=== PATIENT | male | born 1960 | race Caucasian/White ===

== ENCOUNTER 2021-03-01 07:42 | Outpatient (REF) | payer BC, SELFPAY ==
[2021-03-01 11:16] LABS: MANUAL DIFF FLAG NO
[2021-03-01 11:33] LABS: Basophils Percent Auto 0.6 % (0-2); Eosinophils Absolute Auto 0.2 X10*3/uL (0.0-0.4); Eosinophils Percent Auto 3.5 % (0-4); Hematocrit 49.3 % (42-52); Hemoglobin 16.4 g/dl (14.0-18.0); Lymphocytes Absolute Auto 2.2 X10*3/uL (1.2-4.9); Lymphocytes Percent Auto 41.7 % (20-40); Mean Corpuscular HGB Conc 33.3 g/dl (31.0-36.0); Mean Corpuscular Hemoglobin 31.8 pg (27.0-33.0); Mean Corpuscular Volume 95.7 fL (80-98); Mean Platelet Volume 10.9 fL (9.4-12.4); Monocytes Absolute Auto 0.5 X10*3/uL (0.1-1.2); Monocytes Percent Auto 9.8 % (2-11); Neutrophils Absolute Auto 2.3 X10*3/uL (2.0-8.3); Neutrophils Percent Auto 44.4 % (45-73); Platelet Count 180 X10*3/uL (160-400); Red Blood Count 5.15 X10*6/uL (4.60-5.80); Red Cell Distribution Width 12.5 % (11.0-16.0); White Blood Count 5.2 X10*3/uL (4.8-10.8)
[2021-03-01 12:04] LABS: Anion Gap 12 (12-20); Blood Urea Nitrogen 12 mg/dL (9-16); Calcium 9.5 mg/dL (8.4-10.2); Carbon Dioxide 29 mmol/L (22-29); Chloride 102 mmol/L (96-108); Cholesterol 156 mg/dL; Estimated Glomerular Filt Rate > 60; Glucose Fasting 98 mg/dL (60-99); HDL Cholesterol 50 mg/dL; LDL Cholesterol Calculated 85 mg/dl; Potassium 4.3 mmol/L (3.3-5.1); Sodium 139 mmol/L (135-145); Triglycerides 107 mg/dL
== END 2021-03-01 07:43 | disposition home or self-care (01) ==
LOC: HO.HMGCLDS 07:42
PROVIDERS: PCP Internal Medicine; Visit Provider Internal Medicine
DX: E78.9 Disorder of lipoprotein metabolism, unspecified (principal); F41.1 Generalized anxiety disorder; G47.9 Sleep disorder, unspecified; M62.830 Muscle spasm of back
CPT/HCPCS: 36415; 80048; 80061; 85025

== ENCOUNTER → 2021-05-14 14:52 | Outpatient (BNVA) | payer BC, SELFPAY | PROVIDERS: PCP Internal Medicine; Visit Provider Urology ==

== ENCOUNTER 2021-07-03 10:41 | Outpatient (REF) | payer BC, SELFPAY ==
[2021-07-03 15:37] LABS: Prostate Specific Antigen 1.45 ng/mL (<0.05-4.0)
== END 2021-07-03 10:42 | disposition home or self-care (01) ==
LOC: HO.HMGCLDS 10:41
PROVIDERS: PCP Internal Medicine; Visit Provider Urology
DX: N40.1 Benign prostatic hyperplasia with lower urinary tract symptoms (principal); N13.8 Other obstructive and reflux uropathy
CPT/HCPCS: 36415; 84153

== ENCOUNTER 2021-07-09 11:47 | Outpatient (REF) | payer BC, SELFPAY ==
[2021-07-09 13:58] LABS: MANUAL DIFF FLAG NO
[2021-07-09 14:02] LABS: Basophils Percent Auto 0.4 % (0-2); Eosinophils Absolute Auto 0.1 X10*3/uL (0.0-0.4); Hemoglobin 16.8 g/dl (14.0-18.0); Imm Gran Abs Auto 0.01 X10*3/uL (0.00-0.03); Imm Gran Pct Auto 0.2 % (0.0-0.4); Lymphocytes Absolute Auto 2.1 X10*3/uL (1.2-4.9); Lymphocytes Percent Auto 40.5 % (20-40); Mean Corpuscular HGB Conc 33.6 g/dl (31.0-36.0); Mean Corpuscular Hemoglobin 31.7 pg (27.0-33.0); Mean Corpuscular Volume 94.3 fL (80-98); Mean Platelet Volume 11.9 fL (9.4-12.4); Monocytes Absolute Auto 0.4 X10*3/uL (0.1-1.2); Monocytes Percent Auto 8.4 % (2-11); Neutrophils Absolute Auto 2.5 X10*3/uL (2.0-8.3); Neutrophils Percent Auto 48.5 % (45-73); Platelet Count 153 X10*3/uL (160-400); Red Cell Distribution Width 12.3 % (11.0-16.0); White Blood Count 5.1 X10*3/uL (4.8-10.8)
[2021-07-09 14:34] LABS: Alanine Aminotransferase 22 U/L (0-40); Albumin Level 4.6 g/dL (3.5-5.0); Alkaline Phosphatase 85 U/L (39-117); Anion Gap 12 (12-20); Aspartate Amino Transferase 23 U/L (5-37); Bilirubin Total 0.7 mg/dL (0.0-1.0); Blood Urea Nitrogen 11 mg/dL (9-16); Calcium 9.8 mg/dL (8.4-10.2); Carbon Dioxide 29 mmol/L (22-29); Chloride 104 mmol/L (96-108); Estimated Glomerular Filt Rate > 60; Glucose Random 84 mg/dL (60-115); Potassium 5.2 mmol/L (3.3-5.1); Sodium 140 mmol/L (135-145); Total Protein 7.4 g/dL (6.5-8.0)
[2021-07-10 11:42] LABS: LDL Cholesterol Direct 101 mg/dL (<100)
== END 2021-07-09 11:48 | disposition home or self-care (01) ==
LOC: HO.HMGCLDS 11:47
PROVIDERS: PCP Internal Medicine; Visit Provider Internal Medicine
DX: Z00.01 Encounter for general adult medical examination with abnormal findings (principal); E78.9 Disorder of lipoprotein metabolism, unspecified; F41.1 Generalized anxiety disorder; G47.9 Sleep disorder, unspecified; N40.0 Benign prostatic hyperplasia without lower urinary tract symptoms
CPT/HCPCS: 36415; 80053; 83721; 85025

== ENCOUNTER → 2021-07-12 13:07 | Outpatient (BNVA) | payer BC, SELFPAY | PROVIDERS: PCP Internal Medicine; Visit Provider Urology ==

== ENCOUNTER 2021-08-06 10:32 | Outpatient (REF) | payer BC, SELFPAY ==
[2021-08-06 13:20] LABS: Erythrocyte Sedimentation Rate 1 MM/HR (0-15)
[2021-08-06 13:52] LABS: Folate 5.2 ng/mL (> or = 4.0); Vitamin B12 227 pg/mL (200-900)
[2021-08-07 08:05] LABS: Syphilis Screen Nonreactive (Nonreactive)
[2021-08-07 08:31] LABS: Lyme Abs Screen <0.90 index
[2021-08-07 16:42] LABS: Homocysteine 24.9 umol/L (<11.4)
== END 2021-08-06 10:33 | disposition home or self-care (01) ==
LOC: HO.HMGCLDS 10:32
PROVIDERS: PCP Internal Medicine; Visit Provider Psychiatry & Neurology Neurology
DX: F03.90 Unspecified dementia, unspecified severity, without behavioral disturbance, psychotic disturbance, mood disturbance, and anxiety (principal)
CPT/HCPCS: 36415; 82607; 82746; 83090; 85652; 86617; 86618; 86780

== ENCOUNTER 2021-08-16 17:54 | Outpatient (REF) | payer OTHER, SELFPAY ==
--- NOTE | ~2021-08-16 | MR_ITS ---
MRI OF THE BRAIN WITHOUT IV CONTRAST INDICATION: Dementia. Parkinson's. COMPARISON: None available. TECHNIQUE: Multiplanar multisequence MR imaging of the brain was obtained without IV contrast. FINDINGS: There is no hydrocephalus, extra-axial surface collection, or herniation. Mild chronic microangiopathy. The major flow voids at the skull base are preserved. There is no acute infarct on diffusion-weighted imaging. There is no intracranial hemorrhage on the gradient recalled echo acquisition. The midline structures are normal. The cerebellar tonsils are normally positioned. The cerebellum and brainstem are normal. The craniocervical junction is normal. Osseous marrow signal intensity is homogenous. The visualized soft tissues are unremarkable. MR/MR head/brain wo con IMPRESSION: - No acute intracranial findings. - Mild chronic microangiopathy.
== END 2021-08-16 17:55 | disposition home or self-care (01) ==
LOC: HO.MRI 17:54
PROVIDERS: Visit Provider Psychiatry & Neurology Neurology
DX: F03.90 Unspecified dementia, unspecified severity, without behavioral disturbance, psychotic disturbance, mood disturbance, and anxiety (principal); G20 Parkinson's disease
CPT/HCPCS: 70551

== ENCOUNTER → 2021-08-22 14:19 | Outpatient (BNVA) | payer OTHER, SELFPAY | PROVIDERS: PCP Internal Medicine; Visit Provider Nurse Practitioner ==

== ENCOUNTER 2021-11-20 14:42 | Outpatient (REF) | payer OTHER, SELFPAY ==
[2021-11-20 16:38] LABS: Alanine Aminotransferase 7 U/L (0-40); Albumin Level 4.1 g/dL (3.5-5.0); Alkaline Phosphatase 83 U/L (39-117); Anion Gap 8 (12-20); Aspartate Amino Transferase 21 U/L (5-37); Bilirubin Total 0.9 mg/dL (0.0-1.0); Blood Urea Nitrogen 12 mg/dL (9-16); Calcium 9.8 mg/dL (8.4-10.2); Carbon Dioxide 31 mmol/L (22-29); Chloride 103 mmol/L (96-108); Estimated Glomerular Filt Rate > 60; Glucose Random 112 mg/dL (60-115); Potassium 4.2 mmol/L (3.3-5.1); Sodium 138 mmol/L (135-145); Total Protein 6.9 g/dL (6.5-8.0)
== END 2021-11-20 14:43 | disposition home or self-care (01) ==
LOC: HO.HMGCLDS 14:42
PROVIDERS: PCP Internal Medicine; Visit Provider Internal Medicine
DX: E78.9 Disorder of lipoprotein metabolism, unspecified (principal); G47.9 Sleep disorder, unspecified; F41.1 Generalized anxiety disorder; E78.5 Hyperlipidemia, unspecified
CPT/HCPCS: 36415; 80053

== ENCOUNTER → 2021-12-26 13:51 | Outpatient (BNVA) | payer OTHER, SELFPAY | PROVIDERS: PCP Internal Medicine; Visit Provider Psychiatry & Neurology Neurology ==

== ENCOUNTER 2022-03-03 08:27 | Outpatient (REF) | payer OTHER, SELFPAY ==
[2022-03-03 11:38] LABS: MANUAL DIFF FLAG NO
[2022-03-03 12:13] LABS: Basophils Percent Auto 0.7 % (0-2); Eosinophils Absolute Auto 0.1 X10*3/uL (0.0-0.4); Eosinophils Percent Auto 2.8 % (0-4); Hematocrit 49.3 % (42.0-52.0); Hemoglobin 16.4 g/dl (14.0-18.0); Lymphocytes Absolute Auto 1.7 X10*3/uL (1.2-4.9); Lymphocytes Percent Auto 40.6 % (20-40); Mean Corpuscular HGB Conc 33.3 g/dl (31.0-36.0); Mean Corpuscular Hemoglobin 31.8 pg (27.0-33.0); Mean Corpuscular Volume 95.7 fL (80.0-98.0); Monocytes Absolute Auto 0.3 X10*3/uL (0.1-1.2); Monocytes Percent Auto 7.5 % (2-11); Neutrophils Absolute Auto 2.1 x10*3/uL (2.0-8.3); Neutrophils Percent Auto 48.4 % (45-73); Platelet Count 146 X10*3/uL (160-400); Red Blood Count 5.15 X10*6/uL (4.60-5.80); Red Cell Distribution Width 12.2 % (11.0-16.0); White Blood Count 4.2 X10*3/uL (4.8-10.8)
[2022-03-03 12:15] LABS: Alanine Aminotransferase 7 U/L (0-40); Albumin Level 4.1 g/dL (3.5-5.0); Alkaline Phosphatase 86 U/L (39-117); Anion Gap 9 (12-20); Aspartate Amino Transferase 19 U/L (5-37); Bilirubin Total 0.8 mg/dL (0.0-1.0); Blood Urea Nitrogen 10 mg/dL (9-16); Calcium 10.1 mg/dL (8.4-10.2); Carbon Dioxide 33 mmol/L (22-29); Chloride 102 mmol/L (96-108); Estimated Glomerular Filt Rate > 60; Glucose Random 110 mg/dL (60-115); Potassium 4.7 mmol/L (3.3-5.1); Sodium 139 mmol/L (135-145); Total Protein 6.9 g/dL (6.5-8.0)
[2022-03-03 12:22] LABS: TSH reflex Free T4 1.83 uIU/mL (0.32-4.0)
[2022-03-03 12:46] LABS: Folate 5.8 ng/mL (> or = 4.0); Vitamin B12 436 pg/mL (200-900)
== END 2022-03-03 08:28 | disposition home or self-care (01) ==
LOC: HO.HMGCLDS 08:27
PROVIDERS: Visit Provider Psychiatry & Neurology Neurology
DX: E53.8 Deficiency of other specified B group vitamins (principal); G20 Parkinson's disease; R41.3 Other amnesia; F41.1 Generalized anxiety disorder
CPT/HCPCS: 36415; 80053; 82607; 82746; 84443; 85025; 99212

== ENCOUNTER → 2022-06-16 07:50 | Outpatient (BNVA) | payer OTHER, SELFPAY | PROVIDERS: PCP Internal Medicine; Visit Provider Psychiatry & Neurology Neurology | DX: G20 Parkinson's disease (principal); R41.3 Other amnesia; F41.1 Generalized anxiety disorder | CPT/HCPCS: 99212 ==

== ENCOUNTER 2022-08-07 09:36 | Outpatient (REF) | payer OTHER, SELFPAY ==
[2022-08-07 14:34] LABS: Alanine Aminotransferase 6 U/L (0-40); Albumin Level 4.5 g/dL (3.5-5.0); Alkaline Phosphatase 94 U/L (39-117); Anion Gap 16 (12-20); Aspartate Amino Transferase 18 U/L (5-37); Bilirubin Total 0.4 mg/dL (0.0-1.0); Blood Urea Nitrogen 10 mg/dL (9-16); C Reactive Protein 0.05 mg/dL (< or = 0.50); Calcium 9.9 mg/dL (8.4-10.2); Carbon Dioxide 29 mmol/L (22-29); Chloride 102 mmol/L (96-108); Cholesterol 181 mg/dL; Estimated Glomerular Filt Rate > 60; Glucose Fasting 92 mg/dL (60-99); HDL Cholesterol 57 mg/dL; LDL Cholesterol Calculated 107 mg/dl; Potassium 5.1 mmol/L (3.3-5.1); Sodium 142 mmol/L (135-145); Total Protein 7.2 g/dL (6.5-8.0); Triglycerides 87 mg/dL
[2022-08-14 08:33] LABS: Transglutaminase Ab IgG <1.0 U/mL; Transglutaminase IgA <1.0 U/mL
== END 2022-08-07 09:37 | disposition home or self-care (01) ==
LOC: HO.LAB 09:36
PROVIDERS: Absent Provider Nurse Practitioner; PCP Internal Medicine; Visit Provider Urology
DX: R10.13 Epigastric pain (principal); R11.2 Nausea with vomiting, unspecified; R63.4 Abnormal weight loss; R13.10 Dysphagia, unspecified; N40.1 Benign prostatic hyperplasia with lower urinary tract symptoms; N39.498 Other specified urinary incontinence; N52.01 Erectile dysfunction due to arterial insufficiency; E78.9 Disorder of lipoprotein metabolism, unspecified; F41.1 Generalized anxiety disorder; G47.9 Sleep disorder, unspecified; E53.8 Deficiency of other specified B group vitamins; R41.3 Other amnesia; G20 Parkinson's disease; F02.80 Dementia in other diseases classified elsewhere, unspecified severity, without behavioral disturbance, psychotic disturbance, mood disturbance, and anxiety; R19.7 Diarrhea, unspecified; Z01.82 Encounter for allergy testing; Z79.899 Other long term (current) drug therapy
CPT/HCPCS: 36415; 51798; 80053; 80061; 86003; 86140; 86364; 99212

== ENCOUNTER 2022-08-14 12:01 | Outpatient (REF) | payer OTHER, SELFPAY ==
[2022-08-14 14:05] LABS: Adenovirus F 40/41 Not Detected (Not Detect.); Astrovirus Not Detected (Not Detect.); Campylobacter Not Detected (Not Detect.); Cryptosporidium Not Detected (Not Detect.); Cyclospora cayetanensis Not Detected (Not Detect.); E. coli EAEC Not Detected (Not Detect.); E. coli EPEC Not Detected (Not Detect.); E. coli ETEC Not Detected (Not Detect.); E. coli STEC Not Detected (Not Detect.); Entamoeba histolytica Not Detected (Not Detect.); Giardia lamblia Not Detected (Not Detect.); Norovirus GI/GII Not Detected (Not Detect.); Plesiomonas shigelloides Not Detected (Not Detect.); Rotavirus A Not Detected (Not Detect.); Salmonella Not Detected (Not Detect.); Sapovirus Not Detected (Not Detect.); Shigella sp./EIEC Not Detected (Not Detect.); Vibrio Not Detected (Not Detect.); Vibrio Cholerae Not Detected (Not Detect.); Yersinia enterocolitica Not Detected (Not Detect.)
== END 2022-08-14 12:02 | disposition home or self-care (01) ==
LOC: HO.LNP 12:01
PROVIDERS: Visit Provider Nurse Practitioner
DX: R10.13 Epigastric pain (principal); R11.2 Nausea with vomiting, unspecified; R63.4 Abnormal weight loss
CPT/HCPCS: 87338; 87507

== ENCOUNTER → 2022-08-21 07:53 | Outpatient (BNVA) | payer OTHER, SELFPAY | PROVIDERS: PCP Internal Medicine; Visit Provider Psychiatry & Neurology Neurology | DX: G20 Parkinson's disease (principal); R41.3 Other amnesia; F41.1 Generalized anxiety disorder | CPT/HCPCS: 99212 ==

== ENCOUNTER 2022-08-28 07:57 | Day surgery (SDC) | payer OTHER, SELFPAY ==
[2022-08-22 15:12] VITALS: BMI 27.3
--- NOTE | 2022-08-27 08:22 | P.CONAN_ITS ---
Documented by User: Whitney Paige NP 08/27/22 08:23 HPI - Anesthesia Eval Consult details Narrative: 62yo M for Upper Endoscopy and Colonoscopy [facility] Active Problems Active Problems: All Active Problems (Updated 08/22/22 @ 14:54 by Fide Quintero RN) Urinary incontinence (Acute) Erectile dysfunction (Acute) Encounter for general adult medical examination with abnormal findings (Acute) Memory change (Acute) Tremor of both hands (Acute) Colon cancer screening (Acute) B12 deficiency (Acute) Parkinsons disease (Acute) Serum potassium elevated (Acute) Nausea & vomiting (Acute) Epigastric pain (Acute) Abnormal weight loss (Acute) Diarrhea (Acute) Environmental allergies (Acute) BPH (benign prostatic hyperplasia) (Acute) Back muscle spasm (Acute) Anxiety, generalized (Acute) Difficulty sleeping (Acute) Lipid disorder (Acute) Past Medical History Medical History Alcohol abuse Anxiety, generalized Back muscle spasm BPH (benign prostatic hyperplasia) Difficulty sleeping Environmental allergies Lipid disorder Parkinson disease Family History Family History Father HTN (hypertension) Stroke Diabetes mellitus Cancer Mother Diabetes mellitus Sarcoidosis Heart failure Renal failure Brother Addisons disease Sister Aneurysm Son No problems noted. Son No problems noted. Surgical History Surgical History H/O colonoscopy History of back surgery History of knee surgery History of lumbar fusion Social History Social History Housing: House Alcohol intake: former Patient Tobacco Use Status: Never used Tobacco Tobacco use type: Smokeless Tobacco e-Cigarette/Vaping Use: Never Used Substance Use Type: Marijuana Current occupational status: employed Cognitive needs: No Hearing needs: No Vision needs: Yes Meds Allergies Allergy/AdvReac Type Severity Reaction Status Date / Time No Known Allergies Allergy Unknown Verified 08/27/22 15:33 Home Medications Medication Instructions Recorded Confirmed Last Taken Type gabapentin 300 mg capsule 600 mg PO DAILY 06/16/22 08/27/22 Unknown History COVID-19 antigen test (Flowflex #1 ea 08/04/22 08/27/22 Unknown History COVID-19 Antigen Home Test kit) Exam Exam Date and Time: August 27, 2022 0822 Height,Weight and Vital Signs: Height 6 ft 2 in Weight 96.615 kg Pertinent Lab Results Pertinent Lab Results: Laboratory Tests 03/03/22 08/07/22 09:05 13:25 WBC 4.2 L Hgb 16.4 Hct 49.3 Plt Count 146 L Sodium 142 Potassium 5.1 Chloride 102 Carbon Dioxide 29 BUN 10 Creatinine 1.13 Assessment and Plan Assessment Anesthesia Assessment: Chart Reviewed Documented by User: Aayush Hdz MD 08/28/22 17:52 [facility] Past Medical History Medical History Alcohol abuse Anxiety, generalized Back muscle spasm BPH (benign prostatic hyperplasia) Difficulty sleeping Environmental allergies Lipid disorder Parkinson disease Family History Family History Father HTN (hypertension) Stroke Diabetes mellitus Cancer Mother Diabetes mellitus Sarcoidosis Heart failure Renal failure Brother Addisons disease Sister Aneurysm Son No problems noted. Son No problems noted. Family history of problems with anesthesia: No Surgical History Surgical History H/O colonoscopy History of back surgery History of knee surgery History of lumbar fusion History of Problems with Anesthesia: No Social History Social History Housing: House Alcohol intake: former Patient Tobacco Use Status: Never used Tobacco Tobacco use type: Smokeless Tobacco e-Cigarette/Vaping Use: Never Used Substance Use Type: Marijuana Current occupational status: employed Cognitive needs: No Hearing needs: No Vision needs: Yes Meds Allergies Allergy/AdvReac Type Severity Reaction Status Date / Time No Known Allergies Allergy Unknown Verified 08/27/22 15:33 Home Medications Medication Instructions Recorded Confirmed Last Taken Type gabapentin 300 mg capsule 600 mg PO DAILY 06/16/22 08/27/22 Unknown History COVID-19 antigen test (Flowflex #1 ea 08/04/22 08/27/22 Unknown History COVID-19 Antigen Home Test kit) Exam Airway Mallampati Class: III Neck ROM: Full Loose/Missing/Broken Teeth: Yes Heart: S1,S2 Lungs: b/l breath sounds Assessment and Plan Assessment Anesthesia Assessment: Anesthesia Plan Discussed Final Anesthetic Review Family History of Problems with Anesthesia: No History of Problems with Anesthesia: No NPO: Yes ASA Class: II Final Preanesthetic Review: Meds/Allgs Chart Reviewed, Consent Obtained/Reviewed and Anes Risks/Benef Reviewed Patient Risk: Intermediate Procedure Risk: Intermediate Anesthetic Plan Anesthetic Plan: GA Disposition: Standard PACU
[2022-08-28 08:07] VITALS: BP 129/61; PULSE 56; RESP 18; TEMP 36.4; O2SAT 95
[2022-08-28] MEDS: Lactated Ringers 1,000 ML 100 ML IVCONT (08:15)
--- NOTE | 2022-08-28 08:53 | MHC.SHP ---
Pre-Procedural Eval Section A Date of Service: 08/28/22 Section B Chief Complaint: nausea and weight loss Relevant Family History (Specify if Yes): No Relevant Social History: Other (specify) (THC) Present Medications: see Short Stay Collaborative assessment Medical History: Significant History (Alcohol abuse Anxiety, generalized Back muscle spasm BPH (benign prostatic hyperplasia) Difficulty sleeping Environmental allergies Lipid disorder Parkinson disease) History of Previous Operations: Relevant previous surgery/procedure and date(s) (H/O colonoscopy History of back surgery History of knee surgery History of lumbar fusion) Allergies: Allergies Allergy/AdvReac Type Severity Reaction Status Date / Time No Known Allergies Allergy Unknown Verified 08/27/22 15:33 Review of Systems Sugical H&P ROS: Negative: Constitution, Cardiovascular, Respiratory, Neurological, Psychiatric, Hem-Onc, Allergic/Immunologic, Gastrointestinal, Genitourinary, Musculoskeletal, Integumentary, Endocrine and Eyes/Ears/Nose/Throat Exam Surgical H&P Exam: Normal: HEENT, Normal: Heart, Normal: Lungs, Normal: Extremities, Normal: Abdomen, Normal: Skin and Normal: Neurological Plan Diagnosis/Plan: Unchanged I have reviewed the history and physical and performed a pertinent physical examination on my patient. No changes have occurred unless specified.
--- NOTE | 2022-08-28 08:55 | P.OP_ITS ---
Operative Note Operative Note Date of Service: 08/28/22 Narrative: Operative Information Procedure Description: EGD, Colonoscopy Indication: nausea, weight loss Anesthesia: MAC FLEXIBLE TRANSORAL UPPER GASTROINTESTINAL ENDOSCOPY AND COLONOSCOPY PROCEDURE NOTE UPPER ENDOSCOPY Consent: Indications for the procedure and potential complications of bleeding, perforation, reaction to medications and missed diagnosis were discussed with the patient and informed consent was obtained. Instrument: Olympus GIF H 190 J mid size upper endoscope Monitoring: Vital signs and clinical assessment, continuous EKG monitoring, Pulse oximetry, Carbon Dioxide monitoring and blood pressure monitoring were done throughout the procedure. Procedure: The patient was placed in the left lateral decubitis position and pre-procedure medications were administered and a bite block was placed. The endoscope was inserted into the mouth and advanced under direct vision to the third part of duodenum. A careful inspection was made as the upper endoscope was withdrawn including a retroflexed examination of the proximal stomach; Findings and interventions are described below. Findings: Larynx:normal Esophagus: GE junction at 42 cm, diaphragm hiatus at 44 cm, consistent with 2 cm sliding hiatal hernia, LA grade A esophagitis noted Stomach: Normal mucosa. Biopsies were obtained. Grade 2 flap valve on retroflexed examination of the cardia. Duodenum: Normal bulb and descending duodenum, bx taken Intervention: Biopsies as noted above COLONOSCOPY Instrument: Olympus variable stiffness pediatric scope 190L Colonoscopy Monitoring: Vital signs and clinical assessment, continuous EKG monitoring, Pulse oximetry, Carbon Dioxide monitoring and blood pressure monitoring were done throughout the procedure. Colon withdrawal time was 8 minutes. Procedure: The patient was placed in the left lateral decubitis position and pre-procedure medications were administered. After a digital rectal examination of the ano-rectum, the video colonoscope was inserted into the rectum and advanced through the colon to the cecum/TI. The colonoscope was slowly withdrawn in a retrograde panoramic fashion and the colon mucosa was carefully examined including a retroflexed view of the rectum. Findings and interventions are described below. Procedure Difficulty: Findings: Terminal Ileum-normal Cecum:normal Ascending Colon: normal Transverse Colon -normal Descending Colon:normal Sigmoid Colon: mild diverticulosis Rectum: Retroflexion with small internal hemorrhoids, grade I with skin tag Anorectum - normal Colon preparation: [place] Bowel Preparation Scale Right colon; 1 Transverse colon: 2 Left colon; 1-2 (0 = Unprepared colon segment with mucosa not seen due to solid stool that kimberly ot be cleared. 1 = Portion of mucosa of the colon segment seen, but other areas of the colon segment not well seen due to staining, residual stool and/or opaque liquid. 2 = Minor amount of residual staining, small fragments of stool and/or opaque liquid, but mucosa of colon segment seen well. 3 = Entire mucosa of colon segment seen well with no residual staining, small fragments of stool or opaque liquid) Impression and Post Procedure Diagnosis: Endoscopy Findings: erosive esophagitis hiatal hernia Colonoscopy Findings: internal hemorrhoids diverticular disease Plan: Await Pathology results Repeat Colonoscopy in 8-12 months or earlier if clinically indicated (patient ate nuts yesterday-should avoid next time) High fiber diet leaflet avoid straining at stool, epsom salts and sitz bath, anusol supps or cream ensure compliance with PPI, and taking correctly, if not working then can change Above findings were reviewed with the patient and relevant handouts were provided if indicated.
[2022-08-28 09:43] VITALS: BP 113/61; PULSE 50; RESP 13; TEMP 36.1; O2SAT 97
[2022-08-28 09:57] VITALS: BP 109/76; PULSE 46; RESP 16; O2SAT 96
[2022-08-28 10:12] VITALS: BP 133/76; PULSE 50; RESP 16; TEMP 36.4; O2SAT 97
== END 2022-08-28 11:15 | disposition home or self-care (01) ==
PROVIDERS: PCP Internal Medicine; Visit Provider Internal Medicine Gastroenterology
PROC: (CPT 45378; principal; 2022-08-28 09:00)
DX: Z12.11 Encounter for screening for malignant neoplasm of colon (principal); K57.30 Diverticulosis of large intestine without perforation or abscess without bleeding; K64.0 First degree hemorrhoids; K64.4 Residual hemorrhoidal skin tags; R63.4 Abnormal weight loss; R11.2 Nausea with vomiting, unspecified; K20.80 Other esophagitis without bleeding; K44.9 Diaphragmatic hernia without obstruction or gangrene; N40.0 Benign prostatic hyperplasia without lower urinary tract symptoms; G20 Parkinson's disease; R25.2 Cramp and spasm; E75.6 Lipid storage disorder, unspecified; J30.2 Other seasonal allergic rhinitis; F10.10 Alcohol abuse, uncomplicated; F41.1 Generalized anxiety disorder; Z79.899 Other long term (current) drug therapy
CPT/HCPCS: 45378; 43239; 88305; 88342

== ENCOUNTER 2022-09-04 08:22 | Outpatient (REF) | payer OTHER, SELFPAY ==
--- NOTE | ~2022-09-04 | US_ITS ---
EXAMINATION: US ABDOMEN COMPLETE CLINICAL INFORMATION: Nausea with vomiting, unspecified. COMPARISON: None TECHNIQUE: Real-time imaging of the abdominal viscera. Technically limited study secondary to body habitus. FINDINGS: PANCREAS: Not visualized due to shadowing from overlying bowel gas. ABDOMINAL AORTA: The proximal, mid, and distal segments are normal in caliber. INFERIOR VENA CAVA: Visualized portions are normal. LIVER: There is increased liver parenchymal echogenicity sparing regions adjacent to the gallbladder fossa. There are 2 homogeneously hyperechoic avascular lesions in the right hepatic lobe measuring 1 x 0.9 x 1 cm and 0.5 x 0.6 x 0.6 cm. No intrahepatic biliary ductal dilatation. GALLBLADDER: Echogenic bile versus gallbladder sludge. There is borderline thickening of the gallbladder measuring up to 0.3 cm. No evidence of shadowing stones nor vascular polyps. No pericholecystic free fluid. Negative Blevins's sign. COMMON BILE DUCT: Normal in caliber measuring 0.43 cm in diameter. RIGHT KIDNEY: There are couple of simple cysts for which no imaging follow-up is routinely recommended, largest measuring 1.8 cm in the upper pole. No hydronephrosis or renal calculi. The kidney measures 11.7 cm in maximum dimension. LEFT KIDNEY: There is a nonobstructive 0.3 cm calculus in the lower pole. No hydronephrosis or focal parenchymal lesions. The kidney measures 12.2 cm in maximum dimension. SPLEEN: Normal. The spleen measures 12.7 cm in maximum dimension. FREE FLUID: None. US/US abdomen complete IMPRESSION: 1. Increased liver parenchymal echogenicity suggesting hepatic steatosis or hepatocellular disease. 2. There are 2 homogeneously hyperechoic avascular lesions in the right hepatic lobe which could represent hemangiomas in the absence of underlying liver disease. However, given the suggestion of hepatocellular disease/hepatic steatosis, further characterization with a dynamic abdominal MRI is recommended obtained. 3. There is borderline thickening of the gallbladder wall with echogenic bile versus sludge. No pericholecystic free fluid or sonographic Blevins's sign. If clinically deemed appropriate, correlation with cross-sectional imaging or a nuclear medicine hepatobiliary study could be obtained to evaluate for the presence of acute cholecystitis. 4. Nonobstructive 0.3 cm calculus in the lower pole of the left kidney. 5. Simple cysts in the right kidney for which no imaging follow-up is routinely recommended.
== END 2022-09-04 08:23 | disposition home or self-care (01) ==
LOC: HO.HMGCX 08:22
PROVIDERS: PCP Internal Medicine; Visit Provider Nurse Practitioner
DX: R11.2 Nausea with vomiting, unspecified (principal); R10.13 Epigastric pain; R63.4 Abnormal weight loss
CPT/HCPCS: 76700

== ENCOUNTER → 2022-09-11 08:57 | Outpatient (BNVA) | payer OTHER, SELFPAY | PROVIDERS: PCP Internal Medicine; Visit Provider Nurse Practitioner | DX: R11.2 Nausea with vomiting, unspecified (principal); R19.7 Diarrhea, unspecified; R63.4 Abnormal weight loss; R93.5 Abnormal findings on diagnostic imaging of other abdominal regions, including retroperitoneum; R10.13 Epigastric pain; G20 Parkinson's disease | CPT/HCPCS: 99212 ==

== ENCOUNTER → 2022-10-01 07:46 | Outpatient (BNVA) | payer OTHER, SELFPAY | PROVIDERS: PCP Internal Medicine; Visit Provider Physician Assistant | DX: M65.332 Trigger finger, left middle finger (principal) | CPT/HCPCS: 99202 ==

== ENCOUNTER 2022-10-07 06:42 | Emergency (ER) | payer OTHER, SELFPAY ==
--- NOTE | ~2022-10-07 | CT_ITS ---
EXAMINATION: CT ABDOMEN AND PELVIS WITH CONTRAST CLINICAL INFORMATION: Left lower quadrant pain COMPARISON: Ultrasound abdomen 09/04/2022 TECHNIQUE: Multidetector volumetric images were obtained from the superior aspect of the liver through the pubic symphysis following administration 85 mL of Omnipaque 350 intravenous contrast. Sagittal and coronal reformatted images were obtained on the technologist's workstation. Oral contrast: No This CT examination was performed using dose optimization techniques as appropriate, variously including the following: *Automated exposure control *Adjustment of mA and/or kV according to patient size (this includes techniques or standardized protocols for targeted exams where dose is matched to indication/reason for exam; i.e. extremities or head) *Use of iterative reconstruction technique DLP: 797 mGy-cm FINDINGS: LUNG BASES: Minimal atelectatic changes are seen in both lung bases. The heart size is normal. LIVER, GALLBLADDER, AND BILIARY TREE: The liver is normal in size, shape, and attenuation. There are several 5 mm hypodense liver lesions seen in the right and left hepatic lobe, too small to correctly characterize. No enhancing lesion seen. There is no intrahepatic ductal dilatation. The gallbladder is unremarkable with no evidence of radiopaque gallstones, gallbladder wall thickening, or obvious pericholecystic inflammatory changes. PANCREAS: Unremarkable. SPLEEN: Unremarkable. ADRENAL GLANDS: Unremarkable. KIDNEYS AND URETERS: The kidneys are normal in size, shape, and attenuation. No hydronephrosis, hydroureter, or calculi seen. No perinephric stranding. There are bilateral renal cysts BLADDER: Unremarkable. GASTROINTESTINAL TRACT: There is scattered stool and gas seen throughout the colon without significant distention. The small bowel loops are normal caliber. Appendix is not seen. No free air or free fluid seen. ABDOMINAL WALL: No significant hernia is appreciated. LYMPH NODES: Normal. VASCULAR: Unremarkable. PELVIC VISCERA: There is scattered stool in the colon without distention no free air or free fluid seen. OSSEOUS STRUCTURES: There is bilateral L5 and L4 laminectomies with bilateral pedicular screws L4-L5 vertebra with interconnecting rods for posterior stabilization. No aggressive lytic or sclerotic process seen. CT/CT abdomen pelvis w IV con IMPRESSION: No acute intra-abdominal process seen. Especially no abnormality seen in left lower quadrant. Mild prostate enlargement. L4-L5 posterior hardware for fusion. Bilateral renal cysts. Several 5 mm hypodense liver lesions probable cyst. Fleischner guidelines were followed.
[2022-10-07 06:51] VITALS: BP 101/68; PULSE 64; RESP 16; TEMP 36.8; O2SAT 93; BMI 27.4
[2022-10-07 07:17] LABS: MANUAL DIFF FLAG NO
[2022-10-07 07:21] LABS: Basophils Percent Auto 0.5 % (0-2); Eosinophils Absolute Auto 0.1 X10*3/uL (0.0-0.4); Eosinophils Percent Auto 1.6 % (0-4); Hematocrit 48.1 % (42.0-52.0); Hemoglobin 16.8 g/dl (14.0-18.0); Imm Gran Abs Auto 0.01 X10*3/uL (0.00-0.03); Imm Gran Pct Auto 0.2 % (0.0-0.4); Lymphocytes Absolute Auto 1.1 X10*3/uL (1.2-4.9); Lymphocytes Percent Auto 18.8 % (20-40); Mean Corpuscular HGB Conc 34.9 g/dl (31.0-36.0); Mean Corpuscular Volume 91.6 fL (80.0-98.0); Mean Platelet Volume 10.5 fL (9.4-12.4); Monocytes Absolute Auto 0.6 X10*3/uL (0.1-1.2); Monocytes Percent Auto 9.9 % (2-11); Platelet Count 120 X10*3/uL (160-400); Red Blood Count 5.25 X10*6/uL (4.60-5.80); Red Cell Distribution Width 12.2 % (11.0-16.0); White Blood Count 5.7 X10*3/uL (4.8-10.8)
[2022-10-07 07:38] LABS: Alanine Aminotransferase < 6 U/L (0-40); Albumin Level 4.2 g/dL (3.5-5.0); Alkaline Phosphatase 89 U/L (39-117); Anion Gap 13 (12-20); Aspartate Amino Transferase 14 U/L (5-37); Bilirubin Total 0.7 mg/dL (0.0-1.0); Blood Urea Nitrogen 14 mg/dL (9-16); Calcium 9.4 mg/dL (8.4-10.2); Carbon Dioxide 24 mmol/L (22-29); Chloride 105 mmol/L (96-108); Creatinine Clr Calc Pharmacy 86.4; Estimated Glomerular Filt Rate > 60; Glucose Random 108 mg/dL (60-115); Lipase 45 U/L (8-78); Potassium 4.1 mmol/L (3.3-5.1); Sodium 138 mmol/L (135-145); Total Protein 6.8 g/dL (6.5-8.0)
--- NOTE | 2022-10-07 08:07 | ED_ITS ---
HPI - Abdominal Pain General Chief Complaint: Abdominal Pain Stated Complaint: stomach pain Time Seen by Provider: 10/07/22 08:02 Source: patient Mode of arrival: ambulatory Limitations: no limitations History of Present Illness HPI narrative: Margarito is a 62 years old male with history of early dementia, Parkinson disease presented to the emergency department with abdominal pain on and off for 2 month the pain is localized in the left lower quadrant the, reported decreased p.o. intake, no fever no vomiting MD elicited complaint: abdominal pain Pertinent past history: other (Parkinson) Onset (ago): month(s) (1) Pain Consistency: constant Location: LLQ Severity: mild Quality: cramping Radiation: LLQ Migration to: no migration Exacerbating factors: nothing Relieving factors: nothing Related Data Home Medications Medication Instructions Recorded Confirmed gabapentin 300 mg capsule 600 mg PO DAILY 06/16/22 10/01/22 Previous Rx's Medication Instructions Recorded cyanocobalamin (vitamin B-12) 1,000 mcg IM Q4W B12 deficiency 6 10/15/21 1,000 mcg/mL injection solution months #7 mL sildenafil 100 mg tablet 100 mg PO DAILY PRN sexual 05/27/22 activity 30 days #30 tabs carbidopa 25 mg-levodopa 100 mg 2 tab PO TID 30 days #540 tabs 07/29/22 tablet citalopram 20 mg tablet 20 mg PO DAILY #90 tabs 07/29/22 simvastatin 10 mg tablet 10 mg PO DAILY 90 days #90 tabs 07/29/22 trazodone 100 mg tablet 150 mg PO BEDTIME 30 days #45 tabs 08/01/22 tadalafil 10 mg tablet 10 mg PO DAILY PRN sexual activity 08/07/22 90 days #90 tabs tamsulosin 0.4 mg capsule 0.4 mg PO DAILY 90 days #90 caps 08/07/22 dicyclomine 20 mg tablet 20 mg PO QID PRN diarrhea 30 days 09/11/22 #120 tabs pantoprazole 40 mg tablet,delayed 40 mg PO DAILY 90 days #90 tabs 09/29/22 release prochlorperazine maleate 10 mg 10 mg PO Q8H PRN nausea and 10/07/22 tablet (Compazine) vomiting #10 tabs Allergies Allergy/AdvReac Type Severity Reaction Status Date / Time No Known Allergies Allergy Unknown Verified 10/07/22 06:54 Review of Systems Constitutional: Reports no additional constitutional complaints Reports system reviewed and no additional complaints, except as documented Cardiovascular: Reports no additional cardiovascular complaints Respiratory: Reports no additional respiratory complaints [facility] Past Medical History Medical History Alcohol abuse Anxiety, generalized Back muscle spasm BPH (benign prostatic hyperplasia) Difficulty sleeping Environmental allergies Lipid disorder Parkinson disease Surgical History H/O colonoscopy History of back surgery History of esophagogastroduodenoscopy (EGD) History of knee surgery History of lumbar fusion Family History Family History Father HTN (hypertension) Stroke Diabetes mellitus Cancer Mother Diabetes mellitus Sarcoidosis Heart failure Renal failure Brother Addisons disease Sister Aneurysm Son No problems noted. Son No problems noted. Social History Social History Housing: House Alcohol intake: former Patient Tobacco Use Status: Never used Tobacco Tobacco use type: Smokeless Tobacco e-Cigarette/Vaping Use: Never Used Substance Use Type: Marijuana Advance Directives: No Current occupational status: employed Cognitive needs: No Hearing needs: No Vision needs: Yes Physical Exam ED Vital Signs: Vital Signs - 24 hr 10/07/22 06:51 Temperature 98.2 F Pulse Rate 64 Respiratory Rate 16 Blood Pressure 101/68 Pulse Oximetry 93 Oxygen Delivery Method Room Air BMI result Body Mass Index 27.4 Const General: healthy appearing, comfortable, no acute distress and well developed Nutritional Appearance: average body habitus Orientation/consciousness: patient oriented x3 Limitations: no limitations HENMT Head: Yes normal to inspection General nose exam: Normal external nose present Face and sinus: Yes normal facial exam Mouth: Normal oral and palatal mucosa present Throat: Yes posterior oropharynx normal Neck Neck: Yes normal visual inspection and Yes full ROM Chest Chest palpation & inspection: normal inspection of the chest Resp Effort & Inspection: normal respiratory effort Auscultation: clear to auscultation bilaterally Cardio Jugular venous distension: no JVD Palpation: normal PMI Rate: regular rate GI Inspection: Yes normal to inspection Palpation (GI): Soft to palpation and Other GI palpation findings present (left lower quadrant tenderness) Skin General skin exam: no rashes or lesions noted Lesions: no lesions Rashes: no rashes Neuro General: patient oriented x3 Course Course Course Narrative: Patient has a normal white count normal LFT I perform a CT scan of the abdomen and pelvis today which was unremarkable his vital sign are stable he has no fever at this point I think he can be safely discharged home a he is followed by commercial real estate paralegal. Medications Administered Discontinued Medications Generic Name Dose Route Start Last Admin Trade Name Freq PRN Reason Stop Dose Admin Sodium Chloride 1,000 mls @ 999 mls/hr 10/07/22 08:15 10/07/22 10:46 Ns IVCONT 10/07/22 09:15 Infused .Q1H1M PROSPER Infusion Iohexol 85 ml 10/07/22 10:41 10/07/22 10:41 Iohexol 350 Mg/Ml 100 Ml Infus..Btl IV 10/07/22 10:42 85 ml ONCE ONE Administration MDM - Abdominal Pain Lab Data Result diagrams: 10/07/22 07:13 10/07/22 07:13 Labs: Lab Results 10/07/22 10/07/22 10/07/22 Range/Units 07:13 07:13 08:16 WBC 5.7 (4.8-10.8) X10*3/uL RBC 5.25 (4.60-5.80) X10*6/uL Hgb 16.8 (14.0-18.0) g/dl Hct 48.1 (42.0-52.0) % MCV 91.6 (80.0-98.0) fL MCH 32.0 (27.0-33.0) pg MCHC 34.9 (31.0-36.0) g/dl RDW 12.2 (11.0-16.0) % Plt Count 120 L (160-400) X10*3/uL MPV 10.5 (9.4-12.4) fL Immature Gran % (Auto) 0.2 (0.0-0.4) % Neut % (Auto) 69.0 (45-73) % Lymph % (Auto) 18.8 L (20-40) % Cross % (Auto) 9.9 (2-11) % Eos % (Auto) 1.6 (0-4) % Baso % (Auto) 0.5 (0-2) % Lymph # (Auto) 1.1 L (1.2-4.9) X10*3/uL Cross # (Auto) 0.6 (0.1-1.2) X10*3/uL Eos # (Auto) 0.1 (0.0-0.4) X10*3/uL Baso # (Auto) 0.0 (0.0-0.2) X10*3/uL Abs Immat Gran (auto) 0.01 (0.00-0.03) X10*3/uL Absolute Neuts (auto) 4.0 (2.0-8.3) x10*3/uL Absolute Nucleated RBC 0.000 (0.0-0.012) X10*3/uL Nucleated RBC % (auto) 0.0 (0.0-0.2) /100WBC Sodium 138 (135-145) mmol/L Potassium 4.1 (3.3-5.1) mmol/L Chloride 105 (96-108) mmol/L Carbon Dioxide 24 (22-29) mmol/L Anion Gap 13 (12-20) BUN 14 (9-16) mg/dL Creatinine 1.03 (0.5-1.4) mg/dL Estim Creat Clear Calc 86.4 Estimated GFR > 60 Random Glucose 108 (60-115) mg/dL Calcium 9.4 (8.4-10.2) mg/dL Total Bilirubin 0.7 (0.0-1.0) mg/dL AST 14 (5-37) U/L ALT < 6 (0-40) U/L Alkaline Phosphatase 89 (39-117) U/L Total Protein 6.8 (6.5-8.0) g/dL Albumin 4.2 (3.5-5.0) g/dL Lipase 45 (8-78) U/L Urine Color Yellow Urine Appearance Clear Urine pH 5.5 (5.0-9.0) Ur Specific [place] 1.025 (1.005-1.025) Urine Protein Negative (Neg-Trace) mg/dL Urine Glucose (UA) Negative (Negative) mg/dL Urine Ketones 40 (Negative) mg/dL Urine Blood Negative (Negative) Urine Nitrite Negative (Negative) Ur Leukocyte Esterase Negative (Negative) Imaging Data CT scan - abdomen: Radiologist's impression: VASCULAR: Unremarkable. PELVIC VISCERA: There is scattered stool in the colon without distention no free air or free fluid seen.? OSSEOUS STRUCTURES: There is bilateral L5 and L4 laminectomies with bilateral pedicular screws L4-L5 vertebra with interconnecting rods for posterior stabilization. No aggressive lytic or sclerotic process seen. ? CT/CT abdomen pelvis w IV con IMPRESSION: No acute intra-abdominal process seen. Especially no abnormality seen in left lower quadrant. ? Mild prostate enlargement. ? L4-L5 posterior hardware for fusion. ? Bilateral renal cysts. Several 5 mm hypodense liver lesions probable cyst.? ? Fleischner guidelines were followed. Dictated By: Fish Agarwal MD Signed By: <Electronically signed by Fish Agarwal MD in OV> 10/07/22 1130 Discharge Plan Discharge Clinical Impression: Abdominal pain Patient Disposition: Home, Self-Care Instructions: Abdominal Pain (ED) Prescriptions: New prochlorperazine maleate [Compazine] 10 mg tablet 10 mg PO Q8H PRN (Reason: nausea and vomiting) Qty: 10 0RF No Action cyanocobalamin (vitamin B-12) 1,000 mcg/mL solution 1,000 mcg IM Q4W 180 Days Qty: 7 6RF sildenafil 100 mg tablet 100 mg PO DAILY PRN (Reason: sexual activity) 30 Days Qty: 30 1RF Rx Instructions: administer 60 minutes before intended activity simvastatin 10 mg tablet 10 mg PO DAILY 90 Days Qty: 90 0RF citalopram 20 mg tablet 20 mg PO DAILY Qty: 90 1RF carbidopa-levodopa 25-100 mg tablet 2 tab PO TID 30 Days Qty: 540 1RF trazodone 100 mg tablet 150 mg PO BEDTIME 30 Days Qty: 45 1RF pantoprazole 40 mg tablet,delayed release (DR/EC) 40 mg PO DAILY 90 Days Qty: 90 0RF tadalafil 10 mg tablet 10 mg PO DAILY PRN (Reason: sexual activity) 90 Days Qty: 90 1RF tamsulosin 0.4 mg capsule 0.4 mg PO DAILY 90 Days Qty: 90 1RF gabapentin 300 mg capsule 600 mg PO DAILY dicyclomine 20 mg tablet 20 mg PO QID PRN (Reason: diarrhea) 30 Days Qty: 120 3RF Referrals: Galo Rodrigues MD [Primary Care Provider] - 2 days Interventions: ED Discharge Assessment Last Done: 10/07/22 12:22 Discharge Date/Time: 10/07/22 12:23
[2022-10-07 08:22] LABS: Appearance Urine Clear; Color Urine Yellow; Glucose Urine UA Negative (Negative); Leukocyte Esterase Urine Negative (Negative); Nitrite Urine Negative (Negative); PH 5.5 (5.0-9.0); Specific Gravity - Urine 1.025 (1.005-1.025); Urine Blood Negative (Negative); Urine Ketones 40 mg/dL (Negative); Urine Protein Negative (Neg-Trace)
[2022-10-07] MEDS: 0.9 % Sodium Chloride 1,000 ML 999 ML IVCONT (08:42)
[2022-10-07] MEDS: iohexoL 350 MG/ML 100 ML INFUS..BTL 85 ML IV (10:41)
== END 2022-10-07 12:23 | disposition home or self-care (01) ==
PROVIDERS: Emergency Provider Emergency Medicine; PCP Internal Medicine
DX: R10.32 Left lower quadrant pain (principal); Z79.899 Other long term (current) drug therapy
CPT/HCPCS: 36415; 74177; 80053; 81003; 83690; 85025; 96360; 96361; 99283; 99284; Q9967

== ENCOUNTER → 2022-10-14 15:57 | Outpatient (BNVA) | payer OTHER, SELFPAY | PROVIDERS: PCP Internal Medicine; Visit Provider Nurse Practitioner | DX: K30 Functional dyspepsia (principal); R10.13 Epigastric pain; R11.2 Nausea with vomiting, unspecified; R63.4 Abnormal weight loss; R19.7 Diarrhea, unspecified; G20 Parkinson's disease | CPT/HCPCS: 99212 ==

== ENCOUNTER → 2022-10-22 07:40 | Outpatient (REF) | payer OTHER, SELFPAY ==
--- NOTE | ~2022-10-22 | NM_ITS ---
EXAMINATION: BILIARY TRACT IMAGING STUDY WITH CCK CLINICAL INFORMATION: Abnormal gallbladder seen on recent abdominal ultrasound done on 09/04/2022. For follow-up.. COMPARISON: Abdominal ultrasound done on 09/04/[address] of the abdomen and pelvis done on 10/07/2022.. TECHNIQUE: Serial gamma scintillation camera images were obtained over the abdomen for a total observation period of 60 minutes following the intravenous administration of 5.0 mCi Tc-99m mebrofenin. FINDINGS: There is good concentration of activity in the liver by 5 minutes post injection. Biliary activity is visualized by 10 minutes. The gallbladder is well visualized by 15 minutes. Small bowel is not well visualized prior to administration of the CCK. At 60 minutes post radiopharmaceutical injection, a 30-minute infusion of 1.9 micrograms Sincalide was then begun and an additional 30 minutes of images were obtained. There is good emptying of the gallbladder. By the end of the study there is good clearance of activity from the liver and visualization of diffuse small bowel activity. The calculated gallbladder ejection fraction is 65% (normal gallbladder ejection fraction is greater than 35%). NM/NM hepatobiliary w pharm IMPRESSION: Visualization of the gallbladder is evidence of a patent cystic duct and strong evidence against the diagnosis of acute cholecystitis. The common bile duct is patent. Gallbladder emptying and ejection fraction are normal. Liver function appears normal.
== END ==
LOC: HO.NUCMED 07:40
PROVIDERS: Visit Provider Nurse Practitioner
DX: R63.4 Abnormal weight loss (principal); R93.5 Abnormal findings on diagnostic imaging of other abdominal regions, including retroperitoneum
CPT/HCPCS: 78227; A9537; J2805

== ENCOUNTER → 2022-10-28 15:05 | Outpatient (BNVA) | payer OTHER, SELFPAY | PROVIDERS: PCP Internal Medicine; Visit Provider Nurse Practitioner | DX: R11.2 Nausea with vomiting, unspecified (principal); K30 Functional dyspepsia; R10.13 Epigastric pain; R63.4 Abnormal weight loss; G20 Parkinson's disease | CPT/HCPCS: 99212 ==

== ENCOUNTER 2022-10-30 11:00 | Day surgery (SDC) | payer OTHER, SELFPAY ==
--- NOTE | 2022-10-30 10:21 | P.OP_ITS ---
Operative Note Operative Note Date of Service: 10/30/22 Narrative: Operative Note Preop diagnosis: 1. Left middle finger Trigger finger Postop diagnosis: 1. Left middle finger Trigger finger Procedure: 1. Left middle finger A1 karlie release Surgeon: Anne Montesinos MD Anesthesia: local block using 1% lidocaine with epinephrine Findings: No locking or catching after A1 karlie release EBL: Less than 5 mL Tourniquet time: None Specimens: None Complications: None Disposition: Brought to recovery room in stable condition Plan: Follow-up for 10-14 days for wound check and suture removal Indications: The patient is 62 years old, with a left middle finger trigger finger that has been unresponsive to nonoperative management. The risks and benefits of operative treatment including but not limited to risk of damage to blood vessels, nerves, tendons, infection, persistent pain, persistent symptoms, recurrence or possible need for additional surgery were discussed with the patient and the patient wishes to proceed with surgery. Procedure: Once consent was obtained a local block was performed in the preop area using a combination of 1% lidocaine with epinephrine. The patient was then brought back to the operating suite and placed on the operative table in supine position. A tourniquet was applied to the proximal aspect of the left upper extremity and the limb was prepped and draped in a standard surgical fashion. Once assured that we had a good block, a 1.5 cm oblique incision was made centered over the A1 karlie of the left middle finger . The incision was made through the skin to the subcutaneous tissues using a #15 blade. Careful dissection was made down to the level of the A1 karlie using tenotomy scissors, with care being taken to protect the nearby neurovascular structures. A longitudinal incision was made in the A1 karlie 1st using a #15 blade, then using tenotomy scissors under direct visualization. The A1 karlie was noted to be thickened. Following our A1 karlie release, we no longer saw any locking or catching of the digit with flexion and extension. Once satisfied with our A1 karlie release the wound was copiously irrigated with normal saline and hemostasis was obtained with a brief period of local pressure. The skin edges were reapproximated with some 5.0 nylon suture material and a sterile dressing was applied. The patient appears to have tolerated the procedure well and with no compli cations. All digits were well vascularized at the conclusion of the case.
[2022-10-30 11:03] VITALS: BMI 27.1
--- NOTE | 2022-10-30 13:10 | MHC.SHP ---
Pre-Procedural Eval Section A Date of Service: 10/30/22 The patient is an INPATIENT: No Changes since office visit: No Cold of Flu in the past 2 weeks, No New Medical Problems, No Changes in Medication and No Patient answered all questions The History & Physical has been completed within 30 days and I have reviewed it.: Yes Section B Chief Complaint: Trigger finger, left middle finger Allergies: Allergies Allergy/AdvReac Type Severity Reaction Status Date / Time No Known Allergies Allergy Unknown Verified 10/30/22 11:04 Plan I have reviewed the history and physical and performed a pertinent physical examination on my patient. No changes have occurred unless specified. Time Spent With Patient Time: Total time managing care of this patient today ____ minutes.
[2022-10-30 13:36] VITALS: BP 125/67; PULSE 51; RESP 18; O2SAT 97
== END 2022-10-30 13:38 | disposition home or self-care (01) ==
PROVIDERS: PCP Internal Medicine; Visit Provider Orthopaedic Surgery
PROC: (CPT 26055; principal; 2022-10-30 12:30)
DX: M65.332 Trigger finger, left middle finger (principal); R20.0 Anesthesia of skin; R20.2 Paresthesia of skin; G20 Parkinson's disease; F02.80 Dementia in other diseases classified elsewhere, unspecified severity, without behavioral disturbance, psychotic disturbance, mood disturbance, and anxiety; E75.6 Lipid storage disorder, unspecified; F41.1 Generalized anxiety disorder; Z79.899 Other long term (current) drug therapy; F12.90 Cannabis use, unspecified, uncomplicated
CPT/HCPCS: 26055; J0171

== ENCOUNTER → 2022-11-11 12:48 | Outpatient (BNVA) | payer OTHER, SELFPAY | PROVIDERS: PCP Internal Medicine; Visit Provider Orthopaedic Surgery | DX: Z13.89 Encounter for screening for other disorder (principal) ==

== ENCOUNTER → 2022-12-10 08:24 | Outpatient (BNVA) | payer OTHER, SELFPAY | PROVIDERS: PCP Internal Medicine; Visit Provider Nurse Practitioner | DX: K30 Functional dyspepsia (principal); G20 Parkinson's disease; R63.4 Abnormal weight loss | CPT/HCPCS: 99212 ==

== ENCOUNTER 2023-02-09 13:39 | Outpatient (REF) | payer OTHER, SELFPAY ==
[2023-02-09 16:48] LABS: Carbon Dioxide 31 mmol/L (22-29)
[2023-02-09 16:49] LABS: Alanine Aminotransferase < 6 U/L (0-40); Albumin Level 4.3 g/dL (3.5-5.0); Alkaline Phosphatase 84 U/L (39-117); Anion Gap 12 (12-20); Aspartate Amino Transferase 16 U/L (5-37); Bilirubin Total 0.9 mg/dL (0.0-1.0); Blood Urea Nitrogen 12 mg/dL (9-16); Calcium 9.6 mg/dL (8.4-10.2); Chloride 101 mmol/L (96-108); Cholesterol 187 mg/dL; Estimated Glomerular Filt Rate > 60; Glucose Fasting 84 mg/dL (60-99); HDL Cholesterol 53 mg/dL; LDL Cholesterol Calculated 111 mg/dl; Potassium 4.2 mmol/L (3.3-5.1); Sodium 140 mmol/L (135-145); Total Protein 6.8 g/dL (6.5-8.0); Triglycerides 119 mg/dL
[2023-02-09 16:55] LABS: Prostate Specific Antigen 2.21 ng/mL (<0.05-4.0)
== END 2023-02-09 13:40 | disposition home or self-care (01) ==
LOC: HO.HMGCLDS 13:39
PROVIDERS: PCP Internal Medicine; Visit Provider Urology
DX: N40.0 Benign prostatic hyperplasia without lower urinary tract symptoms (principal); E78.9 Disorder of lipoprotein metabolism, unspecified; F41.1 Generalized anxiety disorder; E53.8 Deficiency of other specified B group vitamins; Z12.5 Encounter for screening for malignant neoplasm of prostate
CPT/HCPCS: 36415; 80053; 80061; 84153

== ENCOUNTER → 2023-02-12 07:55 | Outpatient (BNVA) | payer OTHER, SELFPAY | PROVIDERS: PCP Internal Medicine; Visit Provider Psychiatry & Neurology Neurology | DX: G20 Parkinson's disease (principal); R41.3 Other amnesia; F41.1 Generalized anxiety disorder; N52.9 Male erectile dysfunction, unspecified | CPT/HCPCS: 51798; 99212 ==

== ENCOUNTER 2023-06-01 09:23 | Outpatient (AMB) | payer OTHER, SELFPAY ==
--- NOTE | 2023-06-01 10:36 | AM.OFFWIN_ITS ---
Intake Vital Signs 06/01/23 10:39 BP 104/64 Blood Pressure Location Lt brachial Position Sitting Pulse 56 Pulse Source Pulse Oximeter Temp 98.1 F Temp Source Oral Pulse Oximetry (%) 95 Oxygen Delivery Method Room Air Intake Visit Reasons: EP cyst under armpit [phone] Intake Note: Pt is here today c/o ? cyst Lt under armpit Patient Tobacco Use Status: Never used Tobacco Allergies No Known Allergies Allergy (Unknown, Verified 02/12/23 11:41) Do you need a note to return to daycare/school/sports/work: No HPI HPI Comments History of Present Illness Details 62-year-old male presents with a cyst to his left axilla. States that some fluid came out of it and meld). He does not report any fevers or chills, but states that this thing has been here for the past 10 years. [facility] Medical History Abnormal US (ultrasound) of abdomen Alcohol abuse Anxiety, generalized Back muscle spasm BPH (benign prostatic hyperplasia) Difficulty sleeping Environmental allergies Lipid disorder Parkinson disease Surgical History H/O colonoscopy History of back surgery History of esophagogastroduodenoscopy (EGD) History of knee surgery History of lumbar fusion Family History Father HTN (hypertension) Stroke Diabetes mellitus Cancer Mother Diabetes mellitus Sarcoidosis Heart failure Renal failure Brother Addisons disease Sister Aneurysm Son No problems noted. Son No problems noted. Social History Housing: House Alcohol intake: former Patient Tobacco Use Status: Never used Tobacco Tobacco use type: Smokeless Tobacco e-Cigarette/Vaping Use: Never Used Substance Use Type: Marijuana service: No Current occupational status: employed Cognitive needs: No Hearing needs: No Vision needs: Yes Review of Systems Const Details: Constitutional: No Fever, No Chills Cardiovascular: No Chest Pain, No SOB Respiratory: No Cough, No Dyspnea Musculoskeletal: no joint pain, No Myalgias, No Joint Swelling Skin: Cyst under left armpit, No Skin lacerations, No rash Neuro: No Weakness, No Dizziness, No Headache All systems reviewed & are unremarkable except as noted in HPI and below Physical Exam Vital Signs: Last Vital Signs Temp 98.1 F 06/01/23 10:39 Pulse 56 06/01/23 10:39 BP 104/64 06/01/23 10:39 Pulse Ox 95 06/01/23 10:39 Oxygen Delivery Method Room Air 06/01/23 10:39 Appearance: Alert. Oriented X3. No acute distress. Neck: Normal inspection. Neck supple. CVS: Normal heart rate and rhythm. Pulses normal. Respiratory: No respiratory distress. Breath sounds normal. Skin: 5 cm in diameter cyst to the left axilla, fluctuance noted, pinpoint opening to the center. No cellulitis. Extremities: No lower extremity edema. Gait well balanced well coordinated. Neuro: No motor deficit. No sensory deficit. Cranial nerves 2-12 intact. Office Procedures I&D Drain [id number]-[id number] of Skin Abscess, simple All charges added?: Procedure code (CPT) selection complete Assessment & Plan Assessment & Plan (1) Sebaceous cyst of axilla: Code(s): L72.3 - Sebaceous cyst Plan 62-year-old male presents with sebaceous cysts the left axilla. It started draining a pop 2 days ago, and patient states this order is horrendous. States that he has had this cyst for the 10 years. Does not report any pain, redness, fevers or chills. Plan of care is for I&D of the sebaceous cyst. The cyst does have a punctate opening, not large enough to express the fluid. Detailed description of the procedure, patient agrees. Prepped and draped in sterile fashion, Betadine cleanse, lidocaine 1% 1 mL utilized for anesthetic with good effect. 0.5 cm incision made with an 11 blade at the punctate sites. Approximately 100 mL of waxy malodorous substance expressed from the site by this FUR GLAZER. Patient tolerated procedure well. Dressed with a sterile dressing. Patient does understand signs symptoms indicating infection. Understands that wound culture is pending, and if positive will be treated with appropriate antibiotics per culture and sensitivity. Patient verbalized understanding of discharge instructions. Verbalized understandings of signs and symptoms indicating need for emergent intervention. Orders: Orders Routine Culture w Gram Stain Today L72.3 - Sebaceous cyst Patient Instructions: You were evaluated for sebaceous cyst to the left axilla. We incised and drained this cyst. Your cultures are pending. If your cultures are positive for bacteria we will call in an antibiotic for you. Keep the area clean and dry until healed. Thank you for choosing this urgent care for evaluation. Please follow-up with primary care physician as needed. Return to the emergency department for any new, concerning, or worsening symptoms. Coding Level of Care Code Est Pt Level 3 (73153) Diagnoses Sebaceous cyst of axilla L72.3 CPT Codes I&D Drain - Drain 1: [id number]-[id number] of Skin Abscess, simple ([id number])
[2023-06-01 10:39] VITALS: BP 104/64; PULSE 56; TEMP 36.7; O2SAT 95
== END 2023-06-01 12:04 | disposition home or self-care (01) ==
PROVIDERS: PCP Internal Medicine; Visit Provider Nurse Practitioner Family
DX: L72.3 Sebaceous cyst (principal)
CPT/HCPCS: 10060; 99213

== ENCOUNTER 2023-06-01 13:43 | Outpatient (REF) | payer OTHER, SELFPAY | END 2023-06-01 13:44 | disposition home or self-care (01) | LOC: HO.HMGCLNP 13:43 | PROVIDERS: Visit Provider Nurse Practitioner Family | DX: L72.3 Sebaceous cyst (principal) | CPT/HCPCS: 87070; 87205 ==

== ENCOUNTER 2023-06-15 14:25 | Outpatient (AMB) | payer OTHER, SELFPAY ==
--- NOTE | 2023-06-15 15:21 | AM.OFFVISNUR ---
Intake Intake Visit Reasons: b12 Allergies No Known Allergies Allergy (Unknown, Verified 02/12/23 11:41) Office Meds cyanocobalamin (vitamin B-12) Performing Provider: Galo Rodrigues MD Administered by: Carri Redd RN on 06/15/23 14:50 Dose Route Admin Location Lot Number Expiration Date NDC Rhinestone Setter 1,000 mcg IM Left deltoid [id number] 03/08/25 34550-133-50 YANETH KNOWLES Comments: Pt supplied. Last dose available in office. Pt reaching out to neurologist for refill if appropriate. Coding Diagnoses Assessment & Plan Assessment & Plan Orders: Orders AMB Vitamin B12 Injection Patient Supplied Today E53.8 - Deficiency of other specified B group vitamins, G20 - Parkinson's disease
== END 2023-06-15 14:58 | disposition home or self-care (01) ==
PROVIDERS: Visit Provider Internal Medicine
DX: E53.8 Deficiency of other specified B group vitamins (principal); G20 Parkinson's disease
CPT/HCPCS: 96372; J3420

== ENCOUNTER 2023-06-25 12:50 | Outpatient (AMB) | payer OTHER, SELFPAY ==
--- NOTE | 2023-06-25 12:56 | A.OFFVIS_ITS ---
Intake Vital Signs 06/25/23 13:00 Height 6 ft 2 in Weight 222 lb BMI 28.5 BP 118/70 Blood Pressure Location Lt brachial Position Sitting Pulse 50 Intake Visit Reasons: Mathew cyst/ Lt axilla Intake Note: Patient here to f/u walk in clinic 3wks ago. Abscess on Lt axilla drained. Patient c/o persistent yellowish discharge with bad smell. Finished cephalexin course. 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 Patient has had a cyst here for many years time. Over last few days, it became swollen red and painful. It spontaneously drained and then he was seen by his private physician is who incised and drained the wound. Patient presents here for follow-up. Chart was reviewed patient evaluated [facility] Medical History Abnormal US (ultrasound) of abdomen Alcohol abuse Anxiety, generalized Back muscle spasm BPH (benign prostatic hyperplasia) Difficulty sleeping Environmental allergies Lipid disorder Parkinson disease Surgical History H/O colonoscopy History of back surgery History of esophagogastroduodenoscopy (EGD) History of knee surgery History of lumbar fusion Family History Father HTN (hypertension) Stroke Diabetes mellitus Cancer Mother Diabetes mellitus Sarcoidosis Heart failure Renal failure Brother Addisons disease Sister Aneurysm Son No problems noted. Son No problems noted. Social History Housing: House Alcohol intake: former Patient Tobacco Use Status: Never used Tobacco Tobacco use type: Smokeless Tobacco e-Cigarette/Vaping Use: Never Used Substance Use Type: Marijuana service: No Current occupational status: employed Cognitive needs: No Hearing needs: No Vision needs: Yes Physical Exam Vital Signs: Last Vital Signs Pulse 50 06/25/23 13:00 BP 118/70 06/25/23 13:00 BMI result Body Mass Index 28.5 Chest Other: Left axilla demonstrates draining sebaceous cyst wound. Minimal erythema and purulence. Assessment & Plan Assessment & Plan (1) Sebaceous cyst of axilla: Code(s): L72.3 - Sebaceous cyst Plan The current plan is continue conservative therapy. Once tick infective process has resolved, consideration can be made for excision of this process. Patient will be given a renewal of his antibiotics. He will see me as directed the few days time or p.r.n.. All questions were answered. Coding Level of Care Code New Pt Level 4 (24287) Diagnoses Sebaceous cyst of axilla L72.3
[2023-06-25 13:00] VITALS: BP 118/70; PULSE 50; BMI 28.5
== END 2023-06-25 13:15 | disposition home or self-care (01) ==
PROVIDERS: PCP Internal Medicine; Referring Provider Internal Medicine; Visit Provider Surgery
DX: L72.3 Sebaceous cyst (principal)
CPT/HCPCS: 99204

== ENCOUNTER → 2023-06-25 12:50 | Outpatient (BNVA) | payer OTHER, SELFPAY | PROVIDERS: PCP Internal Medicine; Referring Provider Internal Medicine; Visit Provider Surgery | DX: L72.3 Sebaceous cyst (principal) | CPT/HCPCS: 99202 ==

== ENCOUNTER 2023-06-30 11:36 | Outpatient (REF) | payer OTHER, SELFPAY | END 2023-06-30 11:37 | disposition home or self-care (01) | LOC: HO.LNP 11:36 | PROVIDERS: PCP Internal Medicine; Visit Provider Surgery | DX: L72.3 Sebaceous cyst (principal) | CPT/HCPCS: 11450; 88304; 99212 ==

== ENCOUNTER 2023-06-30 11:36 | Outpatient (AMB) | payer OTHER, SELFPAY ==
[2023-06-30 11:42] VITALS: BP 120/73; PULSE 56; O2SAT 97; BMI 27.9
--- NOTE | 2023-06-30 11:42 | MHC.OFFVIS ---
Intake Vital Signs 06/30/23 11:42 Height 6 ft 2 in Weight 217 lb BMI 27.9 BP 120/73 Blood Pressure Location Rt brachial Position Standing Pulse 56 Pulse Oximetry (%) 97 Oxygen Delivery Method Room Air Intake Visit Reasons: Follow Up infection christa cyst lft axilla Intake Note: This patient presents for a follow-up assessment for infecion of sebaceous cyst of left axilla. Patient reports no changes or complaints. Manager Inside Required: No Accompanied by: Self / Same As Patient Allergies No Known Allergies Allergy (Unknown, Verified 06/25/23 12:58) Medication List - Last Reconciled 06/30/23 by Jeremy Sena MD carbidopa-levodopa 25-100 mg 2 tabs PO TID 90 days cephalexin 500 mg PO TID citalopram 40 mg PO DAILY 90 days dicyclomine 20 mg PO QID PRN gabapentin 600 mg (2 x 300 mg) PO DAILY sildenafil 100 mg PO DAILY PRN 30 days simvastatin 10 mg PO DAILY 90 days trazodone 150 mg (1.5 x 100 mg) PO BEDTIME 30 days HPI HPI Comments History of Present Illness Details Patient presents for follow-up of his left axillary sebaceous cyst. He is currently asymptomatic. On exam there is no evidence of erythema. Patient wishes to undergo excision of this. Risks, benefits, alternatives of excision of left axillary sebaceous cyst were reviewed with the patient and included but not limited to bleeding, infection, recurrence, numbness, pain, scarring, dehiscence the patient wishes to proceed. All questions were answered. [facility] Medical History Abnormal US (ultrasound) of abdomen Alcohol abuse Anxiety, generalized Back muscle spasm BPH (benign prostatic hyperplasia) Difficulty sleeping Environmental allergies Lipid disorder Parkinson disease Surgical History H/O colonoscopy History of back surgery History of esophagogastroduodenoscopy (EGD) History of knee surgery History of lumbar fusion Family History Father HTN (hypertension) Stroke Diabetes mellitus Cancer Mother Diabetes mellitus Sarcoidosis Heart failure Renal failure Brother Addisons disease Sister Aneurysm Son No problems noted. Son No problems noted. Social History Housing: House Alcohol intake: former Patient Tobacco Use Status: Never used Tobacco Tobacco use type: Smokeless Tobacco e-Cigarette/Vaping Use: Never Used Substance Use Type: Marijuana service: No Current occupational status: employed Cognitive needs: No Hearing needs: No Vision needs: Yes Physical Exam Vital Signs: Last Vital Signs Pulse 56 06/30/23 11:42 BP 120/73 06/30/23 11:42 Pulse Ox 97 06/30/23 11:42 Oxygen Delivery Method Room Air 06/30/23 11:42 BMI result Body Mass Index 27.9 Extrem Other: Approximately 4 x 3 cm left axillary sebaceous cyst. Office Procedures Excision Details: After appropriate positioning, patient underwent 1% lidocaine and Betadine prep of left axilla in the region of the sebaceous cyst. A transverse bi- elliptical incision was made around the cyst in question with dimensions as described above, and carried down through skin, subcutaneous tissue, undermined, and specimen sent to pathology. Wound was irrigated and secured hemostasis. Was closed using interrupted inverted dermal 3-0 Vicryl sutures followed by Steri-Strips and sterile dressings. Patient tolerated procedure well. [id number]-igxqm/arms/legs 3.1-4cm Procedure code (CPT) selection complete Office Meds lidocaine-epinephrine 1 %-1:100,000 Performing Provider: Jeremy Sena MD Administered by: Jeremy Sena MD on 06/30/23 13:50 Dose Route Admin Location Lot Number Expiration Date NDC Radiography Technician 10 mL Infiltration Assessment & Plan Assessment & Plan (1) Sebaceous cyst of axilla: Comment: Patient has been given local instructions, and will see me as directed or p.r.n. Code(s): L72.3 - Sebaceous cyst Orders: Orders AMB Excision Today L72.3 - Sebaceous cyst Surgical Today L72.3 - Sebaceous cyst Coding Level of Care Code Est Pt Level 4 (09632) Diagnoses Sebaceous cyst of axilla L72.3 CPT Codes Trunk/Arms/Legs - CPT: 48308-ucuzs/arms/legs 3.1-4cm ([id number])
== END 2023-06-30 12:17 | disposition home or self-care (01) ==
PROVIDERS: PCP Internal Medicine; Visit Provider Surgery
DX: L72.3 Sebaceous cyst (principal)
CPT/HCPCS: 11450; 99214

== ENCOUNTER 2023-07-01 08:55 | Outpatient (AMB) | payer OTHER, SELFPAY ==
--- NOTE | 2023-07-01 09:02 | MHC.PC.OV ---
Vital Signs 07/01/23 09:03 Height 6 ft 2 in Weight 219 lb BMI 28.1 BP 122/78 Blood Pressure Location Lt brachial Position Sitting Pulse 56 Pulse Source Pulse Oximeter Pulse Oximetry (%) 95 Oxygen Delivery Method Room Air Intake Visit Reasons: Annual PE Allergies No Known Allergies Allergy (Unknown, Verified 07/01/23 09:03) Medication List - Last Reconciled 07/01/23 by Galo Rodrigues MD carbidopa-levodopa 25-100 mg 2 tabs PO TID 90 days cephalexin 500 mg PO TID citalopram 40 mg PO DAILY 90 days dicyclomine 20 mg PO QID PRN gabapentin 600 mg (2 x 300 mg) PO DAILY sildenafil 100 mg PO DAILY PRN 30 days simvastatin 10 mg PO DAILY 90 days trazodone 150 mg (1.5 x 100 mg) PO BEDTIME 30 days Tobacco use date assessed: 12/31/22 Dental Screening Dental Screen Date: 07/01/23 Did you have a dental visit in the last 12 months?: Yes Did you have a dental problem in the last 6 months where you did not have access to dental care?: No Was dental information given to patient?: No HPI Annual PE HPI Details Patient came in for physical examination He had developed a cyst left axillary area which was drained in walk-in clinic but then got infected And patient had to see surgeon for removal he had that procedure done yesterday and currently have stitches in wound is covered by the bandage He has follow-up appointment with surgery in 1 week. Patient have a history of lumbar surgery he recently had severe back pain went back to [employer] [facility] and got a cortisone injection which did help him He plays a lot of golf. Patient also have Parkinson's disease which is being managed by a neurology Dr. Mcgowan. Medication list reviewed Blood pressure is stable Depression is stable Sleeping okay with help of trazodone. Follow-up 6 months physical exam 1 year Labs to be done today [facility] Medical History Abnormal US (ultrasound) of abdomen Alcohol abuse Anxiety, generalized Back muscle spasm BPH (benign prostatic hyperplasia) Difficulty sleeping Environmental allergies Lipid disorder Parkinson disease Surgical History H/O colonoscopy History of back surgery History of esophagogastroduodenoscopy (EGD) History of knee surgery History of lumbar fusion Family History Father HTN (hypertension) Stroke Diabetes mellitus Cancer Mother Diabetes mellitus Sarcoidosis Heart failure Renal failure Brother Addisons disease Sister Aneurysm Son No problems noted. Son No problems noted. Social History Housing: House Alcohol intake: former Patient Tobacco Use Status: Never used Tobacco Tobacco use type: Smokeless Tobacco e-Cigarette/Vaping Use: Never Used Substance Use Type: Marijuana service: No Current occupational status: employed Cognitive needs: No Hearing needs: No Vision needs: Yes Questionnaire Thrive Questionnaire Date Thrive assessed: 07/01/23 AUDIT C Alcohol Use Questionnaire (AUDIT-C) 1. How often do you have a drink containing alcohol?: Never 3. How often do you have six or more drinks on one occasion?: Never Total Score: 0 Score Reviewed/Action Taken: Yes KHURRAM-7 AMB Questionnaire KHURRAM-7 Date KHURRAM - 7 assessed: 12/31/22 Source: Developed by Drs. Ricardo Varghese, Kathie Phan, Chris Gordillo and colleagues, with an educational cammie from [employer]. Review of Systems Const Denies chills, Denies fever(s) and Denies headache(s) Eyes Denies blurry vision ENT Denies headache(s), Denies nasal discharge, Denies nasal obstruction, Denies odynophagia and Denies sinus pain Card Denies chest pain at rest and Denies chest pain with activity Resp Denies cough and Denies hemoptysis GI Denies diarrhea, Denies odynophagia, Denies vomiting and Denies hematemesis Reports as per HPI Musc Denies abnormal gait Skin/Breast Reports as per HPI Neuro Denies Neuro-related abnormal movements, Denies Abnormal speech present, Denies abnormal gait, Denies headache(s) and Denies Sensory deficit (Neuro) Psych Denies mood swings and Denies paranoia Endo Reports as per HPI Navneet/Lymph Reports as per HPI Aller/Immun Reports as per HPI Physical exam (Primary Care) Vital Signs: Last Vital Signs Pulse 56 07/01/23 09:03 BP 122/78 07/01/23 09:03 Pulse Ox 95 07/01/23 09:03 Oxygen Delivery Method Room Air 07/01/23 09:03 BMI result Body Mass Index 28.1 Tobacco/Smoking Status: Tobacco use Status Tobacco use date assessed 12/31/22 07/01/23 09:05 Patient Tobacco Use Status Never used Tobacco 07/01/23 09:05 Tobacco use type Smokeless Tobacco 07/01/23 09:05 e-Cigarette/Vaping Use Never Used 07/01/23 09:05 Thrive Assessment: Date of Thrive Assessment Date Thrive assessed 07/01/23 07/01/23 09:06 Const General: cooperative, comfortable and no acute distress Orientation/consciousness: patient oriented x3 HENMT Head: Yes normocephalic and Yes atraumatic Eyes General: appearance normal, both eyes and all related structures Pupils: Equal, round and reactive pupils present EOM: EOMs intact bilaterally Neck Neck: Yes supple and No lymphadenopathy Thyroid: Thyroid normal Lymphatic: no lymphadenopathy noted Resp Effort & Inspection: normal respiratory effort and able to speak in complete sentences Auscultation: clear to auscultation bilaterally Cardio Heart sounds: S1 normal heart sound present and S2 normal heart sound present GI Palpation (GI): Soft to palpation and nontender Auscultation: normal bowel sounds General: Yes no CVA tenderness Back/Spine/Pelvis Back: no CVA tenderness Skin Other: Left axilla bandages on General skin exam: elasticity normal and turgor normal Neuro General: patient oriented x3 and gait normal Cranial nerves: Yes Equal, round and reactive pupils present Speech: No Abnormal speech present Sensory Exam: No Sensory deficit (Neuro) Coordination: tandem gait normal Extrem General: Yes normal exam except as noted and No edema Assessment and Plan Assessment & Plan (1) Encounter for general adult medical examination with abnormal findings: Code(s): Z00.01 - Encounter for general adult medical examination with abnormal findings (2) Parkinson disease: Comment: new diagnosis Code(s): G20 - Parkinson's disease (3) Lipid disorder: Code(s): E78.9 - Disorder of lipoprotein metabolism, unspecified (4) Difficulty sleeping: Code(s): G47.9 - Sleep disorder, unspecified (5) Anxiety, generalized: Code(s): F41.1 - Generalized anxiety disorder (6) Back muscle spasm: Code(s): M62.830 - Muscle spasm of back (7) Environmental allergies: Code(s): Z91.09 - Other allergy status, other than to drugs and biological substances (8) BPH (benign prostatic hyperplasia): Code(s): N40.0 - Benign prostatic hyperplasia without lower urinary tract symptoms Plan Patient came in for physical examination He had developed a cyst left axillary area which was drained in walk-in clinic but then got infected And patient had to see surgeon for removal he had that procedure done yesterday and currently have stitches in wound is covered by the bandage He has follow-up appointment with surgery in 1 week. Patient have a history of lumbar surgery he recently had severe back pain went back to [employer] [facility] [employer] and got a cortisone injection which did help him He plays a lot of golf. Patient also have Parkinson's disease which is being managed by a neurology Dr. Mcgowan. Medication list reviewed Blood pressure is stable Depression is stable Sleeping okay with help of trazodone. Follow-up 6 months physical exam 1 year Labs to be done today No urinary complaints today Orders: Orders Comprehensive [place]. Panel Fast Today E78.9 - Disorder of lipoprotein metabolism, unspecified, F41.1 - Generalized anxiety disorder, G20 - Parkinson's disease, G47.9 - Sleep disorder, unspecified, M62.830 - Muscle spasm of back, N40.0 - Benign prostatic hyperplasia without lower urinary tract symptoms, Z00.01 - Encounter for general adult medical examination with abnormal findings, Z91.09 - Other allergy status, other than to drugs and biological substances Lipid Panel Today E78.9 - Disorder of lipoprotein metabolism, unspecified, F41.1 - Generalized anxiety disorder, G20 - Parkinson's disease, G47.9 - Sleep disorder, unspecified, M62.830 - Muscle spasm of back, N40.0 - Benign prostatic hyperplasia without lower urinary tract symptoms, Z00.01 - Encounter for general adult medical examination with abnormal findings, Z91.09 - Other allergy status, other than to drugs and biological substances Complete Blood Count Auto Diff Today E78.9 - Disorder of lipoprotein metabolism, unspecified, F41.1 - Generalized anxiety disorder, G20 - Parkinson's disease, G47.9 - Sleep disorder, unspecified, M62.830 - Muscle spasm of back, N40.0 - Benign prostatic hyperplasia without lower urinary tract symptoms, Z00.01 - Encounter for general adult medical examination with abnormal findings, Z91.09 - Other allergy status, other than to drugs and biological substances Coding Level of Care Code Est Pt Prev Care 40-64y(31279) Diagnoses Encounter for general adult medical examination with abnormal findings Z00.01 Parkinson disease G20 Lipid disorder E78.9 Difficulty sleeping G47.9 Anxiety, generalized F41.1 Back muscle spasm M62.830 Environmental allergies Z91.09 BPH (benign prostatic hyperplasia) N40.0
[2023-07-01 09:03] VITALS: BP 122/78; PULSE 56; O2SAT 95; BMI 28.1
== END 2023-07-01 09:39 | disposition home or self-care (01) ==
PROVIDERS: Visit Provider Internal Medicine
DX: Z00.01 Encounter for general adult medical examination with abnormal findings (principal); G20 Parkinson's disease; Z91.09 Other allergy status, other than to drugs and biological substances; E78.9 Disorder of lipoprotein metabolism, unspecified; G47.9 Sleep disorder, unspecified; F41.1 Generalized anxiety disorder; M62.830 Muscle spasm of back; N40.0 Benign prostatic hyperplasia without lower urinary tract symptoms
CPT/HCPCS: 99396

== ENCOUNTER 2023-07-01 09:30 | Outpatient (REF) | payer OTHER, SELFPAY ==
[2023-07-01 11:15] LABS: MANUAL DIFF FLAG NO
[2023-07-01 11:39] LABS: Basophils Percent Auto 0.7 % (0-2); Eosinophils Absolute Auto 0.1 X10*3/uL (0.0-0.4); Eosinophils Percent Auto 3.2 % (0-4); Hematocrit 50.5 % (42.0-52.0); Hemoglobin 17.3 g/dl (14.0-18.0); Imm Gran Abs Auto 0.01 X10*3/uL (0.00-0.03); Imm Gran Pct Auto 0.2 % (0.0-0.4); Lymphocytes Absolute Auto 1.4 X10*3/uL (1.2-4.9); Lymphocytes Percent Auto 32.8 % (20-40); Mean Corpuscular HGB Conc 34.3 g/dl (31.0-36.0); Mean Corpuscular Hemoglobin 32.7 pg (27.0-33.0); Mean Corpuscular Volume 95.5 fL (80.0-98.0); Mean Platelet Volume 11.5 fL (9.4-12.4); Monocytes Absolute Auto 0.3 X10*3/uL (0.1-1.2); Monocytes Percent Auto 6.7 % (2-11); Neutrophils Absolute Auto 2.4 x10*3/uL (2.0-8.3); Neutrophils Percent Auto 56.4 % (45-73); Platelet Count 146 X10*3/uL (160-400); Red Blood Count 5.29 X10*6/uL (4.60-5.80); Red Cell Distribution Width 12.2 % (11.0-16.0); White Blood Count 4.3 X10*3/uL (4.8-10.8)
[2023-07-01 12:19] LABS: Alanine Aminotransferase < 5 U/L (0-40); Albumin Level 4.3 g/dL (3.5-5.0); Alkaline Phosphatase 74 U/L (39-117); Anion Gap 11 (12-20); Aspartate Amino Transferase 17 U/L (5-37); Bilirubin Total 0.5 mg/dL (0.0-1.0); Blood Urea Nitrogen 9 mg/dL (9-16); Calcium 9.7 mg/dL (8.4-10.2); Carbon Dioxide 29 mmol/L (22-29); Chloride 106 mmol/L (96-108); Cholesterol 163 mg/dL (<200); Estimated Glomerular Filt Rate > 60; Glucose Fasting 107 mg/dL (60-99); HDL Cholesterol 55 mg/dL (>40); LDL Cholesterol Calculated 91 mg/dL (<100); Potassium 4.8 mmol/L (3.3-5.1); Sodium 141 mmol/L (135-145); Total Protein 7.2 g/dL (6.5-8.0); Triglycerides 88 mg/dL (<150)
== END 2023-07-01 09:31 | disposition home or self-care (01) ==
LOC: HO.HMGCLDS 09:30
PROVIDERS: PCP Internal Medicine; Visit Provider Internal Medicine
DX: Z00.01 Encounter for general adult medical examination with abnormal findings (principal); E78.9 Disorder of lipoprotein metabolism, unspecified; F41.1 Generalized anxiety disorder; G20 Parkinson's disease; G47.9 Sleep disorder, unspecified; M62.830 Muscle spasm of back; N40.0 Benign prostatic hyperplasia without lower urinary tract symptoms; Z91.09 Other allergy status, other than to drugs and biological substances
CPT/HCPCS: 36415; 80053; 80061; 85025

== ENCOUNTER 2023-07-07 11:02 | Outpatient (AMB) | payer OTHER, SELFPAY ==
--- NOTE | 2023-07-07 11:03 | A.OFFVIS_ITS ---
Intake Vital Signs 07/07/23 11:06 Height 6 ft 2 in Weight 217 lb BMI 27.9 BP 120/74 Blood Pressure Location Rt brachial Position Sitting Pulse 56 Intake Visit Reasons: s/p excision of left axillary sebaceous cyst Intake Note: Patient here s/p exc Lt axilla. Reports site healing well. Finished cephalexin course. Denies bleeding, pain or itch. [employer] Required: No Accompanied by: Self / Same As Patient Allergies No Known Allergies Allergy (Unknown, Verified 07/07/23 11:08) HPI HPI Comments History of Present Illness Details Patient's for follow-up. He has no wound issues or complaints. Otherwise doing well. Pathology was benign. [facility] Medical History Abnormal US (ultrasound) of abdomen Alcohol abuse Anxiety, generalized Back muscle spasm BPH (benign prostatic hyperplasia) Difficulty sleeping Environmental allergies Lipid disorder Parkinson disease Surgical History H/O colonoscopy History of back surgery History of esophagogastroduodenoscopy (EGD) History of knee surgery History of lumbar fusion Family History Father HTN (hypertension) Stroke Diabetes mellitus Cancer Mother Diabetes mellitus Sarcoidosis Heart failure Renal failure Brother Addisons disease Sister Aneurysm Son No problems noted. Son No problems noted. Social History Housing: House Alcohol intake: former Patient Tobacco Use Status: Never used Tobacco Tobacco use type: Smokeless Tobacco e-Cigarette/Vaping Use: Never Used Substance Use Type: Marijuana service: No Current occupational status: employed Cognitive needs: No Hearing needs: No Vision needs: Yes Physical Exam Vital Signs: Last Vital Signs Pulse 56 07/07/23 11:06 BP 120/74 07/07/23 11:06 BMI result Body Mass Index 27.9 Extrem Other: Left axillary wound is healing very well, good 1st intention healing. Assessment & Plan Assessment & Plan (1) Sebaceous cyst of axilla: Comment: Patient has been given local instructions, and will see me as directed or p.r.n. Code(s): L72.3 - Sebaceous cyst Plan Patient has been given local wound instructions, and will follow-up p.r.n. Coding Level of Care Code Global (34273) Diagnoses Sebaceous cyst of axilla L72.3
[2023-07-07 11:06] VITALS: BP 120/74; PULSE 56; BMI 27.9
== END 2023-07-07 11:09 | disposition home or self-care (01) ==
PROVIDERS: PCP Internal Medicine; Visit Provider Surgery
DX: L72.3 Sebaceous cyst (principal)
CPT/HCPCS: 99024

== ENCOUNTER → 2023-07-07 11:02 | Outpatient (BNVA) | payer OTHER, SELFPAY | PROVIDERS: PCP Internal Medicine; Visit Provider Surgery ==

== ENCOUNTER 2023-07-18 10:49 | Outpatient (AMB) | payer OTHER, SELFPAY ==
--- NOTE | 2023-07-18 11:01 | MHC.OFFWIV ---
Intake Vital Signs 07/18/23 11:05 Weight 98.43 kg BP 108/60 Blood Pressure Location Rt brachial Position Sitting Temp 97.6 F Temp Source Oral Pulse Oximetry (%) 96 Oxygen Delivery Method Room Air Intake Visit Reasons: EST/lower back pain/X1week Intake Note: Pt c/o of lower back pain that has gotten progressively worse. Could barely get out of bed. States he has hardware in his lumbar. Also states he [place] a tumble [place] the [place] 1 week ago. Patient Tobacco Use Status: Never used Tobacco Allergies No Known Allergies Allergy (Unknown, Verified 07/18/23 11:04) HPI HPI Comments History of Present Illness Details 1102 62 year old male hx of early dementia, Parkinson disease presenting to the clinic for evaluation of lower back pain, patient describes intermittent, back spasms, localized to bilateral lower back, w/ + pain in the middle. Pain is worse with movement better at rest. Patient reports pain has been present for a while however worsened over the past week, today could not get out of bed., he does report he had a fall [place] about a week ago, when he fell he is not sure if he hit his back, no head strike or loss of consciousness, not on blood thinners. Patient denies urinary/bowel incontinence/retention, weakness, saddle paresthesias, fevers, chills, chest pain, shortness of breath, nausea, vomiting, abdominal pain, headache, vision changes, dizziness and weakness. No history of IV drug abuse. Hx of back surgeries, and has hardware in back. Physical exam with bilateral lumbar paraspinous muscle spasms /tenderness on palpation and midline tenderness. Patient w/ extremely difficult time w/ ambulation No saddle paresthesias. Neuro nonocal. This is likely acute on chronic back pain ? issues w/ hardware. Unlikely epidural abscess, cauda equina, cord compression. Other differential includes herniated disc. No signs of SAH, stroke, posterior stroke Plan at this time naproxen, Lidoderm, prednisone which will be sent to patient's pharmacy however, I did advised patient to go to the hospital as I am concerned for possible issues with lumbar hardware. [facility] Medical History Abnormal US (ultrasound) of abdomen Alcohol abuse Parkinson disease Environmental allergies BPH (benign prostatic hyperplasia) Back muscle spasm Anxiety, generalized Difficulty sleeping Lipid disorder Surgical History History of esophagogastroduodenoscopy (EGD) H/O colonoscopy History of knee surgery History of lumbar fusion History of back surgery Family History Father HTN (hypertension) Stroke Diabetes mellitus Cancer Mother Diabetes mellitus Sarcoidosis Heart failure Renal failure Brother Addisons disease Sister Aneurysm Son No problems noted. Son No problems noted. Social History Housing: House Alcohol intake: former Patient Tobacco Use Status: Never used Tobacco Tobacco use type: Smokeless Tobacco e-Cigarette/Vaping Use: Never Used Substance Use Type: Marijuana service: No Current occupational status: employed Cognitive needs: No Hearing needs: No Vision needs: Yes Review of Systems Const Details: Constitutional : No Weight loss, No Fever, No Chills, ENT/Mouth : No Hearing loss, No Ear Pain, No Nasal Congestion, No Sinus Pain, No Hoarseness, No sore throat, No Rhinorrhea, No Swallowing Difficulty Cardiovascular : No Chest Pain, No SOB Respiratory : No Cough, No Dyspnea Gastrointestinal : No Nausea, No Vomiting, No Diarrhea, No abdominal Pain, No Hematochezia, No Melena Genitourinary : No Dysuria, No Urinary Frequency, No Hematuria, No Urinary Incontinence, Musculoskeletal : positive back pain Skin : No Skin Lesions, No rash Neuro : No Weakness, No Numbness, No Paresthesias, no loss of bowel or bladder incontinence, no saddle anesthesia All systems reviewed & are unremarkable except as noted in HPI and below Physical Exam Vital Signs: Last Vital Signs Temp 97.6 F 07/18/23 11:05 BP 108/60 07/18/23 11:05 Pulse Ox 96 07/18/23 11:05 Oxygen Delivery Method Room Air 07/18/23 11:05 Vital signs stable Appearance: Alert.? Oriented X3.? No acute distress.? Head: Normocephalic, atraumatic, no step-offs or deformities Eyes: Pupils equal, round and reactive to light.? ENT: Pharynx normal.? Neck: Normal inspection.? Neck supple.? CVS: Normal heart rate and rhythm.? Pulses normal.? Respiratory: No respiratory distress.? Breath sounds normal.? Abdomen: Soft and nontender.? Skin: Skin warm and dry.? Normal skin color.? Normal skin turgor.? Extremities: No lower extremity edema.? No calf ttp. 5/5 strength to bilateral upper and lower extremities Back: bilateral lumbar paraspinous muscle spasms /tenderness on palpation and midline tenderness. Patient w/ extremely difficult time w/ ambulation No saddle paresthesias. Neuro nonocal. Neuro: Oriented X 3.? No motor deficit.? No sensory deficit. CN 2-12 intact. No saddle paresthesias. No weakness. Ambulatory w/ steady gait normal coordination/ Assessment & Plan Assessment & Plan (1) Lower back pain: Code(s): M54.50 - Low back pain, unspecified Plan Take your medications as prescribed. If you were prescribed antibiotics today, it is important that you take your medication to their entirety, do not skip any doses, do not finish them early. Follow-up with your primary care provider this week. Return to the emergency department with new or worsening symptoms. Such as fevers, chills, chest pain, shortness of breath, nausea, vomiting, dizziness, headache, vision changes, lethargy In case of emergency call 911 Orders: Orders XR lumbar spine 2-3V Today M54.50 - Low back pain, unspecified Medications: New prednisone 40 mg (2 x 20 mg) PO DAILY 10 tabs 0RF 5 days naproxen 500 mg PO BID PRN 14 tabs 0RF pain lidocaine 4% (AsperFlex (lidocaine)) 1 patch topical DAILY PRN 15 ea 0RF pain Coding Level of Care Code Est Pt Level 3 (15524) Diagnoses Lower back pain M54.50
[2023-07-18 11:05] VITALS: BP 108/60; TEMP 36.4; O2SAT 96
== END 2023-07-18 11:24 | disposition home or self-care (01) ==
PROVIDERS: PCP Internal Medicine; Visit Provider Physician Assistant
DX: M54.50 Low back pain, unspecified (principal)
CPT/HCPCS: 99051; 99213

== ENCOUNTER 2023-07-18 11:47 | Emergency (ER) | payer OTHER, SELFPAY ==
--- NOTE | ~2023-07-18 | CT_ITS ---
EXAMINATION: CT LUMBAR SPINE WITHOUT CONTRAST CLINICAL INFORMATION: Low back pain after injury. COMPARISON: Lumbar spine x-ray 05/28/2019 TECHNIQUE: 2 mm thin axial and reformatted 2 mm thin sagittal and coronal images of lumbar spine were obtained. This CT examination was performed using dose optimization techniques as appropriate, variously including the following: *Automated exposure control *Adjustment of mA and/or kV according to patient size (this includes techniques or standardized protocols for targeted exams where dose is matched to indication/reason for exam; i.e. extremities or head) *Use of iterative reconstruction technique DLP; 1441. mGy-cm FINDINGS: On the sagittal reconstructed images there is maintained lumbar lordosis. There is bilateral pedicular screws at L4 and S1 vertebra with interconnecting rods for fusion. There is mild loss of L5-S1 disc height. Rest of the disc heights are normal. No lytic or sclerotic process seen. There is no visible acute fracture or dislocation. The L1-L2 disc level appears unremarkable. At L2-L3 views: There is mild disc bulge flattening the ventral thecal sac without spinal canal stenosis. The neural foramina are patent bilaterally. There is mild bilateral facet joint arthropathy. At L3-L4 disc level there is no evidence of disc bulge, herniation or spinal canal stenosis. The neural foramina and the spinal canal is not visualized due to beam hardening artifact from the pedicular screws. At L4-L5 disc level there is right laminectomy with capacious spinal canal there is mild right neural foramina from facet joint arthropathy. The left neural foramina appears patent. At L5-S1 disc level there is bilateral laminectomy is a capacious thecal sac beam hardening artifact limits evaluation of this spinal canal at this level. However grossly no spinal canal compromise seen. There is no aggressive lytic or sclerotic process seen. CT/CT lumbar spine wo IV con IMPRESSION: Right laminectomy at the L4-L5 and a total laminectomy at L5-S1 disc levels with capacious thecal sacs. These disc levels are stabilized posteriorly with bilateral pedicle screws from L4 through S1 vertebra and interconnecting rods. No hardware abnormality seen Mild disc bulge at the L2-L3 without spinal canal stenosis. No fracture or dislocation seen. No lytic or sclerotic process lumbar spine.
--- NOTE | ~2023-07-18 | CT_ITS ---
EXAMINATION: CT HEAD WITHOUT CONTRAST CLINICAL INFORMATION: Injury, fall. Evaluate for bleed or fracture. COMPARISON: Head MRI from 08/16/2021. Head CT from 11/28/2014. TECHNIQUE: Contiguous axial imaging was performed from the skull base to vertex without intravenous administration of contrast. This CT examination was performed using dose optimization techniques as appropriate, variously including the following: *Automated exposure control *Adjustment of mA and/or kV according to patient size (this includes techniques or standardized protocols for targeted exams where dose is matched to indication/reason for exam; i.e. extremities or head) *Use of iterative reconstruction technique DLP: After acquisition of the topogram, DLP for the head is 785.31 mGy-cm FINDINGS: The brain parenchyma has normal attenuation. The paul-white matter differentiation is well preserved. No evidence of an acute major vascular territory infarction. No intracranial hemorrhage, extra-axial fluid collection, focal mass effect or midline shift. The ventricles have normal size and configuration; no hydrocephalus. The brainstem and cerebellum have a normal appearance. The cerebellar tonsils are in normal position. No evidence of scalp hematoma. The calvarium is intact. Mild mucosal thickening of inferior right frontal sinus and some of the ethmoid air cells. Otherwise, the visualized paranasal sinuses, mastoid air cells and middle ear cavities are well aerated. The orbits and globes are unremarkable. Mild osteoarthrosis of the temporomandibular joints. CT/CT head/brain wo IV con IMPRESSION: No acute intracranial pathology. No evidence of calvarial fracture or intracranial hemorrhage.
[2023-07-18 12:08] VITALS: BP 127/64; PULSE 55; RESP 19; TEMP 36.6; O2SAT 98; BMI 28.0
--- NOTE | 2023-07-18 12:15 | ED_ITS ---
HPI - Back Pain/Injury General Chief Complaint: Back Pain/Injury Stated Complaint: UC/ lower back pain Time Seen by Provider: 07/18/23 13:02 Source: patient Mode of arrival: ambulatory Limitations: no limitations Related Data Previous Rx's Medication Instructions Recorded dicyclomine 20 mg tablet 20 mg PO QID PRN for diarrhea #360 12/10/22 tabs carbidopa 25 mg-levodopa 100 mg 2 tab PO TID 90 days #540 tabs 02/12/23 tablet gabapentin 300 mg capsule 600 mg (2 x 300 mg) PO DAILY #60 02/12/23 caps citalopram 40 mg tablet 40 mg PO DAILY 90 days #90 tabs 04/20/23 simvastatin 10 mg tablet 10 mg PO DAILY 90 days #90 tabs 04/20/23 sildenafil 100 mg tablet 100 mg PO DAILY PRN sexual 06/19/23 activity 30 days #30 tabs trazodone 100 mg tablet 150 mg (1.5 x 100 mg) PO BEDTIME 07/16/23 30 days #45 tabs lidocaine 4 % topical patch 1 patch topical DAILY PRN pain #15 07/18/23 (AsperFlex (lidocaine)) ea naproxen 500 mg tablet 500 mg PO BID PRN pain #14 tabs 07/18/23 prednisone 20 mg tablet 40 mg (2 x 20 mg) PO DAILY 5 days 07/18/23 #10 tabs Allergies Allergy/AdvReac Type Severity Reaction Status Date / Time No Known Allergies Allergy Unknown Verified 07/18/23 12:08 [facility] Past Medical History Medical History Abnormal US (ultrasound) of abdomen Alcohol abuse Parkinson disease Environmental allergies BPH (benign prostatic hyperplasia) Back muscle spasm Anxiety, generalized Difficulty sleeping Lipid disorder Surgical History History of esophagogastroduodenoscopy (EGD) H/O colonoscopy History of knee surgery History of lumbar fusion History of back surgery Family History Family History Father HTN (hypertension) Stroke Diabetes mellitus Cancer Mother Diabetes mellitus Sarcoidosis Heart failure Renal failure Brother Addisons disease Sister Aneurysm Son No problems noted. Son No problems noted. Social History Social History Housing: House Alcohol intake: former Patient Tobacco Use Status: Never used Tobacco Tobacco use type: Smokeless Tobacco e-Cigarette/Vaping Use: Never Used Substance Use Type: Marijuana Advance Directives: No Advance Directives Information Provided: Yes service: No Current occupational status: employed Cognitive needs: No Hearing needs: No Vision needs: Yes Physical Exam Vital Signs: Vital Signs: Last Vital Signs Temp 98 F 07/18/23 12:08 Pulse 55 07/18/23 12:08 Resp 19 07/18/23 12:08 BP 127/64 07/18/23 12:08 Pulse Ox 98 07/18/23 12:08 O2 Del Method Room Air 07/18/23 12:08 BMI result Body Mass Index 28.0 Course Course Course Narrative: Our ME in triage to be followed by full evaluation dispo and evaluation of imaging by provider er Patient complains of several days of back pain after he fell out of a golf cart hurting his back and banging his head he may have had a brief loss of consciousness and did have a headache for several days Head CT and lumbar spine is CT ordered Discharge Plan Discharge Prescriptions: No Action simvastatin 10 mg tablet 10 mg PO DAILY 90 Days Qty: 90 0RF citalopram 40 mg tablet 40 mg PO DAILY 90 Days Qty: 90 1RF sildenafil 100 mg tablet 100 mg PO DAILY PRN (Reason: sexual activity) 30 Days Qty: 30 1RF Rx Instructions: administer 60 minutes before intended activity trazodone 100 mg tablet 150 mg PO BEDTIME 30 Days Qty: 45 1RF prednisone 20 mg tablet 40 mg PO DAILY 5 Days Qty: 10 0RF naproxen 500 mg tablet 500 mg PO BID PRN (Reason: pain) Qty: 14 0RF lidocaine [AsperFlex (lidocaine)] 4 % adhesive patch,medicated 1 patch topical DAILY PRN (Reason: pain) Qty: 15 0RF carbidopa-levodopa 25-100 mg tablet 2 tab PO TID 90 Days Qty: 540 1RF gabapentin 300 mg capsule 600 mg PO DAILY Qty: 60 6RF dicyclomine 20 mg tablet 20 mg PO QID PRN (Reason: for diarrhea) Qty: 360 1RF
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
[2023-07-18] MEDS: Ketorolac Tromethamine 60 MG/2 ML VIAL IM (13:56)
== END 2023-07-18 15:07 | disposition home or self-care (01) ==
PROVIDERS: Emergency Provider Emergency Medicine; PCP Internal Medicine
DX: M54.16 Radiculopathy, lumbar region (principal); M54.50 Low back pain, unspecified; R51.9 Headache, unspecified; E78.5 Hyperlipidemia, unspecified; G20 Parkinson's disease; F12.90 Cannabis use, unspecified, uncomplicated; Z79.899 Other long term (current) drug therapy
CPT/HCPCS: 70450; 72131; 96372; 99283; 99284; J1885

== ENCOUNTER 2023-08-18 07:23 | Outpatient (AMB) | payer OTHER, SELFPAY ==
--- NOTE | 2023-08-18 07:31 | MHC.OFFVIS ---
Intake Vital Signs 08/18/23 07:36 Height 6 ft 2 in Weight 218 lb BMI 28.0 BP 114/72 Blood Pressure Location Rt brachial Position Sitting Pulse 56 Pulse Source Pulse Oximeter Pulse Oximetry (%) 93 Oxygen Delivery Method Room Air Intake Visit Reasons: 6 mnts f/u appt-confirmed Intake Note: Patient presents for 6 month follow up. Patient states My stomach has been hurting lately Allergies No Known Allergies Allergy (Unknown, Verified 08/18/23 07:34) Medication List - Last Reconciled 08/18/23 by Dina Mcgowan MD carbidopa-levodopa 25-100 mg 2 tabs PO TID 90 days citalopram 40 mg PO DAILY 90 days dicyclomine 20 mg PO QID PRN gabapentin 600 mg (2 x 300 mg) PO DAILY lidocaine 4% (AsperFlex (lidocaine)) 1 patch topical DAILY PRN naproxen 500 mg PO BID PRN prednisone 40 mg (2 x 20 mg) PO DAILY 5 days sildenafil 100 mg PO DAILY PRN 30 days simvastatin 10 mg PO DAILY 90 days trazodone 150 mg (1.5 x 100 mg) PO BEDTIME 30 days HPI HPI Comments History of Present Illness Details 63y/o left handed male comes for follow up of parkinsons.. He gym workouts an [employer] are helping. He is on sinemet 25/100 5-6 tabs a day His reports compulsive behavior and more irritable, anxious. He is sleeping better with trazodone. His restless legs are better He is also on gabapentin which helps.He also has abnormal jerky movements . He quit drinking 26 years ago. 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 No vivid dreams In the evenings when he is sitting down he gets twitches in his whole body.He has depression and anxiety . His father last year and also he had 2 rough divorces. He was always a bit anxious. He was in therapy which helped. He has no motivation now. He lost 40 lbs in last 6 mths . His appetite is low. He stutters a lot and his voice is softer. No drooling . Handwriting is the same , In the morning he has trouble holding his coffee. He has no trouble with personal hygiene . His walking is good - but slower, feels dizzy sometimes. he feels unsafe on stairs. No double vision . No hallucinations he played lot of sports and had multiple closed head injuries and concussions [facility] Medical History Abnormal US (ultrasound) of abdomen Alcohol abuse Parkinson disease Environmental allergies BPH (benign prostatic hyperplasia) Back muscle spasm Anxiety, generalized Difficulty sleeping Lipid disorder Surgical History History of esophagogastroduodenoscopy (EGD) H/O colonoscopy History of knee surgery History of lumbar fusion History of back surgery Family History Father HTN (hypertension) Stroke Diabetes mellitus Cancer Mother Diabetes mellitus Sarcoidosis Heart failure Renal failure Brother Addisons disease Sister Aneurysm Son No problems noted. Son No problems noted. Social History Housing: House Alcohol intake: former Patient Tobacco Use Status: Never used Tobacco Tobacco use type: Smokeless Tobacco e-Cigarette/Vaping Use: Never Used Substance Use Type: Marijuana service: No Current occupational status: employed Cognitive needs: No Hearing needs: No Vision needs: Yes Physical Exam Vital Signs: Last Vital Signs Pulse 56 08/18/23 07:36 BP 114/72 08/18/23 07:36 Pulse Ox 93 08/18/23 07:36 Oxygen Delivery Method Room Air 08/18/23 07:36 BMI result Body Mass Index 28.0 Const General: cooperative, healthy appearing and no acute distress Nutritional Appearance: average body habitus Orientation/consciousness: patient oriented x3 HEENT Head: Yes normal to inspection Neck Other: mild antecollis and right laterocollis and restricted range of motion Neuro Other: Mild decreased blink and facial expression No lip tremors, tongue tremors , slow tongue movements Voice- normal, dysprosody Fine Finger movements - mildly decreased demarcus l>R Alternating hand movements - decreased demarcus Hand movements - decreased demarcus Foot taps- decreased demarcus No cog wheel rigidity gait - stooped, mild slowness and decreased arm swing R>L, good stride General: patient oriented x3 and no focal motor deficits Cranial nerves: Yes CN's II-XII intact bilaterally, Yes Bilaterally intact EOM present, Yes Normal facial strength present and Yes Midline tongue present Cognition (Neuro): normal cognition Motor exam (neuro): 5/5 motor strength present throughout and Normal motor muscle tone present throughout Coordination: [id number] test normal Psych Appearance: grossly normal Assessment & Plan Assessment & Plan (1) Parkinsons disease: Code(s): G20 - Parkinson's disease (2) Memory change: Code(s): R41.3 - Other amnesia (3) Anxiety, generalized: Code(s): F41.1 - Generalized anxiety disorder Plan Continue sinemet 25/100 2-3tab am 1 tabs noon and 2 tab qhs Suggetsed to take with food or snack ( low protien) YANN scan -c/w parkinsons disease Continue exercise.Info on local support groups given. Trazadone 150mg qhs Neuropsych evaluation Psychiatry evaluation Orders: Orders Vitamin B12 and Folate 2 Weeks G20 - Parkinson's disease Vitamin D 25-OH (D2 and D3) 2 Weeks G20 - Parkinson's disease Coding Level of Care Code Est Pt Level 4 (97327) Diagnoses Parkinsons disease G20 Memory change R41.3 Anxiety, generalized F41.1
[2023-08-18 07:36] VITALS: BP 114/72; PULSE 56; O2SAT 93; BMI 28.0
== END 2023-08-18 08:07 | disposition home or self-care (01) ==
PROVIDERS: Visit Provider Psychiatry & Neurology Neurology
DX: G20.A1 Parkinson's disease without dyskinesia, without mention of fluctuations (principal); R41.3 Other amnesia; F41.1 Generalized anxiety disorder
CPT/HCPCS: 99214

== ENCOUNTER → 2023-08-18 07:23 | Outpatient (BNVA) | payer OTHER, SELFPAY | PROVIDERS: Visit Provider Psychiatry & Neurology Neurology | DX: N52.9 Male erectile dysfunction, unspecified (principal); G20.A1 Parkinson's disease without dyskinesia, without mention of fluctuations; R41.3 Other amnesia; F41.1 Generalized anxiety disorder; Z79.899 Other long term (current) drug therapy | CPT/HCPCS: 99212 ==

== ENCOUNTER 2023-08-18 10:19 | Outpatient (AMB) | payer OTHER, SELFPAY ==
--- NOTE | 2023-08-18 10:23 | A.OFFVIS_ITS ---
Intake Intake Visit Reasons: 6m follow up Intake Note: Patient is present for 6MO Follow-up Results: 02/09/23- PSA: 2.21 Urology Med: Sildenafil, Tadlafil Antibiotic Allergy: None Blood Thinner: None Hip Hop Dancer Required: No Accompanied by: Self / Same As Patient Allergies No Known Allergies Allergy (Unknown, Verified 08/18/23 10:24) HPI HPI Comments History of Present Illness Details Margarito is a pleasant male. 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 - [employer] Erectile dysfunction Progressive longstanding Does take citalopram which has known inhibitory effects Failed daily 5 mg tadalafil Continue with daily 10 mg tadalafil and 100 mg sildenafil as needed PSA 06/29 1.5, 03/01 2.2 Still with occasional nocturia on tamsulosin 0.4 mg PFS Medical History Abnormal US (ultrasound) of abdomen Alcohol abuse Parkinson disease Environmental allergies BPH (benign prostatic hyperplasia) Back muscle spasm Anxiety, generalized Difficulty sleeping Lipid disorder Surgical History History of esophagogastroduodenoscopy (EGD) H/O colonoscopy History of knee surgery History of lumbar fusion History of back surgery Family History Father HTN (hypertension) Stroke Diabetes mellitus Cancer Mother Diabetes mellitus Sarcoidosis Heart failure Renal failure Brother Addisons disease Sister Aneurysm Son No problems noted. Son No problems noted. Social History Housing: House Alcohol intake: former Patient Tobacco Use Status: Never used Tobacco Tobacco use type: Smokeless Tobacco e-Cigarette/Vaping Use: Never Used Substance Use Type: Marijuana service: No Current occupational status: employed Cognitive needs: No Hearing needs: No Vision needs: Yes Review of Systems Const Denies chills and Denies fever(s) Card Reports no additional complaints and Denies syncope Resp Denies cough GI Denies abdominal pain and Denies heartburn Reports as per HPI and Denies change in libido Neuro Denies syncope Psych Denies change in libido Endo Denies change in libido Physical Exam Const General: cooperative, healthy appearing, comfortable and no acute distress Orientation/consciousness: patient oriented x3 HEENT Face and sinus: Yes normal facial exam Mouth: moist mucous membranes Neck Neck: Yes normal visual inspection, Yes full ROM and Yes trachea midline Chest Chest palpation & inspection: normal inspection of the chest Resp Effort & Inspection: normal respiratory effort, able to speak in complete sentences and no respiratory distress GI Inspection: Yes normal to inspection Back/Spine/Pelvis Cervical Spine: normal cervical lordosis Thoracic/Lumbar Spine: thoracic and lumbar spine normal to inspection Skin General skin exam: no rashes or lesions noted Neuro General: patient oriented x3, gait normal, tone normal and moves all extremities Extrem General: Yes normal to inspection and Yes capillary refill normal Assessment & Plan Assessment & Plan (1) Erectile dysfunction: Code(s): N52.9 - Male erectile dysfunction, unspecified Qualifiers: Erectile dysfunction type: vasculogenic Plan Six month follow-up Patient Instructions: Imaging studies, laboratory and physical exam results were discussed and reviewed in detail. No major barriers to patient understanding were identified. An opportunity to ask questions regarding the treatment plan was provided. All questions were answered. The patient expressed understanding and agreement with the above treatment plan. The patient is aware they should contact our office by phone for worsening of their current condition or the appearance of new urologic symptoms. Compliance is encouraged with any medications and followup testing that is ordered. It is a privilege to participate in the urologic care of your patient. If you have any questions or concerns regarding treatment for the above conditions, or other urologic issues, please do not hesitate to contact me. The office telephone contact is [phone]. This note is constructed using voice recognition software. While every effort has been made to ensure accuracy food cashier errors may have been included. Yours sincerely, Dr Drake Osullivan MD, [facility] - Urology Providers of Expert, Compassionate Care for the Genitourinary System Coding Level of Care Code Est Pt Level 3 (74719) Diagnoses Erectile dysfunction N52.9 Erectile dysfunction type: vasculogenic
== END 2023-08-18 11:27 | disposition home or self-care (01) ==
PROVIDERS: PCP Internal Medicine; Visit Provider Urology
DX: N52.9 Male erectile dysfunction, unspecified (principal)
CPT/HCPCS: 99213

== ENCOUNTER 2023-08-24 11:20 | Outpatient (REF) | payer OTHER, SELFPAY ==
[2023-08-24 14:10] LABS: Folate 5.7 ng/mL (> or = 4.0); Vitamin B12 477 pg/mL (200-900)
[2023-08-28 15:23] LABS: Vitamin D 25-OH, D2 <4 ng/mL; Vitamin D 25-OH, D3 34 ng/mL; Vitamin D 25-OH, Total 34 ng/mL (30-100)
== END 2023-08-24 11:21 | disposition home or self-care (01) ==
LOC: HO.HMGCLDS 11:20
PROVIDERS: PCP Internal Medicine; Visit Provider Psychiatry & Neurology Neurology
DX: G20.A1 Parkinson's disease without dyskinesia, without mention of fluctuations (principal)
CPT/HCPCS: 36415; 82306; 82607; 82746

== ENCOUNTER 2023-09-15 11:31 | Outpatient (AMB) | payer OTHER, SELFPAY ==
[2023-09-15 11:57] VITALS: BP 120/66; PULSE 70; O2SAT 95; BMI 28.5
--- NOTE | 2023-09-15 11:57 | AM.OFFWIN_ITS ---
Intake Vital Signs 09/15/23 11:57 Height 6 ft 2 in Weight 222 lb BMI 28.5 BP 120/66 Blood Pressure Location Rt brachial Position Sitting Pulse 70 Pulse Source Pulse Oximeter Pulse Oximetry (%) 95 Oxygen Delivery Method Room Air Intake Visit Reasons: EST/ stomach pain(lobby) Patient Tobacco Use Status: Never used Tobacco Allergies No Known Allergies Allergy (Unknown, Verified 09/15/23 11:59) Medication List - Last Reconciled 09/15/23 by Galo Rodrigues MD carbidopa-levodopa 25-100 mg 2 tabs PO TID 90 days citalopram 40 mg PO DAILY 90 days dicyclomine 20 mg PO QID PRN gabapentin 600 mg (2 x 300 mg) PO DAILY lidocaine 4% (AsperFlex (lidocaine)) 1 patch topical DAILY PRN naproxen 500 mg PO BID PRN prednisone 40 mg (2 x 20 mg) PO DAILY 5 days sildenafil 100 mg PO DAILY PRN 30 days simvastatin 10 mg PO DAILY 90 days trazodone 150 mg (1.5 x 100 mg) PO BEDTIME 30 days Do you need a note to return to daycare/school/sports/work: No HPI EST/ stomach pain(lobby) HPI Details Patient is 63-year-old gentleman came in today to be evaluated for epigastric discomfort which started on Thursday after eating out in a restaurant He had a steak with some other food, patient said that every 1 had a different order. No one else is sick at home He started having bloating sensation burping and feeling gassy with change in bowel since Epigastric discomfort as well This morning he had coffee and banana On examination he is having discomfort with pressure over epigastric area. Rest of his abdomen is benign I am prescribing pantoprazole Diet restrictions discussed with the patient and to seen again on Thursday I would recommend small bland meals. Patient continued to be depressed and have anger issues He tells me that he do not like the therapist he has seen to them he would like to have a new therapist He will be meeting with our behavior health coordinator today so we can assess the patient. Patient also suffers from Parkinson's disease and is taking medication through neurology Follow-up Thursday [facility] Medical History Abnormal US (ultrasound) of abdomen Alcohol abuse Parkinson disease Environmental allergies BPH (benign prostatic hyperplasia) Back muscle spasm Anxiety, generalized Difficulty sleeping Lipid disorder Surgical History History of esophagogastroduodenoscopy (EGD) H/O colonoscopy History of knee surgery History of lumbar fusion History of back surgery Family History Father HTN (hypertension) Stroke Diabetes mellitus Cancer Mother Diabetes mellitus Sarcoidosis Heart failure Renal failure Brother Addisons disease Sister Aneurysm Son No problems noted. Son No problems noted. Social History Housing: House Alcohol intake: former Patient Tobacco Use Status: Never used Tobacco Tobacco use type: Smokeless Tobacco e-Cigarette/Vaping Use: Never Used Substance Use Type: Marijuana service: No Current occupational status: employed Cognitive needs: No Hearing needs: No Vision needs: Yes Review of Systems Const All systems reviewed & are unremarkable except as noted in HPI and below Physical Exam Vital Signs: Last Vital Signs Pulse 70 09/15/23 11:57 BP 120/66 09/15/23 11:57 Pulse Ox 95 09/15/23 11:57 Oxygen Delivery Method Room Air 09/15/23 11:57 BMI result Body Mass Index 28.5 Const General: no acute distress Orientation/consciousness: patient oriented x3 Eyes General: appearance normal, both eyes and all related structures Resp Effort & Inspection: normal respiratory effort and able to speak in complete sentences Auscultation: clear to auscultation bilaterally Cardio Other: S1 S2 GI Other: Mild epigastric discomfort to pressure , BS + no G or R Neuro General: patient oriented x3 Psych Mental Status: mental status grossly normal Assessment & Plan Assessment & Plan (1) Epigastric pain: Code(s): R10.13 - Epigastric pain (2) Major depression, recurrent: Code(s): F33.9 - Major depressive disorder, recurrent, unspecified Qualifiers: Active/Remission status: currently active Major depression episode severity: moderate Qualified Code(s): F33.1 - Major depressive disorder, recurrent, moderate (3) Parkinson disease: Comment: new diagnosis Code(s): G20 - Parkinson's disease Qualifiers: Dyskinesia presence: with dyskinesia Fluctuating manifestations: with fluctuating manifestations Qualified Code(s): G20.B2 - Parkinson's disease with dyskinesia, with fluctuations Plan . Patient is 63-year-old gentleman came in today to be evaluated for epigastric discomfort which started on Thursday after eating out in a restaurant He had a steak with some other food, patient said that every 1 had a different order. No one else is sick at home He started having bloating sensation burping and feeling gassy with change in bowel since Epigastric discomfort as well This morning he had coffee and banana On examination he is having discomfort with pressure over epigastric area. Rest of his abdomen is benign I am prescribing pantoprazole Diet restrictions discussed with the patient and to seen again on Thursday I would recommend small bland meals. Patient continued to be depressed and have anger issues He tells me that he do not like the therapist he has seen to them he would like to have a new therapist He will be meeting with our behavior health coordinator today so we can assess the patient. Patient also suffers from Parkinson's disease and is taking medication through neurology Follow-up Thursday Medications: New pantoprazole 40 mg PO DAILY 30 tabs 0RF Discontinued prednisone Discontinued Reason: Patient Completed Course 40 mg (2 x 20 mg) PO DAILY 5 days 10 tabs 0RF naproxen Discontinued Reason: Patient Completed Course 500 mg PO BID PRN 14 tabs 0RF pain Coding Level of Care Code Est Pt Level 4 (48943) Diagnoses Epigastric pain R10.13 Moderate episode of recurrent major depressive disorder F33.1 Active/Remission status: currently active Major depression episode severity: moderate Parkinson's disease with dyskinesia and fluctuating manifestations G20.B2 Dyskinesia presence: with dyskinesia Fluctuating manifestations: with fluctuating manifestations
== END 2023-09-15 13:00 | disposition home or self-care (01) ==
PROVIDERS: PCP Internal Medicine; Visit Provider Internal Medicine
DX: R10.13 Epigastric pain (principal); F33.1 Major depressive disorder, recurrent, moderate; G20.B2 Parkinson's disease with dyskinesia, with fluctuations
CPT/HCPCS: 99214

== ENCOUNTER 2023-09-18 11:04 | Outpatient (AMB) | payer OTHER, SELFPAY ==
[2023-09-18 11:10] VITALS: BP 108/76; PULSE 53; O2SAT 97; BMI 28.1
--- NOTE | 2023-09-18 11:10 | A.OFFPC_ITS ---
Vital Signs 09/18/23 11:10 Height 6 ft 2 in Weight 219 lb 4 oz BMI 28.1 BP 108/76 Blood Pressure Location Rt brachial Position Sitting Pulse 53 Pulse Source Pulse Oximeter Pulse Oximetry (%) 97 Oxygen Delivery Method Room Air Intake Visit Reasons: Follow Up Allergies No Known Allergies Allergy (Unknown, Verified 09/18/23 11:12) Medication List - Last Reconciled 09/18/23 by Galo Rodrigues MD carbidopa-levodopa 25-100 mg 2 tabs PO TID 90 days citalopram 40 mg PO DAILY 90 days dicyclomine 20 mg PO QID PRN gabapentin 600 mg (2 x 300 mg) PO DAILY pantoprazole 40 mg PO DAILY sildenafil 100 mg PO DAILY PRN 30 days simvastatin 10 mg PO DAILY 90 days tamsulosin 0.4 mg PO DAILY 90 days trazodone 150 mg (1.5 x 100 mg) PO BEDTIME 30 days Tobacco use date assessed: 09/18/23 Dental Screening Dental Screen Date: 09/18/23 Did you have a dental visit in the last 12 months?: Yes Did you have a dental problem in the last 6 months where you did not have access to dental care?: No Was dental information given to patient?: Patient has dentist HPI Follow Up HPI Details Follow-up epigastric discomfort patient was seen few days ago and was started on pantoprazole Symptoms started after eating in restaurant. Is feeling better Now having regular bowel movement But still have some epigastric discomfort He also have Parkinson's disease and is taking carbidopa levodopa Patient says that this medication also causes epigastric discomfort. But his symptoms were different when he had the restaurant food. Instructed patient to continue to eat lightly bland meals until symptoms resolve He may continue pantoprazole until his done. [facility] Medical History Abnormal US (ultrasound) of abdomen Alcohol abuse Parkinson disease Environmental allergies BPH (benign prostatic hyperplasia) Back muscle spasm Anxiety, generalized Difficulty sleeping Lipid disorder Surgical History History of esophagogastroduodenoscopy (EGD) H/O colonoscopy History of knee surgery History of lumbar fusion History of back surgery Family History Father HTN (hypertension) Stroke Diabetes mellitus Cancer Mother Diabetes mellitus Sarcoidosis Heart failure Renal failure Brother Addisons disease Sister Aneurysm Son No problems noted. Son No problems noted. Social History Housing: House Alcohol intake: former Patient Tobacco Use Status: Never used Tobacco Tobacco use type: Smokeless Tobacco e-Cigarette/Vaping Use: Never Used Substance Use Type: Marijuana service: No Current occupational status: employed Cognitive needs: No Hearing needs: No Vision needs: Yes Questionnaire Thrive Questionnaire Date Thrive assessed: 07/01/23 KHURRAM-7 AMB Questionnaire KHURRAM-7 Date KHURRAM - 7 assessed: 12/31/22 Source: Developed by Drs. Ricardo Varghese, Kathie Phan, Chris Gordillo and colleagues, with an educational cammie from [employer]. Review of Systems Const Denies chills and Denies fever(s) ENT Denies epistaxis and Denies nasal discharge Card Denies chest pain Resp Denies chest congestion, Denies cough and Denies hemoptysis GI Denies diarrhea Skin/Breast Denies rash Neuro Reports no additional complaints Psych Reports no additional complaints Endo Reports no additional complaints Physical exam (Primary Care) Vital Signs: Last Vital Signs Pulse 53 09/18/23 11:10 BP 108/76 09/18/23 11:10 Pulse Ox 97 09/18/23 11:10 Oxygen Delivery Method Room Air 09/18/23 11:10 BMI result Body Mass Index 28.1 Tobacco/Smoking Status: Tobacco use Status Tobacco use date assessed 09/18/23 09/18/23 11:15 Patient Tobacco Use Status Never used Tobacco 09/18/23 11:15 Tobacco use type Smokeless Tobacco 09/18/23 11:15 e-Cigarette/Vaping Use Never Used 09/18/23 11:15 Thrive Assessment: Date of Thrive Assessment Date Thrive assessed 07/01/23 09/18/23 11:15 Const General: cooperative, comfortable and no acute distress Orientation/consciousness: patient oriented x3 HENMT Head: Yes normocephalic Eyes General: appearance normal, both eyes and all related structures Neck Neck: Yes supple Resp Effort & Inspection: normal respiratory effort, no cough and no stridor Cardio Rhythm: regular rhythm Heart sounds: S1 normal heart sound present and S2 normal heart sound present GI Other: Epigastric discomfort with pressure no guarding no rebound bowel sound positive Skin General skin exam: turgor normal Neuro General: patient oriented x3, tone normal and moves all extremities Extrem Right lower extremity: no edema Left lower extremity: no edema Assessment and Plan Assessment & Plan (1) Epigastric pain: Code(s): R10.13 - Epigastric pain Plan Follow-up epigastric discomfort patient was seen few days ago and was started on pantoprazole Symptoms started after eating in restaurant. Is feeling better Now having regular bowel movement But still have some epigastric discomfort He also have Parkinson's disease and is taking carbidopa levodopa Patient says that this medication also causes epigastric discomfort. But his symptoms were different when he had the restaurant food. Instructed patient to continue to eat lightly bland meals until symptoms resolve He may continue pantoprazole until his done. Coding Level of Care Code Est Pt Level 3 (79894) Diagnoses Epigastric pain R10.13
== END 2023-09-18 13:20 | disposition home or self-care (01) ==
PROVIDERS: PCP Internal Medicine; Visit Provider Internal Medicine
DX: R10.13 Epigastric pain (principal)
CPT/HCPCS: 99213

== ENCOUNTER 2023-10-19 12:12 | Outpatient (REF) | payer OTHER, SELFPAY ==
--- NOTE | ~2023-10-19 | XR_ITS ---
EXAMINATION: XR SHOULDER, RIGHT CLINICAL INFORMATION: Pain in unspecified shoulder COMPARISON: None available. TECHNIQUE: AP neutral, Grashey and axillary views of the right shoulder. FINDINGS: The bones are intact. No fracture. Glenohumeral and acromioclavicular alignment is anatomic with normal glenohumeral joint space. There is mild degenerative change of the acromioclavicular joint. No abnormal soft tissue calcifications. XR/XR shoulder RT min 2V IMPRESSION: Mild degenerative change of the acromioclavicular joint.
--- NOTE | ~2023-10-19 | XR_ITS ---
EXAMINATION: XR SHOULDER, LEFT CLINICAL INFORMATION: Pain in unspecified shoulder COMPARISON: Same-day right shoulder TECHNIQUE: AP, Grashey and axillary views of the left shoulder. FINDINGS: The bones intact. No fracture. Glenohumeral and acromioclavicular alignment is anatomic. There is moderate degenerative change of the acromioclavicular joint. There is mild narrowing of the glenohumeral joint. Small calcification adjacent to the humeral head is consistent with calcific tendinitis. XR/XR shoulder LT min 2V IMPRESSION: 1. Calcific tendinitis. 2. Degenerative change of the acromioclavicular joint and glenohumeral joint.
== END 2023-10-19 12:13 | disposition home or self-care (01) ==
LOC: HO.HOSX 12:12
PROVIDERS: Visit Provider Orthopaedic Surgery
DX: M75.51 Bursitis of right shoulder (principal); M75.52 Bursitis of left shoulder
CPT/HCPCS: 20610; 73030; J0665; J1100

== ENCOUNTER 2023-10-19 14:09 | Outpatient (AMB) | payer OTHER, SELFPAY ==
--- NOTE | 2023-10-19 14:18 | MHC.OFFVIS ---
Intake Intake Visit Reasons: New prob- B/L Shoulder pain Intake Note: Margarito is a 63 year old left hand dominant male who presents today for a new problem visit with complaints of bilateral shoulder pain. He has had ongoing pain for many years , hx of injections. The injections are helpful but it has been quite some time now. Occasional numbness and tinging of the hands. He takes gabapentin daily Allergies No Known Allergies Allergy (Unknown, Verified 09/18/23 11:12) HPI New prob- B/L Shoulder pain HPI Details Margarito is a 63 year old man who presents with complaints of bilateral shoulder pain. He has Parkinson's disease. He complains of shoulder pain with activity for several years. He has a hx of relief from steroid injections in the past, but says it has been some time since he was injection. he would like to try injections again today. He reports occasional numbness & tingling in his hands, and takes daily Gabapentin. [facility] Medical History Abnormal US (ultrasound) of abdomen Alcohol abuse Parkinson disease Environmental allergies BPH (benign prostatic hyperplasia) Back muscle spasm Anxiety, generalized Difficulty sleeping Lipid disorder Surgical History History of esophagogastroduodenoscopy (EGD) H/O colonoscopy History of knee surgery History of lumbar fusion History of back surgery Family History Father HTN (hypertension) Stroke Diabetes mellitus Cancer Mother Diabetes mellitus Sarcoidosis Heart failure Renal failure Brother Addisons disease Sister Aneurysm Son No problems noted. Son No problems noted. Social History Housing: House Alcohol intake: former Patient Tobacco Use Status: Never used Tobacco Tobacco use type: Smokeless Tobacco e-Cigarette/Vaping Use: Never Used Substance Use Type: Marijuana service: No Current occupational status: employed Cognitive needs: No Hearing needs: No Vision needs: Yes Review of Systems Const All systems reviewed & are unremarkable except as noted in HPI and below Physical Exam Const General: no acute distress, alert and awake Orientation/consciousness: patient oriented x3 HEENT Head: Yes normocephalic and Yes atraumatic Eyes EOM: EOMs intact bilaterally Resp Effort & Inspection: normal respiratory effort and able to speak in complete sentences Cardio Jugular venous distension: no JVD Skin General skin exam: turgor normal Rashes: no rashes Neuro General: patient oriented x3 Extrem Other: Full ROm +H/N bialterally 4+5 EC bilaterally 45/90/130/L5 Psych Appearance: grossly normal Affect: normal affect Attitude: cooperative Office Procedures Joint Injection/Drain Joint Injection/Drain Details: Injected 1 mL of Decadron and 3 mL 1% lidocaine and 3 mL of 0.25% Marcaine. Site was prepped using aseptic technique. Patient tolerated the procedure well. Primary Site: right shoulder Secondary Site: left shoulder Approach Used: posterolateral Coding - Large joint - Glenohumeral/Tronchanteric Bursa/Intraarticular Procedure code (CPT) selection complete Results Reviewed Results Reviewed: I personally reviewed relevant radiographs. Mild bilateral GH OA. Otherwise unremarkable Assessment & Plan Assessment & Plan (1) Bilateral shoulder bursitis: Code(s): M75.51 - Bursitis of right shoulder; M75.52 - Bursitis of left shoulder Plan: Injected bilateral shoulders Has been treating shoulder with injections off and on for years. Not interested in PT or additional treatment at this time. Plan Scribed for Dave Frias MD by Christopher Sams, medical records library professor, on 10/19/23 at 2:30 PM, EST. Orders: Orders XR shoulder RT min 2V Today M25.519 - Pain in unspecified shoulder XR shoulder LT min 2V Today M25.519 - Pain in unspecified shoulder Coding Level of Care Code Est Pt Level 3 (66840) Diagnoses Bilateral shoulder bursitis M75.51; M75.52 CPT Codes Coding - Large joint: - Large joint ([id number]) Coding - Joint 7: - Glenohumeral/Tronchanteric Bursa/Intraarticular ([id number])
== END 2023-10-19 15:13 | disposition home or self-care (01) ==
PROVIDERS: PCP Internal Medicine; Visit Provider Orthopaedic Surgery
DX: M75.51 Bursitis of right shoulder (principal); M75.52 Bursitis of left shoulder
CPT/HCPCS: 20610; 99213

== ENCOUNTER 2023-11-03 12:31 | Outpatient (AMB) | payer OTHER, SELFPAY ==
[2023-11-03 15:16] VITALS: BP 132/80; PULSE 63; TEMP 36.6; O2SAT 96
--- NOTE | 2023-11-03 15:16 | MHC.OFFWIV ---
Intake Vital Signs 11/03/23 15:16 Height 6 ft 2 in BP 132/80 Blood Pressure Location Rt brachial Position Sitting Pulse 63 Pulse Source Pulse Oximeter Temp 97.8 F Temp Source Temporal Artery Scan Pulse Oximetry (%) 96 Oxygen Delivery Method Room Air Intake Visit Reasons: EP Cough, SOB, Body cramping lost 10 lbs Intake Note: pt is here for c.o cough, shortness of breath, cramping in hands,10 lbs weight loss 1xweek Patient Tobacco Use Status: Never used Tobacco Allergies No Known Allergies Allergy (Unknown, Verified 11/15/23 08:46) Medication List - Last Reconciled 11/03/23 by Vick Gant MD carbidopa-levodopa 25-100 mg 2 tabs PO TID 90 days citalopram 40 mg PO DAILY 90 days gabapentin 600 mg (2 x 300 mg) PO DAILY pantoprazole 40 mg PO DAILY sildenafil 100 mg PO DAILY PRN 30 days simvastatin 10 mg PO DAILY 90 days tamsulosin 0.4 mg PO DAILY 90 days trazodone 150 mg (1.5 x 100 mg) PO BEDTIME 30 days Do you need a note to return to daycare/school/sports/work: No HPI EP Cough, SOB, Body cramping lost 10 lbs HPI Details 63-year-old male presents to the office for a sick visit. Patient is reporting cough and feeling weak for the past week. He claims to have lost 10 lb. Patient has history of Parkinson's which was diagnosed 2 years ago. [facility] Medical History Abnormal US (ultrasound) of abdomen Alcohol abuse Parkinson disease Environmental allergies BPH (benign prostatic hyperplasia) Back muscle spasm Anxiety, generalized Difficulty sleeping Lipid disorder Surgical History History of esophagogastroduodenoscopy (EGD) H/O colonoscopy History of knee surgery History of lumbar fusion History of back surgery Family History Father HTN (hypertension) Stroke Diabetes mellitus Cancer Mother Diabetes mellitus Sarcoidosis Heart failure Renal failure Brother Addisons disease Sister Aneurysm Son No problems noted. Son No problems noted. Social History Housing: House Alcohol intake: former Patient Tobacco Use Status: Never used Tobacco Tobacco use type: Smokeless Tobacco e-Cigarette/Vaping Use: Never Used Substance Use Type: Marijuana service: No Current occupational status: employed Cognitive needs: No Hearing needs: No Vision needs: Yes Physical Exam Vital Signs: Last Vital Signs Temp 97.8 F 11/03/23 15:16 Pulse 63 11/03/23 15:16 BP 132/80 11/03/23 15:16 Pulse Ox 96 11/03/23 15:16 Oxygen Delivery Method Room Air 11/03/23 15:16 Const General: cooperative and healthy appearing Nutritional Appearance: well nourished Orientation/consciousness: patient oriented x3 Limitations: no limitations HEENT Head: Yes normal to inspection Eyes General: appearance normal, both eyes and all related structures Neck Neck: Yes normal visual inspection Chest Other: Scattered wheeze bilaterally. Chest palpation & inspection: normal palpation of entire chest wall Resp Effort & Inspection: normal respiratory effort Neuro General: patient oriented x3 Assessment & Plan Assessment & Plan (1) Acute bronchitis: Code(s): J20.9 - Acute bronchitis, unspecified Plan: X-ray images were personally reviewed by me. Antibiotics and medications started. Patient was advised to follow-up with his primary care provider regarding the weight loss. If symptoms do not improve to follow-up here. Orders: Orders XR chest 2V 11/03/23 R05.9 - Cough, unspecified Medications: New prednisone 60 mg (3 x 20 mg) PO DAILY 9 tabs 0RF albuterol sulfate 90 mcg/actuation 1 inh inhalation QID PRN 6.7 grams 1RF shortness of breath or wheezing azithromycin take 500 mg today (day 1), then 250 mg for 4 days (days 2-5) PO 6 tabs 0RF Coding Level of Care Code Est Pt Level 4 (15987) Diagnoses Acute bronchitis J20.9
== END 2023-11-03 16:21 | disposition home or self-care (01) ==
PROVIDERS: PCP Internal Medicine; Visit Provider Internal Medicine
DX: J20.9 Acute bronchitis, unspecified (principal)
CPT/HCPCS: 99214

== ENCOUNTER 2023-11-03 15:58 | Outpatient (REF) | payer OTHER, SELFPAY ==
--- NOTE | ~2023-11-03 | XR_ITS ---
EXAMINATION: XR CHEST CLINICAL INFORMATION: Cough, unspecified COMPARISON: Chest 01/03/2020 TECHNIQUE: 2 views of the chest were obtained. FINDINGS: No significant abnormality is noted involving the heart, lungs, mediastinum, bony thorax or soft tissues. XR/XR chest 2V IMPRESSION: No acute cardiopulmonary disease.
== END 2023-11-03 15:59 | disposition home or self-care (01) ==
LOC: HO.HMGCX 15:58
PROVIDERS: Visit Provider Internal Medicine
DX: R05.9 Cough, unspecified (principal)
CPT/HCPCS: 71046

== ENCOUNTER 2023-11-18 15:05 | Outpatient (AMB) | payer OTHER, SELFPAY ==
[2023-11-18 15:07] VITALS: BP 136/82; PULSE 74; TEMP 36.5; O2SAT 98; BMI 27.5
--- NOTE | 2023-11-18 15:07 | MHC.OFFWIV ---
Intake Vital Signs 11/18/23 15:07 Height 6 ft 2 in Weight 214 lb 6 oz BMI 27.5 BP 136/82 Blood Pressure Location Lt brachial Position Sitting Pulse 74 Pulse Source Pulse Oximeter Temp 97.7 F Temp Source Oral Pulse Oximetry (%) 98 Oxygen Delivery Method Room Air Intake Visit Reasons: EST/cough(lobby) Intake Note: Pt is here today for a cough and also fainted Thursday. Pt was recently here last week for cough and congestion. Patient Tobacco Use Status: Never used Tobacco Allergies No Known Allergies Allergy (Unknown, Verified 11/15/23 08:46) HPI EST/cough(lobby) HPI Details 63-year-old male presents to the office for a sick visit. Patient was seen 2 weeks back with upper respiratory tract infection. He has completed the prednisone, antibiotic and the inhalers. Continues to have the irritating cough. No fevers or chills is also reporting dizzy symptoms and had 1 episode where he fainted at home. The dizziness symptoms are worse when he gets up from a sitting down position. [facility] Medical History Abnormal US (ultrasound) of abdomen Alcohol abuse Parkinson disease Environmental allergies BPH (benign prostatic hyperplasia) Back muscle spasm Anxiety, generalized Difficulty sleeping Lipid disorder Surgical History History of esophagogastroduodenoscopy (EGD) H/O colonoscopy History of knee surgery History of lumbar fusion History of back surgery Family History Father HTN (hypertension) Stroke Diabetes mellitus Cancer Mother Diabetes mellitus Sarcoidosis Heart failure Renal failure Brother Addisons disease Sister Aneurysm Son No problems noted. Son No problems noted. Social History Housing: House Alcohol intake: former Patient Tobacco Use Status: Never used Tobacco Tobacco use type: Smokeless Tobacco e-Cigarette/Vaping Use: Never Used Substance Use Type: Marijuana service: No Current occupational status: employed Cognitive needs: No Hearing needs: No Vision needs: Yes Physical Exam Vital Signs: Last Vital Signs Temp 97.7 F 11/18/23 15:07 Pulse 74 11/18/23 15:07 BP 136/82 11/18/23 15:07 Pulse Ox 98 11/18/23 15:07 Oxygen Delivery Method Room Air 11/18/23 15:07 BMI result Body Mass Index 27.5 Const General: cooperative and healthy appearing Nutritional Appearance: well nourished Orientation/consciousness: patient oriented x3 Limitations: no limitations HEENT Head: Yes normal to inspection Eyes General: appearance normal, both eyes and all related structures Neck Neck: Yes normal visual inspection Chest Chest palpation & inspection: normal palpation of entire chest wall Resp Effort & Inspection: normal respiratory effort Neuro General: patient oriented x3 Extrem Other: Resting tremors present. Assessment & Plan Assessment & Plan (1) Upper respiratory tract infection: Code(s): J06.9 - Acute upper respiratory infection, unspecified Plan: Amoxicillin, Robitussin with codeine and along tapering dose of prednisone to suggested. Dizziness could be the exacerbation of his Parkinson due to the current respiratory infection. Coding Level of Care Code Est Pt Level 4 (96987) Diagnoses Upper respiratory tract infection J06.9
== END 2023-11-18 16:17 | disposition home or self-care (01) ==
PROVIDERS: PCP Internal Medicine; Visit Provider Internal Medicine
DX: J06.9 Acute upper respiratory infection, unspecified (principal)
CPT/HCPCS: 99214

== ENCOUNTER 2023-12-12 09:44 | Outpatient (AMB) | payer OTHER, SELFPAY ==
[2023-12-12 10:26] VITALS: BP 132/80; PULSE 79; TEMP 36.7; O2SAT 96; BMI 27.5
--- NOTE | 2023-12-12 10:26 | AM.OFFWIN_ITS ---
Intake Vital Signs 12/12/23 10:26 Height 6 ft 2 in Weight 214 lb BMI 27.5 BP 132/80 Blood Pressure Location Rt brachial Position Sitting Pulse 79 Pulse Source Pulse Oximeter Temp 98.0 F Temp Source Oral Pulse Oximetry (%) 96 Intake Visit Reasons: EP rash on full back Intake Note: pt is here for c.o rash on full back, started on lower back and growing around abd, denies starting anything new, c/o itchiness Patient Tobacco Use Status: Never used Tobacco Allergies No Known Allergies Allergy (Unknown, Verified 12/12/23 10:26) Do you need a note to return to daycare/school/sports/work: No HPI HPI Comments History of Present Illness Details This is a 63-year-old male who presented to the walk-in clinic complaining of a diffuse rash all over his back. He states it has been going on for the past 1-2 weeks. He states the rash is extremely pruritic. States the rash started in his lower back and has spread to his upper back and abdomen. He denies any exposures to new lotions, soaps, detergents, creams, or medications. Denies any chest tightness, wheezing, shortness of breath, or throat swelling. He denies any fevers or chills. [facility] Medical History Abnormal US (ultrasound) of abdomen Alcohol abuse Parkinson disease Environmental allergies BPH (benign prostatic hyperplasia) Back muscle spasm Anxiety, generalized Difficulty sleeping Lipid disorder Surgical History History of esophagogastroduodenoscopy (EGD) H/O colonoscopy History of knee surgery History of lumbar fusion History of back surgery Family History Father HTN (hypertension) Stroke Diabetes mellitus Cancer Mother Diabetes mellitus Sarcoidosis Heart failure Renal failure Brother Addisons disease Sister Aneurysm Son No problems noted. Son No problems noted. Social History Housing: House Alcohol intake: former Patient Tobacco Use Status: Never used Tobacco Tobacco use type: Smokeless Tobacco e-Cigarette/Vaping Use: Never Used Substance Use Type: Marijuana service: No Current occupational status: employed Cognitive needs: No Hearing needs: No Vision needs: Yes Review of Systems Const All systems reviewed & are unremarkable except as noted in HPI and below Reports no additional complaints Eyes Reports no additional complaints ENT Reports no additional complaints Card Reports no additional complaints Resp Reports no additional complaints GI Reports no additional complaints Reports no additional complaints Musc Reports no additional complaints Skin/Breast Reports system reviewed and no additional complaints, except as documented Neuro Reports no additional complaints Psych Reports no additional complaints Endo Reports no additional complaints Navneet/Lymph Reports no additional complaints Aller/Immun Reports no additional complaints Physical Exam Vital Signs: Last Vital Signs Temp 98.0 F 12/12/23 10: Pulse 79 12/12/23 10: BP 132/80 12/12/23 10: Pulse Ox 96 12/12/23 10: BMI result Body Mass Index 27.5 Const Other: Vital signs reviewed. Constitutional: Non-toxic appearing. No acute distress. Well-developed and well-nourished. HEENT: Normocephalic and atraumatic. Skin: He has a diffuse maculopapular rash over his back and abdomen. There is no surrounding erythema or purulent drainage. Neck: Full and painless range of motion. No cervical lymphadenopathy. Cardio: Regular rate. No lower extremity edema. No JVD. Pulmonary: No respiratory distress. No accessory muscle usage. Clear to auscultation bilaterally without wheezing, crackles, or rhonchi. Gastrointestinal: Soft, nontender, and nondistended in all 4 quadrants. Normoactive bowel sounds in all 4 quadrants. Genitourinary: No CVA tenderness. Musculoskeletal: Normal range of motion in joints throughout the body. No deformity or other signs of injury. Neuro: Alert and oriented x4. Cranial nerves 2-12 grossly intact. No focal deficits appreciated. Psych: Normal mood and affect. Assessment & Plan Assessment & Plan (1) Contact dermatitis: Code(s): L25.9 - Unspecified contact dermatitis, unspecified cause Qualifiers: Contact dermatitis type: irritant Contact dermatitis trigger: unspecified trigger Qualified Code(s): L24.9 - Irritant contact dermatitis, unspecified cause Plan: This is a 63-year-old male who presents to the office complaining of a diffuse rash over his abdomen and back. On physical examination, there is a diffuse maculopapular rash spread throughout his back and abdomen. There is no evidence of cellulitis, impetigo, or erysipelas. History and physical most consistent with an acute irritant dermatitis due to unknown trigger. Patient was given a prednisone taper given diffuse rash as well as symptomatic management with p.o. hydroxyzine 50 mg 3 times daily as needed for itching and triamcinolone cream as needed for itching. Patient was advised to follow-up here or proceed to the emergency room if he were to develop any signs of anaphylaxis such as wheezing, difficulty breathing, or throat swelling. Patient verbalized understanding and is agreeable with the plan. Medications: New prednisone Take 4 tablets daily x3 days followed by 3 tablets daily x3 days followed by 2 tablets daily x3 days followed by 1 tablet daily x3 days followed by 1/2 tablet daily x2 days. 10 mg PO DIRECTED 31 tabs 0RF hydroxyzine HCl 50 mg PO TID PRN 14 tabs 0RF itching triamcinolone acetonide 0.1% 1 appl topical BID PRN 30 grams 0RF Itching, rash Coding Level of Care Code Est Pt Level 3 (18268) Diagnoses Irritant contact dermatitis, unspecified trigger L24.9 Contact dermatitis type: irritant Contact dermatitis trigger: unspecified trigger
== END 2023-12-12 11:10 | disposition home or self-care (01) ==
PROVIDERS: PCP Internal Medicine; Visit Provider Physician Assistant Medical
DX: L24.9 Irritant contact dermatitis, unspecified cause (principal)
CPT/HCPCS: 99051; 99213

== ENCOUNTER 2024-01-08 09:21 | Outpatient (AMB) | payer OTHER, SELFPAY ==
[2024-01-08 09:24] VITALS: BP 112/72; PULSE 56; O2SAT 98; BMI 28.9
--- NOTE | 2024-01-08 09:24 | A.OFFPC_ITS ---
Vital Signs 01/08/24 09:24 Height 6 ft 2 in Weight 225 lb BMI 28.9 BP 112/72 Blood Pressure Location Rt brachial Position Sitting Pulse 56 Pulse Source Pulse Oximeter Pulse Oximetry (%) 98 Oxygen Delivery Method Room Air Intake Visit Reasons: 6 month fu Allergies No Known Allergies Allergy (Unknown, Verified 01/08/24 09:24) Medication List - Last Reconciled 01/08/24 by Galo Rodrigues MD albuterol sulfate 90 mcg/actuation 1 inh inhalation QID PRN carbidopa-levodopa 25-100 mg 2 tabs PO TID 90 days citalopram 40 mg PO DAILY 90 days fluocinonide 0.05% appl topical BID PRN gabapentin 600 mg (2 x 300 mg) PO DAILY hydroxyzine HCl 50 mg PO TID PRN pantoprazole 40 mg PO DAILY sildenafil 100 mg PO DAILY PRN 30 days simvastatin 10 mg PO DAILY 90 days tadalafil 10 mg PO DAILY PRN 90 days tamsulosin 0.4 mg PO DAILY 90 days trazodone 150 mg (1.5 x 100 mg) PO BEDTIME 30 days Tobacco use date assessed: 01/08/24 Dental Screening Dental Screen Date: 01/08/24 Did you have a dental visit in the last 12 months?: Yes Did you have a dental problem in the last 6 months where you did not have access to dental care?: No Was dental information given to patient?: Patient has dentist HPI 6 month fu HPI Details Patient is 63-year-old gentleman came in today for his regular follow- up appointment He is in his usual state of health and offer no new complaints today He is due for labs, order placed to be done fasting Patient have a history of lumbar surgery established with [facility] for ongoing care Patient also have Parkinson's disease which is being managed by a neurology Dr. Mcgowan. Mood is stable patient is on citalopram 40 mg GERD symptoms controlled with pantoprazole Lipid disorder: Continue simvastatin 10 mg Sleeping okay with help of trazodone. Urinary care through Urology Patient will return in July for physical exam [facility] Medical History Abnormal US (ultrasound) of abdomen Alcohol abuse Parkinson disease Environmental allergies BPH (benign prostatic hyperplasia) Back muscle spasm Anxiety, generalized Difficulty sleeping Lipid disorder Surgical History History of esophagogastroduodenoscopy (EGD) H/O colonoscopy History of knee surgery History of lumbar fusion History of back surgery Family History Father HTN (hypertension) Stroke Diabetes mellitus Cancer Mother Diabetes mellitus Sarcoidosis Heart failure Renal failure Brother Addisons disease Sister Aneurysm Son No problems noted. Son No problems noted. Social History Housing: House Alcohol intake: former Patient Tobacco Use Status: Never used Tobacco Tobacco use type: Smokeless Tobacco e-Cigarette/Vaping Use: Never Used Substance Use Type: Marijuana service: No Current occupational status: employed Cognitive needs: No Hearing needs: No Vision needs: Yes Questionnaire Thrive Questionnaire Date Thrive assessed: 01/08/24 I am a: Patient What is your living situation today?: I have a steady place to live Within the past 12 months, did the food you bought not last and you didn't have the money to get more?: Never true Within the past 12 months, did you worry whether your food would run out before you got money to buy more?: Never true Do you have trouble paying for medicines?: No Do you have trouble getting transportation to medical appointments?: No Do you have trouble paying your heating and electricity bill?: No Do you have trouble taking care of your child, family member or friend?: No Do you have trouble with day-to-day activities such as bathing, preparing meals, shopping, managing finances, etc.?: No Are you currently unemployed and looking for a job?: No Are you interested in more education?: No Please select the resources that you would like help with: None Currently or been in a relationship where the following occur: no concerns reported THRIVE Score: 0 AUDIT C Alcohol Use Questionnaire (AUDIT-C) 1. How often do you have a drink containing alcohol?: Never 3. How often do you have six or more drinks on one occasion?: Never Total Score: 0 Score Reviewed/Action Taken: Yes KHURRAM-7 AMB Questionnaire KHURRAM-7 Date KHURRAM - 7 assessed: 01/08/24 Feeling nervous, anxious, or on edge: 1 = Several days Not being able to stop or control worryin = Several days Worrying too much about different things: 1 = Several days Trouble relaxin = Several days Being so restless that it is hard to sit still: 0 = Not at all Becoming easily annoyed or irritable: 1 = Several days Feeling afraid as if something awful might happen: 0 = Not at all Total KHURRAM-7 score (0-4 normal; 5-9 mild; 10-14 moderate; 15-21 severe): 5 Source: Developed by Drs. Ricardo Varghese, Kathie Phan, Chris Gordillo and colleagues, with an educational cammie from [employer]. KHURRAM-7 Assessment Billing KHURRAM-7 Assessment Tool: KHURRAM-7 Assessment 76486 Review of Systems Const Denies chills and Denies fever(s) ENT Denies epistaxis and Denies nasal discharge Card Denies chest pain Resp Denies chest congestion, Denies cough and Denies hemoptysis GI Denies diarrhea and Denies nausea Skin/Breast Denies rash Neuro Reports no additional complaints Psych Reports no additional complaints Endo Reports no additional complaints Physical exam (Primary Care) Vital Signs: Last Vital Signs Pulse 56 01/08/24 09:24 BP 112/72 01/08/24 09:24 Pulse Ox 98 01/08/24 09:24 Oxygen Delivery Method Room Air 01/08/24 09:24 BMI result Body Mass Index 28.9 Tobacco/Smoking Status: Tobacco use Status Tobacco use date assessed 01/08/24 01/08/24 09:26 Patient Tobacco Use Status Never used Tobacco 01/08/24 09:26 Tobacco use type Smokeless Tobacco 01/08/24 09:26 e-Cigarette/Vaping Use Never Used 01/08/24 09:26 Thrive Assessment: Date of Thrive Assessment Date Thrive assessed 07/01/23 01/08/24 09:26 Currently or been in a relationship where the following occur: no concerns reported Const General: cooperative, comfortable and no acute distress Orientation/consciousness: patient oriented x3 HENMT Head: Yes normocephalic Eyes General: appearance normal, both eyes and all related structures Neck Neck: Yes supple Resp Effort & Inspection: normal respiratory effort, no cough and no stridor Cardio Rhythm: regular rhythm Heart sounds: S1 normal heart sound present and S2 normal heart sound present Skin General skin exam: turgor normal Neuro General: patient oriented x3, tone normal and moves all extremities Extrem Right lower extremity: no edema Left lower extremity: no edema Assessment and Plan Assessment & Plan (1) Lipid disorder: Code(s): E78.9 - Disorder of lipoprotein metabolism, unspecified (2) Anxiety, generalized: Code(s): F41.1 - Generalized anxiety disorder (3) Environmental allergies: Code(s): Z91.09 - Other allergy status, other than to drugs and biological substances (4) Chronic GERD: Code(s): K21.9 - Gastro-esophageal reflux disease without esophagitis (5) Parkinson disease: Comment: new diagnosis Code(s): G20 - Parkinson's disease Qualifiers: Dyskinesia presence: with dyskinesia Fluctuating manifestations: with fluctuating manifestations Qualified Code(s): G20.B2 - Parkinson's disease with dyskinesia, with fluctuations (6) Difficulty sleeping: Code(s): G47.9 - Sleep disorder, unspecified (7) Back muscle spasm: Code(s): M62.830 - Muscle spasm of back (8) BPH (benign prostatic hyperplasia): Code(s): N40.0 - Benign prostatic hyperplasia without lower urinary tract symptoms Qualifiers: Lower urinary tract symptom presence: symptoms present Lower urinary tract symptom detail: urinary frequency Qualified Code(s): N40.1 - Benign prostatic hyperplasia with lower urinary tract symptoms; R35.0 - Frequency of micturition Plan Patient is 63-year-old gentleman came in today for his regular follow-up appointment He is in his usual state of health and offer no new complaints today He is due for labs, order placed to be done fasting Patient have a history of lumbar surgery established with [facility] for ongoing care Patient also have Parkinson's disease which is being managed by a neurology Dr. Mcgowan. Mood is stable patient is on citalopram 40 mg GERD symptoms controlled with pantoprazole Lipid disorder: Continue simvastatin 10 mg Sleeping okay with help of trazodone. Urinary care through Urology Patient will return in July for physical exam Orders: Orders Complete Blood Count Auto Diff Today E78.9 - Disorder of lipoprotein metabolism, unspecified, F41.1 - Generalized anxiety disorder, K21.9 - Gastro-esophageal reflux disease without esophagitis, Z91.09 - Other allergy status, other than to drugs and biological substances Lipid Panel Today E78.9 - Disorder of lipoprotein metabolism, unspecified, F41.1 - Generalized anxiety disorder, K21.9 - Gastro-esophageal reflux disease without esophagitis, Z91.09 - Other allergy status, other than to drugs and biological substances TSH reflex Free T4 Today E78.9 - Disorder of lipoprotein metabolism, unspecified, F41.1 - Generalized anxiety disorder, K21.9 - Gastro-esophageal reflux disease without esophagitis, Z91.09 - Other allergy status, other than to drugs and biological substances Comprehensive Ferguson. Panel Fast Today E78.9 - Disorder of lipoprotein metabolism, unspecified, F41.1 - Generalized anxiety disorder, K21.9 - Gastro-esophageal reflux disease without esophagitis, Z91.09 - Other allergy status, other than to drugs and biological substances Coding Level of Care Code Est Pt Level 4 (39560) Diagnoses Lipid disorder E78.9 Anxiety, generalized F41.1 Environmental allergies Z91.09 Chronic GERD K21.9 Parkinson's disease with dyskinesia and fluctuating manifestations G20.B2 Dyskinesia presence: with dyskinesia Fluctuating manifestations: with fluctuating manifestations Difficulty sleeping G47.9 Back muscle spasm M62.830 Benign prostatic hyperplasia with urinary frequency N40.1; R35.0 Lower urinary tract symptom presence: symptoms present Lower urinary tract symptom detail: urinary frequency Additional Codes KHURRAM-7 Assessment Billing - KHURRAM-7 Assessment Tool: KHURRAM-7 Assessment [id number] ([id number])
== END 2024-01-08 09:51 | disposition home or self-care (01) ==
PROVIDERS: PCP Internal Medicine; Visit Provider Internal Medicine
DX: E78.9 Disorder of lipoprotein metabolism, unspecified (principal); F41.1 Generalized anxiety disorder; Z91.09 Other allergy status, other than to drugs and biological substances; K21.9 Gastro-esophageal reflux disease without esophagitis; G20.B2 Parkinson's disease with dyskinesia, with fluctuations; G47.9 Sleep disorder, unspecified; M62.830 Muscle spasm of back; N40.1 Benign prostatic hyperplasia with lower urinary tract symptoms; R35.0 Frequency of micturition
CPT/HCPCS: 99214

== ENCOUNTER 2024-02-17 07:33 | Outpatient (AMB) | payer OTHER, SELFPAY ==
--- NOTE | 2024-02-17 07:36 | A.OFFVIS_ITS ---
Intake Vital Signs 02/17/24 07:37 Height 6 ft 2 in Weight 228 lb 2 oz BMI 29.3 BP 104/60 Blood Pressure Location Rt brachial Position Sitting Respiration 16 Pulse 61 Pulse Source Pulse Oximeter Pulse Oximetry (%) 95 Oxygen Delivery Method Room Air Intake Visit Reasons: 6 mo f/o-Rjberwunpd-AFOS Intake Note: Ppt presents for a 6 month follow up for Parkinson's. 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: No Allergies No Known Allergies Allergy (Unknown, Verified 02/17/24 07:37) Medication List - Last Reconciled 02/17/24 by Dina Mcgowan MD albuterol sulfate 90 mcg/actuation 1 inh inhalation QID PRN carbidopa-levodopa 25-100 mg 2 tabs PO TID 90 days citalopram 40 mg PO DAILY 90 days fluocinonide 0.05% appl topical BID PRN gabapentin 600 mg (2 x 300 mg) PO DAILY gabapentin 100 mg PO BID hydroxyzine HCl 50 mg PO TID PRN pantoprazole 40 mg PO DAILY sildenafil 100 mg PO DAILY PRN 30 days simvastatin 10 mg PO DAILY 90 days tadalafil 10 mg PO DAILY PRN 90 days tamsulosin 0.4 mg PO DAILY 90 days trazodone 150 mg (1.5 x 100 mg) PO BEDTIME 30 days HPI HPI Comments History of Present Illness Details 63y/o left handed male comes for follow up of parkinsons.. He is not exercising as much . He recently had skin cancer removed from his face and on his shoulder. He is on sinemet 25/100 6-7 tabs a day His reports compulsive behavior and more irritable, anxious.He sees a psychologist( [facility]) and is helping his anxiety.He had suicidal ideation when his anxiety worsens. He is waiting to see another psych provider for anxiety medication. He is sleeping better with trazodone. His restless legs are better He is also on gabapentin which helps.He also has abnormal jerky movements throughout the day and have increased.He has trouble with finishing sentences and replaces words. His recall is good . He quit drinking 26 years ago. 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 No vivid dreams In the evenings when he is sitting down he gets twitches in his whole body.He has depression and anxiety . His father last year and also he had 2 rough divorces. He was always a bit anxious. He was in therapy which helped. He has no motivation now. He lost 40 lbs in last 6 mths . His appetite is low. He stutters a lot and his voice is softer. No drooling . Handwriting is the same , In the morning he has trouble holding his coffee. He has no trouble with personal hygiene . His walking is good - but slower, feels dizzy sometimes. he feels unsafe on stairs. No double vision . No hallucinations he played lot of sports and had multiple closed head injuries and concussions [facility] Medical History (Updated 02/17/24 @ 08:00 by Dina Mcgowan MD) Speech abnormality Abnormal US (ultrasound) of abdomen Alcohol abuse Parkinson disease Environmental allergies BPH (benign prostatic hyperplasia) Back muscle spasm Anxiety, generalized Difficulty sleeping Lipid disorder Surgical History (Updated 02/17/24 @ 07:40 by Lupe Ruelas CMA) S/P Mohs surgery for basal cell carcinoma History of esophagogastroduodenoscopy (EGD) H/O colonoscopy History of knee surgery History of lumbar fusion History of back surgery Family History Father HTN (hypertension) Stroke Diabetes mellitus Cancer Mother Diabetes mellitus Sarcoidosis Heart failure Renal failure Brother Addisons disease Sister Aneurysm Son No problems noted. Son No problems noted. Social History Housing: House Alcohol intake: former Patient Tobacco Use Status: Never used Tobacco Tobacco use type: Smokeless Tobacco e-Cigarette/Vaping Use: Never Used Substance Use Type: Marijuana service: No Current occupational status: employed Cognitive needs: No Hearing needs: No Vision needs: Yes Physical Exam Vital Signs: Last Vital Signs Pulse 61 02/17/24 07:37 Resp 16 02/17/24 07:37 BP 104/60 02/17/24 07:37 Pulse Ox 95 02/17/24 07:37 Oxygen Delivery Method Room Air 02/17/24 07:37 BMI result Body Mass Index 29.3 Const General: cooperative, healthy appearing and no acute distress Nutritional Appearance: average body habitus Orientation/consciousness: patient oriented x3 HEENT Head: Yes normal to inspection Neck Other: mild antecollis and right laterocollis and restricted range of motion Neuro Other: Mild decreased blink and facial expression No lip tremors, tongue tremors , slow tongue movements Voice- normal, dysprosody Fine Finger movements - mildly decreased demarcus l>R Alternating hand movements - decreased demarcus Hand movements - decreased demarcus Foot taps- decreased demarcus No cog wheel rigidity gait - stooped, mild slowness and decreased arm swing R>L, good stride General: patient oriented x3 and no focal motor deficits Cranial nerves: Yes CN's II-XII intact bilaterally, Yes Bilaterally intact EOM present, Yes Normal facial strength present and Yes Midline tongue present Cognition (Neuro): normal cognition Motor exam (neuro): 5/5 motor strength present throughout and Normal motor muscle tone present throughout Coordination: [id number] test normal Psych Appearance: grossly normal Assessment & Plan Assessment & Plan (1) Parkinsons disease: Code(s): G20 - Parkinson's disease (2) Memory change: Code(s): R41.3 - Other amnesia (3) Anxiety, generalized: Code(s): F41.1 - Generalized anxiety disorder Plan Continue sinemet 25/100 2-3tab am 1 tabs noon and 2 tab qhs Suggested to take with food or snack ( low protien) YANN scan -c/w parkinsons disease Continue exercise.Info on local support groups given. Increase gabapentin 100mg qam qnoon and 600mg qhs Trazadone 150mg qhs Neuropsych evaluation Psychiatry evaluation Speech therapy Orders: Referrals Speech and Hearing Referral G20.B2 - Parkinson's disease with dyskinesia, with fluctuations, R47.9 - Unspecified speech disturbances Medications: New gabapentin 100 mg PO BID 60 caps 6RF Coding Level of Care Code Est Pt Level 4 (38330) Diagnoses Parkinsons disease G20 Memory change R41.3 Anxiety, generalized F41.1
[2024-02-17 07:37] VITALS: BP 104/60; PULSE 61; RESP 16; O2SAT 95; BMI 29.3
== END 2024-02-17 08:04 | disposition home or self-care (01) ==
PROVIDERS: PCP Internal Medicine; Visit Provider Psychiatry & Neurology Neurology
DX: G20.A1 Parkinson's disease without dyskinesia, without mention of fluctuations (principal); R41.3 Other amnesia; F41.1 Generalized anxiety disorder
CPT/HCPCS: 99214

== ENCOUNTER → 2024-02-17 07:33 | Outpatient (BNVA) | payer OTHER, SELFPAY | PROVIDERS: PCP Internal Medicine; Visit Provider Psychiatry & Neurology Neurology | DX: N52.9 Male erectile dysfunction, unspecified (principal); N40.1 Benign prostatic hyperplasia with lower urinary tract symptoms; R35.0 Frequency of micturition; R33.8 Other retention of urine; G20.A1 Parkinson's disease without dyskinesia, without mention of fluctuations; R41.3 Other amnesia; F41.1 Generalized anxiety disorder; Z79.899 Other long term (current) drug therapy | CPT/HCPCS: 51798 ==

== ENCOUNTER 2024-04-12 08:34 | Outpatient (REF) | payer OTHER, SELFPAY ==
[2024-04-12 10:38] LABS: MANUAL DIFF FLAG NO
[2024-04-12 10:50] LABS: Basophils Percent Auto 0.9 % (0-2); Eosinophils Absolute Auto 0.1 X10*3/uL (0.0-0.4); Eosinophils Percent Auto 2.8 % (0-4); Hematocrit 48.1 % (42.0-52.0); Hemoglobin 16.5 g/dl (14.0-18.0); Imm Gran Abs Auto 0.02 X10*3/uL (0.00-0.03); Imm Gran Pct Auto 0.4 % (0.0-0.4); Lymphocytes Absolute Auto 1.3 X10*3/uL (1.2-4.9); Lymphocytes Percent Auto 28.9 % (20-40); Mean Corpuscular HGB Conc 34.3 g/dl (31.0-36.0); Mean Corpuscular Hemoglobin 32.5 pg (27.0-33.0); Mean Corpuscular Volume 94.9 fL (80.0-98.0); Mean Platelet Volume 11.4 fL (9.4-12.4); Monocytes Absolute Auto 0.4 X10*3/uL (0.1-1.2); Monocytes Percent Auto 9.3 % (2-11); Neutrophils Absolute Auto 2.7 x10*3/uL (2.0-8.3); Neutrophils Percent Auto 57.7 % (45-73); Platelet Count 127 X10*3/uL (160-400); Red Blood Count 5.07 X10*6/uL (4.60-5.80); White Blood Count 4.6 X10*3/uL (4.8-10.8)
[2024-04-12 11:22] LABS: Alanine Aminotransferase < 5 U/L (0-40); Albumin Level 4.2 g/dL (3.5-5.0); Alkaline Phosphatase 75 U/L (39-117); Anion Gap 12 (12-20); Aspartate Amino Transferase 19 U/L (5-37); Bilirubin Total 0.6 mg/dL (0.0-1.0); Blood Urea Nitrogen 17 mg/dL (9-16); Calcium 9.5 mg/dL (8.4-10.2); Carbon Dioxide 27 mmol/L (22-29); Chloride 106 mmol/L (96-108); Cholesterol 163 mg/dL (<200); Estimated Glomerular Filt Rate 60; Glucose Fasting 103 mg/dL (60-99); HDL Cholesterol 48 mg/dL (>40); LDL Cholesterol Calculated 89 mg/dL (<100); Potassium 4.3 mmol/L (3.3-5.1); Sodium 141 mmol/L (135-145); Total Protein 6.9 g/dL (6.5-8.0); Triglycerides 134 mg/dL (<150)
[2024-04-12 11:36] LABS: TSH reflex Free T4 1.03 uIU/mL (0.32-4.0)
== END 2024-04-12 08:35 | disposition home or self-care (01) ==
LOC: HO.HMGCLDS 08:34
PROVIDERS: PCP Internal Medicine; Visit Provider Internal Medicine
DX: E78.9 Disorder of lipoprotein metabolism, unspecified (principal); F41.1 Generalized anxiety disorder; K21.9 Gastro-esophageal reflux disease without esophagitis; Z91.09 Other allergy status, other than to drugs and biological substances
CPT/HCPCS: 36415; 80053; 80061; 84443; 85025

== ENCOUNTER 2024-04-20 12:57 | Outpatient (RCR) | payer OTHER, SELFPAY ==
--- NOTE | 2024-04-30 09:46 | MHC.SP.ADU ---
Referring provider: Dina Mcgowan MD Reason for Referral: Speech Language Cognitive Assessment Type of Treatment: 22816 Standardized Cognitive Performance Testing, per hour Date of Plan of Treatment: 04/20/24 Onset of Symptoms/Illness: 04/20/20 Date Treatment Started: 04/20/24 Medical Diagnosis: Parkinson's Disease with dyskinesia, with fluctuations Unspecified speech disturbances Primary Speech Language Diagnosis: G20 Parkinson?s disease Secondary Speech Language Diagnosis: I69.911 Memory deficit History Margarito Escobedo is a 63 year old man who was referred for this evaluation by his Neurologist, Dr. Mcgowan, and it was further recommended by a recent Neuropsychological Evaluation by Benton Lao PsyD. Dr. 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 Mr. Escobedo's history and presenting condition is complex. He described a lifelong, debilitating history of dyslexia, something that was not well understood or managed well when he was a child, which led to not only struggle in school but a great deal of shaming which shaped his self concept and choices made in his educational and life career. Mr. Escobedo found in school that he was highly successful on the playing field, and played multiple sports, though primarily Football and Baseball in High School and College. 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 Mr. 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 He also suffered injuries, including a head injury, when playing football in High School. Mr. Escobedo reported that he was first diagnosed with Parkinson's Disease three or four years ago, and described symptoms of tremor, frequent involuntary movement of all extremities, memory issues, word finding difficulties and managing social conversation, sleep disturbance (in the form of insomnia, denying active dreaming) anxiety and depression. Mr. Escobedo also said he sometimes slurs his speech which he finds concerning and embarrassing. When asked, Mr. Escobedo reported that others occasionally tell him he is speaking too softly to be heard, but this is not frequent. Mr. Escobedo reports that his self consciousness about his communication skills has lead him to mostly withdraw and avoid social interaction, including activities he greatly enjoyed, i.e. playing golf with friends. Mr. Escobedo also described avoiding the gym, as he is self conscious when others recognize and want to engage conversationally with him, particularly if they notice his not the same as he used to be. It was clear in our interview that the impact of his disabilities associated his current condition has lead to a significant struggle with anxiety and depression, for which he is in a therapeutic relationship with a psychotherapist, who he expressed has been very helpful to him. He brought to this appointment the comprehensive Neuropsychological Evaluation completed by Dr. Lao, which he also felt well represented his needs. Dr. 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 However, this remains a poorly understood process...Therefore, diagnostically, Mr. Escobedo meets the criteria for a mild cognitive impairment (a.k.a., mild neurocognitive disorder), though the etiology remains unclear. Likely candidates for potentially contributing factors include Parkinson's disease, history of numerous concussions and sub-concussive impacts, though he also has rather prominent anxiety, depression and sleep disturbance all of which may be exacerbating any mild underlying cognitive difficulties. Dr. Lao in his recommendations referred him to Speech Therapy for cognitive rehabilitation targeting confrontation naming, encoding strategies for memory and communication fluency. Mr. Escobedo stated that he has reached the point in his struggle with his needs, that he is asking for help, and is highly motivated to work with an Speech and Language Pathologist on strategies to help him with functional communication and memory. 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 Current Living Situation: Mr. Escobedo is , lives independently in private home with his , Bri, in [place]. He has two adult sons from a previous marriage, and two adult step children. Assistive Devices in use: none Past Speech Language Therapy: None Swallowing History: Dysphagia Specific: Within Functional Limits Reported Speech, Language, Cognition difficulties: Memory, Speaking Comments: Mr. Escobedo presents with mild to moderate issues with short term/immediate memory, word finding in confrontation naming and at the conversational level, and mild, episodic speech dysarthria. Quality of Life: Good Patient Stated Goal of Speech-Language Therapy: Provide patient centered intervention/strategy instruction for memory and communication needs. Assessment Speech Production: Dysarthric Nonfluent Clinical Impression: Impaired Observations: Mr. Escobedo presents with mild, episodic dysarthria: Speech, episodically and in context, becomes mildly slurred in connected speech. Dysarthria is not evident at the word level nor is it sound specific. Mr. Escobedo further has mild word finding issues, making conversational speech at times halting and disfluent. Informal Voice Assessment: Voice Loudness: Normal Voice Nasal Resonance: Normal Voice Oral Resonance: Normal Voice Phonatory-based Quality: Normal Voice Pitch: Normal Clinical Impression: Intact Clinicial Observations: As observed during this evaluation, Mr. Escobedo demonstrated normal vocal quality and adequate volume for speech. He did, however, report that others may ask him to repeat himself as he was inaudible, though this was noted as occasionally. Tests of Speech & Lang Adults: [place] Naming Test (BNT) Clinical Impression: Impaired Observations: On the extended version of the [place] Naming Test, which assesses and individual's ability to confrontationally name objects, Mr. Escobedo demonstrated 44/60 accuracy, making 16 errors on this longer format of confrontation naming. Errors included misnomers (e.g. labelling asparagus broccoli ), paraphasias ( thesiscope for stethiscope), contextual description (e.g. Ice cube chiropractor sole practitioner for a pair of tongs). Tip of tongue behavior was also noted, as well as ample frustration when trying to retrieve the word. Overall difficulty increased as the test progressed, with the possibility that error increased anxiety and frustration, leading to greater difficulty with the task. Mr. Escobedo was further asked to complete the narrative task ( Cookie Theft picture) from the BDAE. In his narrative, he presented with frequent hesitations and mild disfluencies, likely related to word retrieval, and resulted in decreased cohesiveness of the narrative. Tests of Cognition: RBANS Clinical Impression: Impaired Observations: Specific Subtests of The Repeatable Battery for the Assessment of Neuropsychological Status (RBANS-Update Form A) were used to assess aspects of cognitive memory, language and attention skills. The RBANS is considered a screening battery for adult cognitive function, and is repeatable for the purpose of evaluating any changes in function. Composite domains assessed in this evaluation were: Immediate Memory; Language; and Delayed Memory. Domains of visuospatial construction and attention were not assessed for this eval, as these areas were noted to be relative strengths on Mr. Escobedo's recent, comprehensive, neuropsychological evaluation. Domain index scores and percentile ranking are the following: Subtest/Domain Immediate Memory: Index Score: 61; Percentile: .5 Language: Index Score: 96; Percentile: 38 Delayed Memory: Index Score: 87; Percentile 18 On this assessment, Mr. Escobedo demonstrated no difficulty with labelling the 10 items on the confrontation naming task, and evidenced some relative mild difficulty on the generative semantic task (naming items in a broad category with a time constraint), resulting in a score in the language domain within the average range of function for his age group. He clearly struggled on tasks requiring immediate recall of verbally presented information. Particularly hard for Mr. Escobedo was the immediate recall of a list of unrelated words, presented four times to assess both recall and strategy/learning. He was noted to attempt to subvocalize the initial items read, as a strategy to recall items, but this did not appear to aid his recall. He consistently remembered four items at each presentation, with these items mostly occcuring at the end of the list, consistent with relying on recency in recall. Mr. Escobedo did slightly better recalling verbal information in narrative format, however struggle was noted here as well. Overall his score in this domain fell in the below average range of function in this cognitive domain. Notably, however, when asked to remotely recall information from these subtests later in the evaluation, Mr. Escobedo recalled none of the items when asked to simply state what he remembered from the list, but then recalled nearly all items, including ones he never named initially, when prompted with y/n questions about what was on the list. He further recalled all details he initially learned from the narrative given after a delay. Overall with Delayed Memory, he evidenced a score in the low average range. Impressions and Recommendations Summary: Elkin Escobedo on a language and brief cognitive assessment today, presented with mild word finding and episodic mild dysarthria, which he has reported impairs and creates self-consciousness in his general conversational communication. Consistent with a recent, comprehensive Neurocognitive assessment, Mr. Escobedo presented with impairment of immediate/short term memory for verbal information, with other cognitive domains falling within the average range of function. Mr. Escobedo will have difficulty recalling new information, details, brief data presented auditorily. This may be most evident when verbal directions are given, or phone numbers are recited for recall, or specific dates or other information is briefly given and not written down. However, this level of difficulty with short term memory can additionally affect general comprehension in daily activities such as difficulty recalling details from conversations, repeating conversational information, and misplacing needed items. It is recommended that Mr. Escobedo return for a period of word finding and cognitive therapy to develop strategies for general communication and immediate recall of information. Impact on Daily Function/Activity Limitations: Daily Activities: Mild Interpersonal Interactions: Moderate Education: Moderate Employment: Mild Community: Mild Prognosis for Improvement: Good Recommendation for Speech Therapy: Inpatient Speech Therapy Frequency/Duration: One, fourty five minute therapy session weekly Date Range for Service Requested: 8-12 Weeks Time to Reassess: PRN Director Nicu Goals: Elkin will apply strategies, applications and accommodations to manage tasks that require immediate recall information and word finding in conversation in four out of five contexts. Short Term Goals: Goal # : 1.1: Don will use a rehearsal strategy to recall a detail or specific information from visual or verbal presented information with 80% accuracy 1.2: Don will use a visualization strategy to recall a detail or specific information from verbally presented information with 80% accuracy. 1.3: Don will use an association strategy to retain and retrieve specific information from visually or verbally presented information with 80% accuracy. Goal Status: Goal# : 2.1: Don will label/retrieve a specific target word when given functional, attribute or category descriptors with 80% accuracy 2.2: When given a specific category, Don will fluently generate at least 8 names of items within the category on demand with 80% accuracy. 2.3: When given a prompt (visual or verbal) Don will respond with descriptive or informative details of at least four complete and cohesive sentences. 2.4: In a structured conversational task, Don will maintain fluent and coherent communication with partner for at least four conversational turns. Goal Status: Goal # : 3. Don will electively use an adeola or tech device to record and retrieve needed information in four out of five contexts. Goal Status: Patient Education: Completed: Yes Patient/Caregiver Education: Described Results of Evaluation Patient expressed understanding of evaluation Patient agrees with goals and treatment plan Comments/Barriers to Learning: [place] Clinican/Clinical Fellow: No Supervisory Statement: N/A Speech Language Pathologist: Lian Stafford M.A., [facility]-TECHNOLOGY TEACHER
== END 2024-05-13 15:42 | disposition still patient (30) ==
LOC: HO.SH 12:57
PROVIDERS: PCP Internal Medicine; Visit Provider Psychiatry & Neurology Neurology
DX: G20.B2 Parkinson's disease with dyskinesia, with fluctuations (principal); R47.9 Unspecified speech disturbances
CPT/HCPCS: 96125

== ENCOUNTER 2024-04-20 14:51 | Outpatient (AMB) | payer OTHER, SELFPAY ==
--- NOTE | 2024-04-20 14:53 | AM.OFFWIN_ITS ---
Intake Vital Signs 04/20/24 14:54 Height 6 ft 2 in Weight 228 lb BMI 29.3 BP 128/84 Blood Pressure Location Rt brachial Position Sitting Pulse 60 Pulse Source Pulse Oximeter Temp 98.2 F Temp Source Oral Pulse Oximetry (%) 98 Oxygen Delivery Method Room Air Intake Visit Reasons: EP Wheezing Intake Note: pt here c/o coughing(w/ clear phlegm),wheezing, Sob, Chest pain. Started Wednesday 04/18. Patient Tobacco Use Status: Never used Tobacco Allergies No Known Allergies Allergy (Unknown, Verified 04/20/24 14:54) Do you need a note to return to daycare/school/sports/work: No HPI HPI Comments History of Present Illness Details Patient is a 63yo M with hx of parkinsons who presents with cough Ongoing x 3 days Associated wheeze No CP but some SOB with wheezing No use of meds for symptoms No worsening factors No fever + intermittent phlegm No sick contacts, hx of asthma or smoking hx + congestion with ST or ear pain PFSH Medical History Speech abnormality Abnormal US (ultrasound) of abdomen Alcohol abuse Parkinson disease Environmental allergies BPH (benign prostatic hyperplasia) Back muscle spasm Anxiety, generalized Difficulty sleeping Lipid disorder Surgical History S/P Mohs surgery for basal cell carcinoma History of esophagogastroduodenoscopy (EGD) H/O colonoscopy History of knee surgery History of lumbar fusion History of back surgery Family History Father HTN (hypertension) Stroke Diabetes mellitus Cancer Mother Diabetes mellitus Sarcoidosis Heart failure Renal failure Brother Addisons disease Sister Aneurysm Son No problems noted. Son No problems noted. Social History Housing: House Alcohol intake: former Patient Tobacco Use Status: Never used Tobacco Tobacco use type: Smokeless Tobacco e-Cigarette/Vaping Use: Never Used Substance Use Type: Marijuana service: No Current occupational status: employed Cognitive needs: No Hearing needs: No Vision needs: Yes Review of Systems Const Denies fever(s) ENT Denies otalgia, Reports nasal discharge and Denies sore throat Card Denies chest pain Resp Reports chest congestion, Reports cough and Reports wheezing Musc Reports other (hx parkinsons) Aller/Immun Reports wheezing Physical Exam Vital Signs: Last Vital Signs Temp 98.2 F 04/20/24 14:54 Pulse 60 04/20/24 14:54 BP 128/84 04/20/24 14:54 Pulse Ox 98 04/20/24 14:54 Oxygen Delivery Method Room Air 04/20/24 14:54 BMI result Body Mass Index 29.3 General: Non-toxic, NAD. Speaking full sentences. Skin: Warm dry throughout Eye: EOMI HENT: Airway patent. Uvula midline. No pharyngeal erythema or edema. No PAPER NOVELTY MAKER. Bilateral canals clear. TM non-erythematous, non-bulging. No TM perforation or hemotympanum noted. Respiratory: Faint upper airway wheeze without rales or crackles. No tachypnea. Cardiac: RRR. No murmur Neurology: A/O. No aphasia or facial droop. Gait without abnormality Psych: Good mood and affect Assessment & Plan Assessment & Plan (1) Upper respiratory infection: Code(s): J06.9 - Acute upper respiratory infection, unspecified Qualifiers: URI type: unspecified viral URI Qualified Code(s): J06.9 - Acute upper respiratory infection, unspecified Plan: Patient seen and evaluated No concern PNA at this time and vitals are stable. Prednisone (take with food. avoid alcohol and nsaids. he has tolerated well in past) Tessalon Patient gave verbal understanding and had no additional questions or concerns at time of discharge All questions answered Medications: New prednisone 40 mg (2 x 20 mg) PO DAILY 10 tabs 0RF 5 days benzonatate 200 mg PO BID-TID PRN 14 caps 0RF cough Coding Level of Care Code Est Pt Level 3 (36135) Diagnoses Viral upper respiratory tract infection J06.9 URI type: unspecified viral URI
[2024-04-20 14:54] VITALS: BP 128/84; PULSE 60; TEMP 36.8; O2SAT 98; BMI 29.3
== END 2024-04-20 15:23 | disposition home or self-care (01) ==
PROVIDERS: PCP Internal Medicine; Visit Provider Physician Assistant
DX: J06.9 Acute upper respiratory infection, unspecified (principal)
CPT/HCPCS: 99213

== ENCOUNTER 2024-05-16 14:50 | Outpatient (RCR) | payer OTHER, SELFPAY ==
--- NOTE | 2024-06-16 13:32 | MHC.SL.SOA ---
Referring Provider: Dina Mcgowan MD Reason for Referral: Speech Language Cognitive Assessment Date of Plan of Treatment:04/20/24 Onset of Symptoms/Illness:04/20/20 Date Treatment Started:04/20/24 Medical Diagnosis:Parkinson's Primary Speech Language Diagnosis:R41.841 Cognitive communication disorder Number of Authorized Visits Remaining: Reason for Visit:19371 Individual Treatment Subjective: Margarito was seen for 1 visit on 05/16/24, however before his next visit he called the office and left a message informing that he was self-discharging from therapy. A reason was not given. GENERAL FORECASTER called-back and left a voicemail extending the invitation to talk if he had any questions. Objective: The following goals were recommended at Evaluation: 1.1: Don will use a rehearsal strategy to recall a detail or specific information from visual or verbal presented information with 80% accuracy 1.2: Don will use a visualization strategy to recall a detail or specific information from verbally presented information with 80% accuracy. 1.3: Don will use an association strategy to retain and retrieve specific information from visually or verbally presented information with 80% accuracy. 2.1: Don will label/retrieve a specific target word when given functional, attribute or category descriptors with 80% accuracy 2.2: When given a specific category, Don will fluently generate at least 8 names of items within the category on demand with 80% accuracy. 2.3: When given a prompt (visual or verbal) Don will respond with descriptive or informative details of at least four complete and cohesive sentences. 2.4: In a structured conversational task, Don will maintain fluent and coherent communication with partner for at least four conversational turns. 3. Don will electively use an adeola or tech device to record and retrieve needed information in four out of five contexts. Assessment: This is an administrative discharge. No able to assess progress d/t limited attendance. Notes: Provide client with weekly carryover activities for home practice at each session. Plan: Goal # : 1.1: Don will use a rehearsal strategy to recall a detail or specific information from visual or verbal presented information with 80% accuracy 1.2: Don will use a visualization strategy to recall a detail or specific information from verbally presented information with 80% accuracy. 1.3: Don will use an association strategy to retain and retrieve specific information from visually or verbally presented information with 80% accuracy. Status of Goal: Discharge Goal Goal # : 2.1: Don will label/retrieve a specific target word when given functional, attribute or category descriptors with 80% accuracy 2.2: When given a specific category, Don will fluently generate at least 8 names of items within the category on demand with 80% accuracy. 2.3: When given a prompt (visual or verbal) Don will respond with descriptive or informative details of at least four complete and cohesive sentences. 2.4: In a structured conversational task, Don will maintain fluent and coherent communication with partner for at least four conversational turns. Status of Goal: Discharge Goal Goal # : 3. Don will electively use an adeola or tech device to record and retrieve needed information in four out of five contexts. Status of Goal: Discharge Goal Seen by: Graduate/Clinical Fellow: No Supervisory Statement: f_Reg Query Last Value , MHC.AU.SIGNATUR Speech Language Pathologist: Ted Pagan M.A., CCC-GENERAL FORECASTER
== END 2024-06-17 09:17 | disposition home or self-care (01) ==
LOC: HO.SH 14:50
PROVIDERS: PCP Internal Medicine; Visit Provider Psychiatry & Neurology Neurology
DX: G20.B2 Parkinson's disease with dyskinesia, with fluctuations (principal); R47.9 Unspecified speech disturbances
CPT/HCPCS: 92507

== ENCOUNTER 2024-07-12 10:25 | Outpatient (AMB) | payer OTHER, SELFPAY ==
[2024-07-12 10:28] VITALS: BP 126/80; PULSE 62; O2SAT 94; BMI 30.1
--- NOTE | 2024-07-12 10:28 | A.OFFPC_ITS ---
Vital Signs 07/12/24 10:28 Height 6 ft 2 in Weight 234 lb 6 oz BMI 30.1 BP 126/80 Blood Pressure Location Rt brachial Position Sitting Pulse 62 Pulse Source Pulse Oximeter Pulse Oximetry (%) 94 Oxygen Delivery Method Room Air Intake Visit Reasons: Annual PE Allergies No Known Allergies Allergy (Unknown, Verified 07/12/24 10:33) Medication List - Last Reconciled 07/12/24 by Galo Rodrigues MD albuterol sulfate 90 mcg/actuation 1 inh inhalation QID PRN carbidopa-levodopa 25-100 mg 2 tabs PO TID 90 days citalopram 40 mg PO DAILY 90 days fluocinonide 0.05% appl topical BID PRN gabapentin 600 mg (2 x 300 mg) PO DAILY gabapentin 100 mg PO BID hydroxyzine HCl 50 mg PO TID PRN pantoprazole 40 mg PO DAILY sildenafil 100 mg PO DAILY PRN 30 days simvastatin 10 mg PO DAILY 90 days tadalafil 10 mg PO DAILY PRN 90 days tamsulosin 0.4 mg PO DAILY 90 days trazodone 150 mg (1.5 x 100 mg) PO BEDTIME 30 days Tobacco use date assessed: 07/12/24 Dental Screening Dental Screen Date: 07/12/24 Did you have a dental visit in the last 12 months?: Yes Did you have a dental problem in the last 6 months where you did not have access to dental care?: No Was dental information given to patient?: Patient has dentist HPI Annual PE HPI Details Patient is 63-year-old gentleman came in today for his annual physical exam Patient suffers from Parkinson's disease, he is under care of Neurology He failed the balance test today and tandem walk Having stiffness office muscle but able to be mobile Patient have impaired fasting sugar, we are keeping an eye on that, he has strong family history of diabetes We are doing labs every 6 months Patient have a history of lumbar surgery established with [facility] for ongoing care Mood is stable patient is on citalopram 40 mg , also seeing a therapist every week and patient says that it is helping a lot GERD symptoms controlled with pantoprazole p.r.n. Lipid disorder: Continue simvastatin 10 mg Sleeping okay with help of trazodone. Urinary care through Urology Follow-up 6 months Due for colonoscopy [facility], [facility] Medical History Speech abnormality Abnormal US (ultrasound) of abdomen Alcohol abuse Parkinson disease Environmental allergies BPH (benign prostatic hyperplasia) Back muscle spasm Anxiety, generalized Difficulty sleeping Lipid disorder Surgical History S/P Mohs surgery for basal cell carcinoma History of esophagogastroduodenoscopy (EGD) H/O colonoscopy History of knee surgery History of lumbar fusion History of back surgery Family History Father HTN (hypertension) Stroke Diabetes mellitus Cancer Mother Diabetes mellitus Sarcoidosis Heart failure Renal failure Brother Addisons disease Sister Aneurysm Son No problems noted. Son No problems noted. Social History Housing: House Alcohol intake: former Patient Tobacco Use Status: Never used Tobacco Tobacco use type: Smokeless Tobacco e-Cigarette/Vaping Use: Never Used Substance Use Type: Marijuana service: No Current occupational status: employed Cognitive needs: No Hearing needs: No Vision needs: Yes Questionnaire Thrive Questionnaire Date Thrive assessed: 01/08/24 AUDIT C Alcohol Use Questionnaire (AUDIT-C) 1. How often do you have a drink containing alcohol?: Never 3. How often do you have six or more drinks on one occasion?: Never Total Score: 0 Score Reviewed/Action Taken: Yes KHURRAM-7 AMB Questionnaire KHURRAM-7 Date KHURRAM - 7 assessed: 01/08/24 Source: Developed by Drs. Ricardo Varghese, Kathie Phan, Chris Gordillo and colleagues, with an educational cammie from [employer]. Review of Systems Const Denies chills, Denies fever(s) and Denies headache(s) Eyes Denies blurry vision ENT Denies headache(s), Denies nasal discharge, Denies nasal obstruction, Denies odynophagia and Denies sinus pain Card Denies chest pain at rest and Denies chest pain with activity Resp Denies cough and Denies hemoptysis GI Denies diarrhea, Denies odynophagia, Denies vomiting and Denies hematemesis Reports as per HPI Musc Denies abnormal gait Skin/Breast Reports as per HPI Neuro Denies Neuro-related abnormal movements, Denies Abnormal speech present, Denies abnormal gait and Denies headache(s) Psych Denies mood swings and Denies paranoia Endo Reports as per HPI Navneet/Lymph Reports as per HPI Aller/Immun Reports as per HPI Physical exam (Primary Care) Vital Signs: Last Vital Signs Pulse 62 07/12/24 10:28 BP 126/80 07/12/24 10:28 Pulse Ox 94 07/12/24 10:28 Oxygen Delivery Method Room Air 07/12/24 10:28 BMI result Body Mass Index 30.1 Tobacco/Smoking Status: Tobacco use Status Tobacco use date assessed 07/12/24 07/12/24 10:34 Patient Tobacco Use Status Never used Tobacco 07/12/24 10:34 Tobacco use type Smokeless Tobacco 07/12/24 10:34 e-Cigarette/Vaping Use Never Used 07/12/24 10:34 Thrive Assessment: Date of Thrive Assessment Date Thrive assessed 01/08/24 07/12/24 10:34 Const General: cooperative, comfortable and no acute distress Orientation/consciousness: patient oriented x3 HENMT Head: Yes normocephalic and Yes atraumatic Eyes General: appearance normal, both eyes and all related structures Pupils: Equal, round and reactive pupils present EOM: EOMs intact bilaterally Neck Neck: Yes supple and No lymphadenopathy Thyroid: Thyroid normal Lymphatic: no lymphadenopathy noted Resp Effort & Inspection: normal respiratory effort and able to speak in complete sentences Auscultation: clear to auscultation bilaterally Cardio Heart sounds: S1 normal heart sound present and S2 normal heart sound present GI Palpation (GI): Soft to palpation and nontender Auscultation: normal bowel sounds General: Yes no CVA tenderness Back/Spine/Pelvis Back: no CVA tenderness Skin General skin exam: elasticity normal and turgor normal Neuro General: patient oriented x3 and gait normal Cranial nerves: Yes Equal, round and reactive pupils present Speech: No Abnormal speech present Extrem General: Yes normal exam except as noted and No edema Assessment and Plan Assessment & Plan (1) Encounter for general adult medical examination with abnormal findings: Code(s): Z00.01 - Encounter for general adult medical examination with abnormal findings (2) Lipid disorder: Code(s): E78.9 - Disorder of lipoprotein metabolism, unspecified (3) Anxiety, generalized: Code(s): F41.1 - Generalized anxiety disorder (4) BPH (benign prostatic hyperplasia): Code(s): N40.0 - Benign prostatic hyperplasia without lower urinary tract symptoms Qualifiers: Lower urinary tract symptom detail: urinary frequency Lower urinary tract symptom presence: symptoms present Qualified Code(s): N40.1 - Benign prostatic hyperplasia with lower urinary tract symptoms; R35.0 - Frequency of micturition (5) Environmental allergies: Code(s): Z91.09 - Other allergy status, other than to drugs and biological substances (6) Parkinson disease: Comment: new diagnosis Code(s): G20 - Parkinson's disease Qualifiers: Dyskinesia presence: with dyskinesia Fluctuating manifestations: with fluctuating manifestations Qualified Code(s): G20.B2 - Parkinson's disease with dyskinesia, with fluctuations (7) Major depression, recurrent: Code(s): F33.9 - Major depressive disorder, recurrent, unspecified Qualifiers: Active/Remission status: currently active Major depression episode severity: moderate Qualified Code(s): F33.1 - Major depressive disorder, recurrent, moderate (8) Chronic GERD: Code(s): K21.9 - Gastro-esophageal reflux disease without esophagitis (9) Difficulty sleeping: Code(s): G47.9 - Sleep disorder, unspecified (10) Back muscle spasm: Code(s): M62.830 - Muscle spasm of back Plan Patient is 63-year-old gentleman came in today for his annual physical exam Patient suffers from Parkinson's disease, he is under care of Neurology He failed the balance test today and tandem walk Having stiffness office muscle but able to be mobile Patient have impaired fasting sugar, we are keeping an eye on that, he has strong family history of diabetes We are doing labs every 6 months Patient have a history of lumbar surgery established with [facility] for ongoing care Mood is stable patient is on citalopram 40 mg , also seeing a therapist every week and patient says that it is helping a lot GERD symptoms controlled with pantoprazole p.r.n. Lipid disorder: Continue simvastatin 10 mg Sleeping okay with help of trazodone. Urinary care through Urology Follow-up 6 months Due for colonoscopy Orders: Orders Hemoglobin A1c Today E78.9 - Disorder of lipoprotein metabolism, unspecified, F33.1 - Major depressive disorder, recurrent, moderate, F41.1 - Generalized anxiety disorder, G20.B2 - Parkinson's disease with dyskinesia, with fluctuations, K21.9 - Gastro-esophageal reflux disease without esophagitis, N40.1 - Benign prostatic hyperplasia with lower urinary tract symptoms, R35.0 - Frequency of micturition, Z00.01 - Encounter for general adult medical ex amination with abnormal findings, Z91.09 - Other allergy status, other than to drugs and biological substances Complete Blood Count Auto Diff Today E78.9 - Disorder of lipoprotein metabolism, unspecified, F33.1 - Major depressive disorder, recurrent, moderate, F41.1 - Generalized anxiety disorder, G20.B2 - Parkinson's disease with dyskinesia, with fluctuations, K21.9 - Gastro-esophageal reflux disease without esophagitis, N40.1 - Benign prostatic hyperplasia with lower urinary tract symptoms, R35.0 - Frequency of micturition, Z00.01 - Encounter for general adult medical examination with abnormal findings, Z91.09 - Other allergy status, other than to drugs and biological substances Lipid Panel Today E78.9 - Disorder of lipoprotein metabolism, unspecified, F33.1 - Major depressive disorder, recurrent, moderate, F41.1 - Generalized anxiety disorder, G20.B2 - Parkinson's disease with dyskinesia, with fluctuations, K21.9 - Gastro-esophageal reflux disease without esophagitis, N40.1 - Benign prostatic hyperplasia with lower urinary tract symptoms, R35.0 - Frequency of micturition, Z00.01 - Encounter for general adult medical examinati on with abnormal findings, Z91.09 - Other allergy status, other than to drugs and biological substances TSH reflex Free T4 Today E78.9 - Disorder of lipoprotein metabolism, unspecified, F33.1 - Major depressive disorder, recurrent, moderate, F41.1 - Generalized anxiety disorder, G20.B2 - Parkinson's disease with dyskinesia, with fluctuations, K21.9 - Gastro-esophageal reflux disease without esophagitis, N40.1 - Benign prostatic hyperplasia with lower urinary tract symptoms, R35.0 - Frequency of micturition, Z00.01 - Encounter for general adult medical examination with abnormal findings, Z91.09 - Other allergy status, other than to drugs and biological substances Comprehensive [place]. Panel Fast Today E78.9 - Disorder of lipoprotein metabo lism, unspecified, F33.1 - Major depressive disorder, recurrent, moderate, F41.1 - Generalized anxiety disorder, G20.B2 - Parkinson's disease with dyskinesia, with fluctuations, K21.9 - Gastro-esophageal reflux disease without esophagitis, N40.1 - Benign prostatic hyperplasia with lower urinary tract symptoms, R35.0 - Frequency of micturition, Z00.01 - Encounter for general adult medical examinati on with abnormal findings, Z91.09 - Other allergy status, other than to drugs and biological substances Referrals Open Access Screening Colonoscopy Referral Z12.11 - Encounter for screening for malignant neoplasm of colon, Z12.12 - Encounter for screening for malignant neoplasm of rectum Coding Level of Care Code Est Pt Level 3 (73167) Est Pt Prev Care 40-64y(59234) Diagnoses Encounter for general adult medical examination with abnormal findings Z00.01 Lipid disorder E78.9 Anxiety, generalized F41.1 Benign prostatic hyperplasia with urinary frequency N40.1; R35.0 Lower urinary tract symptom detail: urinary frequency Lower urinary tract symptom presence: symptoms present Environmental allergies Z91.09 Parkinson's disease with dyskinesia and fluctuating manifestations G20.B2 Dyskinesia presence: with dyskinesia Fluctuating manifestations: with fluctuating manifestations Moderate episode of recurrent major depressive disorder F33.1 Active/Remission status: currently active Major depression episode severity: moderate Chronic GERD K21.9 Difficulty sleeping G47.9 Back muscle spasm M62.830
== END 2024-07-12 10:49 | disposition home or self-care (01) ==
PROVIDERS: PCP Internal Medicine; Visit Provider Internal Medicine
DX: Z00.00 Encounter for general adult medical examination without abnormal findings (principal); E78.9 Disorder of lipoprotein metabolism, unspecified; G20.B2 Parkinson's disease with dyskinesia, with fluctuations; F33.1 Major depressive disorder, recurrent, moderate; F41.1 Generalized anxiety disorder; N40.1 Benign prostatic hyperplasia with lower urinary tract symptoms; R35.0 Frequency of micturition; Z91.09 Other allergy status, other than to drugs and biological substances; K21.9 Gastro-esophageal reflux disease without esophagitis; G47.9 Sleep disorder, unspecified; M62.830 Muscle spasm of back
CPT/HCPCS: 99396

== ENCOUNTER 2024-08-16 13:55 | Outpatient (AMB) | payer OTHER, SELFPAY ==
--- NOTE | 2024-08-16 13:56 | AM.OFFWIN_ITS ---
Intake Vital Signs 08/16/24 13:57 Height 6 ft 2 in Weight 226 lb BMI 29.0 BP 112/80 Blood Pressure Location Rt brachial Position Sitting Pulse 59 Pulse Source Pulse Oximeter Temp 98.1 F Temp Source Oral Pulse Oximetry (%) 98 Oxygen Delivery Method Room Air Intake Visit Reasons: EP-chest congestion, coughing green discharge Intake Note: Patient here for chest congestion, cough and headache which has been about 2 weeks. Patient Tobacco Use Status: Never used Tobacco Allergies No Known Allergies Allergy (Unknown, Verified 08/16/24 13:58) Do you need a note to return to daycare/school/sports/work: No HPI HPI Comments History of Present Illness Details Patient presents to office with cough/green mucus He sstates ongoing a few weeks No relief with rest No medicine taken No fevers + congestion with sinus pressure No ear pain or ST + difficulty to breath; worked out yeste rday with some SOB at the gym + inhaler but has not used this am. [facility] Medical History Speech abnormality Abnormal US (ultrasound) of abdomen Alcohol abuse Parkinson disease Environmental allergies BPH (benign prostatic hyperplasia) Back muscle spasm Anxiety, generalized Difficulty sleeping Lipid disorder Surgical History S/P Mohs surgery for basal cell carcinoma History of esophagogastroduodenoscopy (EGD) H/O colonoscopy History of knee surgery History of lumbar fusion History of back surgery Family History Father HTN (hypertension) Stroke Diabetes mellitus Cancer Mother Diabetes mellitus Sarcoidosis Heart failure Renal failure Brother Addisons disease Sister Aneurysm Son No problems noted. Son No problems noted. Social History Housing: House Alcohol intake: former Patient Tobacco Use Status: Never used Tobacco Tobacco use type: Smokeless Tobacco e-Cigarette/Vaping Use: Never Used Substance Use Type: Marijuana service: No Current occupational status: employed Cognitive needs: No Hearing needs: No Vision needs: Yes Review of Systems Const Denies chills, Reports fatigue and Denies fever(s) Eyes Denies change in vision ENT Denies otalgia, Reports nasal congestion, Reports nasal discharge, Reports sinus pressure and Denies throat swelling Card Denies chest pain and Denies syncope Resp Reports change in phlegm color, Reports chest congestion and Reports cough GI Denies abdominal pain Musc Reports myalgias Skin/Breast Denies rash Neuro Denies syncope Endo Reports fatigue Aller/Immun Denies throat swelling Physical Exam Vital Signs: Last Vital Signs Temp 98.1 F 08/16/24 13:57 Pulse 59 08/16/24 13:57 BP 112/80 08/16/24 13:57 Pulse Ox 98 08/16/24 13:57 Oxygen Delivery Method Room Air 08/16/24 13:57 BMI result Body Mass Index 29.0 General: Non-toxic, NAD. Speaking full sentences. Skin: Warm dry throughout Eye: EOMI HENT: Airway patent. Uvula midline. No pharyngeal erythema or edema. 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 + maxillary sinus tenderness to palpation bilaterally. Bilateral canals clear. TM non-erythematous, non-bulging. No TM perforation or hemotympanum noted. Respiratory: Faint crackle R base without wheezes or rhonchi Cardiac: RRR. No murmur MSK: Full ROM extremities. Neurology: A/O. No aphasia or facial droop. Gait without abnormality Psych: Good mood and affect Assessment & Plan Assessment & Plan (1) Pneumonia: Code(s): J18.9 - Pneumonia, unspecified organism Qualifiers: Pneumonia type: due to unspecified organism Laterality: right Lung location: lower lobe of lung Qualified Code(s): J18.9 - Pneumonia, unspecified organism Plan: Patient seen and evaluated. Diagnosed CAP pff PE and hx Vital stable Doxy with food Benzonate F/U with PCP Patient gave verbal understanding and had no additional questions or concerns at time of discharge All questions answered Medications: New benzonatate 200 mg PO BID PRN 14 caps 0RF cough doxycycline hyclate 100 mg PO BID 14 caps 0RF Coding Level of Care Code Est Pt Level 3 (62951) Diagnoses Pneumonia of right lower lobe due to infectious organism J18.9 Pneumonia type: due to unspecified organism Laterality: right Lung location: lower lobe of lung
[2024-08-16 13:57] VITALS: BP 112/80; PULSE 59; TEMP 36.7; O2SAT 98; BMI 29.0
== END 2024-08-16 14:17 | disposition home or self-care (01) ==
PROVIDERS: PCP Internal Medicine; Visit Provider Physician Assistant
DX: J18.9 Pneumonia, unspecified organism (principal)

== ENCOUNTER → 2024-08-16 13:55 | Outpatient (BNVA) | payer OTHER, SELFPAY | PROVIDERS: PCP Internal Medicine; Visit Provider Physician Assistant ==

== ENCOUNTER 2024-08-17 08:00 | Outpatient (AMB) | payer OTHER, SELFPAY ==
--- NOTE | 2024-08-17 08:02 | MHC.OFFVIS ---
Vital Signs 08/17/24 08:03 Height 6 ft 2 in Weight 237 lb 2 oz BMI 30.4 BP 118/70 Blood Pressure Location Rt brachial Position Sitting Pulse 51 Pulse Source Pulse Oximeter Pulse Oximetry (%) 97 Oxygen Delivery Method Room Air Intake Visit Reasons: 6 mnts f/u appt Intake Note: Patient presents for a 6 mon follow up. 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: No Accompanied by: Self / Same As Patient Allergies No Known Allergies Allergy (Unknown, Verified 08/17/24 08:06) Medication List - Last Reconciled 08/17/24 by Dina Mcgowan MD albuterol sulfate 90 mcg/actuation 1 inh inhalation QID PRN benzonatate 200 mg PO BID PRN carbidopa-levodopa 25-100 mg 2 tabs PO QID 90 days citalopram 40 mg PO DAILY 90 days doxycycline hyclate 100 mg PO BID fluocinonide 0.05% appl topical BID PRN gabapentin 600 mg (2 x 300 mg) PO DAILY gabapentin 100 mg PO BID hydroxyzine HCl 50 mg PO TID PRN pantoprazole 40 mg PO DAILY sildenafil 100 mg PO DAILY PRN 30 days simvastatin 10 mg PO DAILY 90 days tadalafil 10 mg PO DAILY PRN 90 days tamsulosin 0.4 mg PO DAILY 90 days trazodone 150 mg (1.5 x 100 mg) PO BEDTIME 30 days HPI Comments Details: 64y/o left handed male comes for follow up of parkinsons.He is in a parkinsons study at [facility] for exercise - it is a 16 week study with strength training and weights.He feels stronger and balance is better He is on sinemet 25/100 8-9 tabs a day . H eis taking 3 tabs tid . His mood is better, he sees therapist regularly.. He is sleeping better with trazodone. His restless legs are same or worse. He is also on gabapentin which helps.200mg qam and 900mg qhs He also has abnormal jerky movements throughout the day and have increased.He has trouble with finishing sentences and replaces words. His recall is good . He quit drinking 26 years ago. 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 No vivid dreams In the evenings when he is sitting down he gets twitches in his whole body.He has depression and anxiety . His father last year and also he had 2 rough divorces. He was always a bit anxious. He was in therapy which helped. He has no motivation now. He lost 40 lbs in last 6 mths . His appetite is low. He stutters a lot and his voice is softer. No drooling . Handwriting is the same , In the morning he has trouble holding his coffee. He has no trouble with personal hygiene . His walking is good - but slower, feels dizzy sometimes. he feels unsafe on stairs. No double vision . No hallucinations he played lot of sports and had multiple closed head injuries and concussions [facility] Medical History (Updated 08/17/24 @ 08:19 by Dina Mcgowan MD) Parkinson's disease without dyskinesia Speech abnormality Abnormal US (ultrasound) of abdomen Alcohol abuse Parkinson disease Environmental allergies BPH (benign prostatic hyperplasia) Back muscle spasm Anxiety, generalized Difficulty sleeping Lipid disorder Surgical History S/P Mohs surgery for basal cell carcinoma History of esophagogastroduodenoscopy (EGD) H/O colonoscopy History of knee surgery History of lumbar fusion History of back surgery Family History Father HTN (hypertension) Stroke Diabetes mellitus Cancer Mother Diabetes mellitus Sarcoidosis Heart failure Renal failure Brother Addisons disease Sister Aneurysm Son No problems noted. Son No problems noted. Social History Housing: House Alcohol intake: former Patient Tobacco Use Status: Never used Tobacco Tobacco use type: Smokeless Tobacco e-Cigarette/Vaping Use: Never Used Substance Use Type: Marijuana service: No Current occupational status: employed Cognitive needs: No Hearing needs: No Vision needs: Yes Physical Exam Vital Signs: Last Vital Signs Pulse 51 08/17/24 08:03 BP 118/70 08/17/24 08:03 Pulse Ox 97 08/17/24 08:03 Oxygen Delivery Method Room Air 08/17/24 08:03 BMI result Body Mass Index 30.4 Const General: cooperative, healthy appearing and no acute distress Nutritional Appearance: average body habitus Orientation/consciousness: patient oriented x3 HEENT Head: Yes normal to inspection Neck Other: mild antecollis and right laterocollis and restricted range of motion Neuro Other: Mild decreased blink and facial expression No lip tremors, tongue tremors , slow tongue movements Voice- normal, dysprosody Fine Finger movements - mildly decreased demarcus l>R Alternating hand movements - decreased demarcus Hand movements - decreased demarcus Foot taps- decreased demarcus No cog wheel rigidity gait - stooped, mild slowness and decreased arm swing R>L, good stride General: patient oriented x3 and no focal motor deficits Cranial nerves: Yes CN's II-XII intact bilaterally, Yes Bilaterally intact EOM present, Yes Normal facial strength present and Yes Midline tongue present Cognition (Neuro): normal cognition Motor exam (neuro): 5/5 motor strength present throughout and Normal motor muscle tone present throughout Coordination: [id number] test normal Psych Appearance: grossly normal Assessment & Plan Assessment & Plan (1) Parkinson's disease without dyskinesia: Code(s): G20.A1 - Parkinson's disease without dyskinesia, without mention of fluctuations Category: Medical Qualifiers: Fluctuating manifestations: without fluctuating manifestations Qualified Code(s): G20.A1 - Parkinson's disease without dyskinesia, without mention of fluctuations (2) Memory change: Code(s): R41.3 - Other amnesia Category: Medical (3) Anxiety, generalized: Code(s): F41.1 - Generalized anxiety disorder Category: Medical Plan Change carbidopa/levodopa 25/100 2tabs qid Suggested to take with food or snack ( low protien) YANN scan -c/w parkinsons disease Continue exercise.Info on local support groups given. continue gabapentin 100mg qam qnoon and 900mg qhs Trazadone 150mg qhs f/u with psychology Continue exercise. Medications: Changed From carbidopa-levodopa 25-100 mg 2 tabs PO TID 90 days 540 tabs 1RF To carbidopa-levodopa 25-100 mg 2 tabs PO QID 90 days 720 tabs 1RF Coding Level of Care Code Est Pt Level 4 (99463) Complex EM visit Add On G2211 Diagnoses Parkinson's disease without dyskinesia or fluctuating manifestations G20.A1 Fluctuating manifestations: without fluctuating manifestations Memory change R41.3 Anxiety, generalized F41.1
[2024-08-17 08:03] VITALS: BP 118/70; PULSE 51; O2SAT 97; BMI 30.4
== END 2024-08-17 08:23 | disposition home or self-care (01) ==
PROVIDERS: PCP Internal Medicine; Visit Provider Psychiatry & Neurology Neurology
DX: G20.A1 Parkinson's disease without dyskinesia, without mention of fluctuations (principal); R41.3 Other amnesia; F41.1 Generalized anxiety disorder
CPT/HCPCS: 99214

== ENCOUNTER → 2024-08-17 08:00 | Outpatient (BNVA) | payer OTHER, SELFPAY | PROVIDERS: PCP Internal Medicine; Visit Provider Psychiatry & Neurology Neurology ==

== ENCOUNTER 2024-08-18 08:19 | Outpatient (AMB) | payer OTHER, SELFPAY ==
--- NOTE | 2024-08-18 08:26 | A.OFFVIS_ITS ---
Intake Visit Reasons: 6M PVR Intake Note: Patient presents today for a follow up on: BPH/PVR Meds- Sildenafil, Tadalafil, Tamsulosin Allergies to Antibiotic- No Known Allergies Blood Thinner- None Post Void Residual: 25ml's Kick Boxer Required: No Accompanied by: Self / Same As Patient Allergies No Known Allergies Allergy (Unknown, Verified 09/16/24 14:09) HPI Comments Details: Margarito is a pleasant male. 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 Erectile dysfunction Progressive longstanding Does take citalopram which has known inhibitory effects Failed daily 5 mg tadalafil Continue with daily 10 mg tadalafil and 100 mg sildenafil as needed PSA 06/29 1.5, 03/01 2.2 Still with occasional nocturia on tamsulosin 0.4 mg PFSH Medical History Parkinson's disease without dyskinesia Speech abnormality Abnormal US (ultrasound) of abdomen Alcohol abuse Parkinson disease Environmental allergies BPH (benign prostatic hyperplasia) Back muscle spasm Anxiety, generalized Difficulty sleeping Lipid disorder Surgical History S/P Mohs surgery for basal cell carcinoma History of esophagogastroduodenoscopy (EGD) H/O colonoscopy History of knee surgery History of lumbar fusion History of back surgery Family History Father HTN (hypertension) Stroke Diabetes mellitus Cancer Mother Diabetes mellitus Sarcoidosis Heart failure Renal failure Brother Addisons disease Sister Aneurysm Son No problems noted. Son No problems noted. Social History Housing: House Alcohol intake: former Patient Tobacco Use Status: Never used Tobacco Tobacco use type: Smokeless Tobacco e-Cigarette/Vaping Use: Never Used Substance Use Type: Marijuana service: No Current occupational status: employed Cognitive needs: No Hearing needs: No Vision needs: Yes Review of Systems Const Denies chills and Denies fever(s) Card Reports no additional complaints and Denies syncope Resp Denies cough GI Denies abdominal pain and Denies heartburn Reports as per HPI and Denies change in libido Neuro Denies syncope Psych Denies change in libido Endo Denies change in libido Physical Exam Const General: cooperative, healthy appearing, comfortable and no acute distress Orientation/consciousness: patient oriented x3 HEENT Face and sinus: Yes normal facial exam Mouth: moist mucous membranes Neck Neck: Yes normal visual inspection, Yes full ROM and Yes trachea midline Chest Chest palpation & inspection: normal inspection of the chest Resp Effort & Inspection: normal respiratory effort, able to speak in complete sentences and no respiratory distress GI Inspection: Yes normal to inspection Back/Spine/Pelvis Cervical Spine: normal cervical lordosis Thoracic/Lumbar Spine: thoracic and lumbar spine normal to inspection Skin General skin exam: no rashes or lesions noted Neuro General: patient oriented x3, gait normal, tone normal and moves all extremities Extrem General: Yes normal to inspection and Yes capillary refill normal Office Procedures Post Void Residual Post Residual Void Post Void Residual (PVR): 25 [id number]-[id number] Void Residual by ultrasound Results AMB Urinalysis, Automated UA Leukoctes 0 Beatrice/uL Last Edit by Lexie Frias on 08/18/24 09:11 UA Nitrite Last Edit by Lexie Frias on 08/18/24 09:11 UA Urobilinogen 0.2 mg/dL Last Edit by Lexie Frias on 08/18/24 09:11 UA Protein 15 mg/dL Last Edit by Lexie Frias on 08/18/24 09:11 UA pH 6.0 Last Edit by Lexie Frias on 08/18/24 09:11 UA Blood 0 Joe/uL Last Edit by Lexie Frias on 08/18/24 09:11 UA Specific Mandan 1.020 Last Edit by Lexie Frias on 08/18/24 09:11 UA Ketone Last Edit by Lexie Dowdjamar on 08/18/24 09:11 UA Bilirubin 0 mg/dL Last Edit by Lexie Dowdjamar on 08/18/24 09:11 UA Glucose 0 mg/dL Last Edit by Lexie Dowdjamar on 08/18/24 09:11 Results Reviewed Results Reviewed: Laboratory Last Values Urine pH (Auto) 6.0 08/18/24 09:10 Specific Mandan (Auto) 1.020 08/18/24 09:10 Urine Protein (Auto) 15 mg/dL 08/18/24 09:10 Glucose (UA)(Auto) 0 mg/dL 08/18/24 09:10 Urine Blood (Auto) 0 Joe/uL 08/18/24 09:10 Urine Bilirubin (Auto) 0 mg/dL 08/18/24 09:10 Urine Urobilinogen (Auto) 0.2 mg/dL 08/18/24 09:10 Leukocyte Esterase (Auto) 0 Beatrice/uL 08/18/24 09:10 Assessment & Plan Assessment & Plan (1) BPH (benign prostatic hyperplasia): Code(s): N40.0 - Benign prostatic hyperplasia without lower urinary tract symptoms Category: Medical Qualifiers: Lower urinary tract symptom presence: symptoms present Lower urinary tract symptom detail: urinary frequency Qualified Code(s): N40.1 - Benign prostatic hyperplasia with lower urinary tract symptoms; R35.0 - Frequency of micturition (2) Erectile dysfunction: Code(s): N52.9 - Male erectile dysfunction, unspecified Category: Medical Qualifiers: Erectile dysfunction type: vasculogenic Plan Plan office cystoscopy Orders: Orders AMB Post Void Residual by ultrasound 08/18/24 R32 - Unspecified urinary incontinence AMB Urinalysis Automated 08/18/24 Z13.9 - Encounter for screening, unspecified Patient Instructions: Imaging studies, laboratory and physical exam results were discussed and reviewed in detail. No major barriers to patient understanding were identified. An opportunity to ask questions regarding the treatment plan was provided. All questions were answered. The patient expressed understanding and agreement with the above treatment plan. The patient is aware they should contact our office by phone for worsening of their current condition or the appearance of new urologic symptoms. Compliance is encouraged with any medications and followup testing that is ordered. It is a privilege to participate in the urologic care of your patient. If you have any questions or concerns regarding treatment for the above conditions, or other urologic issues, please do not hesitate to contact me. The office telephone contact is [phone]. This note is constructed using voice recognition software. While every effort has been made to ensure accuracy cutlery grinder errors may have been included. Yours sincerely, Dr Drake Osullivan MD, [facility] - Urology Providers of Expert, Compassionate Care for the Genitourinary System Coding Level of Care Code Est Pt Level 3 (32346) Diagnoses Benign prostatic hyperplasia with urinary frequency N40.1; R35.0 Lower urinary tract symptom presence: symptoms present Lower urinary tract symptom detail: urinary frequency Erectile dysfunction N52.9 Erectile dysfunction type: vasculogenic CPT Codes Post Residual Void - PVR CPT Code: 13837-Zcek Void Residual by ultrasound ([id number])
== END 2024-08-18 09:06 | disposition home or self-care (01) ==
PROVIDERS: PCP Internal Medicine; Visit Provider Urology
DX: N40.1 Benign prostatic hyperplasia with lower urinary tract symptoms (principal); R35.0 Frequency of micturition; N52.9 Male erectile dysfunction, unspecified
CPT/HCPCS: 99213

== ENCOUNTER → 2024-08-18 08:19 | Outpatient (BNVA) | payer OTHER, SELFPAY | PROVIDERS: PCP Internal Medicine; Visit Provider Urology | DX: N40.1 Benign prostatic hyperplasia with lower urinary tract symptoms (principal); R35.0 Frequency of micturition; R35.1 Nocturia; N52.9 Male erectile dysfunction, unspecified; Z79.899 Other long term (current) drug therapy | CPT/HCPCS: 51798; 81003 ==

== ENCOUNTER 2024-08-23 11:28 | Outpatient (AMB) | payer OTHER, SELFPAY ==
--- NOTE | 2024-08-23 11:45 | MHC.OFFWIV ---
Intake Vital Signs 08/23/24 11:46 Height 6 ft 2 in Weight 234 lb BMI 30.0 BP 120/80 Blood Pressure Location Rt brachial Position Sitting Pulse 58 Pulse Source Pulse Oximeter Pulse Oximetry (%) 98 Oxygen Delivery Method Room Air Intake Visit Reasons: EP ? flu symptoms Intake Note: Patient here for headache, congestion which has been going on for about 2 weeks almost 3 weeks. Patient Tobacco Use Status: Never used Tobacco Allergies No Known Allergies Allergy (Unknown, Verified 08/23/24 11:47) Do you need a note to return to daycare/school/sports/work: No HPI HPI Comments History of Present Illness Details Patient is a 64-year-old male complaining of 2-1/2 weeks of a productive cough with green sputum. A headache, chest congestion, fatigue, body aches and some shortness of breath. He denies any fevers, asthma, COPD or being a current smoker. He states he was seen in this clinic on August 16, diagnosed with community-acquired pneumonia and given 7 days of doxycycline as well as some Tessalon Perles. He states he took all the doxycycline and he actually feels worse. Flu COVID and RSV testing was not done that day. He tells me he has tried taking up to 16 Tylenol per day for his headache and it is not helping PFSH Medical History Parkinson's disease without dyskinesia Speech abnormality Abnormal US (ultrasound) of abdomen Alcohol abuse Parkinson disease Environmental allergies BPH (benign prostatic hyperplasia) Back muscle spasm Anxiety, generalized Difficulty sleeping Lipid disorder Surgical History S/P Mohs surgery for basal cell carcinoma History of esophagogastroduodenoscopy (EGD) H/O colonoscopy History of knee surgery History of lumbar fusion History of back surgery Family History Father HTN (hypertension) Stroke Diabetes mellitus Cancer Mother Diabetes mellitus Sarcoidosis Heart failure Renal failure Brother Addisons disease Sister Aneurysm Son No problems noted. Son No problems noted. Social History Housing: House Alcohol intake: former Patient Tobacco Use Status: Never used Tobacco Tobacco use type: Smokeless Tobacco e-Cigarette/Vaping Use: Never Used Substance Use Type: Marijuana service: No Current occupational status: employed Cognitive needs: No Hearing needs: No Vision needs: Yes Review of Systems Const All systems reviewed & are unremarkable except as noted in HPI and below Physical Exam Vital Signs: Last Vital Signs Pulse 58 08/23/24 11:46 BP 120/80 08/23/24 11:46 Pulse Ox 98 08/23/24 11:46 Oxygen Delivery Method Room Air 08/23/24 11:46 BMI result Body Mass Index 30.0 Const General: cooperative, healthy appearing, comfortable and no acute distress Orientation/consciousness: patient oriented x3 Limitations: no limitations HEENT Head: Yes normal to inspection Ears: hearing grossly normal bilaterally, external ears normal, TM's normal bilaterally and Abnormal EAC present (Right side) erythema, edema and EAC tenderness General nose exam: Normal external nose present, Normal nares present and No nasal discharge present Face and sinus: Yes normal facial exam and Yes sinus tenderness Mouth: Normal oral and palatal mucosa present and moist mucous membranes Throat: Yes tonsils normal, Yes uvula midline and Yes posterior oropharynx abnormal (Erythema) Eyes General: appearance normal, both eyes and all related structures Neck Neck: Yes normal visual inspection Resp Effort & Inspection: normal respiratory effort, able to speak in complete sentences, Actively coughing, no respiratory distress, not tachypneic, no tripod positioning and no use of accessory muscles Auscultation: clear to auscultation bilaterally Cardio Rate: regular rate Rhythm: regular rhythm Heart sounds: normal S1 and S2 Skin General skin exam: no rashes or lesions noted Neuro General: patient oriented x3 Extrem General: Yes normal to inspection and Yes no clubbing, cyanosis or edema Assessment & Plan Assessment & Plan (1) Upper respiratory infection: Code(s): J06.9 - Acute upper respiratory infection, unspecified Qualifiers: URI type: unspecified viral URI Qualified Code(s): J06.9 - Acute upper respiratory infection, unspecified Plan: Vital signs are stable and patient is well-appearing, lung sounds are also clear however he was coughing a lot during the exam. I will send some codeine cough syrup to help him get some rest at night. This is likely viral, as the antibiotics were not effective and patient actually feels worse after taking them. I sent a respiratory pathogen panel and will get a CXR. (2) Otitis externa of right ear: Code(s): H60.91 - Unspecified otitis externa, right ear Qualifiers: Otitis externa type: diffuse Chronicity: acute Qualified Code(s): H60.311 - Diffuse otitis externa, right ear Plan: Sent drops to pharmacy Plan See above Orders: Orders XR chest 2V Today R05.9 - Cough, unspecified Resp Pathogen Panel - C Today J06.9 - Acute upper respiratory infection, unspecified Medications: New codeine-guaifenesin 10-100 mg/5 mL 10 mL PO Q4-6H 120 mL 0RF cough keeudtlp-vqtlykntm-EU 3.5-10,000-1 mg/mL-unit/mL-% 4 drps otic (ear) right QID 7 days 10 mL 0RF Coding Level of Care Code Est Pt Level 4 (39488) Diagnoses Viral upper respiratory tract infection J06.9 URI type: unspecified viral URI Acute diffuse otitis externa of right ear H60.311 Otitis externa type: diffuse Chronicity: acute
[2024-08-23 11:46] VITALS: BP 120/80; PULSE 58; O2SAT 98
== END 2024-08-23 12:18 | disposition home or self-care (01) ==
PROVIDERS: PCP Internal Medicine; Visit Provider Physician Assistant
DX: J06.9 Acute upper respiratory infection, unspecified (principal); H60.311 Diffuse otitis externa, right ear

== ENCOUNTER 2024-08-23 11:28 | Outpatient (REF) | payer OTHER, SELFPAY | END 2024-08-23 11:29 | disposition home or self-care (01) | LOC: HO.LAB 11:28 | PROVIDERS: PCP Internal Medicine | DX: Z13.89 Encounter for screening for other disorder (principal) ==

== ENCOUNTER 2024-08-23 12:02 | Outpatient (REF) | payer OTHER, SELFPAY ==
--- NOTE | ~2024-08-23 | XR_ITS ---
EXAMINATION: XR CHEST CLINICAL INFORMATION: Cough. COMPARISON: November 03, 2023. TECHNIQUE: 2 views of the chest were obtained. FINDINGS: No significant abnormality is noted involving the heart, lungs, mediastinum, bony thorax or soft tissues. XR/XR chest 2V IMPRESSION: Normal chest PA and lateral. Electronically signed by: Juve Davila MD 08/23/2024 04:11 PM EDT
[2024-08-23 14:42] LABS: Adenovirus PCR Not Detected (Not Detect.); Bordetella parapertussis PCR Not Detected (Not Detect.); Bordetella pertussis PCR Not Detected (Not Detect.); Chlamydia pneumoniae PCR Not Detected (Not Detect.); Coronavirus 229E PCR Not Detected (Not Detect.); Coronavirus HKU1 PCR Not Detected (Not Detect.); Coronavirus NL63 PCR Not Detected (Not Detect.); Coronavirus OC43 PCR Not Detected (Not Detect.); Human metapneumovirus PCR Not Detected (Not Detect.); Influenza A PCR Not Detected (Not Detect.); Influenza B PCR Not Detected (Not Detect.); Mycoplasma pneumoniae PCR Not Detected (Not Detect.); Parainfluenza 1 PCR Not Detected (Not Detect.); Parainfluenza 2 PCR Not Detected (Not Detect.); Parainfluenza 3 PCR Not Detected (Not Detect.); Parainfluenza 4 PCR Not Detected (Not Detect.); RSV PCR Not Detected (Not Detect.); Rhino/Enterovirus PCR Not Detected (Not Detect.)
[2024-08-23 14:43] LABS: SARS-CoV-2 PCR Not Detected (Not Detect.)
== END 2024-08-23 12:03 | disposition home or self-care (01) ==
LOC: HO.HMGCX 12:02
PROVIDERS: PCP Internal Medicine; Visit Provider Physician Assistant
DX: R05.9 Cough, unspecified (principal); J06.9 Acute upper respiratory infection, unspecified
CPT/HCPCS: 71046; 87633

== ENCOUNTER 2024-09-16 13:53 | Outpatient (AMB) | payer OTHER, SELFPAY ==
--- NOTE | 2024-09-16 14:06 | MHC.OFFVIS ---
Intake Visit Reasons: Cysto(bph) Intake Note: Patient is Present for Cystoscopy Urology Med: Sildenafil, Tadalafil, Tamsulosin Antibiotic Allergy: None Blood Thinner: None Last PVR: 25ml URO- G Disposable Cystoscope lot: [id number] exp:12/10/2026 Assistant Center Director Required: No Accompanied by: Self / Same As Patient Allergies No Known Allergies Allergy (Unknown, Verified 09/16/24 14:09) HPI Comments Details: Margarito is a pleasant male. He is a patient of Dr. Rodrigues. 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[employer] Lower urinary tract symptoms Progressive Has been on tamsulosin for a number of years Erectile dysfunction Progressive longstanding Does take citalopram which has known inhibitory effects Failed daily 5 mg tadalafil Continue with daily 10 mg tadalafil and 100 mg sildenafil as needed PSA 06/29 1.5, 03/01 2.2 PFSH Medical History Parkinson's disease without dyskinesia Speech abnormality Abnormal US (ultrasound) of abdomen Alcohol abuse Parkinson disease Environmental allergies BPH (benign prostatic hyperplasia) Back muscle spasm Anxiety, generalized Difficulty sleeping Lipid disorder Surgical History S/P Mohs surgery for basal cell carcinoma History of esophagogastroduodenoscopy (EGD) H/O colonoscopy History of knee surgery History of lumbar fusion History of back surgery Family History Father HTN (hypertension) Stroke Diabetes mellitus Cancer Mother Diabetes mellitus Sarcoidosis Heart failure Renal failure Brother Addisons disease Sister Aneurysm Son No problems noted. Son No problems noted. Social History Housing: House Alcohol intake: former Patient Tobacco Use Status: Never used Tobacco Tobacco use type: Smokeless Tobacco e-Cigarette/Vaping Use: Never Used Substance Use Type: Marijuana service: No Current occupational status: employed Cognitive needs: No Hearing needs: No Vision needs: Yes Review of Systems Const Denies chills and Denies fever(s) Card Reports no additional complaints and Denies syncope Resp Denies cough GI Denies abdominal pain and Denies heartburn Reports as per HPI and Denies change in libido Neuro Denies syncope Psych Denies change in libido Endo Denies change in libido Physical Exam Const General: cooperative, healthy appearing, comfortable and no acute distress Orientation/consciousness: patient oriented x3 HEENT Face and sinus: Yes normal facial exam Mouth: moist mucous membranes Neck Neck: Yes normal visual inspection, Yes full ROM and Yes trachea midline Chest Chest palpation & inspection: normal inspection of the chest Resp Effort & Inspection: normal respiratory effort, able to speak in complete sentences and no respiratory distress GI Inspection: Yes normal to inspection Back/Spine/Pelvis Cervical Spine: normal cervical lordosis Thoracic/Lumbar Spine: thoracic and lumbar spine normal to inspection Skin General skin exam: no rashes or lesions noted Neuro General: patient oriented x3, gait normal, tone normal and moves all extremities Extrem General: Yes normal to inspection and Yes capillary refill normal Office Procedures Cystoscopy Consent Discussed risk and benefit or proposed procedure with the patient. Information consent for procedure given to the patient. Discussed technical aspects, risks, benefits and alternatives in full. Addressed all of the patient's questions and concerns regarding the procedure. The patient demonstrated knowledge and understanding. They wish to proceed with this procedure. Preparation The patient was prepped in the usual manner. A executive coordinator was present and in the room. Genitalia was prepped with betadine solution in a sterile manner. Lidocaine Jelly 2% was placed into the urethra and 16Fr flexible Olympus cystoscope was inserted into the meatus after adequate lubrication. Procedure Cystoscopy performed using a disposable Urovue digital 16 [place] [employer] cystoscope. Meatus circumcised Urethra anterior posterior urethra normal Prostatic Urethra trilobar hypertrophy Bladder examination with retroflexion of cystoscope Bladder Orifices normal shape and position Bladder Capacity median Trabeculations - Cellule Formation - Diverticulum Formation - Mucosal Erythema - Bladder Tumor - [id number] DISPOSABLE SCOPE URO-G FLEXIBLE SCOPE Procedure code (CPT) selection complete Office Meds lidocaine HCl 2 % mucosal jelly in applicator Performing Provider: Drake Osullivan MD Performing Location: [facility] Administered by: Florin Abad LPN on 09/16/24 14:26 Dose Route Admin Location Dispensed Lot Number Expiration Date NDC [employer] 10 mL intra-urethral 10 mL nitrofurantoin monohydrate/macrocrystals 100 mg capsule Performing Provider: Drake Osullivan MD Performing Location: [facility] Administered by: Florin Abad LPN on 09/16/24 14:26 Dose Route Admin Location Dispensed Lot Number Expiration Date NDC [employer] 100 mg PO 1 cap naproxen 500 mg tablet Performing Provider: Drake Osullivan MD Performing Location: [facility] Administered by: Florin Abad LPN on 09/16/24 14:26 Dose Route Admin Location Dispensed Lot Number Expiration Date NDC [employer] 500 mg PO 1 tab Results AMB Urinalysis, Automated UA Leukoctes 0 Beatrice/uL Last Edit by Bouchra Ventura Tito on 09/16/24 14:24 UA Nitrite Negative Last Edit by Bouchra Ventura Tito on 09/16/24 14:24 UA Urobilinogen 0.2 mg/dL Last Edit by Bouchra Ventura Tito on 09/16/24 14:24 UA Protein 15 mg/dL Last Edit by Bouchra Ventura [facility] on 09/16/24 14:24 UA pH 7.0 Last Edit by Bouchra Ventura Tito on 09/16/24 14:24 UA Blood 0 Joe/uL Last Edit by Bouchra Ventura [facility] on 09/16/24 14:24 UA Specific Draper 1.015 Last Edit by YUDITH Harvey on 09/16/24 14:24 UA Ketone Negative Last Edit by Bouchra Ventura [facility] on 09/16/24 14:24 UA Bilirubin 0 mg/dL Last Edit by Bouchra Ventura Tito on 09/16/24 14:24 UA Glucose 0 mg/dL Last Edit by Bouchra Ventura [facility] on 09/16/24 14:24 Results Reviewed Results Reviewed: Laboratory Last Values Urine pH (Auto) 7.0 09/16/24 14:22 Specific Draper (Auto) 1.015 09/16/24 14:22 Urine Protein (Auto) 15 mg/dL 09/16/24 14:22 Glucose (UA)(Auto) 0 mg/dL 09/16/24 14:22 Urine Ketones (Auto) Negative 09/16/24 14:22 Urine Blood (Auto) 0 Joe/uL 09/16/24 14:22 Urine Nitrite (Auto) Negative 09/16/24 14:22 Urine Bilirubin (Auto) 0 mg/dL 09/16/24 14:22 Urine Urobilinogen (Auto) 0.2 mg/dL 09/16/24 14:22 Leukocyte Esterase (Auto) 0 Beatrice/uL 09/16/24 14:22 Assessment & Plan Assessment & Plan (1) BPH (benign prostatic hyperplasia): Code(s): N40.0 - Benign prostatic hyperplasia without lower urinary tract symptoms Category: Medical Qualifiers: Lower urinary tract symptom detail: urinary frequency Lower urinary tract symptom presence: symptoms present Qualified Code(s): N40.1 - Benign prostatic hyperplasia with lower urinary tract symptoms; R35.0 - Frequency of micturition Plan We discussed the nature of the decision and reasonable options for performing a prostate intervention. Interventions include TURP, GreenLight laser enucleation of the prostate, GreenLight laser ablation of the prostate, transurethral incision of the prostate, and I-Tend prostate procedure. Options such as medical therapy were discussed. The relative uncertainties and benefits related to each alternate procedure were adequately discussed. General surgical risks including, but not limited to, pain, bleeding, infection, myocardial infarction, pulmonary embolus, deep vein thrombosis and cerebrovascular accident which may result in further hospitalization were discussed. Full disclosure of the procedure as well as all major risks, benefits and complications were discussed including but not limited to damage to the urethra or bladder neck, recurrent BPH, retrograde ejaculation, bladder infection, urge, de joseph frequency, incomplete emptying, dysuria, remote chance of erectile dysfunction, epididymitis, and meatal stenosis. The success rate of the procedure was discussed. Success of the procedure in the short-term does not necessarily guarantee that long-term success will be maintained. Suitable follow up will need to be maintained. The patient showed understanding of discussion. An opportunity was provided for questions to be answered and wishes to proceed with the following procedure. - GreenLight laser Orders: Orders AMB Cystoscopy 09/16/24 N40.1 - Benign prostatic hyperplasia with lower urinary tract symptoms, R35.0 - Frequency of micturition AMB Urinalysis Automated 09/16/24 Z13.9 - Encounter for screening, unspecified Medications: New finasteride 5 mg PO DAILY 90 tabs 1RF 90 days N40.1 - Benign prostatic hyperplasia with lower urinary tract symptoms, R35.0 - Frequency of micturition, N13.8 - Other obstructive and reflux uropathy, R33.9 - Retention of urine, unspecified Patient Instructions: Imaging studies, laboratory and physical exam results were discussed and reviewed in detail. No major barriers to patient understanding were identified. An opportunity to ask questions regarding the treatment plan was provided. All questions were answered. The patient expressed understanding and agreement with the above treatment plan. The patient is aware they should contact our office by phone for worsening of their current condition or the appearance of new urologic symptoms. Compliance is encouraged with any medications and followup testing that is ordered. It is a privilege to participate in the urologic care of your patient. If you have any questions or concerns regarding treatment for the above conditions, or other urologic issues, please do not hesitate to contact me. The office telephone contact is [phone]. This note is constructed using voice recognition software. While every effort has been made to ensure accuracy engineering design supervisor errors may have been included. Yours sincerely, Dr Drake Osullivan MD, [facility] - Urology Providers of Expert, Compassionate Care for the Genitourinary System Coding Level of Care Code Est Pt Level 4 (03914) Diagnoses Benign prostatic hyperplasia with urinary frequency N40.1; R35.0 Lower urinary tract symptom detail: urinary frequency Lower urinary tract symptom presence: symptoms present CPT Codes Cystoscopy - CPT: 96207-[id number] ([id number])
== END 2024-09-16 14:49 | disposition home or self-care (01) ==
PROVIDERS: PCP Internal Medicine; Visit Provider Urology
DX: N40.1 Benign prostatic hyperplasia with lower urinary tract symptoms (principal); R35.0 Frequency of micturition; Z13.9 Encounter for screening, unspecified
CPT/HCPCS: 52000; 99213

== ENCOUNTER → 2024-09-16 13:53 | Outpatient (BNVA) | payer OTHER, SELFPAY | PROVIDERS: PCP Internal Medicine; Visit Provider Urology | DX: N40.1 Benign prostatic hyperplasia with lower urinary tract symptoms (principal); R35.0 Frequency of micturition; N52.9 Male erectile dysfunction, unspecified; Z79.899 Other long term (current) drug therapy | CPT/HCPCS: 52000; 81003 ==

== ENCOUNTER 2024-10-24 07:59 | Outpatient (AMB) | payer OTHER, SELFPAY ==
--- NOTE | 2024-10-24 08:02 | A.OFFVIS_ITS ---
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 Intake Note: Margarito is a 64 year old ambidextrous male who presents today as a new patient with complaints of right ring finger locking. Patient reports this has been intermittent throughout the day. Reports difficulty with gripping. Patient is interested in possible injection and also surgery. Denies pain. States some numbness and tingling in the ring finger and middle finger of right hand. Hx of left middle finger surgery trigger release w/ Dr Montesinos in 2021. 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 The patient states that this locking and catching has been going on for ?a long while?, but it has acutely worsened over the last few months. The patient states that he did have an old injury to this finger in approximately 1979, when college football he broke the finger. 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 Patient states that he is having significant pain at the level of the A1 karlie of the right ring finger. Patient also endorses intermittent but daily numbness and tingling of the right middle and ring fingers, that is worse in the morning when he 1st awakens. No other acute complaints or concerns at this time. [facility] Medical History Parkinson's disease without dyskinesia Speech abnormality Abnormal US (ultrasound) of abdomen Alcohol abuse Parkinson disease Environmental allergies BPH (benign prostatic hyperplasia) Back muscle spasm Anxiety, generalized Difficulty sleeping Lipid disorder Surgical History S/P Mohs surgery for basal cell carcinoma History of esophagogastroduodenoscopy (EGD) H/O colonoscopy History of knee surgery History of lumbar fusion History of back surgery Family History Father HTN (hypertension) Stroke Diabetes mellitus Cancer Mother Diabetes mellitus Sarcoidosis Heart failure Renal failure Brother Addisons disease Sister Aneurysm Son No problems noted. Son No problems noted. Social History Housing: House Alcohol intake: former Patient Tobacco Use Status: Never used Tobacco Tobacco use type: Smokeless Tobacco e-Cigarette/Vaping Use: Never Used Substance Use Type: Marijuana service: No Current occupational status: employed Cognitive needs: No Hearing needs: No Vision needs: Yes Physical Exam Vital Signs: BMI result Body Mass Index 29.1 Extrem Other: Patient is alert, oriented, and in no acute distress. Neuro: Normal sensation of the tips of all digits of the right hand at this time Vascular: Cap refill brisk Pain: Tenderness to palpation of the A1 karlie of right ring finger noted Pain associated with locking and catching of right ring finger ROM: Visible and palpable locking and catching noted of the right finger Patient is able to make a closed fist extend all other digits of the right hand fully and without difficulty Skin: No lacerations or abrasions. General: No ecchymosis, erythema, or evidence of infection. Psych: Appears grossly normal Affect normal Attitude cooperative Office Procedures Joint Inj/Aspir; Non-Pain Clin Trigger Finger Trigger Finger Ring Joint Injection: Right Ring Coding Procedure code (CPT) selection complete Assessment & Plan Assessment & Plan (1) Numbness and tingling of right hand: Code(s): R20.0 - Anesthesia of skin; R20.2 - Paresthesia of skin Category: Medical (2) Trigger finger, left middle finger: Code(s): M65.332 - Trigger finger, left middle finger Category: Medical (3) Trigger finger, right ring finger: Code(s): M65.341 - Trigger finger, right ring finger Category: Medical Plan 1. Trigger finger, right ring finger Patient is educated about this condition The patient is educated about the treatment options available, and the patient would like to proceed with steroid injection The risks and benefits of a steroid injection including but not limited to risk of damage to blood vessels, nerves, tendons, infection, skin bleaching, failure to improve symptoms, increased pain, and possible need for further injections or other intervention were discussed with the patient and the patient wishes to proceed with the steroid injection. Once consent was obtained, I sterilely prepped the area over the A1 karlie of the flexor tendon sheath of the right ring finger. I then injected the flexor tendon sheath with a combination of 1 mL of dexamethasone (4mg/ml), and 1% lidocaine. The patient tolerated the procedure well with no complications. If the patient continues to have locking and catching 4-6 weeks following this injection, they may call to schedule appointment to discuss alternative treatment options Follow-up prn 2. Numbness and tingling of right hand Symptoms intermittent, daily, worse at night At this time, patient was referred for EMG and nerve conduction study for assessment of the health of the nerves of the right upper extremity Patient will follow-up after this study for results review and discussion of further treatment options if indicated Patient was amenable to this plan 3. Trigger finger, left middle finger Status post trigger release DOS [address] Montesinos Patient reports no ongoing locking or catching in the right middle finger Follow-up p.r.n. Coding Level of Care Code Est Pt Level 3 (28678) Diagnoses Numbness and tingling of right hand R20.0; R20.2 Trigger finger, left middle finger M65.332 Trigger finger, right ring finger M65.341 CPT Codes Trigger Finger ([id number])
[2024-10-24 08:04] VITALS: BMI 29.1
== END 2024-10-24 08:39 | disposition home or self-care (01) ==
PROVIDERS: PCP Internal Medicine
DX: R20.0 Anesthesia of skin (principal); R20.2 Paresthesia of skin; M65.332 Trigger finger, left middle finger; M65.341 Trigger finger, right ring finger
CPT/HCPCS: 20550; 99213

== ENCOUNTER 2024-10-25 09:45 | Outpatient (REF) | payer OTHER, SELFPAY ==
[2024-10-25 13:16] LABS: MANUAL DIFF FLAG NO
[2024-10-25 13:25] LABS: Basophils Percent Auto 0.3 % (0-2); Eosinophils Absolute Auto 0.1 X10*3/uL (0.0-0.4); Eosinophils Percent Auto 1.5 % (0-4); Hematocrit 48.5 % (42.0-52.0); Hemoglobin 16.7 g/dl (14.0-18.0); Imm Gran Abs Auto 0.02 X10*3/uL (0.00-0.03); Imm Gran Pct Auto 0.3 % (0.0-0.4); Lymphocytes Absolute Auto 2.1 X10*3/uL (1.2-4.9); Lymphocytes Percent Auto 28.5 % (20-40); Mean Corpuscular HGB Conc 34.4 g/dl (31.0-36.0); Mean Corpuscular Hemoglobin 32.7 pg (27.0-33.0); Mean Corpuscular Volume 95.1 fL (80.0-98.0); Mean Platelet Volume 11.4 fL (9.4-12.4); Monocytes Absolute Auto 0.6 X10*3/uL (0.1-1.2); Monocytes Percent Auto 8.3 % (2-11); Neutrophils Absolute Auto 4.5 x10*3/uL (2.0-8.3); Neutrophils Percent Auto 61.1 % (45-73); Platelet Count 153 X10*3/uL (160-400); Red Cell Distribution Width 12.2 % (11.0-16.0); White Blood Count 7.3 X10*3/uL (4.8-10.8)
[2024-10-25 13:37] LABS: Estimated Average Glucose 105 mg/dL; Hemoglobin A1C 145.2753 umol/L; Hemoglobin A1c % 5.3 % (<6.0); Total Hemoglobin (HGBA1C) 4223.0329 umol/L
[2024-10-25 13:40] LABS: Alanine Aminotransferase 16 U/L (0-40); Albumin Level 4.3 g/dL (3.5-5.0); Alkaline Phosphatase 75 U/L (39-117); Anion Gap 11 (12-20); Aspartate Amino Transferase 24 U/L (5-37); Bilirubin Total 0.5 mg/dL (0.0-1.0); Blood Urea Nitrogen 10 mg/dL (9-16); Calcium 9.1 mg/dL (8.4-10.2); Carbon Dioxide 30 mmol/L (22-29); Chloride 104 mmol/L (96-108); Cholesterol 165 mg/dL (<200); Estimated Glomerular Filt Rate > 60; Glucose Fasting 89 mg/dL (60-99); HDL Cholesterol 54 mg/dL (>40); LDL Cholesterol Calculated 79 mg/dL (<100); Potassium 4.2 mmol/L (3.3-5.1); Sodium 141 mmol/L (135-145); Total Protein 7.3 g/dL (6.5-8.0); Triglycerides 160 mg/dL (<150)
[2024-10-25 14:01] LABS: TSH reflex Free T4 0.74 uIU/mL (0.32-4.0)
== END 2024-10-25 09:46 | disposition home or self-care (01) ==
LOC: HO.HMGCLDS 09:45
PROVIDERS: PCP Internal Medicine; Visit Provider Internal Medicine
DX: Z00.01 Encounter for general adult medical examination with abnormal findings (principal); E78.9 Disorder of lipoprotein metabolism, unspecified; F41.1 Generalized anxiety disorder; N40.1 Benign prostatic hyperplasia with lower urinary tract symptoms; R35.0 Frequency of micturition; Z91.09 Other allergy status, other than to drugs and biological substances; G20.B2 Parkinson's disease with dyskinesia, with fluctuations; F33.1 Major depressive disorder, recurrent, moderate; K21.9 Gastro-esophageal reflux disease without esophagitis; Z13.1 Encounter for screening for diabetes mellitus
CPT/HCPCS: 36415; 80053; 80061; 83036; 84443; 85025

== ENCOUNTER 2024-11-14 07:20 | Day surgery (SDC) | payer OTHER, SELFPAY ==
[2024-11-10 12:25] VITALS: BMI 29.1
--- NOTE | 2024-11-11 09:13 | HO.ANESPROP2 ---
Documented by User: Whitney Paige NP 11/11/24 09:14 HPI - Anesthesia Eval Consult details Narrative: 64yo M for Laser Ablation Prostate w/Green Light PMFSH Active Problems Active Problems: All Active Problems Trigger finger, right ring finger (Acute) Numbness and tingling of right hand (Acute) Otitis externa of right ear (Acute) Pneumonia (Acute) Upper respiratory infection (Acute) Chronic GERD (Acute) Bilateral shoulder bursitis (Acute) Major depression, recurrent (Acute) Sebaceous cyst of axilla (Acute) Personality change (Acute) Delayed gastric emptying (Acute) Skin disorder (Acute) Trigger finger, left middle finger (Acute) Diarrhea (Acute) Abnormal weight loss (Acute) Epigastric pain (Acute) Nausea & vomiting (Acute) Serum potassium elevated (Acute) Parkinsons disease (Acute) B12 deficiency (Acute) Colon cancer screening (Acute) Tremor of both hands (Acute) Memory change (Acute) Encounter for general adult medical examination with abnormal findings (Acute) Erectile dysfunction (Acute) Urinary incontinence (Acute) Parkinson's disease without dyskinesia (Acute) Speech abnormality (Acute) Parkinson disease (Acute) Environmental allergies (Acute) BPH (benign prostatic hyperplasia) (Acute) Back muscle spasm (Acute) Anxiety, generalized (Acute) Difficulty sleeping (Acute) Lipid disorder (Acute) Past Medical History Medical History Parkinson's disease without dyskinesia Speech abnormality Abnormal US (ultrasound) of abdomen Alcohol abuse Parkinson disease Environmental allergies BPH (benign prostatic hyperplasia) Back muscle spasm Anxiety, generalized Difficulty sleeping Lipid disorder Family History Family History Father HTN (hypertension) Stroke Diabetes mellitus Cancer Mother Diabetes mellitus Sarcoidosis Heart failure Renal failure Brother Addisons disease Sister Aneurysm Son No problems noted. Son No problems noted. Family history of problems with anesthesia: No Surgical History Surgical History Hx of hand surgery S/P Mohs surgery for basal cell carcinoma History of esophagogastroduodenoscopy (EGD) H/O colonoscopy History of knee surgery History of lumbar fusion History of back surgery History of Problems with Anesthesia: No Social History Social History Housing: House Are you a primary manager primary care to a significant other at home: No Do you presently have visiting nurse or other home services: No Alcohol intake: former Patient Tobacco Use Status: Never used Tobacco Tobacco use type: Smokeless Tobacco e-Cigarette/Vaping Use: Never Used Use of substances other than those prescribed or required for medical reasons: No Substance Use Type: Marijuana Have you been hit, kicked, punched, or otherwise hurt by someone within the past year? If so, by whom?: No Are you DNR?: No Advance Directives: No Advance Directives Information Provided: Yes Recently lost weight without trying: No Nutrition Risks: No Nutritional Risk Poor oral hygiene: No service: No Current occupational status: employed Cognitive needs: No Hearing needs: No Vision needs: Yes Meds Allergies Allergy/AdvReac Type Severity Reaction Status Date / Time No Known Allergies Allergy Unknown Verified 11/14/24 08:01 Home Medications ?Medication ?Instructions ?Recorded ?Confirmed ?Last Taken ?Type fluocinonide 0.05 % topical cream 1 appl topical BID PRN Itching 01/08/24 11/14/24 Unknown History gabapentin 300 mg capsule 100 mg PO TID 10/24/24 11/10/24 Unknown History Exam Height,Weight and Vital Signs: Height 6 ft 2 in Weight 102.965 kg Pertinent Lab Results Pertinent Lab Results: Laboratory Tests 10/25/24 10:32 WBC 7.3 Hgb 16.7 Hct 48.5 Plt Count 153 L Sodium 141 Potassium 4.2 Chloride 104 Carbon Dioxide 30 H BUN 10 Creatinine 1.08 Assessment and Plan Assessment Anesthesia Assessment: Chart Reviewed Final Anesthetic Review Family History of Problems with Anesthesia: No History of Problems with Anesthesia: No Documented by User: Mode Hill MD 11/14/24 09:08 [facility] Past Medical History Medical History Parkinson's disease without dyskinesia Speech abnormality Abnormal US (ultrasound) of abdomen Alcohol abuse Parkinson disease Environmental allergies BPH (benign prostatic hyperplasia) Back muscle spasm Anxiety, generalized Difficulty sleeping Lipid disorder Family History Family History Father HTN (hypertension) Stroke Diabetes mellitus Cancer Mother Diabetes mellitus Sarcoidosis Heart failure Renal failure Brother Addisons disease Sister Aneurysm Son No problems noted. Son No problems noted. Surgical History Surgical History Hx of hand surgery S/P Mohs surgery for basal cell carcinoma History of esophagogastroduodenoscopy (EGD) H/O colonoscopy History of knee surgery History of lumbar fusion History of back surgery Social History Social History Housing: House Are you a primary manager primary care to a significant other at home: No Do you presently have visiting nurse or other home services: No Alcohol intake: former Patient Tobacco Use Status: Never used Tobacco Tobacco use type: Smokeless Tobacco e-Cigarette/Vaping Use: Never Used Use of substances other than those prescribed or required for medical reasons: No Substance Use Type: Marijuana Have you been hit, kicked, punched, or otherwise hurt by someone within the past year? If so, by whom?: No Are you DNR?: No Advance Directives: No Advance Directives Information Provided: Yes Recently lost weight without trying: No Nutrition Risks: No Nutritional Risk Poor oral hygiene: No service: No Current occupational status: employed Cognitive needs: No Hearing needs: No Vision needs: Yes Meds Allergies Allergy/AdvReac Type Severity Reaction Status Date / Time No Known Allergies Allergy Unknown Verified 11/14/24 08:01 Home Medications ?Medication ?Instructions ?Recorded ?Confirmed ?Last Taken ?Type fluocinonide 0.05 % topical cream 1 appl topical BID PRN Itching 01/08/24 11/14/24 Unknown History gabapentin 300 mg capsule 100 mg PO TID 10/24/24 11/10/24 Unknown History Exam Airway Mallampati Class: II TM Dist: <=3cm Neck ROM: Full Loose/Missing/Broken Teeth: No Heart: ok Lungs: ok Assessment and Plan Assessment Anesthesia Assessment: Anesthesia Plan Discussed Final Anesthetic Review NPO: Yes ASA Class: III Final Preanesthetic Review: No Changes in Pt Med Stat, Meds/Allgs Chart Reviewed, Consent Obtained/Reviewed and Anes Risks/Benef Reviewed Patient Risk: Intermediate Procedure Risk: Low Anesthetic Plan Anesthetic Plan: GA and Agree w/ Assess. and Plan Disposition: Standard PACU
[2024-11-14] VITALS (9 sets, daily range): BP systolic 108–133; BP diastolic 51–74; PULSE 42–51; RESP 14–16; TEMP 36.3–36.4; O2SAT 94–100; BMI 29.7
[2024-11-14] MEDS: Lactated Ringers 1,000 ML 100 ML IVCONT (08:26)
--- NOTE | 2024-11-14 08:35 | MHC.SHP ---
Pre-Procedural Eval Section A - 24 Hr Update-Section A only Date of Service: 11/14/24 The patient is an INPATIENT: No Changes since office visit: No Cold of Flu in the past 2 weeks, No New Medical Problems, No Changes in Medication and No Patient answered all questions The patient has been examined within 24 hours of the surgical procedure. The History & Physical has been completed within 30 days and I have reviewed it.: No Section B - Complete if H&P > 30 days Chief Complaint: Benign prostatic hyperplasia with lower urinary Details of Present Illness: Progressive, trilobar hypertrophy Relevant Family History (Specify if Yes): No Relevant Social History: None Present Medications: see Short Stay Collaborative assessment Medical History: Significant History History of Previous Operations: No relevant previous surgery Allergies: Allergies Allergy/AdvReac Type Severity Reaction Status Date / Time No Known Allergies Allergy Unknown Verified 11/14/24 08:01 Review of Systems Sugical H&P ROS: Negative: Constitution, Cardiovascular, Respiratory, Neurological, Psychiatric, Hem-Onc, Allergic/Immunologic, Gastrointestinal, Genitourinary, Musculoskeletal, Integumentary, Endocrine and Eyes/Ears/Nose/Throat Exam Surgical H&P Exam: Normal: HEENT, Normal: Heart, Normal: Lungs, Normal: Extremities, Normal: Abdomen, Normal: Skin and Normal: Neurological Plan Diagnosis/Plan: Unchanged (GreenLight laser prostatectomy) I have reviewed the history and physical and performed a pertinent physical examination on my patient. No changes have occurred unless specified. Time Spent With Patient Time: Total time managing care of this patient today ____ minutes.
--- NOTE | 2024-11-14 09:35 | W.PM.OPN ---
Operative Note Operative Note Date of Service: 11/14/24 Narrative: PreOperative Diagnosis: Bladder outlet obstruction Post Operative Diagnosis: Bladder outlet obstruction Procedure: GreenLight Laser Enucleation of the prostate CPT 39455 Surgeon: Dr Drake Osullivan Anesthesia: General History of bladder outlet obstruction. Treated with alpha-annel and other medications. Still with symptoms. On cystoscopy in office has tight bladder neck. Recommendation for prostate procedure with laser enucleation of prostate. Risks and benefits have been discussed. Focus was placed on development of retrograde ejaculation which is a normal part of this procedure. Procedure: After informed consent was verified the patient was brought to the operating room and placed in a supine position. Anesthesia was administered per protocol. Patient was placed in modified dorsal lithotomy position and prepped and draped in a sterile fashion. Safety pause time-out was confirmed. Antibiotics have been given. A Twenty-four Nepalese laser cystoscope was inserted per urethra. No abnormalities were found of the anterior and bulbar urethra. The prostatic urethra shows tight bladder neck. The bladder was examined and both ureteric orifices were seen in their normal positions away from the area of interest. Bladder trabeculation Grade 2 with small cellules. Using a GreenLight laser with settings of 80 lockhart incisions were made at the 5 and 7 o'clock position. The incisions were taken down from the bladder neck down to the level of the veru. These were gradually deepened in order to define the lateral aspects of the median lobe area. Once clearly defined they will also extended in the lateral directions in order to create a deep groove. The median lobe was then ablated and enucleated tissue released into the bladder with the laser power increased to 120W. Once the median lobe area had been cleared attention was directed to the lateral lobes. Starting with the patient's left lateral lobe. First the 05:00 o'clock groove was further developed. This was moved in the lateral direction to undermine the tissue on the lateral side running from the bladder neck to the prostate apex. The ureteric orifice was used to guide incisions. Focus was then placed on the laser at the 1 o'clock position to developing a secondary groove down to the level of bladder fibers. The creation of a second deep groove defined a segment of intervening tissue similar to a slice of orange. At the apex of the prostate the 2 grooves were linked the us releasing the intervening tissue. This tissue was then removed with a combination of enucleation and ablation working from the apex toward the bladder neck. A similar procedure was repeated on the patient's right-hand side. The only differences being the position of the lateral groove at he 7 o'clock position and the secondary groove at the 11 o'clock position, Otherwise the procedure was developed in a mirror fashion. After the majority of tissue had been debulked remnant tissue was ablated with the side fire laser and the curve of the prostate followed up each side wall clearly defining the anterior remnant strip that remained between the 11 and 1 o'clock positions. When this was had been completed debris and pieces of prostate were removed from the bladder with irrigation. Both ureteric orifices were reviewed again in shown to be patent in away from any areas of energy damage. The apical area was reviewed in any stray ooze was controlled. A 22 Nepalese 30 cc balloon Aguilar catheter was placed over a stylet into the bladder. Clear efflux was obtained upon irrigation with a Dudley piston syringe. 30 cc was placed in the balloon and gentle traction was placed. A snap was used to hold tension on the catheter to control bleeding during patient moved and transported. A drainage bag was placed. Once transportation is complete to the PACU the snap will be removed. The patient tolerated the procedure well, he was extubated in the operating and transferred in a stable condition to the recovery area. Total Power 55 kW Lasing Time 9:10 Pathology: Prostate tissue Drains: Aguilar catheter
[2024-11-14] MEDS: oxyCODONE HCl Immed Release 5 MG TABLET PO (10:14)
[2024-11-14] MEDS: Acetaminophen 325 MG TABLET 975 MG PO (10:15)
== END 2024-11-14 11:09 | disposition home or self-care (01) ==
PROVIDERS: PCP Internal Medicine; Visit Provider Urology
PROC: (CPT 52648; principal; 2024-11-14 10:40)
DX: N40.1 Benign prostatic hyperplasia with lower urinary tract symptoms (principal); N13.8 Other obstructive and reflux uropathy; R35.0 Frequency of micturition; R33.9 Retention of urine, unspecified; N52.9 Male erectile dysfunction, unspecified; G20.A1 Parkinson's disease without dyskinesia, without mention of fluctuations; M62.830 Muscle spasm of back; R47.9 Unspecified speech disturbances; G47.9 Sleep disorder, unspecified; E75.6 Lipid storage disorder, unspecified; Z85.828 Personal history of other malignant neoplasm of skin; F41.9 Anxiety disorder, unspecified; F10.10 Alcohol abuse, uncomplicated; Z79.899 Other long term (current) drug therapy; Z98.890 Other specified postprocedural states; Z98.1 Arthrodesis status
CPT/HCPCS: 52649; 88305; J1956; J2003; J2704; J3010

== ENCOUNTER → 2024-11-14 07:20 | Outpatient (BNV) | payer OTHER, SELFPAY | PROVIDERS: PCP Internal Medicine; Visit Provider Urology | DX: N32.0 Bladder-neck obstruction (principal) | CPT/HCPCS: 52649 ==

== ENCOUNTER → 2024-11-17 09:12 | Outpatient (BNVA) | payer OTHER, SELFPAY | PROVIDERS: PCP Internal Medicine; Visit Provider Urology | DX: N40.1 Benign prostatic hyperplasia with lower urinary tract symptoms (principal); R35.0 Frequency of micturition; R32 Unspecified urinary incontinence; Z98.890 Other specified postprocedural states | CPT/HCPCS: 51700; 51798 ==

== ENCOUNTER 2024-11-22 06:55 | Day surgery (SDC) | payer OTHER, SELFPAY ==
--- NOTE | 2024-11-21 11:36 | HO.ANESPROP2 ---
HPI - Anesthesia Eval Consult details Narrative: 64yo M for Colonoscopy s/p laser prostate 11/14/24 with GA-LMA 4 PMFSH Active Problems Active Problems: All Active Problems Trigger finger, right ring finger (Acute) Numbness and tingling of right hand (Acute) Otitis externa of right ear (Acute) Pneumonia (Acute) Upper respiratory infection (Acute) Chronic GERD (Acute) Bilateral shoulder bursitis (Acute) Major depression, recurrent (Acute) Sebaceous cyst of axilla (Acute) Personality change (Acute) Delayed gastric emptying (Acute) Skin disorder (Acute) Trigger finger, left middle finger (Acute) Diarrhea (Acute) Abnormal weight loss (Acute) Epigastric pain (Acute) Nausea & vomiting (Acute) Serum potassium elevated (Acute) Parkinsons disease (Acute) B12 deficiency (Acute) Colon cancer screening (Acute) Tremor of both hands (Acute) Memory change (Acute) Encounter for general adult medical examination with abnormal findings (Acute) Erectile dysfunction (Acute) Urinary incontinence (Acute) Parkinson's disease without dyskinesia (Acute) Speech abnormality (Acute) Parkinson disease (Acute) Environmental allergies (Acute) BPH (benign prostatic hyperplasia) (Acute) Back muscle spasm (Acute) Anxiety, generalized (Acute) Difficulty sleeping (Acute) Lipid disorder (Acute) Past Medical History Medical History Parkinson's disease without dyskinesia Speech abnormality Abnormal US (ultrasound) of abdomen Alcohol abuse Parkinson disease Environmental allergies BPH (benign prostatic hyperplasia) Back muscle spasm Anxiety, generalized Difficulty sleeping Lipid disorder Family History Family History Father HTN (hypertension) Stroke Diabetes mellitus Cancer Mother Diabetes mellitus Sarcoidosis Heart failure Renal failure Brother Addisons disease Sister Aneurysm Son No problems noted. Son No problems noted. Family history of problems with anesthesia: No Surgical History Surgical History Hx of hand surgery S/P Mohs surgery for basal cell carcinoma History of esophagogastroduodenoscopy (EGD) H/O colonoscopy History of knee surgery History of lumbar fusion History of back surgery History of Problems with Anesthesia: No Social History Social History Housing: House Are you a primary nurse behavioral health care to a significant other at home: No Do you presently have visiting nurse or other home services: No Alcohol intake: former Patient Tobacco Use Status: Never used Tobacco Tobacco use type: Smokeless Tobacco e-Cigarette/Vaping Use: Never Used Substance Use Type: Marijuana service: No Current occupational status: employed Cognitive needs: No Hearing needs: No Vision needs: Yes Meds Allergies Allergy/AdvReac Type Severity Reaction Status Date / Time No Known Allergies Allergy Unknown Verified 11/14/24 08:01 Home Medications ?Medication ?Instructions ?Recorded ?Confirmed ?Last Taken ?Type fluocinonide 0.05 % topical cream 1 appl topical BID PRN Itching 01/08/24 11/14/24 Unknown History Assessment and Plan Assessment Anesthesia Assessment: Chart Reviewed Final Anesthetic Review Family History of Problems with Anesthesia: No History of Problems with Anesthesia: No
[2024-11-22] MEDS: Lactated Ringers 1,000 ML 100 ML IVCONT (08:05)
[2024-11-22 08:12] VITALS: BMI 29.1
[2024-11-22 08:13] VITALS: BP 140/76; PULSE 53; RESP 18; TEMP 36.6; O2SAT 96
--- NOTE | 2024-11-22 08:16 | P.CONAN_ITS ---
[facility] Active Problems Active Problems: All Active Problems Trigger finger, right ring finger (Acute) Numbness and tingling of right hand (Acute) Otitis externa of right ear (Acute) Pneumonia (Acute) Upper respiratory infection (Acute) Chronic GERD (Acute) Bilateral shoulder bursitis (Acute) Major depression, recurrent (Acute) Sebaceous cyst of axilla (Acute) Personality change (Acute) Delayed gastric emptying (Acute) Skin disorder (Acute) Trigger finger, left middle finger (Acute) Diarrhea (Acute) Abnormal weight loss (Acute) Epigastric pain (Acute) Nausea & vomiting (Acute) Serum potassium elevated (Acute) Parkinsons disease (Acute) B12 deficiency (Acute) Colon cancer screening (Acute) Tremor of both hands (Acute) Memory change (Acute) Encounter for general adult medical examination with abnormal findings (Acute) Erectile dysfunction (Acute) Urinary incontinence (Acute) Parkinson's disease without dyskinesia (Acute) Speech abnormality (Acute) Parkinson disease (Acute) Environmental allergies (Acute) BPH (benign prostatic hyperplasia) (Acute) Back muscle spasm (Acute) Anxiety, generalized (Acute) Difficulty sleeping (Acute) Lipid disorder (Acute) Past Medical History Medical History Parkinson's disease without dyskinesia Speech abnormality Abnormal US (ultrasound) of abdomen Alcohol abuse Parkinson disease Environmental allergies BPH (benign prostatic hyperplasia) Back muscle spasm Anxiety, generalized Difficulty sleeping Lipid disorder Functional capacity: independent ambulation Family History Family History Father HTN (hypertension) Stroke Diabetes mellitus Cancer Mother Diabetes mellitus Sarcoidosis Heart failure Renal failure Brother Addisons disease Sister Aneurysm Son No problems noted. Son No problems noted. Family history of problems with anesthesia: No Surgical History Surgical History Hx of hand surgery S/P Mohs surgery for basal cell carcinoma History of esophagogastroduodenoscopy (EGD) H/O colonoscopy History of knee surgery History of lumbar fusion History of back surgery History of Problems with Anesthesia: No Social History Social History Housing: House Are you a primary manager medicare marketing to a significant other at home: No Do you presently have visiting nurse or other home services: No Alcohol intake: former Patient Tobacco Use Status: Never used Tobacco Tobacco use type: Smokeless Tobacco e-Cigarette/Vaping Use: Never Used Substance Use Type: Marijuana Substance Use Frequency: Occasionally Have you been hit, kicked, punched, or otherwise hurt by someone within the past year? If so, by whom?: No Are you DNR?: No Advance Directives: No Advance Directives Information Provided: Yes Recently lost weight without trying: No Nutrition Risks: No Nutritional Risk service: No Current occupational status: employed Cognitive needs: No Hearing needs: No Vision needs: Yes Meds Allergies Allergy/AdvReac Type Severity Reaction Status Date / Time No Known Allergies Allergy Unknown Verified 11/22/24 07:14 Active Medications: Current Medications Lactated Ringer's (Lr) 1,000 mls @ 100 mls/hr IVCONT .Q10H PROSPER Last Admin: 11/22/24 08:05 Dose: 100 mls/hr Home Medications ?Medication ?Instructions ?Recorded ?Confirmed ?Last Taken ?Type fluocinonide 0.05 % topical cream 1 appl topical BID PRN Itching 01/08/24 11/22/24 Unknown History Exam Height,Weight and Vital Signs: Height 6 ft 2 in Weight 102.965 kg Last Vital Signs Temp 97.9 F 11/22/24 08:13 Pulse 53 11/22/24 08:13 Resp 18 11/22/24 08:13 BP 140/76 H 11/22/24 08:13 Pulse Ox 96 11/22/24 08:13 O2 Del Method Room Air 11/22/24 08:13 Airway Mallampati Class: III TM Dist: >3cm Neck ROM: Full Heart: RRR Lungs: CTA Assessment and Plan Assessment Anesthesia Assessment: Anesthesia Plan Discussed and Chart Reviewed Final Anesthetic Review Family History of Problems with Anesthesia: No History of Problems with Anesthesia: No NPO: Yes ASA Class: I and III Final Preanesthetic Review: Meds/Allgs Chart Reviewed, Consent Obtained/Reviewed and Anes Risks/Benef Reviewed Patient Risk: Intermediate Procedure Risk: Low Anesthetic Plan Anesthetic Plan: MAC: Disposition: Standard PACU
--- NOTE | 2024-11-22 08:34 | P.HPSUR_ITS ---
Pre-Procedural Eval Section A - 24 Hr Update-Section A only Date of Service: 11/22/24 Section B - Complete if H&P > 30 days Chief Complaint: Screening Details of Present Illness: Abnormal US (ultrasound) of abdomen Alcohol abuse Anxiety, generalized Back muscle spasm BPH (benign prostatic hyperplasia) Difficulty sleeping Environmental allergies Lipid disorder Parkinson disease Surgical History (Reviewed 12/10/22 @ 08:37 by Malcolm Davidson [facility] H/O colonoscopy History of back surgery History of esophagogastroduodenoscopy (EGD) History of knee surgery History of lumbar fusion Allergies: Allergies Allergy/AdvReac Type Severity Reaction Status Date / Time No Known Allergies Allergy Unknown Verified 11/22/24 07:14 Review of Systems Review of Systems Comment: Ten point ROS negative Exam Exam Comment: Gen appear: No acute distress HEENT: no icterus Chest: No overt resp distress Abd: soft, nontender, nondistended Psych: Stable affect, answering questions appropriately Neuro: A/Ox3 noted to move all extremities spontaneously Ext: no peripheral edema Plan Diagnosis/Plan: Unchanged I have reviewed the history and physical and performed a pertinent physical examination on my patient. No changes have occurred unless specified. Time Spent With Patient Time: Total time managing care of this patient today ____ minutes.
[2024-11-22 09:12] VITALS: BP 109/61; PULSE 52; RESP 16; TEMP 36.2; O2SAT 96
--- NOTE | 2024-11-22 09:13 | P.OPN-COLO_ITS ---
Colonoscopy Operative Note Operative Note Date of Service: 11/22/24 Narrative: Procedure: Colonoscopy Indication: Screening Endoscopist: Maria A Haque MD Anesthesia Provider: Elba Roberts MD Anesthesia type: MAC Instrument: Olympus [id number] Consent: Indication, risks vs benefits, and alternatives were discussed with the patient who gave written informed consent to proceed. EKG, pulse, pulse oximetry and blood pressure were monitored throughout the procedure. Please see anesthesia flowsheet. Procedure: The patient was brought to the procedure room and placed in the left lateral decubitus position. IV medications were administered by the anesthesia provider in attendance. A digital rectal exam was performed which was normal. A distal attachment cap was affixed to the tip of the colonoscope which was then inserted through the anus and advanced through the colon to the cecum at 80 c m,and terminal ileum. Appendiceal orifice and ileocecal valve were identified. Mucosa was carefully examined under high definition white light as the instrument was slowly withdrawn in a retrograde panoramic fashion. Retroflexion was performed in rectum. The procedure was not difficult. There were no immediate obvious complications. The quality of the prep was BBPS: 3+2+3 = adequate Withdrawal time 7 minutes. Limitations: No limitations. Findings: Mucosa: Normal to cecum and terminal ileum. Protruding lesions: * Medium internal hemorrhoids without stigmata of recent bleeding. Excavated lesions: * Mild diverticulosis of sigmoid colon. Impression: 1. Normal colon and terminal ileum mucosa 2. Diverticulosis 3. Internal hemorrhoids Recommendations: - Repeat colonoscopy in 10 years recommended for asymptomatic colorectal cancer screening
[2024-11-22 09:25] VITALS: BP 118/60; PULSE 54; RESP 16; TEMP 36.2; O2SAT 96
--- NOTE | 2024-11-22 09:40 | HO.POSTANES ---
Post Anesthesia Evaluation Post Anesthesia Evaluation Date of Service: 11/22/24 Vital Signs: Vital Signs Temp Pulse Resp BP Pulse Ox O2 Del Method 11/22/24 09:25 97.2 F 54 16 118/60 96 Room Air 11/22/24 09:12 97.2 F 52 16 109/61 96 Room Air 11/22/24 08:13 97.9 F 53 18 140/76 H 96 Room Air Anesthesia: Monitored Mental Status: Awake Pain Control: Satisfactory Nausea/Vomiting: None Hydration: Adequate Anesthesia-Related Issues: No Anes. Related Issues
== END 2024-11-22 09:49 | disposition home or self-care (01) ==
PROVIDERS: PCP Internal Medicine; Visit Provider Internal Medicine
PROC: 0DJD8ZZ Inspection of Lower Intestinal Tract, Via Natural or Artificial Opening Endoscopic (ICD-10-PCS; CPT 45378; principal; 2024-11-22 08:30)
DX: Z12.11 Encounter for screening for malignant neoplasm of colon (principal); K57.30 Diverticulosis of large intestine without perforation or abscess without bleeding; K64.8 Other hemorrhoids; F10.10 Alcohol abuse, uncomplicated; F41.9 Anxiety disorder, unspecified; G20.A1 Parkinson's disease without dyskinesia, without mention of fluctuations; R47.9 Unspecified speech disturbances; E75.6 Lipid storage disorder, unspecified; N40.0 Benign prostatic hyperplasia without lower urinary tract symptoms; N28.1 Cyst of kidney, acquired; K30 Functional dyspepsia; Z98.1 Arthrodesis status; Z98.890 Other specified postprocedural states
CPT/HCPCS: 45378; J1596; J2003; J2704

== ENCOUNTER → 2024-11-22 06:55 | Outpatient (BNV) | payer OTHER, SELFPAY | PROVIDERS: PCP Internal Medicine; Visit Provider Internal Medicine | DX: Z12.11 Encounter for screening for malignant neoplasm of colon (principal); K57.30 Diverticulosis of large intestine without perforation or abscess without bleeding; K64.8 Other hemorrhoids | CPT/HCPCS: 45378 ==

== ENCOUNTER 2024-11-25 13:38 | Outpatient (REF) | payer OTHER, SELFPAY ==
--- NOTE | 2024-11-25 13:42 | EMG_ITS ---
Chief complaint: Right hand numbness, affecting right ring finger the most Reason for referral: Evaluate for Carpal Tunnel Syndrome or ulnar neuropathy Referred by: Andi NAGY Procedure done: Right upper extremity NCS/EMG Precautions and/or limitations: None The limb temperature was monitored continuously and remained between 32-36 degrees C during the performance of the NCS. Nerve Conduction Studies Anti Sensory Summary Table ?Stim Site NR Onset (ms) Norm Onset (ms) Peak (ms) Norm Peak (ms) O-P Amp (?V) Norm O-P Amp Site1 Site2 Delta-0 (ms) Dist (cm) Tony (m/s) Norm Tony (m/s) Right Median Anti Sensory (2nd Digit) Wrist ? 2.5 3.3 <3.6 22.8 >10 Wrist 2nd Digit 2.5 14.0 56 Right Ulnar Anti Sensory (5th Digit) Wrist ? 2.3 2.8 <3.7 15.5 >15.0 Wrist 5th Digit 2.3 20.5 89 Motor Summary Table ?Stim Site NR Onset (ms) Norm Onset (ms) O-P Amp (mV) Norm O-P Amp iAmp (mV) Amp (1st) (%) Site1 Site2 Delta-0 (ms) Dist (cm) Tony (m/s) Norm Tony (m/s) Right Median Motor (Abd Poll Brev) Wrist ? 3.4 <3.9 10.3 >4.5 11.8 100.0 Elbow Wrist 4.2 21.0 50 >45 Elbow ? 7.6 11.8 13.6 114.6 Right Ulnar Motor (Abd Dig Minimi) Wrist ? 3.0 <3.0 7.9 >5 10.3 100.0 B Elbow Wrist 4.0 23.0 58 >45 B Elbow ? 7.0 7.4 10.0 93.7 A Elbow B Elbow 1.3 10.0 77 >45 A Elbow ? 8.3 7.0 9.6 88.6 Comparison Summary Table ?Stim Site NR Peak (ms) Norm Peak (ms) P-T Amp (?V) Site1 Site2 Delta-P (ms) Norm Delta (ms) Right Median/Radial Dig I Comparison (Digit 1 - 10cm) Median ? 2.8 <2.9 38.3 Median Radial 0.3 Radial ? 3.1 <2.8 11.5 EMG ?Side Muscle Nerve Root Ins Act Fibs Psw Amp Dur Poly Recrt Int Pat Comment Right 1stDorInt Ulnar C8-T1 Nml Nml Nml Nml Nml 0 Nml Complete Right FlexCarRad Median C6-7 Nml Nml Nml Nml Nml 0 Nml Complete Right Biceps Musculocut C5-6 Nml Nml Nml Nml Nml 0 Nml Complete Right Triceps Radial C6-7-8 Nml Nml Nml Nml Nml 0 Nml Complete Right Deltoid Axillary C5-6 Nml Nml Nml Nml Nml 0 Nml Complete FINDINGS: All motor and sensory nerves tested showed normal latencies, amplitudes and conduction velocities. Concentric needle EMG was performed in selected muscles of the right upper extremity. Study did not reveal signs of electric abnormalities as shown in the table above. IMPRESSION: 1. This is a normal study. 2. There is no electrodiagnostic evidence for median neuropathy, ulnar neuropathy, brachial plexopathy, or cervical radiculopathy. Thank you for your kind referral. Jessica Brizuela MD, JANEY Board Certified, [place] Board [employer] and Rehabilitation (ABPMR) Board Certified, [place] Board of Electrodiagnostic Medicine (ABEM) [facility] [id number] [facility]
== END 2024-11-25 13:39 | disposition home or self-care (01) ==
LOC: HO.NEURO 13:38
PROVIDERS: PCP Internal Medicine
DX: R20.0 Anesthesia of skin (principal); R20.2 Paresthesia of skin
CPT/HCPCS: 95886; 95909

== ENCOUNTER → 2024-11-25 13:42 | Outpatient (BNV) | payer OTHER, SELFPAY | PROVIDERS: PCP Internal Medicine; Visit Provider Physical Medicine & Rehabilitation | DX: R20.0 Anesthesia of skin (principal); R20.2 Paresthesia of skin | CPT/HCPCS: 95886; 95909 ==

== ENCOUNTER 2024-12-21 14:26 | Outpatient (AMB) | payer OTHER, SELFPAY ==
--- NOTE | 2024-12-21 14:28 | MHC.OFFVIS ---
Intake Visit Reasons: Greenlight- follow up Intake Note: Pt presents to the office today for a greenlight follow up. PVR:37mL Allergies No Known Allergies Allergy (Unknown, Verified 12/21/24 14:28) HPI Comments Details: Margarito is a pleasant male. He is a patient of Dr. Rodrigues. 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 - [employer] Lower urinary tract symptoms Progressive Has been on tamsulosin for a number of years GreenLight laser November 2024 Erectile dysfunction Progressive longstanding Does take citalopram which has known inhibitory effects Failed daily 5 mg tadalafil Continue with daily 10 mg tadalafil and 100 mg sildenafil as needed PSA 06/29 1.5, 03/01 2.2 PFSH Medical History Parkinson's disease without dyskinesia Speech abnormality Abnormal US (ultrasound) of abdomen Alcohol abuse Parkinson disease Environmental allergies BPH (benign prostatic hyperplasia) Back muscle spasm Anxiety, generalized Difficulty sleeping Lipid disorder Surgical History Hx of hand surgery S/P Mohs surgery for basal cell carcinoma History of esophagogastroduodenoscopy (EGD) H/O colonoscopy History of knee surgery History of lumbar fusion History of back surgery Family History Father HTN (hypertension) Stroke Diabetes mellitus Cancer Mother Diabetes mellitus Sarcoidosis Heart failure Renal failure Brother Addisons disease Sister Aneurysm Son No problems noted. Son No problems noted. Social History Housing: House Are you a primary manager intensive care unit to a significant other at home: No Do you presently have visiting nurse or other home services: No Alcohol intake: former Patient Tobacco Use Status: Never used Tobacco Tobacco use type: Smokeless Tobacco e-Cigarette/Vaping Use: Never Used Substance Use Type: Marijuana service: No Current occupational status: employed Cognitive needs: No Hearing needs: No Vision needs: Yes Review of Systems Const Denies chills and Denies fever(s) Card Reports no additional complaints and Denies syncope Resp Denies cough GI Denies abdominal pain and Denies heartburn Reports as per HPI and Denies change in libido Neuro Denies syncope Psych Denies change in libido Endo Denies change in libido Physical Exam Const General: cooperative, healthy appearing, comfortable and no acute distress Orientation/consciousness: patient oriented x3 HEENT Face and sinus: Yes normal facial exam Mouth: moist mucous membranes Neck Neck: Yes normal visual inspection, Yes full ROM and Yes trachea midline Chest Chest palpation & inspection: normal inspection of the chest Resp Effort & Inspection: normal respiratory effort, able to speak in complete sentences and no respiratory distress GI Inspection: Yes normal to inspection Back/Spine/Pelvis Cervical Spine: normal cervical lordosis Thoracic/Lumbar Spine: thoracic and lumbar spine normal to inspection Skin General skin exam: no rashes or lesions noted Neuro General: patient oriented x3, gait normal, tone normal and moves all extremities Extrem General: Yes normal to inspection and Yes capillary refill normal Office Procedures Post Void Residual Post Residual Void Post Void Residual (PVR): 37 [id number] Void Residual by ultrasound Assessment & Plan Assessment & Plan (1) BPH (benign prostatic hyperplasia): Code(s): N40.0 - Benign prostatic hyperplasia without lower urinary tract symptoms Category: Medical Qualifiers: Lower urinary tract symptom presence: symptoms present Lower urinary tract symptom detail: urinary frequency Qualified Code(s): N40.1 - Benign prostatic hyperplasia with lower urinary tract symptoms; R35.0 - Frequency of micturition (2) Erectile dysfunction: Code(s): N52.9 - Male erectile dysfunction, unspecified Category: Medical Qualifiers: Erectile dysfunction type: vasculogenic Plan Six-month follow-up PSA Orders: Orders Prostate Specific Antigen 6 Months Drake Osullivan MD N40.1 - Benign prostatic hyperplasia with lower urinary tract symptoms, R35.0 - Frequency of micturition AMB Post Void Residual by ultrasound 12/21/24 Drake Osullivan MD N40.1 - Benign prostatic hyperplasia with lower urinary tract symptoms, R35.0 - Frequency of micturition Medications: Changed From gabapentin 100 mg PO BID To gabapentin 100 mg PO .qam and q noon 60 caps 4RF Yue Vazquez PA-C Patient Instructions: This note is constructed using voice recognition software. While every effort has been made to ensure accuracy upset welding machine operator errors may have been included. Imaging studies, laboratory and physical exam results were discussed and reviewed in detail. No major barriers to patient understanding were identified. An opportunity to ask questions regarding the treatment plan was provided. All questions were answered. The patient expressed understanding and agreement with the above treatment plan. The patient is aware they should contact our office by phone for worsening of their current condition or the appearance of new urologic symptoms. Compliance is encouraged with any medications and followup testing that is ordered. It is a privilege to participate in the urologic care of your patient. If you have any questions or concerns regarding treatment for the above conditions, or other urologic issues, please do not hesitate to contact me. The office telephone contact is [phone]. Sincerely, Dr Drake Osullivan MD, JANEY [facility] - Urology Compassionate Specialist Care for the Genitourinary System Coding Level of Care Code Est Pt Level 3 (79203) Diagnoses Benign prostatic hyperplasia with urinary frequency N40.1; R35.0 Lower urinary tract symptom presence: symptoms present Lower urinary tract symptom detail: urinary frequency Erectile dysfunction N52.9 Erectile dysfunction type: vasculogenic CPT Codes Post Residual Void - PVR CPT Code: 46288-Sndy Void Residual by ultrasound ([id number])
== END 2024-12-21 15:11 | disposition home or self-care (01) ==
PROVIDERS: PCP Internal Medicine; Visit Provider Urology
DX: N40.1 Benign prostatic hyperplasia with lower urinary tract symptoms (principal); R35.0 Frequency of micturition; N52.9 Male erectile dysfunction, unspecified
CPT/HCPCS: 99024

== ENCOUNTER → 2024-12-21 14:26 | Outpatient (BNVA) | payer OTHER, SELFPAY | PROVIDERS: PCP Internal Medicine; Visit Provider Urology | DX: N40.1 Benign prostatic hyperplasia with lower urinary tract symptoms (principal); R35.0 Frequency of micturition; N52.9 Male erectile dysfunction, unspecified | CPT/HCPCS: 51798 ==

== ENCOUNTER 2025-01-10 09:40 | Outpatient (AMB) | payer OTHER, SELFPAY ==
[2025-01-10 09:41] VITALS: BP 110/66; PULSE 52; RESP 16; O2SAT 97; BMI 29.5
--- NOTE | 2025-01-10 09:41 | A.OFFPC_ITS ---
Vital Signs 01/10/25 09:41 Height 6 ft 2 in Weight 230 lb BMI 29.5 BP 110/66 Blood Pressure Location Rt brachial Position Sitting Respiration 16 Pulse 52 Pulse Source Pulse Oximeter Pulse Oximetry (%) 97 Oxygen Delivery Method Room Air Intake Visit Reasons: 6 month follow up Allergies No Known Allergies Allergy (Unknown, Verified 01/10/25 09:41) Medication List - Last Reconciled 01/10/25 by Galo Rodrigues MD albuterol sulfate 90 mcg/actuation 1 inh inhalation QID PRN carbidopa-levodopa 25-100 mg 2 tabs PO QID 90 days citalopram 40 mg PO DAILY 90 days fluocinonide 0.05% 1 appl topical BID PRN gabapentin 100 mg PO .qam and q noon gabapentin 300 mg PO BEDTIME pantoprazole 40 mg PO DAILY simvastatin 10 mg PO DAILY 90 days tadalafil 10 mg PO DAILY PRN 90 days tamsulosin 0.4 mg PO DAILY 90 days trazodone 150 mg (1.5 x 100 mg) PO BEDTIME 30 days Tobacco use date assessed: 01/10/25 Fall risk assessment: No Falls in past year Last assessed Fall Risk: 01/10/25 Dental Screening Dental Screen Date: 01/10/25 Did you have a dental visit in the last 12 months?: Yes Did you have a dental problem in the last 6 months where you did not have access to dental care?: No Was dental information given to patient?: Patient has dentist HPI 6 month follow up HPI Details History - The patient is a 64-year-old male with a history of Parkinson's disease, presenting for regular follow-up appointment - Frequent falls in the shower, particul apscale in the mornings and upon quick movements. - Safety measures in the shower have bee n implemented. - Neurological evaluation occurred appro ximately two to three months ago. - Continues on Citalopram for depression and Simvastatin for hypercholesterolemia. - Post-surgical status following prostat e surgery with improvement in urinary symptoms. - Upcoming surgery for a right-hand trig shabbir finger Problem List - History of Prostatic Hyperplasia with surgical intervention - Neurological symptoms with episodes of falling - Depression - Hypercholesterolemia - Right hand trigger finger (upcoming s urgery scheduled) Patient Instructions - Continue current medication regimen of Citalopram 40 mg and Simvastatin 10 mg as directed. - Use safety measures in the shower to p revent falls. - Consider holding onto a supportive obj ect to improve stability when moving quickly. - Follow up with medical assistant ob gyn a s scheduled. - Plan for fasting lab tests in [facility] Review of Systems - General: No fever no chills - Neurological: No headaches no dizziness - Ear nose throat: No sore throat no hearing difficulty no ear pain - Cardiovascular: No syncope, no chest pain, no palpitations - Gastrointestinal: No nausea vomiting or diarrhea - Endocrine: No polyuria polydipsia no heat intolerance - Genitourinary: No dysuria , no blood in urine Physical Exam General: No acute distress HEENT: No acute findings Neck: Supple Respiratory system: Able to talk in full sentences, no audible wheeze cardiovascular: S1-S2 regular in rate and rhythm Gastrointestinal: No pain Extremities: No new findings [employer]IST: Alert awake oriented x3 motor sensory intact, reports falling a few times, especially in the shower and when moving quickly, have obvious hand tremor Skin: Normal turgor PFSH Medical History Parkinson's disease without dyskinesia Speech abnormality Abnormal US (ultrasound) of abdomen Alcohol abuse Parkinson disease Environmental allergies BPH (benign prostatic hyperplasia) Back muscle spasm Anxiety, generalized Difficulty sleeping Lipid disorder Surgical History Hx of hand surgery S/P Mohs surgery for basal cell carcinoma History of esophagogastroduodenoscopy (EGD) H/O colonoscopy History of knee surgery History of lumbar fusion History of back surgery Family History Father HTN (hypertension) Stroke Diabetes mellitus Cancer Mother Diabetes mellitus Sarcoidosis Heart failure Renal failure Brother Addisons disease Sister Aneurysm Son No problems noted. Son No problems noted. Social History Housing: House Are you a primary care specialist to a significant other at home: No Do you presently have visiting nurse or other home services: No Alcohol intake: former Patient Tobacco Use Status: Never used Tobacco Tobacco use type: Smokeless Tobacco e-Cigarette/Vaping Use: Never Used Substance Use Type: Marijuana service: No Current occupational status: employed Cognitive needs: No Hearing needs: No Vision needs: Yes Questionnaire PHQ-9 Over the last 2 weeks, how often have you been bothered by any of the following problems? 1. Little interest or pleasure in doing things: not at all 2. Feeling down, depressed, or hopeless: several days 3. Trouble falling or staying asleep, or sleeping too much: not at all 4. Feeling tired or having little energy: not at all 5. Poor appetite or overeating: not at all 6. Feeling bad about yourself - or that you are a failure or have let yourself or your family down: not at all 7. Trouble concentrating on things, such as reading the newspaper or watching television: not at all 8. Moving or speaking so slowly that other people could have noticed. Or the opposite - being so fidgety or restless that you have been moving around a lot more than usual: not at all 9. Thoughts that you would be better off or of hurting yourself in some way: not at all Total score: 1 Depression Screening Interpretation: Negative Depression Screening Done: Yes [id number] - PHQ-9 Billing: Yes Source: Developed by Drs. Ricardo Varghese, Kathie Phan, Chris Gordillo and colleagues, with an educational cammie from [employer]. Thrive Questionnaire Date Thrive assessed: 01/10/25 I am a: Patient What is your living situation today?: I have a steady place to live Within the past 12 months, did the food you bought not last and you didn't have the money to get more?: Never true Within the past 12 months, did you worry whether your food would run out before you got money to buy more?: Never true Do you have trouble paying for medicines?: No Do you have trouble getting transportation to medical appointments?: No Do you have trouble paying your heating and electricity bill?: No Do you have trouble taking care of your child, family member or friend?: No Do you have trouble with day-to-day activities such as bathing, preparing meals, shopping, managing finances, etc.?: No Are you currently unemployed and looking for a job?: No Are you interested in more education?: No Please select the resources that you would like help with: None Currently or been in a relationship where the following occur: No concerns reported THRIVE Score: 0 AUDIT C Alcohol Use Questionnaire (AUDIT-C) 1. How often do you have a drink containing alcohol?: Never 3. How often do you have six or more drinks on one occasion?: Never Total Score: 0 Score Reviewed/Action Taken: Yes KHURRAM-7 AMB Questionnaire KHURRAM-7 Date KHURRAM - 7 assessed: 01/10/25 Feeling nervous, anxious, or on edge: 1 = Several days Not being able to stop or control worryin = Several days Worrying too much about different things: 0 = Not at all Trouble relaxin = Not at all Being so restless that it is hard to sit still: 0 = Not at all Becoming easily annoyed or irritable: 0 = Not at all Feeling afraid as if something awful might happen: 0 = Not at all Total KHURRAM-7 score (0-4 normal; 5-9 mild; 10-14 moderate; 15-21 severe): 2 Source: Developed by Drs. Ricardo Varghese, Kathie Phan, Chris Gordillo and colleagues, with an educational cammie from [employer]. KHURRAM-7 Assessment Billing KHURRAM-7 Assessment Tool: KHURRAM-7 Assessment 08274 Physical exam (Primary Care) Vital Signs: Last Vital Signs Pulse 52 01/10/25 09:41 Resp 16 01/10/25 09:41 BP 110/66 01/10/25 09:41 Pulse Ox 97 01/10/25 09:41 Oxygen Delivery Method Room Air 01/10/25 09:41 BMI result Body Mass Index 29.5 Tobacco/Smoking Status: Tobacco use Status Tobacco use date assessed 01/10/25 01/10/25 09:42 Patient Tobacco Use Status Never used Tobacco 01/10/25 09:42 Tobacco use type Smokeless Tobacco 01/10/25 09:42 e-Cigarette/Vaping Use Never Used 01/10/25 09:42 PHQ-9: PHQ-9 Score PHQ-9: Total score 1 01/10/25 09:46 Depression Screening Interpretation: Negative Thrive Assessment: Date of Thrive Assessment Date Thrive assessed 01/10/25 01/10/25 09:46 Currently or been in a relationship where the following occur: No concerns reported Coding Level of Care Code Est Pt Level 3 (31372) Diagnoses Moderate episode of recurrent major depressive disorder F33.1 Active/Remission status: currently active Major depression episode severity: moderate Parkinson's disease without dyskinesia or fluctuating manifestations G20.A1 Dyskinesia presence: without dyskinesia Fluctuating manifestations: without fluctuating manifestations B12 deficiency E53.8 Lipid disorder E78.9 Anxiety, generalized F41.1 Additional Codes KHURRAM-7 Assessment Billing - KHURRAM-7 Assessment Tool: KHURRAM-7 Assessment 18834 ([id number]) PHQ-9 - 79889 - PHQ-9 Billing: Yes ([id number]) Assessment & Plan Assessment & Plan (1) Major depression, recurrent: Code(s): F33.9 - Major depressive disorder, recurrent, unspecified Category: Medical Qualifiers: Active/Remission status: currently active Major depression episode severity: moderate Qualified Code(s): F33.1 - Major depressive disorder, recurrent, moderate (2) Parkinsons disease: Code(s): G20 - Parkinson's disease Category: Medical Qualifiers: Dyskinesia presence: without dyskinesia Fluctuating manifestations: without fluctuating manifestations Qualified Code(s): G20.A1 - Parkinson's disease without dyskinesia, without mention of fluctuations (3) B12 deficiency: Code(s): E53.8 - Deficiency of other specified B group vitamins Category: Medical (4) Lipid disorder: Code(s): E78.9 - Disorder of lipoprotein metabolism, unspecified Category: Medical (5) Anxiety, generalized: Code(s): F41.1 - Generalized anxiety disorder Category: Medical Plan History - The patient is a 64-year-old male with a history of Parkinson's disease, presenting for regular follow-up appointment - Frequent falls in the shower, particularly in the mornings and upon quick movements. - Safety measures in the shower have been implemented. - Neurological evaluation occurred approximately two to three months ago. - Continues on Citalopram for depression and Simvastatin for hypercholesterolemia. - Post-surgical status following prostate surgery with improvement in urinary symptoms. - Upcoming surgery for a right-hand trigger finger Problem List - History of Prostatic Hyperplasia with surgical intervention - Neurological symptoms with episodes of falling - Depression - Hypercholesterolemia - Right hand trigger finger (upcoming surgery scheduled) Patient Instructions - Continue current medication regimen of Citalopram 40 mg and Simvastatin 10 mg as directed. - Use safety measures in the shower to prevent falls. - Consider holding onto a supportive object to improve stability when moving quickly. - Follow up with medical assistant ob gyn as scheduled. - Plan for fasting lab tests in July. Orders: Orders Comprehensive [place]. Panel Fast 5 Months E53.8 - Deficiency of other specified B group vitamins, E78.9 - Disorder of lipoprotein metabolism, unspecified, F33.1 - Major depressive disorder, recurrent, moderate, F41.1 - Generalized anxiety disorder, G20.A1 - Parkinson's disease without dyskinesia, without mention of fluctuations Lipid Panel 5 Months E53.8 - Deficiency of other specified B group vitamins, E78.9 - Disorder of lipoprotein metabolism, unspecified, F33.1 - Major depressive disorder, recurrent, moderate, F41.1 - Generalized anxiety disorder, G20.A1 - Parkinson's disease without dyskinesia, without mention of fluctuations Vitamin D 25-OH (D2 and D3) 5 Months E53.8 - Deficiency of other specified B group vitamins, E78.9 - Disorder of lipoprotein metabolism, unspecified, F33.1 - Major depressive disorder, recurrent, moderate, F41.1 - Generalized anxiety disorder, G20.A1 - Parkinson's disease without dyskinesia, without mention of fluctuations Complete Blood Count Auto Diff 5 Months E53.8 - Deficiency of other specified B group vitamins, E78.9 - Disorder of lipoprotein metabolism, unspecified, F33.1 - Major depressive disorder, recurrent, moderate, F41.1 - Generalized anxiety disorder, G20.A1 - Parkinson's disease without dyskinesia, without mention of fluctuations Vitamin B12 5 Months E53.8 - Deficiency of other specified B group vitamins, E78.9 - Disorder of lipoprotein metabolism, unspecified, F33.1 - Major depressive disorder, recurrent, moderate, F41.1 - Generalized anxiety disorder, G20.A1 - Parkinson's disease without dyskinesia, without mention of fluctuations Medications: Discontinued pantoprazole Discontinued Reason: Patient no longer taking 40 mg PO DAILY 90 tabs 1RF
== END 2025-01-10 10:18 | disposition home or self-care (01) ==
PROVIDERS: PCP Internal Medicine; Visit Provider Internal Medicine
DX: F33.1 Major depressive disorder, recurrent, moderate (principal); G20.A1 Parkinson's disease without dyskinesia, without mention of fluctuations; E53.8 Deficiency of other specified B group vitamins; E78.9 Disorder of lipoprotein metabolism, unspecified; F41.1 Generalized anxiety disorder

== ENCOUNTER → 2025-01-10 09:40 | Outpatient (BNVA) | payer OTHER, SELFPAY | PROVIDERS: PCP Internal Medicine; Visit Provider Internal Medicine | DX: F33.1 Major depressive disorder, recurrent, moderate (principal); G20.A1 Parkinson's disease without dyskinesia, without mention of fluctuations; E53.8 Deficiency of other specified B group vitamins; E78.9 Disorder of lipoprotein metabolism, unspecified; Z79.899 Other long term (current) drug therapy | CPT/HCPCS: 96127 ==

== ENCOUNTER 2025-02-06 13:57 | Outpatient (AMB) | payer OTHER, SELFPAY ==
[2025-02-06 14:04] VITALS: BP 118/78; PULSE 52; O2SAT 93; BMI 29.8
--- NOTE | 2025-02-06 14:04 | MHC.OFFVIS ---
Vital Signs 02/06/25 14:04 Height 6 ft 2 in Weight 232 lb BMI 29.8 BP 118/78 Blood Pressure Location Rt brachial Position Sitting Pulse 52 Pulse Source Pulse Oximeter Pulse Oximetry (%) 93 Oxygen Delivery Method Room Air Intake Visit Reasons: complaint about Tics ok per MD Intake Note: Patient presents follow up for Parkinson's/Tics. Chain Splitter Required: No Accompanied by: Self / Same As Patient Allergies No Known Allergies Allergy (Unknown, Verified 02/06/25 14:04) HPI Comments Details: 64 y/o left handed male comes for follow up of Parkinsons disorder. He is not exercising as much as he used to. He is on sinemet 25/100 2 tablets 9am, 1pm 4:30pm and 9pm. His reports compulsive behavior and more irritability and anxiety. He sees a psychologist( [facility]) and is helping his anxiety.He had SI when his anxiety worsens. He is waiting to see another psych provider for anxiety medication. He is sleeps better with Trazadone 150mg PO, however will take it every other night as needed. His restless legs are better on Gabap[facility] and 600mg PO from another provider for a total of 1000mg daily. He also has abnormal jerky tic like aggressive movements increased since 4 days ago, 25-35 tics in an hour and throughout the day, they wake him up through the night. He has joint inflammation, stiff shoulders and bilaterally ankles get stuck with difficulty initiating steps. He had the LUTS procedure in Nov 2024 and now his nocturia has improved. He has trouble with finishing sentences and replaces words. His recall is good. He denies constipation, drooling, swallowing difficulties. He can complete all his ADLs but slower. He now is using a spoon to eat versus a fork to keep food on the spoon. His appetite has decreased, and lower back is out due to an appliance in L5/S1 old back injury. He quit drinking 26 years ago. He is smoking one bowl of MJ, and takes gummies to help with sleep. previous history-He also reports memory issues.He has trouble with names, word finding difficulty, he worked at [employer] and leaving the back doors of the van open. 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 No vivid dreams In the evenings when he is sitting down he gets twitches in his entire body. He has depression and anxiety. His father last year and also he had 2 rough divorces. He was in therapy which helped. He has no motivation now. He lost 40 lbs in last 6 mths . His appetite is low. He stutters a lot and his voice is softer. No drooling . Handwriting is the same , In the morning he has trouble holding his coffee cup. He has no trouble with personal hygiene . His gait is stable, but slower, he feels dizzy sometimes and off balance. He feels unsafe on stairs. No double vision . No hallucinations he played lot of sports and had multiple closed head injuries and concussions. Bowls 3x week, and golfs 2x a week. tics in front of vt - DBS- [facility] - PFSH Medical History Parkinson's disease without dyskinesia Speech abnormality Abnormal US (ultrasound) of abdomen Alcohol abuse Parkinson disease Environmental allergies BPH (benign prostatic hyperplasia) Back muscle spasm Anxiety, generalized Difficulty sleeping Lipid disorder Surgical History Hx of hand surgery S/P Mohs surgery for basal cell carcinoma History of esophagogastroduodenoscopy (EGD) H/O colonoscopy History of knee surgery History of lumbar fusion History of back surgery Family History Father HTN (hypertension) Stroke Diabetes mellitus Cancer Mother Diabetes mellitus Sarcoidosis Heart failure Renal failure Brother Addisons disease Sister Aneurysm Son No problems noted. Son No problems noted. Social History Housing: House Are you a primary healthcare administration internship to a significant other at home: No Do you presently have visiting nurse or other home services: No Alcohol intake: former Patient Tobacco Use Status: Never used Tobacco Tobacco use type: Smokeless Tobacco e-Cigarette/Vaping Use: Never Used Substance Use Type: Marijuana service: No Current occupational status: employed Cognitive needs: No Hearing needs: No Vision needs: Yes Physical Exam Vital Signs: Last Vital Signs Pulse 52 03/31/25 14:04 BP 118/78 02/06/25 14:04 Pulse Ox 93 02/06/25 14:04 Oxygen Delivery Method Room Air 02/06/25 14:04 BMI result Body Mass Index 29.8 Const General: cooperative, healthy appearing and no acute distress Nutritional Appearance: average body habitus Orientation/consciousness: patient oriented x3 HEENT Head: Yes normal to inspection Neck Other: mild antecollis and right laterocollis and restricted range of motion Neuro Other: Mild decreased blink and facial expression No lip tremors, tongue tremors , slow tongue movements Voice- normal, dysprosody Fine Finger movements - mildly decreased demarcus l>R Alternating hand movements - decreased demarcus Hand movements - decreased demarcus Foot taps- decreased demarcus Cogwheel Rigidy ULE Gait stooped, mild slowness and decreased arm swing R>L, good stride and gait General: patient oriented x3 and no focal motor deficits Cranial nerves: Yes CN's II-XII intact bilaterally, Yes Bilaterally intact EOM present, Yes Normal facial strength present and Yes Midline tongue present Cognition (Neuro): normal cognition Motor exam (neuro): 5/5 motor strength present throughout and Normal motor muscle tone present throughout Coordination: [id number] test normal Psych Appearance: grossly normal Assessment & Plan Assessment & Plan (1) Parkinson's disease without dyskinesia: Code(s): G20.A1 - Parkinson's disease without dyskinesia, without mention of fluctuations Category: Medical Qualifiers: Fluctuating manifestations: without fluctuating manifestations Qualified Code(s): G20.A1 - Parkinson's disease without dyskinesia, without mention of fluctuations (2) Memory change: Code(s): R41.3 - Other amnesia Category: Medical (3) Anxiety, generalized: Code(s): F41.1 - Generalized anxiety disorder Category: Medical (4) Numbness and tingling of right hand: Code(s): R20.0 - Anesthesia of skin; R20.2 - Paresthesia of skin Category: Medical (5) B12 deficiency: Code(s): E53.8 - Deficiency of other specified B group vitamins Category: Medical (6) Tremor of both hands: Code(s): R25.1 - Tremor, unspecified Category: Medical (7) Jerky body movements: Code(s): R25.8 - Other abnormal involuntary movements Category: Medical (8) Muscle spasm: Code(s): M62.838 - Other muscle spasm Category: Medical Plan Continue carbidopa/levodopa 25/100 2tabs qid Suggested to take with food or snack (low protein) YANN scan c/w parkinsons disease Info on local support groups given and adaptive devices, spoons, forks, heavy weighted. Continue gabapentin 100mg qam qnoon and 900mg qhs Dystonia like Tics/ Jerks / spasms : Trial patient on decreasing the last two doses of CD / LD to 1.5 tablets, at 4:30pm and 1.5 tablets at 9pm. Sleep difficulties continue Trazadone 150mg qhs Will check Labs to r/o other disorders BUN/ Cr. CPK Ferritin Iron studies / Mag CBC/ CMP/Ca. / K. f/u with psychology for anxiety and mood fluctuations f/u with PT for LBP and corticosteroid shots in the AM to be cleared for Parkinsons Movement disorder/ PT M/W at your local [facility]. Continue to do low intensity daily exercises as tolerable. Orders: Orders Ferritin Today M62.838 - Other muscle spasm Creatinine Today M62.838 - Other muscle spasm Potassium Today M62.838 - Other muscle spasm, R25.8 - Other abnormal involuntary movements Complete Blood Count no Diff Today R25.8 - Other abnormal involuntary movements Comprehensive Met. Panel Today M62.838 - Other muscle spasm, R25.8 - Other abnormal involuntary movements IRON PROFILE Today G47.9 - Sleep disorder, unspecified, M62.838 - Other muscle spasm, R25.8 - Other abnormal involuntary movements, R53.83 - Other fatigue Blood Urea Nitrogen Today M62.838 - Other muscle spasm Magnesium Today M62.838 - Other muscle spasm, R25.8 - Other abnormal involuntary movements Calcium Today M62.838 - Other muscle spasm, R25.8 - Other abnormal involuntary movements Patient Instructions: Sleep Hygiene provided: set a scheduled bedtime and wake time to help regulate the circadian rhythm and balance the release of pituitary hormones. Sleep in a dark room, temperatures below 68 degrees, and no devices n bed. Limit caffeinated products 6 hours prior to bed, and limit fluids 2-4 hours prior to bed. Gentle night yoga, diffusing essential oils, and playing soft music can be relaxing. CD/LD decrease the last two doses 4:30pm and 9pm to 1.5 tablets to see if symptoms of dystonia will improve. Labs repeat CBC/ CMP/ Mag/ B12 Ferritin and Iron Studies/ BUN / creatinine/ K+/ ca+ CPK. Coding Level of Care Code Est Pt Level 4 (95816) Complex EM visit Add On G2211 Diagnoses Parkinson's disease without dyskinesia or fluctuating manifestations G20.A1 Fluctuating manifestations: without fluctuating manifestations Memory change R41.3 Anxiety, generalized F41.1 Numbness and tingling of right hand R20.0; R20.2 B12 deficiency E53.8 Tremor of both hands R25.1 Jerky body movements R25.8 Muscle spasm M62.838 Time Spent (min) 30 Comment
== END 2025-02-06 14:54 | disposition home or self-care (01) ==
LOC: HO.HSMS 13:58
PROVIDERS: PCP Internal Medicine; Visit Provider Physician Assistant Medical
DX: G20.A1 Parkinson's disease without dyskinesia, without mention of fluctuations (principal); R41.3 Other amnesia; F41.1 Generalized anxiety disorder; R20.0 Anesthesia of skin; R20.2 Paresthesia of skin; E53.8 Deficiency of other specified B group vitamins; R25.1 Tremor, unspecified; R25.8 Other abnormal involuntary movements; M62.838 Other muscle spasm
CPT/HCPCS: 99214

== ENCOUNTER → 2025-02-06 13:57 | Outpatient (BNVA) | payer OTHER, SELFPAY | PROVIDERS: PCP Internal Medicine; Visit Provider Physician Assistant Medical ==

== ENCOUNTER 2025-02-09 14:14 | Outpatient (REF) | payer OTHER, SELFPAY ==
[2025-02-08 10:03] VITALS: BMI 29.9
[2025-02-09 10:12] VITALS: BP 129/65; PULSE 76; RESP 18; TEMP 36.4; O2SAT 97
--- NOTE | 2025-02-09 12:02 | MHC.SHP ---
Pre-Procedural Eval Section A - 24 Hr Update-Section A only Date of Service: 02/09/25 The patient is an INPATIENT: No Changes since office visit: No Cold of Flu in the past 2 weeks, No New Medical Problems, No Changes in Medication and No Patient answered all questions The patient has been examined within 24 hours of the surgical procedure. The History & Physical has been completed within 30 days and I have reviewed it.: Yes Section B - Complete if H&P > 30 days Chief Complaint: Trigger finger, right ring finger Allergies: Allergies Allergy/AdvReac Type Severity Reaction Status Date / Time No Known Allergies Allergy Unknown Verified 02/06/25 14:04 Plan Diagnosis/Plan: Unchanged I have reviewed the history and physical and performed a pertinent physical examination on my patient. No changes have occurred unless specified. Time Spent With Patient Time: Total time managing care of this patient today ____ minutes.
--- NOTE | 2025-02-09 12:03 | P.OP_ITS ---
Operative Note Operative Note Date of Service: 02/09/25 Narrative: Operative Note Preop diagnosis: 1. Right ring finger Trigger finger Postop diagnosis: Same Procedure: 1. Right ring finger A1 karlie release Surgeon: Anne Montesinos MD Metal Sprayer Protective Coating: Andi NAGY Anesthesia: local block using 1% lidocaine with epinephrine Findings: No locking or catching after A1 karlie release EBL: Less than 5 mL Tourniquet time: None Specimens: None Complications: None Disposition: Brought to recovery room in stable condition Plan: Follow-up for 10-14 days for wound check and suture removal Indications: The patient is 64 years old, with a right ring finger trigger finger that has been unresponsive to nonoperative management. The risks and benefits of operative treatment including but not limited to risk of damage to blood vessels, nerves, tendons, infection, persistent pain, persistent symptoms, recurrence or possible need for additional surgery were discussed with the patient and the patient wishes to proceed with surgery. Procedure: Once consent was obtained a local block was performed in the preop area using a combination of 1% lidocaine with epinephrine. The patient was then brought back to the operating suite and placed on the operative table in supine position. The right upper extremity was prepped and draped in a standard surgical fashion. Once assured that we had a good block, a 1.5 cm oblique incision was made centered over the A1 karlie of the right ring finger . The incision was made through the skin to the subcutaneous tissues using a #15 blade. Careful dissection was made down to the level of the A1 karlie using tenotomy scissors, with care being taken to protect the nearby neurovascular structures. A longitudinal incision was made in the A1 karlie 1st using a #15 blade, then using tenotomy scissors under direct visualization. The A1 karlie was noted to be thickened. Following our A1 karlie release, we no longer saw any locking or catching of the digit with flexion and extension. Once satisfied with our A1 karlie release the wound was copiously irrigated with normal saline and hemostasis was obtained with a brief period of local pressure. The skin edges were reapproximated with some 5.0 nylon suture material and a sterile dressing was applied. The patient appears to have tolerated the procedure well and with no complications. All digits were well vascularized at the conclusion of the case.
[2025-02-09 14:14] VITALS: BP 143/60; PULSE 51; RESP 19; O2SAT 96
[2025-02-09 15:30] LABS: Hematocrit 49.4 % (42.0-52.0); Hemoglobin 16.8 g/dl (14.0-18.0); Mean Corpuscular Hemoglobin 32.7 pg (27.0-33.0); Mean Corpuscular Volume 96.1 fL (80.0-98.0); Mean Platelet Volume 11.3 fL (9.4-12.4); Platelet Count 154 X10*3/uL (160-400); Red Blood Count 5.14 X10*6/uL (4.60-5.80); Red Cell Distribution Width 12.5 % (11.0-16.0); White Blood Count 5.8 X10*3/uL (4.8-10.8)
[2025-02-09 16:01] LABS: Alanine Aminotransferase 6 U/L (0-40); Albumin Level 4.3 g/dL (3.5-5.0); Anion Gap 10 (12-20); Aspartate Amino Transferase 26 U/L (5-37); Bilirubin Total 0.5 mg/dL (0.0-1.0); Blood Urea Nitrogen 12 mg/dL (9-16); Calcium 9.9 mg/dL (8.4-10.2); Carbon Dioxide 32 mmol/L (22-29); Chloride 104 mmol/L (96-108); Estimated Glomerular Filt Rate > 60; Glucose Random 90 mg/dL (60-115); Iron 113 mcg/dL (45-160); Magnesium 2.5 mg/dL (1.6-2.6); Percent Iron Saturation 42 % (15-50); Potassium 4.4 mmol/L (3.3-5.1); Sodium 142 mmol/L (135-145); Total Iron Binding Capacity 267 mcg/dL (228-428); Total Protein 7.3 g/dL (6.5-8.0); Unsaturated Iron Binding 154 ug/dL
[2025-02-09 16:14] LABS: Alkaline Phosphatase 81 U/L (39-117)
[2025-02-09 16:26] LABS: Ferritin 167 ng/mL (20-250)
== END 2025-02-09 14:19 ==
LOC: HO.SSS 14:14
PROVIDERS: Absent Provider Physician Assistant Medical; PCP Internal Medicine; Visit Provider Orthopaedic Surgery
PROC: (CPT 26055; principal; 2025-02-09 13:30)
DX: M65.341 Trigger finger, right ring finger (principal); M62.838 Other muscle spasm; R53.83 Other fatigue; G47.9 Sleep disorder, unspecified; G20.A1 Parkinson's disease without dyskinesia, without mention of fluctuations; Z79.899 Other long term (current) drug therapy
CPT/HCPCS: 26055; 36415; 80053; 82728; 83540; 83735; 85027; J0171; J2003; J2004

== ENCOUNTER → 2025-02-09 14:14 | Outpatient (BNV) | payer OTHER, SELFPAY | PROVIDERS: Absent Provider Physician Assistant Medical; PCP Internal Medicine; Visit Provider Orthopaedic Surgery | DX: M65.341 Trigger finger, right ring finger (principal) | CPT/HCPCS: 26055 ==

== ENCOUNTER 2025-02-24 13:21 | Outpatient (AMB) | payer OTHER, SELFPAY ==
--- NOTE | 2025-02-24 13:31 | A.OFFVIS_ITS ---
Vital Signs 02/24/25 13:32 Height 6 ft 2 in Handedness Ambidextrous Intake Visit Reasons: PO RT RF trigger 02/09/25 AR Intake Note: Margarito is a 64 year old ambidextrous male who present today for a post operative visit s/p right ring finger A1 karlie release DOS: 02/09/[address] Anne Montesinos. Patient reports he is no longer having locking and triggering of right ring finger. He does report some mild numbness. Allergies No Known Allergies Allergy (Unknown, Verified 02/24/25 13:40) HPI HPI PO RT RF trigger 02/09/25 AR: Details: Margarito is a 64 year old ambidextrous male who present today for a post operative visit s/p right ring finger A1 karlie release DOS: 02/09/[address] Anne Montesinos. Patient reports he is no longer having locking and triggering of right ring finger. He does report some mild numbness. PFS Medical History Trigger finger, right ring finger Parkinson's disease without dyskinesia Speech abnormality Abnormal US (ultrasound) of abdomen Alcohol abuse Parkinson disease Environmental allergies BPH (benign prostatic hyperplasia) Back muscle spasm Anxiety, generalized Difficulty sleeping Lipid disorder Surgical History Hx of hand surgery S/P Mohs surgery for basal cell carcinoma History of esophagogastroduodenoscopy (EGD) H/O colonoscopy History of knee surgery History of lumbar fusion History of back surgery Family History Father HTN (hypertension) Stroke Diabetes mellitus Cancer Mother Diabetes mellitus Sarcoidosis Heart failure Renal failure Brother Addisons disease Sister Aneurysm Son No problems noted. Son No problems noted. Social History Housing: House Are you a primary skin care therapist to a significant other at home: No Do you presently have visiting nurse or other home services: No Alcohol intake: former Patient Tobacco Use Status: Never used Tobacco Tobacco use type: Smokeless Tobacco e-Cigarette/Vaping Use: Never Used Substance Use Type: Marijuana service: No Current occupational status: employed Cognitive needs: No Hearing needs: No Vision needs: Yes Review of Systems Const All systems reviewed & are unremarkable except as noted in HPI and below Physical Exam Extrem Other: Patient is alert, oriented, and in no acute distress. Neuro: Normal sensation of the tips of all digits of the right hand at this time Vascular: Cap refill brisk Pain: No tenderness to palpation about the incision site of the A1 karlie of right ring finger No pain with range of motion ROM: No further Visible and palpable locking and catching noted of the right finger Patient is able to make a closed fist extend all digits of the right hand fully and without difficulty Skin: Well approximated and well healing incision site noted over the A1 karlie of the right ring finger No lacerations or abrasions. General: No ecchymosis, erythema, or evidence of infection. Psych: Appears grossly normal Affect normal Attitude cooperative Assessment & Plan Assessment & Plan (1) Trigger finger, right ring finger: Code(s): M65.341 - Trigger finger, right ring finger Category: Medical Plan 1. Status post right ring finger trigger release DOS 02/09/2025 Patient appears to be recovering well postoperatively Patient is educated about the typical recovery course Steri-Strips applied, sutures removed Patient is educated that appears to be recovering quite well, and will require no further acute follow-up with us Patient was amenable to this plan Follow-up as needed Coding Level of Care Code Global (69291) Diagnoses Trigger finger, right ring finger M65.341
== END 2025-02-24 13:47 | disposition home or self-care (01) ==
LOC: HO.HOS 13:22
PROVIDERS: PCP Internal Medicine
DX: M65.341 Trigger finger, right ring finger (principal)
CPT/HCPCS: 99024

== ENCOUNTER 2025-03-15 08:56 | Outpatient (AMB) | payer OTHER, SELFPAY ==
--- NOTE | 2025-03-15 08:59 | MHC.OFFVIS ---
Vital Signs 03/15/25 09:01 Height 6 ft 2 in Weight 231 lb BMI 29.7 BP 112/70 Blood Pressure Location Rt brachial Position Sitting Pulse 51 Pulse Source Pulse Oximeter Pulse Oximetry (%) 94 Oxygen Delivery Method Room Air Intake Visit Reasons: 6 mnts f/u appt Intake Note: Patient presents for follow up med increase carbidopa levodopa Allergies No Known Allergies Allergy (Unknown, Verified 03/15/25 09:03) Medication List - Last Reconciled 03/15/25 by Dina Mcgowan MD albuterol sulfate 90 mcg/actuation 1 inh inhalation QID PRN carbidopa-levodopa 25-100 mg 2-1-2-1 orally 4 times a day; 90 days citalopram 40 mg PO DAILY 90 days fluocinonide 0.05% 1 appl topical BID PRN gabapentin 100 mg PO .qam and q noon gabapentin 300 mg PO BEDTIME magnesium 200 mg PO DAILY pyridoxine (vitamin B6) 10 mg PO DAILY simvastatin 10 mg PO DAILY 90 days tadalafil 10 mg PO DAILY PRN 90 days trazodone 150 mg (1.5 x 100 mg) PO BEDTIME 30 days HPI Comments Details: 64y/o left handed male comes for follow up of parkinsons.He report abnormal twitches at rest and at night.They are worse in the evening. He is in a parkinsons study at [facility] for exercise - it is a 16 week study with strength training and weights.He feels stronger and balance is better He is on sinemet 25/100 2-1-2-1. His mood is OK he sees therapist regularly.. He is sleeping better with trazodone. He is also on gabapentin which helps.200mg qam and 900mg qhs He also has abnormal jerky movements throughout the day and have increased.He has trouble with finishing sentences and replaces words. His recall is good . He quit drinking 26 years ago. 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 No vivid dreams In the evenings when he is sitting down he gets twitches in his whole body.He has depression and anxiety . His father last year and also he had 2 rough divorces. He was always a bit anxious. He was in therapy which helped. He has no motivation now. He lost 40 lbs in last 6 mths . His appetite is low. He stutters a lot and his voice is softer. No drooling . Handwriting is the same , In the morning he has trouble holding his coffee. He has no trouble with personal hygiene . His walking is good - but slower, feels dizzy sometimes. he feels unsafe on stairs. No double vision . No hallucinations he played lot of sports and had multiple closed head injuries and concussions [facility] Medical History Trigger finger, right ring finger Parkinson's disease without dyskinesia Speech abnormality Abnormal US (ultrasound) of abdomen Alcohol abuse Parkinson disease Environmental allergies BPH (benign prostatic hyperplasia) Back muscle spasm Anxiety, generalized Difficulty sleeping Lipid disorder Surgical History Hx of hand surgery S/P Mohs surgery for basal cell carcinoma History of esophagogastroduodenoscopy (EGD) H/O colonoscopy History of knee surgery History of lumbar fusion History of back surgery Family History Father HTN (hypertension) Stroke Diabetes mellitus Cancer Mother Diabetes mellitus Sarcoidosis Heart failure Renal failure Brother Addisons disease Sister Aneurysm Son No problems noted. Son No problems noted. Social History Housing: House Are you a primary wound care center consultant to a significant other at home: No Do you presently have visiting nurse or other home services: No Alcohol intake: former Patient Tobacco Use Status: Never used Tobacco Tobacco use type: Smokeless Tobacco e-Cigarette/Vaping Use: Never Used Substance Use Type: Marijuana service: No Current occupational status: employed Cognitive needs: No Hearing needs: No Vision needs: Yes Physical Exam Vital Signs: Last Vital Signs Pulse 51 03/15/25 09:01 BP 112/70 03/15/25 09:01 Pulse Ox 94 03/15/25 09:01 Oxygen Delivery Method Room Air 03/15/25 09:01 BMI result Body Mass Index 29.7 Const General: cooperative, healthy appearing and no acute distress Nutritional Appearance: average body habitus Orientation/consciousness: patient oriented x3 HEENT Head: Yes normal to inspection Neck Other: mild antecollis and right laterocollis and restricted range of motion Neuro Other: Mild decreased blink and facial expression No lip tremors, tongue tremors , slow tongue movements Voice- normal, dysprosody Fine Finger movements -moderately decreased demarcus l>R Alternating hand movements - decreased demarcus Hand movements - decreased demarcus Foot taps- decreased demarcus Cogwheel Rigidy ULE Gait stooped, mild slowness and decreased arm swing R>L, good stride and gait General: patient oriented x3 and no focal motor deficits Cranial nerves: Yes CN's II-XII intact bilaterally, Yes Bilaterally intact EOM present, Yes Normal facial strength present and Yes Midline tongue present Cognition (Neuro): normal cognition Motor exam (neuro): 5/5 motor strength present throughout and Normal motor muscle tone present throughout Coordination: [id number] test normal Psych Appearance: grossly normal Assessment & Plan Assessment & Plan (1) Parkinson's disease without dyskinesia: Code(s): G20.A1 - Parkinson's disease without dyskinesia, without mention of fluctuations Category: Medical Qualifiers: Fluctuating manifestations: without fluctuating manifestations Qualified Code(s): G20.A1 - Parkinson's disease without dyskinesia, without mention of fluctuations (2) Memory change: Code(s): R41.3 - Other amnesia Category: Medical (3) Anxiety, generalized: Code(s): F41.1 - Generalized anxiety disorder Category: Medical Plan Continue carbidopa/levodopa 25/100 2-1-2-1tabs qid Suggested to take with food or snack ( low protien) YANN scan -c/w parkinsons disease Continue exercise.Info on local support groups given. continue gabapentin 200mg qam and 900mg qhs Trazadone 150mg qhs will trial him on ropinirole ER 2 mg qhs f/u with psychology Continue exercise. Medications: New ropinirole ER 2 mg PO DAILY 30 tabs 3RF Changed From carbidopa-levodopa 25-100 mg 2 tabs PO QID 90 days 720 tabs 1RF To carbidopa-levodopa 25-100 mg 2-1-2-1 orally 4 times a day; 90 days 720 tabs 1RF Coding Level of Care Code Est Pt Level 4 (16152) Complex EM visit Add On G2211 Diagnoses Parkinson's disease without dyskinesia or fluctuating manifestations G20.A1 Fluctuating manifestations: without fluctuating manifestations Memory change R41.3 Anxiety, generalized F41.1
[2025-03-15 09:01] VITALS: BP 112/70; PULSE 51; O2SAT 94; BMI 29.7
== END 2025-03-15 09:38 | disposition home or self-care (01) ==
LOC: HO.HSMS 08:57
PROVIDERS: PCP Internal Medicine; Visit Provider Psychiatry & Neurology Neurology
DX: G20.A1 Parkinson's disease without dyskinesia, without mention of fluctuations (principal); R41.3 Other amnesia; F41.1 Generalized anxiety disorder
CPT/HCPCS: 99214

== ENCOUNTER → 2025-03-15 08:56 | Outpatient (BNVA) | payer OTHER, SELFPAY | PROVIDERS: PCP Internal Medicine; Visit Provider Psychiatry & Neurology Neurology ==

== ENCOUNTER 2025-05-08 13:47 | Outpatient (AMB) | payer OTHER, SELFPAY ==
[2025-05-08 13:57] VITALS: PULSE 55; O2SAT 96; BMI 29.4
--- NOTE | 2025-05-08 13:57 | MHC.OFFVIS ---
Vital Signs 05/08/25 13:57 Height 6 ft 2 in Weight 229 lb 4 oz BMI 29.4 Pulse 55 Pulse Source Pulse Oximeter Pulse Oximetry (%) 96 Oxygen Delivery Method Room Air Intake Visit Reasons: 3mon follow-up Intake Note: Patient presents follow up Parkinson medication. Accompanied by: Self / Same As Patient Allergies No Known Allergies Allergy (Unknown, Verified 05/08/25 14:00) HPI Comments Details: 64y/o left handed male comes for follow up of Parkinsons. He walks 1-2 miles daily and playing golf 2 x a week. He had two falls at the golf course, lost his balance, no injuries. He reports abnormal l. sided twitches at rest and at night.They are worse in the evening, and improved with sinemet. He is in a parkinsons study at [facility] for exercise, a 16 week study with strength training and weights. He feels stronger and balance is better, and now more confident, denies hypophonia, denies constipation. He is on sinemet 25/100 2-1-2-1. His mood is OK he sees therapist regularly. He is sleeping better with trazodone. He is also on gabapentin which helps.200mg qam and 900mg qhs He also has abnormal jerky movements throughout the day and have increased. STM is starting to wane, was overstimulated with crowds and noise at [employer] and felt lost with orientation. He has trouble with finishing sentences and replaces words, could not find the precise words. His recall is good. He quit drinking 26 years ago. Diet is good. No difficulties chewing or swallowing. [facility]LY [facility] Medical History Trigger finger, right ring finger Parkinson's disease without dyskinesia Speech abnormality Abnormal US (ultrasound) of abdomen Alcohol abuse Parkinson disease Environmental allergies BPH (benign prostatic hyperplasia) Back muscle spasm Anxiety, generalized Difficulty sleeping Lipid disorder Surgical History Hx of hand surgery S/P Mohs surgery for basal cell carcinoma History of esophagogastroduodenoscopy (EGD) H/O colonoscopy History of knee surgery History of lumbar fusion History of back surgery Family History Father HTN (hypertension) Stroke Diabetes mellitus Cancer Mother Diabetes mellitus Sarcoidosis Heart failure Renal failure Brother Addisons disease Sister Aneurysm Son No problems noted. Son No problems noted. Social History Housing: House Are you a primary farm or ranch animal caretaker to a significant other at home: No Do you presently have visiting nurse or other home services: No Alcohol intake: former Patient Tobacco Use Status: Never used Tobacco Tobacco use type: Smokeless Tobacco e-Cigarette/Vaping Use: Never Used Substance Use Type: Marijuana service: No Current occupational status: employed Cognitive needs: No Hearing needs: No Vision needs: Yes Physical Exam Vital Signs: Last Vital Signs Pulse 55 05/08/25 13:57 Pulse Ox 96 05/08/25 13:57 Oxygen Delivery Method Room Air 05/08/25 13:57 BMI result Body Mass Index 29.4 Const General: cooperative, healthy appearing and no acute distress Nutritional Appearance: average body habitus Orientation/consciousness: patient oriented x3 HEENT Head: Yes normal to inspection Face and sinus: Yes face symmetric Teeth and gingiva: other ([place]pti score is 4) Neck Other: mild antecollis and right laterocollis and restricted range of motion Resp Effort & Inspection: normal respiratory effort and able to speak in complete sentences Neuro Other: Mild decreased blink and facial expression No lip tremors, tongue tremors , slow tongue movements Voice- normal, dysprosody Fine Finger movements -moderately decreased demarcus L>R Alternating hand movements - decreased demarcus L>R Hand movements - decreased demarcus Foot taps- decreased demarcus L>R Cogwheel Rigidy ULE, increased twitches Gait stooped, mild slowness and decreased arm swing R>L, good stride and gait, more freezing of gait has to tap the foot to initiate motion. Difficulty getting out of chair. General: patient oriented x3 and no focal motor deficits Cranial nerves: Yes CN's II-XII intact bilaterally, Yes Bilaterally intact EOM present, Yes Normal facial strength present, Yes Midline tongue present and Yes Ability to bilaterally rotate head present Cognition (Neuro): normal cognition Motor exam (neuro): 5/5 motor strength present throughout, Normal motor muscle tone present throughout and Tremors during motor activity present Coordination: [id number]-lv-vdac test normal Psych Appearance: grossly normal Speech and movement: Other speech and movement exam findings present (Psych) (Bradykinesia) Affect: Blunted affect present Attitude: cooperative Thought process: Normal thought process present Thought content: Normal thought content present Insight: Good insight present (Psych) Judgement: Good judgement present (Psych) Assessment & Plan Assessment & Plan (1) Parkinson's disease without dyskinesia: Code(s): G20.A1 - Parkinson's disease without dyskinesia, without mention of fluctuations Category: Medical Qualifiers: Fluctuating manifestations: without fluctuating manifestations Qualified Code(s): G20.A1 - Parkinson's disease without dyskinesia, without mention of fluctuations (2) Memory change: Code(s): R41.3 - Other amnesia Category: Medical (3) Anxiety, generalized: Code(s): F41.1 - Generalized anxiety disorder Category: Medical Plan Continue carbidopa/levodopa 25/100 2-1-2-1tabs qid Suggested to take with food or snack ( low protien) Discussed Vylev or duopa pumps, or apomorphine, pt declined today. Continue to stay active and exercise daily. Info on local support groups given for Parkinson's [employer]- declines. Twitches Continue gabapentin 200mg qam and 900mg qhs Sleep Trazadone 150mg qhs. Continue on ropinirole ER 2 mg qhs. Memory support Start Cerofolin 1 tablet daily by mouth brain health supplement. f/u with psychologist. Continue doing puzzles and engaging in social circles. HST? PSG? MMSE at next visit if amenable. f/u in 6 monhts Medications: New ydtzmzddrh-zsmlulh-T-mefolate 600-2-6 mg ([employer] Brain CONEXANCE MD) take one tablet daily by mouth for brain support. 1 tab PO BEDTIME 90 tabs 1RF cognitive decline 3 months MDD 1 tablet G20.A1 - Parkinson's disease without dyskinesia, without mention of fluctuations, R41.3 - Other amnesia Patient Instructions: Sleep Hygiene provided: set a scheduled bedtime and wake time to help regulate the circadian rhythm and balance the release of pituitary hormones. Sleep in a dark room, temperatures below 68 degrees, and no devices n bed. Limit caffeinated products 6 hours prior to bed, and limit fluids 2-4 hours prior to bed. Gentle night yoga, diffusing essential oils, and playing soft music can be relaxing. Home Sleep Study? PSG next visit and MMSE, will consider next time. start cerefolin proven to slow progression of brain atrophy Coding Level of Care Code Est Pt Level 4 (62182) Diagnoses Parkinson's disease without dyskinesia or fluctuating manifestations G20.A1 Fluctuating manifestations: without fluctuating manifestations Memory change R41.3 Anxiety, generalized F41.1 Time Spent (min) 30
== END 2025-05-08 14:37 | disposition home or self-care (01) ==
LOC: HO.HSMS 13:47
PROVIDERS: PCP Internal Medicine; Visit Provider Physician Assistant Medical
DX: G20.A1 Parkinson's disease without dyskinesia, without mention of fluctuations (principal); R41.3 Other amnesia; F41.1 Generalized anxiety disorder
CPT/HCPCS: 99214

== ENCOUNTER 2025-05-11 08:44 | Outpatient (AMB) | payer OTHER, SELFPAY ==
--- NOTE | 2025-05-11 10:23 | A.OFFPC_ITS ---
Intake Visit Reasons: Anxiety Allergies No Known Allergies Allergy (Unknown, Verified 05/08/25 14:00) Medication List - Last Reconciled 05/11/25 by Galo Rodrigues MD [id number]-djtzjyj-F-mefolate 600-2-6 mg (Cerefolin Brain Incentive) 1 tab PO BEDTIME 3 months MDD 1 tablet albuterol sulfate 90 mcg/actuation 1 inh inhalation QID PRN carbidopa-levodopa 25-100 mg 2-1-2-1 orally 4 times a day; 2 qam 1 at noon 2 in the evening and 1 at bedtime 90 days citalopram 40 mg PO DAILY 90 days fluocinonide 0.05% 1 appl topical BID PRN gabapentin 100 mg PO .qam and q noon gabapentin 300 mg PO BEDTIME magnesium 200 mg PO DAILY pyridoxine (vitamin B6) 10 mg PO DAILY ropinirole ER 2 mg PO DAILY simvastatin 10 mg PO DAILY 90 days tadalafil 10 mg PO DAILY PRN 90 days trazodone 150 mg (1.5 x 100 mg) PO BEDTIME 30 days Tobacco use date assessed: 01/10/25 Dental Screening Dental Screen Date: 01/10/25 HPI Anxiety HPI Details History - The patient is a 64-year-old male pres enting with anxiety symptoms. - Reports extreme anxiety triggered by n oise and crowds, notably experienced during a recent visit to [facility]. - Describes feelings of nervousness and disorientation, including difficulty navigating entrance and exit, despite familiarity from previous visits. - Denies discussing this anxiety with ga s neurologist but is currently addressing issues with a therapist. - Notes that gabapentin, previously take n, does not alleviate anxiety symptoms. Medical History: - Parkinson?s disease Medications: - Gabapentin (dose not specified) for ma nagement of Parkinson?s disease, noted as ineffective for anxiety. Problem List - Anxiety - Parkinson?s disease Patient Instructions - Take buspirone medication as needed fo r anxiety, starting with one tablet to assess effectiveness; do not exceed one tablet every eight hours. - Consult with Dr. Hamilton to ensure th at the new medication does not interfere with Parkinson's medications. - Follow up with neurology to discuss on going symptoms and treatment plans. Review of Systems - General: No fever no chills - Neurological: No headaches no dizziness - Ear nose throat: No sore throat no hearing difficulty no ear pain - Cardiovascular: No syncope, no chest pain, no palpitations - Gastrointestinal: No nausea vomiting or diarrhea PFSH Medical History Trigger finger, right ring finger Parkinson's disease without dyskinesia Speech abnormality Abnormal US (ultrasound) of abdomen Alcohol abuse Parkinson disease Environmental allergies BPH (benign prostatic hyperplasia) Back muscle spasm Anxiety, generalized Difficulty sleeping Lipid disorder Surgical History Hx of hand surgery S/P Mohs surgery for basal cell carcinoma History of esophagogastroduodenoscopy (EGD) H/O colonoscopy History of knee surgery History of lumbar fusion History of back surgery Family History Father HTN (hypertension) Stroke Diabetes mellitus Cancer Mother Diabetes mellitus Sarcoidosis Heart failure Renal failure Brother Addisons disease Sister Aneurysm Son No problems noted. Son No problems noted. Social History Housing: House Are you a primary skin care technician to a significant other at home: No Do you presently have visiting nurse or other home services: No Alcohol intake: former Patient Tobacco Use Status: Never used Tobacco Tobacco use type: Smokeless Tobacco e-Cigarette/Vaping Use: Never Used Substance Use Type: Marijuana service: No Current occupational status: employed Cognitive needs: No Hearing needs: No Vision needs: Yes Questionnaire Thrive Questionnaire Date Thrive assessed: 01/03/25 KHURRAM-7 AMB Questionnaire KHURRAM-7 Date KHURRAM - 7 assessed: 01/10/25 Source: Developed by Drs. Ricardo Varghese, Kathie Phan, Chris Gordillo and colleagues, with an educational cammie from [employer]. Physical exam (Primary Care) Tobacco/Smoking Status: Tobacco use Status Tobacco use date assessed 01/10/25 05/11/25 10:23 Patient Tobacco Use Status Never used Tobacco 05/11/25 10:23 Tobacco use type Smokeless Tobacco 05/11/25 10:23 e-Cigarette/Vaping Use Never Used 05/11/25 10:23 Thrive Assessment: Date of Thrive Assessment Date Thrive assessed 01/03/25 05/11/25 10:23 Telehealth Telehealth Telehealth Platform: [employer] Location of provider rendering services: practice address Location of patient: address on file Patient Identification confirmed using: Name, : Yes Telehealth method: video Patient verbally consented to treatment: Yes Patient verbally consented to billing insurance company: Yes Patient informed of any privacy concerns related to visit: Yes Coding Level of Care Code Tele Est Pt Level 3 (71094) Diagnoses Anxiety, generalized F41.1 Assessment & Plan Assessment & Plan (1) Anxiety, generalized: Code(s): F41.1 - Generalized anxiety disorder Category: Medical Plan History - The patient is a 64-year-old male presenting with anxiety symptoms. - Reports extreme anxiety triggered by noise and crowds, notably experienced during a recent visit to [facility]. - Describes feelings of nervousness and disorientation, including difficulty navigating entrance and exit, despite familiarity from previous visits. - Denies discussing this anxiety with his neurologist but is currently addressing issues with a therapist. - Notes that gabapentin, previously taken, does not alleviate anxiety symptoms. Medical History: - Parkinson?s disease Medications: - Gabapentin (dose not specified) for management of Parkinson?s disease, noted as ineffective for anxiety. Problem List - Anxiety - Parkinson?s disease Patient Instructions - Take buspirone medication as needed for anxiety, starting with one tablet to assess effectiveness; do not exceed one tablet every eight hours. - Consult with Dr. Hamilton to ensure that the new medication does not interfere with Parkinson's medications. - Follow up with neurology to discuss ongoing symptoms and treatment plans. Medications: New buspirone 5 mg PO TID PRN 30 tabs 0RF anxiety 30 days
== END 2025-05-11 10:27 | disposition home or self-care (01) ==
LOC: HO.HMCC 08:44
PROVIDERS: PCP Internal Medicine; Visit Provider Internal Medicine
DX: F41.1 Generalized anxiety disorder (principal)

== ENCOUNTER 2025-05-19 12:36 | Outpatient (REF) | payer OTHER, SELFPAY ==
[2025-05-19 16:10] LABS: Appearance Urine Clear; Glucose Urine UA Negative (Negative); PH 7.5 (5.0-9.0); Specific Gravity - Urine 1.020 (1.005-1.025)
== END 2025-05-19 12:37 | disposition home or self-care (01) ==
LOC: HO.HMGCLDS 12:36
PROVIDERS: PCP Internal Medicine; Visit Provider Urology
DX: R32 Unspecified urinary incontinence (principal); N40.1 Benign prostatic hyperplasia with lower urinary tract symptoms; R35.0 Frequency of micturition; N52.9 Male erectile dysfunction, unspecified
CPT/HCPCS: 81001; 87086

== ENCOUNTER 2025-06-13 07:35 | Outpatient (REF) | payer OTHER, SELFPAY ==
[2025-06-13 11:13] LABS: Prostate Specific Antigen 1.84 ng/mL (<0.05-4.0)
== END 2025-06-13 07:36 | disposition home or self-care (01) ==
LOC: HO.HMGCLDS 07:35
PROVIDERS: PCP Internal Medicine; Visit Provider Urology
DX: N40.1 Benign prostatic hyperplasia with lower urinary tract symptoms (principal); R35.0 Frequency of micturition
CPT/HCPCS: 36415; 84153

== ENCOUNTER 2025-06-20 09:24 | Outpatient (AMB) | payer OTHER, SELFPAY ==
--- NOTE | 2025-06-20 09:32 | A.OFFVIS_ITS ---
Intake Visit Reasons: 6m/PSA Intake Note: Patient is Present for 6MO FOLLOW UP Urology Med: TADALAFIL, VIT B-6, GABAPENTIN Blood Thinner: None LABS DONE: PSA 1.84 06/13/25 TODAY'S PVR: 0 MLS Medical Sonographer Required: No Accompanied by: Self / Same As Patient Allergies No Known Allergies Allergy (Unknown, Verified 06/20/25 09:34) HPI Comments Details: Margarito is a pleasant male. He is a patient of Dr. Rodrigues. 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 - [employer] Lower urinary tract symptoms Progressive Has been on tamsulosin for a number of years [employer] [facility] November 2024 Erectile dysfunction Progressive longstanding Does take citalopram which has known inhibitory effects Failed daily 5 mg tadalafil Continue with daily 10 mg tadalafil and 100 mg sildenafil as needed PSA 06/29 1.5, 03/01 2.2, 07/03 1.8 [facility] Medical History Trigger finger, right ring finger Parkinson's disease without dyskinesia Speech abnormality Abnormal US (ultrasound) of abdomen Alcohol abuse Parkinson disease Environmental allergies BPH (benign prostatic hyperplasia) Back muscle spasm Anxiety, generalized Difficulty sleeping Lipid disorder Surgical History Hx of hand surgery S/P Mohs surgery for basal cell carcinoma History of esophagogastroduodenoscopy (EGD) H/O colonoscopy History of knee surgery History of lumbar fusion History of back surgery Family History Father HTN (hypertension) Stroke Diabetes mellitus Cancer Mother Diabetes mellitus Sarcoidosis Heart failure Renal failure Brother Addisons disease Sister Aneurysm Son No problems noted. Son No problems noted. Social History Housing: House Are you a primary daycare manager to a significant other at home: No Do you presently have visiting nurse or other home services: No Alcohol intake: former Patient Tobacco Use Status: Never used Tobacco Tobacco use type: Smokeless Tobacco e-Cigarette/Vaping Use: Never Used Substance Use Type: Marijuana service: No Current occupational status: employed Cognitive needs: No Hearing needs: No Vision needs: Yes Office Procedures Post Void Residual Post Residual Void Post Void Residual (PVR): 0 [id number] Void Residual by ultrasound Results AMB Urinalysis, Automated UA Leukoctes 0 Beatrice/uL Last Edit by PATRICK Moctezuma on 06/20/25 14:04 UA Nitrite Negative Last Edit by Lina Gentile [facility] on 06/20/25 14:04 UA Urobilinogen 0.2 mg/dL Last Edit by Lina Gentile [facility] on 06/20/25 14:0 4 UA Protein 15 mg/dL Last Edit by Lina Gentile [facility] on 06/20/25 14:04 UA pH 6.0 Last Edit by Lina Gentile [facility] on 06/20/25 14:04 UA Blood 0 Joe/uL Last Edit by Lina Gentile [facility] on 06/20/25 14:04 UA Specific [place] 1.025 Last Edit by Lina Gentile [facility] on 06/20/25 14: 04 UA Ketone Negative Last Edit by Lina Gentile [facility] on 06/20/25 14:04 UA Bilirubin 0 mg/dL Last Edit by Lina Gentile [facility] on 06/20/25 14:04 UA Glucose 0 mg/dL Last Edit by Lina Gentile [facility] on 06/20/25 14:04 AMB Urinalysis, Automated UA Leukoctes 0 Beatrice/uL Last Edit by Lina Gentile [facility] on 06/20/25 14:07 UA Nitrite Negative Last Edit by Lina Gentile [facility] on 06/20/25 14:07 UA Urobilinogen 0 mg/dL Last Edit by Lina Gentile [facility] on 06/20/25 14:07 UA Protein 15 mg/dL Last Edit by Lina Gentile [facility] on 06/20/25 14:07 UA pH 6.0 Last Edit by Lina Gentile [facility] on 06/20/25 14:07 UA Blood 0 Joe/uL Last Edit by Lina Genitle [facility] on 06/20/25 14:07 UA Specific [place] 1.025 Last Edit by Lina Gentile, [facility] on 06/20/25 14: 07 UA Ketone Negative Last Edit by Lina Gentile, [facility] on 06/20/25 14:07 UA Bilirubin 0 mg/dL Last Edit by Lina Gentile, [facility] on 06/20/25 14:07 UA Glucose 0 mg/dL Last Edit by Lina Gentile, [facility] on 06/20/25 14:07 Results Reviewed Results Reviewed: Laboratory Last Values Urine pH (Auto) 6.0 06/20/25 14:03 Specific [place] (Auto) 1.025 06/20/25 14:03 Urine Protein (Auto) 15 mg/dL 06/20/25 14:03 Glucose (UA)(Auto) 0 mg/dL 06/20/25 14:03 Urine Ketones (Auto) Negative 06/20/25 14:03 Urine Blood (Auto) 0 Joe/uL 06/20/25 14:03 Urine Nitrite (Auto) Negative 06/20/25 14:03 Urine Bilirubin (Auto) 0 mg/dL 06/20/25 14:03 Urine Urobilinogen (Auto) 0.2 mg/dL 06/20/25 14:03 Leukocyte Esterase (Auto) 0 Beatrice/uL 06/20/25 14:03 Assessment & Plan Assessment & Plan Orders: Orders AMB Post Void Residual by ultrasound Today N40.1 - Benign prostatic hyperplasia with lower urinary tract symptoms, R35.0 - Frequency of micturition AMB Urinalysis Automated Today Z13.9 - Encounter for screening, unspecified AMB Urinalysis Automated Today N40.1 - Benign prostatic hyperplasia with lower urinary tract symptoms, R35.0 - Frequency of micturition, Z13.9 - Encounter for screening, unspecified Coding CPT Codes Post Residual Void - PVR CPT Code: 72092-[id number] Void Residual by ultrasound ([id number])
== END 2025-06-20 10:34 | disposition home or self-care (01) ==
LOC: HO.HUSH 09:25
PROVIDERS: PCP Internal Medicine; Visit Provider Urology
DX: Z13.9 Encounter for screening, unspecified (principal); N40.1 Benign prostatic hyperplasia with lower urinary tract symptoms; R35.0 Frequency of micturition

== ENCOUNTER → 2025-06-20 09:24 | Outpatient (BNVA) | payer OTHER, SELFPAY | PROVIDERS: PCP Internal Medicine; Visit Provider Urology | DX: N40.1 Benign prostatic hyperplasia with lower urinary tract symptoms (principal); R35.0 Frequency of micturition; N52.9 Male erectile dysfunction, unspecified; Z79.899 Other long term (current) drug therapy | CPT/HCPCS: 51798; 81003 ==

== ENCOUNTER 2025-07-06 10:21 | Outpatient (REF) | payer OTHER, SELFPAY ==
--- NOTE | ~2025-07-06 | XR_ITS ---
EXAMINATION: XR LUMBOSACRAL SPINE CLINICAL INFORMATION: M54.9 - Dorsalgia, unspecified COMPARISON: May 19, 2019. TECHNIQUE: AP and lateral views. FINDINGS: There are metallic transpedicular screws at L4 and S1, bilaterally. There is bone grafting at L4-5 and likely L5-S1. There is a grade 1 anterolisthesis L5-S1, similar since prior exam. Small marginal osteophyte formation at multiple levels of the axial skeleton. No acute cortical disruption. No lytic or blastic lesions. Rudimentary ribs at T12. XR/XR lumbar spine 2-3V IMPRESSION: Status post posterior lumbar fusion L4 and S1 with persistent, unchanged grade 1 anterolisthesis at L5-S1. Electronically signed by: Jerardo Donahue MD 07/06/2025 11:35 AM EDT
== END 2025-07-06 10:22 | disposition home or self-care (01) ==
LOC: HO.HOSX 10:21
PROVIDERS: PCP Internal Medicine; Visit Provider Physical Medicine & Rehabilitation
DX: M54.42 Lumbago with sciatica, left side (principal); G89.29 Other chronic pain; M53.3 Sacrococcygeal disorders, not elsewhere classified; M54.16 Radiculopathy, lumbar region; G20.A1 Parkinson's disease without dyskinesia, without mention of fluctuations; Z79.899 Other long term (current) drug therapy; Z98.890 Other specified postprocedural states
CPT/HCPCS: 72100

== ENCOUNTER 2025-07-06 10:21 | Outpatient (AMB) | payer OTHER, SELFPAY ==
--- NOTE | 2025-07-06 10:25 | A.OFFVIS_ITS ---
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 Patient was referred by PCP on 02/28/25. At today's visit he states that he had two back surgery's in 1980 and 1992. Patient states that the lower back pain radiates into the legs but left side feels worse. Patient states that he has seen [facility] for injections but at their last visit he stood up and fell. Patient states that the injection did give some relief, no physical therapy was offered. Patient states that about three months ago he felt a pinch in the lower back which caused him to have a fall. HX: Parkinson's Disease. Allergies No Known Allergies Allergy (Unknown, Verified 07/06/25 10:33) Medication List - Last Reconciled 07/06/25 by Jessica Brizuela MD dyudtmhuau-igjxjms-F-mefolate 600-2-6 mg ([employer] Brain MOBITRAC) 1 tab PO BEDTIME 3 months MDD 1 tablet albuterol sulfate 90 mcg/actuation 1 inh inhalation QID PRN buspirone 5 mg PO TID PRN 30 days carbidopa-levodopa 25-100 mg 2-1-2-1 orally 4 times a day; 2 qam 1 at noon 2 in the evening and 1 at bedtime 90 days citalopram 40 mg PO DAILY 90 days fluocinonide 0.05% 1 appl topical BID PRN gabapentin 100 mg PO .qam and q noon gabapentin 300 mg PO Q8H 3 months MDD 1200mg ropinirole ER 2 mg PO DAILY simvastatin 10 mg PO DAILY 90 days tadalafil 10 mg PO DAILY PRN 90 days trazodone 150 mg (1.5 x 100 mg) PO BEDTIME HPI Comments Details: History of Parkinson's, follows with Neurology. Treated with carbidopa/levodopa. Also on gabapentin, trazodone, ropinirole. History of laminectomy L4-5 and L5-S1. Injections with [facility], April 2024. He does not recall that they did not do xrays or MRI. Last injection, both legs become numb and fell. That was an epidural under fluoro. CT lumbar 2023. 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 He had back pain and numbness on both feet. That's when he had surgery for his back, Dr. Kerns and Caro, and then 2nd surgery with Dr. Pak. Chronic back pain since then. Left worse than right. Radiates to hamstrings. Legs/feet get numb but he attributes that to Parkinsons and RLS. Worse when in morning getting up from bed. [facility] Medical History Trigger finger, right ring finger Parkinson's disease without dyskinesia Speech abnormality Abnormal US (ultrasound) of abdomen Alcohol abuse Parkinson disease Environmental allergies BPH (benign prostatic hyperplasia) Back muscle spasm Anxiety, generalized Difficulty sleeping Lipid disorder Surgical History Hx of hand surgery S/P Mohs surgery for basal cell carcinoma History of esophagogastroduodenoscopy (EGD) H/O colonoscopy History of knee surgery History of lumbar fusion History of back surgery Family History Father HTN (hypertension) Stroke Diabetes mellitus Cancer Mother Diabetes mellitus Sarcoidosis Heart failure Renal failure Brother Addisons disease Sister Aneurysm Son No problems noted. Son No problems noted. Social History Housing: House Are you a primary medicare compliance auditor to a significant other at home: No Do you presently have visiting nurse or other home services: No Alcohol intake: former Patient Tobacco Use Status: Never used Tobacco Tobacco use type: Smokeless Tobacco e-Cigarette/Vaping Use: Never Used Substance Use Type: Marijuana service: No Current occupational status: employed Cognitive needs: No Hearing needs: No Vision needs: Yes Review of Systems Const All systems reviewed & are unremarkable except as noted in HPI and below Physical Exam Exam Exam: Constitutional: Patient appears to be in no acute distress, well nourished and well developed. Patient was appropriately conversant and oriented. Good historian. Resting pill-rolling tremors, most notable on left hand. Slightly poor standing balance, some difficulty getting up from seated position. MSK: No specific abnormalities found on inspection of the spine and all extremities. Tender on left SI joint. Mild tenderness over L5-S1 level. No tenderness over GT. Some tenderness over right quadratus lumborum. Lumbar ROM was full. Bilateral hip, knee and ankle ROM WNL. No ligamentous laxity or crepitance. No increased effusion. Straight-leg raising test negative. FABERE test negative. Give-way weakness on left knee extension. Neurological: Strength as above. Babinski was down going bilaterally. Clonus was negative. Vital Signs: BMI result Body Mass Index 28.5 Results Reviewed Results Reviewed: Ordering Physician: Ralph Mosqueda Date of Service: 07/18/23 Procedure(s): CT lumbar spine wo IV con Accession Number(s): [id number] cc: Galo Rodrigues MD; Ralph Mosqueda~ EXAMINATION: CT LUMBAR SPINE WITHOUT CONTRAST CLINICAL INFORMATION: Low back pain after injury. COMPARISON: Lumbar spine x-ray 05/28/2019 TECHNIQUE: 2 mm thin axial and reformatted 2 mm thin sagittal and coronal images of lumbar spine were obtained. This CT examination was performed using dose optimization techniques as appropriate, variously including the following: *Automated exposure control *Adjustment of mA and/or kV according to patient size (this includes techniques or standardized protocols for targeted exams where dose is matched to indication/reason for exam; i.e. extremities or head) *Use of iterative reconstruction technique DLP; 1441. mGy-cm FINDINGS: On the sagittal reconstructed images there is maintained lumbar lordosis. There is bilateral pedicular screws at L4 and S1 vertebra with interconnecting rods for fusion. There is mild loss of L5-S1 disc height. Rest of the disc heights are normal. No lytic or sclerotic process seen. There is no visible acute fracture or dislocation. The L1-L2 disc level appears unremarkable. At L2-L3 views: There is mild disc bulge flattening the ventral thecal sac without spinal canal stenosis. The neural foramina are patent bilaterally. There is mild bilateral facet joint arthropathy. At L3-L4 disc level there is no evidence of disc bulge, herniation or spinal canal stenosis. The neural foramina and the spinal canal is not visualized due to beam hardening artifact from the pedicular screws. At L4-L5 disc level there is right laminectomy with capacious spinal canal there is mild right neural foramina from facet joint arthropathy. The left neural foramina appears patent. At L5-S1 disc level there is bilateral laminectomy is a capacious thecal sac beam hardening artifact limits evaluation of this spinal canal at this level. However grossly no spinal canal compromise seen. There is no aggressive lytic or sclerotic process seen. CT/CT lumbar spine wo IV con IMPRESSION: Right laminectomy at the L4-L5 and a total laminectomy at L5-S1 disc levels with capacious thecal sacs. These disc levels are stabilized posteriorly with bilateral pedicle screws from L4 through S1 vertebra and interconnecting rods. No hardware abnormality seen Mild disc bulge at the L2-L3 without spinal canal stenosis. No fracture or dislocation seen. No lytic or sclerotic process lumbar spine. I reviewed records from the following: Neurology PCP Assessment & Plan Assessment & Plan (1) History of lumbar surgery: Code(s): Z98.890 - Other specified postprocedural states Category: Surgical (2) Chronic low back pain with left-sided sciatica: Code(s): M54.42 - Lumbago with sciatica, left side; G89.29 - Other chronic pain Category: Medical Qualifiers: Back pain laterality: bilateral Qualified Code(s): G89.29 - Other chronic pain; M54.42 - Lumbago with sciatica, left side (3) Sacroiliac joint dysfunction of left side: Code(s): M53.3 - Sacrococcygeal disorders, not elsewhere classified Category: Medical Plan Chronic lower back pain, left worse than right. History of lumbar surgeries remotely. Left lumbar radiculitis versus SI joint dysfunction. Lumbar x-rays to be done today. Patient had undergone adequate conservative management including home exercises without improvement of condition. It would be reasonable to obtain further imaging such as MRI. An MRI would help rule out any serious condition, guide treatment and assess prognosis for recovery. Spe cifically ruling out lumbar disc herniation or nerve compression on the left side. He is looking to repeat injections. I may refer him to Dr. Mcintosh. Assessment and plan discussed with patient, and patient was agreeable. All questions were answered thoroughly. Jessica Brizuela MD, JANEY Board Certified, [place] Board [employer] and Rehabilitation (ABPMR) Board Certified, [place] Board [employer] Electrodiagnostic [employer] (ABEM) Orders: Orders XR lumbar spine 2-3V Today M54.9 - Dorsalgia, unspecified MR lumbar spine wo con Today M54.16 - Radiculopathy, lumbar region, Z98.890 - Other specified postprocedural states Coding Level of Care Code New Pt Level 4 (54603) Diagnoses History of lumbar surgery Z98.890 Chronic bilateral low back pain with left-sided sciatica G89.29; M54.42 Back pain laterality: bilateral Sacroiliac joint dysfunction of left side M53.3
[2025-07-06 10:33] VITALS: BMI 28.5
== END 2025-07-06 11:53 | disposition home or self-care (01) ==
LOC: HO.HOS 10:22
PROVIDERS: PCP Internal Medicine; Visit Provider Physical Medicine & Rehabilitation
DX: G89.29 Other chronic pain (principal); Z98.890 Other specified postprocedural states; M54.42 Lumbago with sciatica, left side; M53.3 Sacrococcygeal disorders, not elsewhere classified
CPT/HCPCS: 99214

== ENCOUNTER → 2025-07-06 11:18 | Outpatient (BNV) | payer OTHER, SELFPAY | PROVIDERS: PCP Internal Medicine; Visit Provider Radiology Diagnostic Radiology | DX: M54.50 Low back pain, unspecified (principal) | CPT/HCPCS: 72100 ==

== ENCOUNTER 2025-07-20 07:17 | Outpatient (REF) | payer OTHER, SELFPAY ==
[2025-07-20 10:16] LABS: MANUAL DIFF FLAG NO
[2025-07-20 10:19] LABS: Hematocrit 45.0 % (42.0-52.0); Hemoglobin 15.8 g/dl (14.0-18.0); Imm Gran Abs Auto 0.01 X10*3/uL (0.00-0.03); Imm Gran Pct Auto 0.2 % (0.0-0.4); Lymphocytes Absolute Auto 1.6 X10*3/uL (1.2-4.9); Mean Corpuscular HGB Conc 35.1 g/dl (31.0-36.0); Mean Corpuscular Hemoglobin 33.1 pg (27.0-33.0); Mean Corpuscular Volume 94.1 fL (80.0-98.0); NRBC Abs Auto 0.000 X10*3/uL (0.0-0.012); NRBC Pct Auto 0.0 /100WBC (0.0-0.2); Platelet Count 140 X10*3/uL (160-400); Red Blood Count 4.78 X10*6/uL (4.60-5.80); White Blood Count 5.0 X10*3/uL (4.8-10.8)
[2025-07-20 11:41] LABS: Alanine Aminotransferase 12 U/L (0-40); Albumin Level 4.2 g/dL (3.5-5.0); Alkaline Phosphatase 84 U/L (39-117); Anion Gap 11 (12-20); Aspartate Amino Transferase 25 U/L (5-37); Blood Urea Nitrogen 8 mg/dL (9-16); Calcium 8.9 mg/dL (8.4-10.2); Carbon Dioxide 28 mmol/L (22-29); Chloride 108 mmol/L (96-108); Cholesterol 146 mg/dL (<200); Estimated Glomerular Filt Rate > 60; HDL Cholesterol 46 mg/dL (>40); Potassium 4.3 mmol/L (3.3-5.1); Sodium 143 mmol/L (135-145); Total Protein 6.7 g/dL (6.5-8.0); Triglycerides 137 mg/dL (<150)
[2025-07-20 11:48] LABS: Vitamin B12 1151 pg/mL (200-900)
[2025-07-25 16:18] LABS: Vitamin D 25-OH, D2 <4 ng/mL; Vitamin D 25-OH, D3 39 ng/mL; Vitamin D 25-OH, Total 39 ng/mL (30-100)
== END 2025-07-20 07:18 | disposition home or self-care (01) ==
LOC: HO.HMGCLDS 07:17
PROVIDERS: PCP Internal Medicine; Visit Provider Internal Medicine
DX: F33.1 Major depressive disorder, recurrent, moderate (principal); G20.A1 Parkinson's disease without dyskinesia, without mention of fluctuations; E53.8 Deficiency of other specified B group vitamins; E78.9 Disorder of lipoprotein metabolism, unspecified; F41.1 Generalized anxiety disorder
CPT/HCPCS: 36415; 80053; 80061; 82306; 82607; 85025

== ENCOUNTER 2025-07-28 09:49 | Outpatient (AMB) | payer MEDICARE, OTHER, SELFPAY ==
--- NOTE | 2025-07-28 09:50 | MHC.PC.OV ---
Vital Signs 07/28/25 09:53 Height 6 ft 2 in Weight 222 lb BMI 28.5 BP 114/70 Blood Pressure Location Rt brachial Position Sitting Pulse 62 Pulse Source Pulse Oximeter Pulse Oximetry (%) 97 Intake Visit Reasons: PE Allergies No Known Allergies Allergy (Unknown, Verified 07/28/25 09:57) Medication List - Last Reconciled 07/28/25 by Galo Rodrigues MD [id number] 600-2-6 mg (View the Space) 1 tab PO BEDTIME 3 months MDD 1 tablet albuterol sulfate 90 mcg/actuation 1 inh inhalation QID PRN buspirone 5 mg PO TID PRN 30 days carbidopa-levodopa 25-100 mg 2-1-2-1 orally 4 times a day; 2 qam 1 at noon 2 in the evening and 1 at bedtime 90 days citalopram 40 mg PO DAILY 90 days gabapentin 100 mg PO .qam and q noon gabapentin 300 mg PO Q8H 3 months MDD 1200mg ropinirole ER 2 mg PO DAILY simvastatin 10 mg PO DAILY 90 days tadalafil 10 mg PO DAILY PRN 90 days trazodone 150 mg (1.5 x 100 mg) PO BEDTIME Tobacco use date assessed: 01/10/25 Fall risk assessment: 2 + Falls in past year Last assessed Fall Risk: 07/28/25 Dental Screening Dental Screen Date: 01/10/25 HPI PE HPI Details History of Present Illness The patient is a 64-year-old male presenting with a request for a routine physical examination and medication assessment. Generalized Anxiety Disorder: - Managed with buspirone 5 mg as needed. Depression: - Managed with citalopram. Parkinson's Disease: - Managed with ropinirole. Insomnia: - Managed with trazodone. Hyperlipidemia: - Managed with simvastatin; LDL cholesterol 73. Benign Prostatic Hyperplasia: - History of urology visits . Internal Hemorrhoids: - Identified during recent colonoscopy with Dr. Haque. Medical History: - Generalized Anxiety Disorder - Depression - Parkinson's Disease - Hyperlipidemia - Insomnia - Benign Prostatic Hyperplasia - Internal Hemorrhoids - Trigger Finger syndrome Surgical History: - Surgery on left hand for Trigger Finger syndrome Social History: - Exercises by playing golf once a week, walks with dogs, and grandchildren. - Reports a dietary change and weight loss of approximately 12 pounds, current weight is 221 pounds, previously 233 pounds. Health Maintenance - Colonoscopy in early 2022, results normal except for mild diverticulosis of sigmoid colon and internal hemorrhoids, next follow-up recommended in 10 years. - Recent lab results: normal CBC, normal kidney function, normal liver enzymes, and Vitamin B12 elevated without supplements. [place] of Care - Follows with neurology (appointment in October) and urology (yearly follow-up). Medications - Buspirone 5 mg PRN for Generalized Anxiety Disorder. - Citalopram for Depression. - Ropinirole for Parkinson's Disease. - Trazodone for Insomnia. - Simvastatin for Hyperlipidemia. - Carbidopa/Levodopa for Parkinson's Disease. - Gabapentin for neuropathic pain management. Employment - Works part-time at 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 Patient Instructions - Continue prescribed medications. - Maintain current diet and exercise routine. - Return for regular follow-up appointments as scheduled. - Monitor for any new symptoms or changes and report them. Follow-up 6 months Review of Systems - General: No fever no chills - Neurological: No headaches - Ear nose throat: No sore throat no hearing difficulty no ear pain - Cardiovascular: No syncope, no chest pain, no palpitations - Gastrointestinal: No nausea vomiting or diarrhea - Endocrine: No polyuria polydipsia no heat intolerance - Genitourinary: No dysuria - Skin: No new complaints Physical Exam General: Cooperative, healthy appearing, comfortable, no acute distress Orientation: Patient oriented x3 Head: Normal to inspection Ears: Within normal limit visually Nose: Normal external nose present Face and sinus: Normal facial exam Eyes: Appearance normal, extraocular movement intact pupils reactive Neck: Normal visual inspection and supple Respiratory: Normal respiratory effort and able to speak in complete sentences. Clear to auscultation, no stridor Cardiovascular: S1 and S2 RRR GI: Normal to inspection. Soft to palpation and nontender Skin: Turgor normal, no acute findings Neuro: Patient oriented x3, motor sensory intact, balance test failed Extremities: Normal to inspection; both shoulders hurt upon lifting arms chronic; no swelling in knees [facility] Medical History Trigger finger, right ring finger Parkinson's disease without dyskinesia Speech abnormality Abnormal US (ultrasound) of abdomen Alcohol abuse Parkinson disease Environmental allergies BPH (benign prostatic hyperplasia) Back muscle spasm Anxiety, generalized Difficulty sleeping Lipid disorder Surgical History History of lumbar surgery Hx of hand surgery S/P Mohs surgery for basal cell carcinoma History of esophagogastroduodenoscopy (EGD) H/O colonoscopy History of knee surgery History of lumbar fusion History of back surgery Family History Father HTN (hypertension) Stroke Diabetes mellitus Cancer Mother Diabetes mellitus Sarcoidosis Heart failure Renal failure Brother Addisons disease Sister Aneurysm Son No problems noted. Son No problems noted. Social History Housing: House Are you a primary direct care supervisor to a significant other at home: No Do you presently have visiting nurse or other home services: No Alcohol intake: former Patient Tobacco Use Status: Never used Tobacco Tobacco use type: Smokeless Tobacco e-Cigarette/Vaping Use: Never Used Substance Use Type: Marijuana service: No Current occupational status: employed Cognitive needs: No Hearing needs: No Vision needs: Yes Questionnaire PHQ-9 Over the last 2 weeks, how often have you been bothered by any of the following problems? 1. Little interest or pleasure in doing things: not at all 2. Feeling down, depressed, or hopeless: several days 3. Trouble falling or staying asleep, or sleeping too much: not at all 4. Feeling tired or having little energy: not at all 5. Poor appetite or overeating: not at all 6. Feeling bad about yourself - or that you are a failure or have let yourself or your family down: not at all 7. Trouble concentrating on things, such as reading the newspaper or watching television: not at all 8. Moving or speaking so slowly that other people could have noticed. Or the opposite - being so fidgety or restless that you have been moving around a lot more than usual: not at all 9. Thoughts that you would be better off or of hurting yourself in some way: not at all Total score: 1 Depression Screening Interpretation: Negative Depression Screening Done: Yes 05408 - PHQ-9 Billing: Yes Source: Developed by Donnie Garciaet B.W. Sylvester, Chris Gordillo and colleagues, with an educational cammie from [employer]. Thrive Questionnaire Date Thrive assessed: 01/03/25 I am a: Patient What is your living situation today?: I have a steady place to live Within the past 12 months, did the food you bought not last and you didn't have the money to get more?: Never true Within the past 12 months, did you worry whether your food would run out before you got money to buy more?: Never true Do you have trouble paying for medicines?: No Do you have trouble getting transportation to medical appointments?: No Do you have trouble paying your heating and electricity bill?: No Do you have trouble taking care of your child, family member or friend?: No Do you have trouble with day-to-day activities such as bathing, preparing meals, shopping, managing finances, etc.?: No Are you currently unemployed and looking for a job?: No Are you interested in more education?: No Please select the resources that you would like help with: None Currently or been in a relationship where the following occur: No concerns reported THRIVE Score: 0 AUDIT C Alcohol Use Questionnaire (AUDIT-C) 1. How often do you have a drink containing alcohol?: Never 3. How often do you have six or more drinks on one occasion?: Never Total Score: 0 Score Reviewed/Action Taken: Yes KHURRAM-7 AMB Questionnaire KHURRAM-7 Date KHURRAM - 7 assessed: 01/10/25 Feeling nervous, anxious, or on edge: 1 = Several days Not being able to stop or control worryin = Several days Worrying too much about different things: 0 = Not at all Trouble relaxin = Not at all Being so restless that it is hard to sit still: 0 = Not at all Becoming easily annoyed or irritable: 0 = Not at all Feeling afraid as if something awful might happen: 0 = Not at all Total KHURRAM-7 score (0-4 normal; 5-9 mild; 10-14 moderate; 15-21 severe): 2 Source: Developed by Kathie Garcia, Chris Gordillo and colleagues, with an educational cammie from [employer]. KHURRAM-7 Assessment Billing KHURRAM-7 Assessment Tool: KHURRAM-7 Assessment 64393 Physical exam (Primary Care) Vital Signs: Last Vital Signs Pulse 62 07/28/25 09:53 BP 114/70 07/28/25 09:53 Pulse Ox 97 07/28/25 09:53 BMI result Body Mass Index 28.5 Tobacco/Smoking Status: Tobacco use Status Tobacco use date assessed 01/10/25 07/28/25 09:52 Patient Tobacco Use Status Never used Tobacco 07/28/25 09:52 Tobacco use type Smokeless Tobacco 07/28/25 09:52 e-Cigarette/Vaping Use Never Used 07/28/25 09:52 PHQ-9: PHQ-9 Score PHQ-9: Total score 1 07/28/25 10:30 Depression Screening Interpretation: Negative Thrive Assessment: Date of Thrive Assessment Date Thrive assessed 01/03/25 07/28/25 09:52 Currently or been in a relationship where the following occur: No concerns reported Coding Level of Care Code Est Pt Level 4 (49139) Est Pt Prev Care 40-64y(67795) Diagnoses Encounter for general adult medical examination with abnormal findings Z00.01 Difficulty sleeping G47.9 Parkinson's disease with dyskinesia and fluctuating manifestations G20.B2 Dyskinesia presence: with dyskinesia Fluctuating manifestations: with fluctuating manifestations Chronic bilateral low back pain with left-sided sciatica G89.29; M54.42 Back pain laterality: bilateral Benign prostatic hyperplasia with urinary frequency N40.1; R35.0 Lower urinary tract symptom presence: symptoms present Lower urinary tract symptom detail: urinary frequency Chronic GERD K21.9 Lipid disorder E78.9 Moderate episode of recurrent major depressive disorder F33.1 Active/Remission status: currently active Major depression episode severity: moderate Anxiety, generalized F41.1 Additional Codes PHQ-9 - 36433 - PHQ-9 Billing: Yes ([id number]) KHURRAM-7 Assessment Billing - KHURRAM-7 Assessment Tool: KHURRAM-7 Assessment 17457 ([id number]) Assessment & Plan Assessment & Plan (1) Encounter for general adult medical examination with abnormal findings: Code(s): Z00.01 - Encounter for general adult medical examination with abnormal findings Category: Medical (2) Difficulty sleeping: Code(s): G47.9 - Sleep disorder, unspecified Category: Medical (3) Parkinson disease: Code(s): G20 - Parkinson's disease Category: Medical Qualifiers: Dyskinesia presence: with dyskinesia Fluctuating manifestations: with fluctuating manifestations Qualified Code(s): G20.B2 - Parkinson's disease with dyskinesia, with fluctuations (4) Chronic low back pain with left-sided sciatica: Code(s): M54.42 - Lumbago with sciatica, left side; G89.29 - Other chronic pain Category: Medical Qualifiers: Back pain laterality: bilateral Qualified Code(s): G89.29 - Other chronic pain; M54.42 - Lumbago with sciatica, left side (5) BPH (benign prostatic hyperplasia): Code(s): N40.0 - Benign prostatic hyperplasia without lower urinary tract symptoms Category: Medical Qualifiers: Lower urinary tract symptom presence: symptoms present Lower urinary tract symptom detail: urinary frequency Qualified Code(s): N40.1 - Benign prostatic hyperplasia with lower urinary tract symptoms; R35.0 - Frequency of micturition (6) Chronic GERD: Code(s): K21.9 - Gastro-esophageal reflux disease without esophagitis Category: Medical (7) Lipid disorder: Code(s): E78.9 - Disorder of lipoprotein metabolism, unspecified Category: Medical (8) Major depression, recurrent: Code(s): F33.9 - Major depressive disorder, recurrent, unspecified Category: Medical Qualifiers: Active/Remission status: currently active Major depression episode severity: moderate Qualified Code(s): F33.1 - Major depressive disorder, recurrent, moderate (9) Anxiety, generalized: Code(s): F41.1 - Generalized anxiety disorder Category: Medical Plan History of Present Illness The patient is a 64-year-old male presenting with a request for a routine physical examination and medication assessment. Generalized Anxiety Disorder: - Managed with buspirone 5 mg as needed. Depression: - Managed with citalopram. Parkinson's Disease: - Managed with ropinirole. Insomnia: - Managed with trazodone. Hyperlipidemia: - Managed with simvastatin; LDL cholesterol 73. Benign Prostatic Hyperplasia: - History of urology visits . Internal Hemorrhoids: - Identified during recent colonoscopy with Dr. Haque. Medical History: - Generalized Anxiety Disorder - Depression - Parkinson's Disease - Hyperlipidemia - Insomnia - Benign Prostatic Hyperplasia - Internal Hemorrhoids - Trigger Finger syndrome Surgical History: - Surgery on left hand for Trigger Finger syndrome Social History: - Exercises by playing golf once a week, walks with dogs, and grandchildren. - Reports a dietary change and weight loss of approximately 12 pounds, current weight is 221 pounds, previously 233 pounds. Health Maintenance - Colonoscopy in early 2022, results normal except for mild diverticulosis of sigmoid colon and internal hemorrhoids, next follow-up recommended in 10 years. - Recent lab results: normal CBC, normal kidney function, normal liver enzymes, and Vitamin B12 elevated without supplements. [place] of Care - Follows with neurology (appointment in October) and urology (yearly follow-up). Medications - Buspirone 5 mg PRN for Generalized Anxiety Disorder. - Citalopram for Depression. - Ropinirole for Parkinson's Disease. - Trazodone for Insomnia. - Simvastatin for Hyperlipidemia. - Carbidopa/Levodopa for Parkinson's Disease. - Gabapentin for neuropathic pain management. Employment - Works part-time at 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 Patient Instructions - Continue prescribed medications. - Maintain current diet and exercise routine. - Return for regular follow-up appointments as scheduled. - Monitor for any new symptoms or changes and report them. Follow-up 6 months Medications: Changed From buspirone 5 mg PO TID 30 days PRN 30 tabs 0RF anxiety To buspirone 5 mg PO BID PRN 180 tabs 1RF anxiety 90 days Refilled citalopram 40 mg PO DAILY 90 tabs 1RF 90 days
[2025-07-28 09:53] VITALS: BP 114/70; PULSE 62; O2SAT 97; BMI 28.5
== END 2025-07-28 10:32 | disposition home or self-care (01) ==
PROVIDERS: PCP Internal Medicine; Visit Provider Internal Medicine
DX: Z00.00 Encounter for general adult medical examination without abnormal findings (principal); G47.9 Sleep disorder, unspecified; G20.B2 Parkinson's disease with dyskinesia, with fluctuations; F33.1 Major depressive disorder, recurrent, moderate; G89.29 Other chronic pain; M54.42 Lumbago with sciatica, left side; N40.1 Benign prostatic hyperplasia with lower urinary tract symptoms; R35.0 Frequency of micturition; K21.9 Gastro-esophageal reflux disease without esophagitis; E78.9 Disorder of lipoprotein metabolism, unspecified; F41.1 Generalized anxiety disorder

== ENCOUNTER → 2025-07-28 09:49 | Outpatient (BNVA) | payer OTHER, SELFPAY | PROVIDERS: PCP Internal Medicine; Visit Provider Internal Medicine | DX: Z00.01 Encounter for general adult medical examination with abnormal findings (principal); F41.1 Generalized anxiety disorder; G47.00 Insomnia, unspecified; E78.5 Hyperlipidemia, unspecified; N40.0 Benign prostatic hyperplasia without lower urinary tract symptoms; K64.8 Other hemorrhoids; G20.B2 Parkinson's disease with dyskinesia, with fluctuations; G89.29 Other chronic pain; M54.42 Lumbago with sciatica, left side; N40.1 Benign prostatic hyperplasia with lower urinary tract symptoms; R35.0 Frequency of micturition; K21.9 Gastro-esophageal reflux disease without esophagitis; F33.1 Major depressive disorder, recurrent, moderate | CPT/HCPCS: 96127; 99396 ==

== ENCOUNTER → 2025-09-03 08:32 | Outpatient (BNV) | payer MEDICARE, OTHER, SELFPAY | PROVIDERS: PCP Internal Medicine; Visit Provider Radiology Diagnostic Radiology | DX: M51.16 Intervertebral disc disorders with radiculopathy, lumbar region (principal); M89.38 Hypertrophy of bone, other site; M48.061 Spinal stenosis, lumbar region without neurogenic claudication | CPT/HCPCS: 72148 ==

== ENCOUNTER 2025-09-03 08:39 | Outpatient (REF) | payer MEDICARE, OTHER, SELFPAY ==
--- NOTE | ~2025-09-03 | MR_ITS ---
CLINICAL HISTORY: M54.16 - Radiculopathy, lumbar region --- Additional Notes or Special Instructions: Previous lumbar surgeries, may have hardware MR lumbar spine without gadolinium Comparison: DX/SR - XR LUMBAR SPINE 2-3 VIEWS - 07/06/25 11:18 EDT Findings: Examination degraded by metallic artifact. 5 lumbar type vertebral bodies are present by plain film. 2 mm of retrolisthesis of L1 on L2 and L2 on L3. 4 mm of retrolisthesis of L3 on L4. No acute fracture or pathologic bone lesion. Mild reactive signal throughout the endplates of the lumbar and lower thoracic spine. Posterior fusion hardware at L4-S1. Cauda equina and conus medullaris within normal limits. Paraspinous musculature intact. No paraspinous masses. L1-L2: Mild facet and ligamentum flavum hypertrophy. Mild epidural lipomatosis. No significant canal or foraminal stenosis. L2-L3:Mild disc desiccation and diffuse disc bulge. Mild facet and ligamentum flavum hypertrophy. Mild epidural lipomatosis. Mild canal stenosis. Mild kkhgv-rbdjtzm-njzd-left foraminal stenosis. L3-L4:Mild disc desiccation and diffuse disc bulge. Mild facet and ligamentum flavum hypertrophy. Mild canal stenosis. Mild bilateral foraminal stenosis. L4-L5: Posterior fusion hardware. Mild disc height loss and desiccation. Mild diffuse disc bulge. No canal stenosis. No definite foraminal stenosis. L5-S1:Mild disc height loss and desiccation. Mild diffuse disc bulge. Posterior fusion hardware. No significant canal or foraminal stenosis. IMPRESSION: 1. Multilevel degenerative disc and facet disease, as well as ligamentum flavum hypertrophy. 2. Mild multilevel canal and foraminal stenoses. 3. Postsurgical sequelae. This document has been electronically signed by: Yoly Trujillo MD on 09/05/2025 14:46:35
== END 2025-09-03 08:40 | disposition home or self-care (01) ==
LOC: HO.MRI 08:39
PROVIDERS: PCP Internal Medicine; Visit Provider Physical Medicine & Rehabilitation
DX: M54.16 Radiculopathy, lumbar region (principal); Z98.890 Other specified postprocedural states
CPT/HCPCS: 72148

== ENCOUNTER 2025-10-18 08:43 | Outpatient (AMB) | payer OTHER, MEDICARE, SELFPAY ==
--- NOTE | 2025-10-18 09:22 | MHC.OFFVIS ---
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 States his finger was locking and now it has stiffen up and is not able to bend. He is also having a burning sensation down his 4th MCP palmar aspect of hand. No injury he can recall. States this is very painful and would like to discuss trigger release surgery. Denies numbness or tingling. Hx of Right ring finger and left middle finger trigger release done with Dr. Montesinos Allergies No Known Allergies Allergy (Unknown, Verified 10/18/25 09:28) HPI HPI New prob-LT hand pain-reaves rom : Details: Elkin is a 65 year old ambidextrous male who returns with complains of left ring finger pain He complains of pain & locking of his left ring finger, and he says he now has limited ROM of his finger. He denies any falls or known injury. Patient believes his ring finger trigger figner had been released in the past, but it was not done by us. [facility] Medical History (Updated 10/18/25 @ 09:32 by Christopher Sams) Post laminectomy syndrome Sacroiliac inflammation Sacroiliac dysfunction Trigger finger, right ring finger Parkinson's disease without dyskinesia Speech abnormality Abnormal US (ultrasound) of abdomen Alcohol abuse Parkinson disease Environmental allergies BPH (benign prostatic hyperplasia) Back muscle spasm Anxiety, generalized Difficulty sleeping Lipid disorder Surgical History History of lumbar surgery Hx of hand surgery S/P Mohs surgery for basal cell carcinoma History of esophagogastroduodenoscopy (EGD) H/O colonoscopy History of knee surgery History of lumbar fusion History of back surgery Family History Father HTN (hypertension) Stroke Diabetes mellitus Cancer Mother Diabetes mellitus Sarcoidosis Heart failure Renal failure Brother Addisons disease Sister Aneurysm Son No problems noted. Son No problems noted. 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 / [employer] Cognitive needs: No Hearing needs: No Vision needs: Yes Review of Systems Const All systems reviewed & are unremarkable except as noted in HPI and below Physical Exam Vital Signs: BMI result Body Mass Index 28.5 Const General: no acute distress and alert Orientation/consciousness: patient oriented x3 Neuro General: patient oriented x3 Extrem Other: Evaluation of Left Upper Extremity: The patient is alert, oriented, and in no acute distress Neuro: Median, Ulnar, Radial nerves motor and sensory intact and sensation is normal to the tips of all digits Vascular: Cap refill brisk ROM: We worked on ROM exercises in clinic With encouragement he can make a fist and extend all his digits Visible & palpable locking & catching of the ring finger once he was able to make a tight fist Tender over the ring finger a1 karlie Radiographs: 3 views of the left hand were taken and viewed by me today in clinic. They show no fractures or dislocations. He has some arthritic changes in the small finger PIP joint, with joint space narrowing and osteophyte formation. Psych Appearance: grossly normal Affect: normal affect Attitude: cooperative Assessment & Plan Assessment & Plan (1) Trigger finger, left ring finger: Code(s): M65.342 - Trigger finger, left ring finger Category: Medical (2) Parkinson's disease without dyskinesia: Code(s): G20.A1 - Parkinson's disease without dyskinesia, without mention of fluctuations Category: Medical Qualifiers: Fluctuating manifestations: without fluctuating manifestations Qualified Code(s): G20.A1 - Parkinson's disease without dyskinesia, without mention of fluctuations (3) Tremor of both hands: Code(s): R25.1 - Tremor, unspecified Category: Medical Plan Assessment & Plan: 1. Left ring finger trigger finger 2. Left ring finger stiffness I educated him about these conditions I discussed operative and non-operative treatment options The patient would like to proceed with surgery He will work on ROM exercises at home The risks and benefits of operative treatment were discussed with the patient and the patient wishes to proceed with surgery. These risks include, but are not limited to risk of damage to blood vessels, nerves, tendons, infection, recurrence, incomplete relief of preoperative symptoms, persistent pain, possible need for further surgery and the risks associated with regional blocks and anesthesia. The plan is to take the patient to the operating room sometime in the next few weeks for the following procedures: 1. Left ring finger trigger Possible repeat release, under local All of the preoperative paperwork including the consent was reviewed today. All the patient's questions were answered. The patient understands that they will be contacted by our mortarman soon to schedule this procedure He denies Diabetes, blood thinners, asthma, heart, lung, kidney issues 3. Trigger finger, right ring finger, S/P release DOS: 02/09/25 4. Trigger finger, left middle finger S/P release DOS: 10/30/22 Scribed for Anne Montesinos MD by Christopher Sams, medical insurance collector, on 10/18/25 at 9:30, EST. Orders: Orders XR hand LT min 3V Today M79.642 - Pain in left hand Coding Level of Care Code Est Pt Level 4 (95699) Diagnoses Trigger finger, left ring finger M65.342 Parkinson's disease without dyskinesia or fluctuating manifestations G20.A1 Fluctuating manifestations: without fluctuating manifestations Tremor of both hands R25.1
[2025-10-18 09:24] VITALS: BMI 28.5
== END 2025-10-18 09:53 | disposition home or self-care (01) ==
LOC: HO.HOS 08:44
PROVIDERS: PCP Internal Medicine; Visit Provider Orthopaedic Surgery
DX: M65.342 Trigger finger, left ring finger (principal); G20.A1 Parkinson's disease without dyskinesia, without mention of fluctuations; R25.1 Tremor, unspecified
CPT/HCPCS: 99214

== ENCOUNTER → 2025-10-18 08:45 | Outpatient (BNV) | payer OTHER, MEDICARE, SELFPAY | PROVIDERS: Visit Provider Radiology Diagnostic Radiology | DX: M79.642 Pain in left hand (principal) | CPT/HCPCS: 73130 ==

== ENCOUNTER 2025-10-18 14:58 | Outpatient (REF) | payer OTHER, MEDICARE, SELFPAY ==
--- NOTE | ~2025-10-18 | XR_ITS ---
EXAMINATION: XR HAND 3 OR MORE VIEWS LEFT HISTORY: M79.642 - Pain in left hand COMPARISON: There are no prior studies available for comparison. FINDINGS: Four views of the left hand are submitted. Osseous mineralization is normal. There is no fracture or dislocation. There is moderate degenerative change of the 5th PIP joint and mild narrowing of the remaining DIP and PIP joints. The soft tissues are unremarkable. XR/XR hand LT min 3V IMPRESSION: Degenerative changes of the left hand as described. Electronically signed by: Ricardo Saeed MD 10/18/2025 08:55 AM MARJAN WRIGHT
== END 2025-10-18 14:59 | disposition home or self-care (01) ==
LOC: HO.HOSX 14:58
PROVIDERS: Visit Provider Orthopaedic Surgery
DX: M65.342 Trigger finger, left ring finger (principal); G20.A1 Parkinson's disease without dyskinesia, without mention of fluctuations
CPT/HCPCS: 73130

== ENCOUNTER 2025-10-30 09:03 | Outpatient (AMB) | payer OTHER, MEDICARE, SELFPAY ==
[2025-10-30 09:09] VITALS: BMI 28.5
--- NOTE | 2025-10-30 09:09 | MHC.OFFVIS ---
Vital Signs 10/30/25 09:09 Height 6 ft 2 in Weight 222 lb BMI 28.5 Intake Visit Reasons: Inj-B/L shoulder cortisone-last 10/19/23 Intake Note: Margarito is a 65 year old left hand dominant male who presents today as a New Patient for follow up of his Bilateral Shoulder Bursitis. Both of the shoulders were last injected on 10/19/23. Patient reports that he would like to have bilateral shoulders injected today Allergies No Known Allergies Allergy (Unknown, Verified 10/18/25 09:28) HPI HPI Inj-B/L shoulder cortisone-last 10/19/23: Details: Margarito is a 65 year old left hand dominant male who presents today as a New Patient for follow up of his Bilateral Shoulder Bursitis. Both of the shoulders were last injected on 10/19/23. Patient reports that he would like to have bilateral shoulders injected today HPI Comments Details: Interval History The patient is a 65-year-old male presenting with bilateral shoulder pain, more pronounced on the right side. He reports significant pain, especially during overhead activities, and experiences pain at night. The patient has a history of receiving cortisone injections in the past, which provided relief, but the pain has returned. The patient denies any recent activities that could have exacerbated the shoulder pain and reports no history of diabetes. He mentions a history of Parkinson's disease, which led him to stop working out. [facility] Medical History (Updated 10/18/25 @ 09:32 by Christopher Sams) Post laminectomy syndrome Sacroiliac inflammation Sacroiliac dysfunction Trigger finger, right ring finger Parkinson's disease without dyskinesia Speech abnormality Abnormal US (ultrasound) of abdomen Alcohol abuse Parkinson disease Environmental allergies BPH (benign prostatic hyperplasia) Back muscle spasm Anxiety, generalized Difficulty sleeping Lipid disorder Surgical History History of lumbar surgery Hx of hand surgery S/P Mohs surgery for basal cell carcinoma History of esophagogastroduodenoscopy (EGD) H/O colonoscopy History of knee surgery History of lumbar fusion History of back surgery Family History Father HTN (hypertension) Stroke Diabetes mellitus Cancer Mother Diabetes mellitus Sarcoidosis Heart failure Renal failure Brother Addisons disease Sister Aneurysm Son No problems noted. Son No problems noted. 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 - Musculoskeletal: Positive Polk test bilaterally, 4-/5 strength on the left and 4+/5 on the right for empty can testing. 90 degrees abduction active and passive, 30 degrees external rotation bilaterally. Vital Signs: BMI result Body Mass Index 28.5 Office Procedures Joint Inj/Aspir; Non-Pain Clin Joint Injection/Drain Details: Injected 1 mL of Decadron and 3 mL 1% lidocaine and 3 mL of 0.25% Marcaine. Site was prepped using aseptic technique. Patient tolerated the procedure well. Shoulders, Hips, Knees, Shoulder Injection Large joint : Bilateral Shoulders Coding Procedure code (CPT) selection complete Assessment & Plan Assessment & Plan (1) Bilateral shoulder bursitis: Code(s): M75.51 - Bursitis of right shoulder; M75.52 - Bursitis of left shoulder Category: Medical Plan Plan 1. Bilateral Shoulder Pain Administered cortisone injections to both shoulders to alleviate pain and improve function. Advised the patient to monitor for any adverse reactions and to report if the pain does not improve. Recommended follow-up if symptoms persist or worsen. Discussion Notes The patient and I discussed the recurrence of shoulder pain and the effectiveness of previous cortisone injections. The patient expressed understanding of the treatment plan, including the administration of cortisone injections and the need to monitor symptoms. I recommend home exercise program which she has states he do. I emphasized the importance of reporting any adverse reactions or lack of improvement. Coding Level of Care Code Est Pt Level 3 (57301) Diagnoses Bilateral shoulder bursitis M75.51; M75.52 CPT Codes Shoulders, Hips, Knees, - Shoulder Injection Large joint : Bilateral Shoulders ([id number])
== END 2025-10-30 10:21 | disposition home or self-care (01) ==
LOC: HO.HOS 09:05
PROVIDERS: PCP Internal Medicine; Visit Provider Orthopaedic Surgery
DX: M75.51 Bursitis of right shoulder (principal); M75.52 Bursitis of left shoulder
CPT/HCPCS: 20610; 99213

== ENCOUNTER → 2025-10-30 09:03 | Outpatient (BNVA) | payer OTHER, MEDICARE, SELFPAY | PROVIDERS: PCP Internal Medicine; Visit Provider Orthopaedic Surgery | DX: M75.51 Bursitis of right shoulder (principal); M75.52 Bursitis of left shoulder | CPT/HCPCS: 20610; J0665; J1100; J2003 ==

== ENCOUNTER 2025-10-31 08:55 | Outpatient (AMB) | payer OTHER, SELFPAY ==
--- NOTE | 2025-10-31 09:06 | A.OFFVIS_ITS ---
Vital Signs 10/31/25 09:07 Height 6 ft 2 in Weight 238 lb 8 oz BMI 30.6 BP 118/78 Blood Pressure Location Rt brachial Position Sitting Pulse 53 Pulse Source Pulse Oximeter Pulse Oximetry (%) 95 Oxygen Delivery Method Room Air Intake Visit Reasons: 6 mnts f/u Intake Note: Follow up Parkinson's disease without dyskinesia Addiction Social Worker Required: No Accompanied by: Self / Same As Patient Allergies No Known Allergies Allergy (Unknown, Verified 10/31/25 09:06) HPI Comments Details: 65y/o left handed male comes for follow up of Parkinsons. He is on sinemet 25/100 3 tablets qam and 3 tablets qpm. He denies constipation, stays active and has fragmented sleep. He walks 1-2 miles daily, and uses his cane for longer distances. He has falls in the shower, has grab rails and a chair, gets up and looses his balance, will have near falls, no injuries. He reports abnormal l. sided twitches at rest. He now makes low pitched screaming noises due to the pain and discomfort. Twitches and spasms are worse in the evening, jerky abnormal movements through out the day and improve with Sinemet. He is no longer in the Parkinsons study due to funding cuts. He feels stronger, balance is improved and is more confident. He has a soft voice, difficulty with projection and hypophonia at baseline. Denies dysphagia, and drooling. Diet is stable. Turning over in bed is difficult, he has cortisone shots q monhtly in the shoulders due to pain. His mood is okay he sees therapist regularly, once every two weeks and this eases his stress levels. STM is starting to wane, is overstimulated with crowds, noise, feels lost, driving is becoming more difficult, went to his local bank on [address] and could not locate the bank. He has trouble with finishing sentences and replaces words, could not find the precise words. His recall is stable. He quit drinking 28 years ago. Has trouble falling asleep, has multiple arousals, snores, wakes himself up multiple times a night, will take thc / cbd gummies, medical grade and would like to taper off of trazadone as it is no longer effective has been on it for over 10 years now. He takes gabapentin and Ropinirole for spasm, paresthesias and would like to try Nidra. [facility] Medical History (Updated 10/31/25 @ 20:31 by Yue Vazquez PA-C) Post laminectomy syndrome Sacroiliac inflammation Sacroiliac dysfunction Trigger finger, right ring finger Parkinson's disease without dyskinesia Speech abnormality Abnormal US (ultrasound) of abdomen Alcohol abuse Parkinson disease Environmental allergies BPH (benign prostatic hyperplasia) Back muscle spasm Anxiety, generalized Difficulty sleeping Lipid disorder Surgical History History of lumbar surgery Hx of hand surgery S/P Mohs surgery for basal cell carcinoma History of esophagogastroduodenoscopy (EGD) H/O colonoscopy History of knee surgery History of lumbar fusion History of back surgery Family History Father HTN (hypertension) Stroke Diabetes mellitus Cancer Mother Diabetes mellitus Sarcoidosis Heart failure Renal failure Brother Addisons disease Sister Aneurysm Son No problems noted. Son No problems noted. 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 / [employer] Cognitive needs: No Hearing needs: No Vision needs: Yes Physical Exam Vital Signs: Last Vital Signs Pulse 53 10/31/25 09:07 BP 118/78 10/31/25 09:07 Pulse Ox 95 10/31/25 09:07 Oxygen Delivery Method Room Air 10/31/25 09:07 BMI result Body Mass Index 30.6 Const General: cooperative, healthy appearing and no acute distress Nutritional Appearance: average body habitus Orientation/consciousness: patient oriented x3 HEENT Head: Yes normal to inspection Face and sinus: Yes face symmetric Teeth and gingiva: other ([place]pti score is 4) Neck Other: mild antecollis and right laterocollis and restricted range of motion Resp Effort & Inspection: normal respiratory effort and able to speak in complete sentences Neuro Other: Mild decreased blink and facial expression No lip tremors, tongue tremors , slow tongue movements Voice- normal, dysprosody Fine Finger movements -moderately decreased demarcus L>R Alternating hand movements - decreased demarcus L>R Hand movements - decreased demarcus Foot taps- decreased demarcus L>R Cogwheel Rigidy ULE, increased twitches Gait stooped, mild slowness and decreased arm swing R>L, good stride and gait, more freezing of gait has to tap the foot to initiate motion. Difficulty getting out of chair. General: patient oriented x3 and no focal motor deficits Cranial nerves: Yes CN's II-XII intact bilaterally, Yes Bilaterally intact EOM present, Yes Normal facial strength present, Yes Midline tongue present and Yes Ability to bilaterally rotate head present Cognition (Neuro): normal cognition Motor exam (neuro): 5/5 motor strength present throughout, Normal motor muscle tone present throughout and Tremors during motor activity present Coordination: [id number] test normal Psych Appearance: grossly normal Speech and movement: Other speech and movement exam findings present (Psych) (Bradykinesia) Affect: Blunted affect present Attitude: cooperative Thought process: Normal thought process present Thought content: Normal thought content present Insight: Good insight present (Psych) Judgement: Good judgement present (Psych) Results Reviewed Results Reviewed: labs reviewed with pt. Assessment & Plan Assessment & Plan (1) Excessive daytime sleepiness: Code(s): G47.19 - Other hypersomnia Category: Medical (2) Loud snoring: Code(s): R06.83 - Snoring Category: Medical (3) Parkinson's disease without dyskinesia: Code(s): G20.A1 - Parkinson's disease without dyskinesia, without mention of fluctuations Category: Medical Qualifiers: Fluctuating manifestations: without fluctuating manifestations Qualified Code(s): G20.A1 - Parkinson's disease without dyskinesia, without mention of fluctuations (4) Memory change: Code(s): R41.3 - Other amnesia Category: Medical (5) Anxiety, generalized: Code(s): F41.1 - Generalized anxiety disorder Category: Medical (6) RLS (restless legs syndrome): Code(s): G25.81 - Restless legs syndrome Category: Medical Plan Continue carbidopa/levodopa 25/100 3tablets qam and 3 tablets qpm, with crackers and or a snack and water or juice, not to be consumed with protiens as the receptors will bind to the proteins in the mucuosal gut lining and prevent absorption of medication. Discussed Rytary, Vylev or duopa pumps, or apomorphine, pt declined today. Continue to stay active and exercise daily. Info on local support groups given for Parkinson's [employer]- declines. RLS / spasms /twitches Continue gabapentin 200mg qam and 900mg qhs Insomnia Excessive daytime sleepiness will taper off of trazadone and start mirtazapine or seroquel to induce sleep. psg to r/o TIM and plmd of sleep Continue on ropinirole ER 2 mg qhs will taper to 1mg po qhs as pt is interested in decreasing this medication will write a rx for Nidra for RLS. Memory discontinued Cerofolin 1 tablet daily by mouth brain health supplement, ineffective. f/u with psychologist / therapist for irritable mood. Continue doing puzzles and engaging in social circles f/u in 3 months Orders: Orders RT PSG in-lab sleep study Today G47.19 - Other hypersomnia, R06.83 - Snoring Medications: New [Nidra tonic motion] As directed 2 ea 0RF Periodic Limb movements of sleep and RLS G25.81 - Restless legs syndrome Coding Level of Care Code Est Pt Level 4 (25751) Diagnoses Excessive daytime sleepiness G47.19 Loud snoring R06.83 Parkinson's disease without dyskinesia or fluctuating manifestations G20.A1 Fluctuating manifestations: without fluctuating manifestations Memory change R41.3 Anxiety, generalized F41.1 RLS (restless legs syndrome) G25.81
[2025-10-31 09:07] VITALS: BP 118/78; PULSE 53; O2SAT 95; BMI 30.6
== END 2025-10-31 10:07 | disposition home or self-care (01) ==
LOC: HO.HSMS 08:56
PROVIDERS: PCP Internal Medicine; Visit Provider Physician Assistant Medical
DX: G47.19 Other hypersomnia (principal); R06.83 Snoring; G20.A1 Parkinson's disease without dyskinesia, without mention of fluctuations; R41.3 Other amnesia; F41.1 Generalized anxiety disorder; G25.81 Restless legs syndrome
CPT/HCPCS: 99214